=== PATIENT | male | born 2000 | race Caucasian/White ===

== ENCOUNTER 2022-08-05 13:01 | Emergency (ER) | payer MEDICAID ==
[~2022-08-05] VITALS: Ht 172.7 cm; Wt 49.8 kg
[~2022-08-05 13:01] MED LIST: AMPHET/DEXTR; ARIP10TA10 PO; ARIP5TAB12 PO; BUPR-42 PO; BUPR100T6 PO; CLN.1T PO; CLON0.1T14 PO; CLON1TAB PO; DEXT10TA24; DEXT10TA9 PO; FAMO20TA45 PO; GUAN1TAB14 PO; GUAN3TAB PO; GUAN4TAB2 PO; HYDR-3781; LISD40CA3; LISD40CA3 PO; LISD60CA PO; LISD70CA3 PO; MELA1TAB PO; MUPI22OI2; NF-AMPE5T PO; ONDA8TAB6 PO; OXCA150T3 PO; PRAZ1CAP2 PO; RISP4TAB PO; RNT150T PO; SERT-413; SULF-222; TRAZ-144 PO; TRAZ150T42 PO; TRZ50T; TRZ50T PO
[2022-08-05] MEDS ORDERED: AUGMENTIN 875 MG TAB (AMOXICILLIN/CLAVULANATE) PO ONE (13:30)
--- NOTE | 2022-08-05 13:35 | ED Integumentary General ---
General Chief Complaint: Bite-Animal/Human/Insect Stated Complaint: DOG BITE ON LIP Nursing Triage Note: PT AMB TO FT2 WITH MOTHER. PT APPEARS VERY LETHARGIC AND QUIET. PTS MOTHER STATES THAT HE WAS BIT ON THE LOWER LIP BY A PITBULL 2 DAYS AGO AT THE [facility]. Source: patient Exam Limitations: no limitations History of Present Illness Date Seen by Provider: August 05, 2022 Time Seen by Provider: 13:15 Initial Comments 22-year-old male presents to the ER for a dog bite to his left lower lip. He reports it occurred 2 nights ago. The dog belongs to a friend of his, states that the dog is not up-to-date on his rabies vaccination. Left lower lip is swollen with some purulent drainage from wound. Patient appears extremely fatigued, states he feels okay, states he barely slept last night. Denies any drug or alcohol use. Denies fevers, abdominal pain, nausea, diarrhea. Reports 1 episode of vomiting today. Unsure of his last tetanus shot. Allergies and Home Medications Allergies Coded Allergies: Sulfa (Sulfonamide Antibiotics) (Unverified Allergy, Unknown, PT HASN'T HAD, BUT MOM SEVERELY ALLERGIC, 11/01/13) Patient Home Medication List Home Medication List Reviewed: Yes Amoxicillin/Potassium Clav (Amox Tr-K Clv 875-125 mg Tab) 875 Mg-125 Mg Tablet, 1 EACH PO BID Prescribed by: Malinda Aggarwal on 08/05/22 1425 Aripiprazole (Abilify) 10 Mg Tablet, 5 MG PO BID, (Reported) Entered as Reported by: RADHA JARRETT on 12/18/14 0840 Bupropion HCl (Wellbutrin) 100 Mg Tablet, 100 MG PO DAILY, (Reported) Entered as Reported by: TIERRA BERMAN on 07/01/15 1425 Dextroamphetamine/Amphetamine (Adderall 10 mg Tablet) 10 Mg Tablet, 10 MG PO DAILY, (Reported) Entered as Reported by: TIERRA BERMAN on 07/01/15 1425 Dextroamphetamine/Amphetamine (Amphetamine Salts 10 mg Tablet) 10 Mg Tablet, (Reported) Entered as Reported by: SUNITA STEIN on 07/15/15 1126 Famotidine (Pepcid AC) 20 Mg Tablet, 20 MG PO BID, (Reported) Entered as Reported by: TIERRA BERMAN on 07/01/15 1425 Guanfacine HCl (Intuniv) 3 Mg Tab.er.24h, 3 MG PO DAILY, (Reported) Entered as Reported by: TIERRA BERMAN on 07/01/15 142 Hydroxyzine Pamoate (Hydroxyzine Pamoate) 25 Mg Capsule, (Reported) Entered as Reported by: SUNITA STEIN on 12/14/15 1600 Lisdexamfetamine Dimesylate (Vyvanse) 40 Mg Capsule, 40 MG PO DAILY, (Reported) Entered as Reported by: TIERRA BERMAN on 07/01/15 142 Mupirocin (Mupirocin) 22 Gm Oint...g., (Reported) Entered as Reported by: SUNITA STEIN on 12/14/15 1600 Sertraline HCl (Sertraline HCl) 50 Mg Tablet, (Reported) Entered as Reported by: SUNITA STEIN on 12/14/15 1600 Sulfamethoxazole/Trimethoprim (Sulfamethoxazole-Tmp Ds Tablet) 1 Each Tablet, (Reported) Entered as Reported by: SUNITA STEIN on 12/14/15 1600 Tramadol HCl (Tramadol HCl) 50 Mg Tablet, 50 MG PO Q4H PRN for PAIN Prescribed by: Malinda Aggarwal on 08/06/22 1501 Trazodone HCl (Trazodone HCl) 50 Mg Tablet, 25 MG PO HS, (Reported) Entered as Reported by: TIERRA BERMAN on 07/01/15 142 Review of Systems Review of Systems Constitutional: see HPI Past Zffbysy-Lhfzgl-Bxpcph Hx Patient Social History Tobacco Use?: Yes Use of E-Cig and/or Vaping dev: Yes E-Cig or Vaping type used: Nicotine Substance use?: No Alcohol Use?: No Immunizations Up To Date PED Vaccines UTD: Yes Past Medical History Reproductive Disorders: No Loss of Vision: Denies Hearing Impairment: Denies ADD/ADHD, Bipolar Family Medical History Cancer Physical Exam Vital Signs Vital Signs - First Documented 08/05/22 08/05/22 13:12 14:31 Temp 36.4 Pulse 79 Resp 18 B/P (MAP) 94/62 (73) Pulse Ox 100 O2 Delivery Room Air Capillary Refill : General Appearance: no apparent distress, thin Neck: supple, normal inspection Cardiovascular: regular rate, rhythm Respiratory: lungs clear, normal breath sounds, no respiratory distress, no accessory muscle use Extremities: normal range of motion, normal inspection Neurologic/Psychiatric: normal mood/affect, other (Fatigued, but easily arousable) Skin: normal color, warm/dry Skin Problem Location: face (Left lower lip) Skin Problem Character: drainage (Purulent drainage from puncture wound), swelling, other (Erythema, left lower lip is swollen) Progress/Results/Core Measures Results/Orders My Orders Orders - MALINDA AGGARWAL APRN Amoxicillin/Clavulanate Tablet (Augmenti (08/05/22 13:30) Dipht,Pertuss(Acell),Tet Adult (Boostrix (08/05/22 13:30) Medications Given in ED Vital Signs/I&O 08/05/22 08/05/22 13:12 14:31 Temp 36.4 Pulse 79 89 Resp 18 B/P (MAP) 94/62 (73) 122/68 Pulse Ox 100 100 O2 Delivery Room Air Room Air Blood Pressure Mean: 73 Progress Progress Note : Progress Note Patient seen and evaluated, resting in recliner, appears fatigued, easily arousable. First dose of Augmentin ordered as well as tetanus vaccination. Nursing staff called animal control to go to the apartment where the dog is located to possibly quarantine dog. Animal control took dog for quarantine. They will contact patient if he requires rabies vaccination. Patient refused tetanus shot, states he is afraid of needles. Will discharge with antibiotic for Augmentin. Discharge instructions and return precautions provided. Departure Impression Primary Impression: Dog bite Disposition: 01 HOME, SELF-CARE Condition: Stable Departure-Patient Inst. Decision time for Depature: 14:24 Referrals: [facility] (PCP/Family) Primary Care Physician Patient Instructions: Animal Bites (DC) Add. Discharge Instructions: Complete full course of antibiotic as directed even if symptoms improve. The dog has been placed in quarantine, animal control will contact you if you require the rabies vaccination. Return for fevers, increasing swelling, increasing redness, or any other new, concerning, or worsening symptoms. All discharge instructions reviewed with patient and/or family. Voiced understanding. Scripts Amoxicillin/Potassium Clav (Amox Tr-K Clv 875-125 mg Tab) 875 Mg-125 Mg Tablet 1 EACH PO BID for 10 Days, #20 TAB 0 Refills Prov: MALINDA AGGARWAL APRN 08/05/22 MALINDA AGGARWAL APRN August 05, 2022 13:35
[2022-08-05] MEDS: TETANUS,DIPTH,PERTUSS P/F (BOOSTRIX) 0.5 ML VIAL IM ONE ×2 (13:57→14:02)
[2022-08-05] MEDS ORDERED: AMOX1TAB12 PO (14:25)
[2022-08-05 14:31] VITALS: BP 122/68
[2022-08-06] MEDS ORDERED: TRM50T PO (15:00)
== END 2022-08-05 14:31 | disposition home or self-care (01) ==
LOC: EDUNIT# 13:01 → ER 13:04
DX: S01.551A Open bite of lip, initial encounter (principal); F17.290 Nicotine dependence, other tobacco product, uncomplicated; Z88.0 Allergy status to penicillin; Z88.2 Allergy status to sulfonamides; W54.0XXA Bitten by dog, initial encounter
CPT/HCPCS: 90715; 99283

== ENCOUNTER 2022-08-06 14:06 | Emergency (ER) | payer MEDICAID ==
[~2022-08-06] VITALS: Ht 167.7 cm; Wt 49.0 kg
[~2022-08-06 14:06] MED LIST changes: +AMOX1TAB12 PO
--- NOTE | 2022-08-06 14:56 | ED Integumentary General ---
General Chief Complaint: Facial Problems Stated Complaint: SWOLLEN LIP/DOG BITE Nursing Triage Note: PT AMBULATE TO ROOM FT2 WITHOUT DIFFICULTY WITH C/O LEFT LOWER LIP SWELLING AFTER A DOG BIT X3 DAYS AGO. PT SEEN IN THIS ED YESTERDAY FOR SAME C/O AND STARTED ON ABX. PT REFUSED TETANUS SHOT AT THAT TIME. PT REPORTS PAIN AND LIP IS STILL SWOLLEN. PT AND PT'S MOTHER ARE REQUESTING THAT THE WOUND BE DRAINED TO REDUCE SWELLING. Source: patient, family Exam Limitations: no limitations History of Present Illness Date Seen by Provider: August 06, 2022 Time Seen by Provider: 14:28 Initial Comments 22-year-old male presents to the ER with a infected dog bite to left lower lip. Patient was seen yesterday for the same thing, and started on antibiotic. He reports he is back because of the pain and he wants it drained. States he has had a lot of difficulty sleeping due to pain. Denies fevers. He has taken 2 doses of the prescription he was prescribed yesterday. Patient's mother informed this provider that patient was actually given an antibiotic 2 days ago by [facility], she is uncertain how many doses of that he took. Allergies and Home Medications Allergies Coded Allergies: Sulfa (Sulfonamide Antibiotics) (Unverified Allergy, Unknown, PT HASN'T HAD, BUT MOM SEVERELY ALLERGIC, 11/01/13) Patient Home Medication List Home Medication List Reviewed: Yes Amoxicillin/Potassium Clav (Amox Tr-K Clv 875-125 mg Tab) 875 Mg-125 Mg Tablet, 1 EACH PO BID Prescribed by: Malinda Aggarwal on 08/05/22 1425 Aripiprazole (Abilify) 10 Mg Tablet, 5 MG PO BID, (Reported) Entered as Reported by: RADHA JARRETT on 12/18/14 0840 Bupropion HCl (Wellbutrin) 100 Mg Tablet, 100 MG PO DAILY, (Reported) Entered as Reported by: TIERRA BERMAN on 07/01/15 1425 Dextroamphetamine/Amphetamine (Adderall 10 mg Tablet) 10 Mg Tablet, 10 MG PO DAILY, (Reported) Entered as Reported by: TIERRA BERMAN on 07/01/15 1425 Dextroamphetamine/Amphetamine (Amphetamine Salts 10 mg Tablet) 10 Mg Tablet, (Reported) Entered as Reported by: SUNITA STEIN on 07/15/15 1126 Famotidine (Pepcid AC) 20 Mg Tablet, 20 MG PO BID, (Reported) Entered as Reported by: TIERRA BERMAN on 07/01/15 142 Guanfacine HCl (Intuniv) 3 Mg Tab.er.24h, 3 MG PO DAILY, (Reported) Entered as Reported by: TIERRA BERMAN on 07/01/15 142 Hydroxyzine Pamoate (Hydroxyzine Pamoate) 25 Mg Capsule, (Reported) Entered as Reported by: SUNITA STEIN on 12/14/15 1600 Lisdexamfetamine Dimesylate (Vyvanse) 40 Mg Capsule, 40 MG PO DAILY, (Reported) Entered as Reported by: TIERRA BERMAN on 07/01/15 142 Mupirocin (Mupirocin) 22 Gm Oint...g., (Reported) Entered as Reported by: SUNITA STEIN on 12/14/15 1600 Sertraline HCl (Sertraline HCl) 50 Mg Tablet, (Reported) Entered as Reported by: SUNITA STEIN on 12/14/15 1600 Sulfamethoxazole/Trimethoprim (Sulfamethoxazole-Tmp Ds Tablet) 1 Each Tablet, (Reported) Entered as Reported by: SUNITA STEIN on 12/14/15 1600 Trazodone HCl (Trazodone HCl) 50 Mg Tablet, 25 MG PO HS, (Reported) Entered as Reported by: TIERRA BERMAN on 07/01/15 142 Review of Systems Review of Systems Constitutional: see HPI Past Qxgmvow-Nivnqx-Qivknx Hx Patient Social History Tobacco Use?: No Smoking Status: Never a Smoker Smokeless Tobacco Frequency: Never a User Use of E-Cig and/or Vaping dev: No Use of E-Cig and/or Vaping Manolo: Never a User Substance use?: No Alcohol Use?: No Pt feels they are or have been: No Immunizations Up To Date PED Vaccines UTD: Yes Past Medical History Reproductive Disorders: No Loss of Vision: Denies Hearing Impairment: Denies ADD/ADHD, Bipolar Family Medical History Cancer Physical Exam Vital Signs Vital Signs - First Documented 08/06/22 14:14 Temp 36.7 Pulse 112 Resp 18 B/P (MAP) 128/65 (86) O2 Delivery Room Air Capillary Refill : Less Than 3 Seconds General Appearance: no apparent distress Neck: supple, normal inspection Cardiovascular: regular rate, rhythm Respiratory: lungs clear, normal breath sounds, no respiratory distress, no accessory muscle use Extremities: normal range of motion, normal inspection Neurologic/Psychiatric: alert, normal mood/affect Skin: normal color, warm/dry Skin Problem Location: face (Left lower lip and chin) Skin Problem Character: swelling (Small puncture wounds, small amount of purulent drainage from puncture wounds, large area of erythema and induration, no area of fluctuation) Progress/Results/Core Measures Results/Orders My Orders Orders - MALINDA AGGARWAL APRN Tramadol Tablet (Ultram Tablet) (08/06/22 15:00) Vital Signs/I&O 08/06/22 14:14 Temp 36.7 Pulse 112 Resp 18 B/P (MAP) 128/65 (86) O2 Delivery Room Air Blood Pressure Mean: 86 Progress Progress Note : Progress Note Patient seen and evaluated, resting comfortably in recliner, appears sleepy, no acute distress. We will give 1 dose of tramadol here and discharged with a corby rt prescription for tramadol. Discharge instructions and return precautions provided. Departure Impression Primary Impression: Dog bite Qualified Codes: W54.0XXD - Bitten by dog, subsequent encounter Disposition: 01 HOME, SELF-CARE Condition: Stable Departure-Patient Inst. Decision time for Depature: 14:55 Referrals: [facility] [place]) Primary Care Physician Patient Instructions: Cellulitis (Skin Infection), Child (DC) Add. Discharge Instructions: Continue taking your antibiotic as prescribed. Take tramadol as needed for pain. Return for fever, or any other new, concerning, or worsening symptoms. All discharge instructions reviewed with patient and/or family. Voiced understanding. Scripts Tramadol HCl (Tramadol HCl) 50 Mg Tablet 50 MG PO Q4H PRN for PAIN, #10 TAB 0 Refills Prov: MALINDA AGGARWAL APRN 08/06/22 MALINDA AGGARWAL APRN August 06, 2022 14:56
[2022-08-06] MEDS ORDERED: TRM50T PO (15:00)
[2022-08-06 15:04] VITALS: BP 126/84
== END 2022-08-06 15:04 | disposition home or self-care (01) ==
LOC: EDUNIT# 14:06 → ER 14:08
DX: S01.5 Open wound of lip and oral cavity (principal); Z28.310 Unvaccinated for COVID-19; W54.0XXD Bitten by dog, subsequent encounter
CPT/HCPCS: 99283

== ENCOUNTER 2022-08-12 09:09 | Emergency (ER) | payer MEDICAID ==
[~2022-08-12 09:09] MED LIST changes: +TRM50T PO
[2022-08-12] MEDS ORDERED: D5W IV STA (09:21)
[2022-08-12] MEDS ORDERED: GENTAMICIN IV STA (09:21)
[2022-08-12] MEDS ORDERED: VANCOMYCIN INJECTION 1,000 MG in NS (IVPB) 250 ML IV ONE (09:30)
[2022-08-12] MEDS ORDERED: ACETAMINOPHEN 500 MG TAB (TYLENOL) PO PRN (09:30)
[2022-08-12] MEDS ORDERED: AMPICILLIN/SULBACTAM INJECTION 1.5 GM in NS (IVPB) 100 ML IV ONE (09:30)
[2022-08-12 09:39] LABS: ALBUMIN 3.6 GM/DL (3.2-4.5); BASOPHILS # (AUTO) 0.2 10^3/uL (0.0-0.1); BASOPHILS % (AUTO) 1 % (0-10); EOSINOPHILS % (AUTO) 0 % (0-10); HEMATOCRIT 40 % (40-54); HEMOGLOBIN 14.7 g/dL (13.3-17.7); LYMPHOCYTES # (AUTO) 0.9 10^3/uL (1.0-4.0); LYMPHOCYTES % (AUTO) 3 % (12-44); MEAN CORPUSCULAR HEMOGLOBIN 30 pg (25-34); MEAN CORPUSCULAR HGB CONC 37 g/dL (32-36); MEAN CORPUSCULAR VOLUME 80 fL (80-99); MEAN PLATELET VOLUME 11.1 fL (9.0-12.2); MONOCYTES # (AUTO) 2.4 10^3/uL (0.0-1.0); MONOCYTES % (AUTO) 7 % (0-12); NEUTROPHILS # (AUTO) 32.9 10^3/uL (1.8-7.8); NEUTROPHILS % (AUTO) 89 % (42-75); PLATELET COUNT 159 10^3/uL (130-400); POTASSIUM 4.8 MMOL/L (3.6-5.0)
[2022-08-12] MEDS: NS IV 1000 ML 1,000 ML IV SCH ×2 (09:39→10:37)
[2022-08-12 09:40] LABS: CALCIUM 9.4 MG/DL (8.5-10.1)
[2022-08-12 09:41] LABS: TOTAL PROTEIN 6.7 GM/DL (6.4-8.2)
[2022-08-12 09:43] LABS: BILIRUBIN,TOTAL 0.8 MG/DL (0.1-1.0)
[2022-08-12 09:45] LABS: CREATININE SERUM 1.02 MG/DL (0.60-1.30)
[2022-08-12 09:46] LABS: INR 1.3 (0.8-1.4); PROTHROMBIN TIME PATIENT 16.4 SEC (12.2-14.7)
--- NOTE | 2022-08-12 09:54 | Diagnostic Imaging Report ---
INDICATION: Chest pain. COMPARISON: No prior examinations are available for comparison. FINDINGS: The heart size, mediastinal configuration, and pulmonary vascularity are within normal limits. There is no pleural effusion, pneumothorax, or pneumonia. The osseous structures are unremarkable. IMPRESSION: No acute cardiopulmonary abnormality. Dictated by: Dictated on workstation # [id number]
--- NOTE | 2022-08-12 10:00 | ED General ---
General Chief Complaint: General Problems/Pain Stated Complaint: RT FOOT PAIN Nursing Triage Note: PT TO ER BY [facility] WITH C/O R FOOT PAIN, SPOTS ON BOTTOM OF BILAT FEET, GENERAL ACHES AND PAINS ALL OVER BODY, RASH ON BILAT HANDS, FEET AND R SIDE OF FACE Source of Information: Patient, EMS, Family Exam Limitations: No Limitations History of Present Illness Date Seen by Provider: Aug 12, 2022 Time Seen by Provider: 09:11 Initial Comments 22-year-old male with past medical history of ADHD and bipolar disorder coming in via EMS due to foot pain. He states his feet have hurt for a couple days. Per his mother, he has been febrile for couple days as well. He has not been around anyone sick that he knows of. He denies any history of IV drug use, and states he is afraid of needles. He denies any unprotected intercourse. He denies any chest pain, shortness of breath, abdominal pain, nausea, vomiting, diarrhea. Does have body aches and general joint pain. Denies any headache or neck stiffness. Of note, he was bitten by a dog on his face about a week or so ago. He has been on amoxicillin he states. Allergies and Home Medications Allergies Coded Allergies: Sulfa (Sulfonamide Antibiotics) (Unverified Allergy, Unknown, PT HASN'T HAD, BUT MOM SEVERELY ALLERGIC, 11/01/13) Patient Home Medication List Home Medication List Reviewed: Yes Amoxicillin/Potassium Clav (Amox Tr-K Clv 875-125 mg Tab) 875 Mg-125 Mg Tablet, 1 EACH PO BID Prescribed by: Malinda Villanueva on 08/05/22 1425 Aripiprazole (Abilify) 10 Mg Tablet, 5 MG PO BID, (Reported) Entered as Reported by: RADHA JARRETT on 12/18/14 0840 Bupropion HCl (Wellbutrin) 100 Mg Tablet, 100 MG PO DAILY, (Reported) Entered as Reported by: TIERRA BERMAN on 07/01/15 1425 Dextroamphetamine/Amphetamine (Adderall 10 mg Tablet) 10 Mg Tablet, 10 MG PO DAILY, (Reported) Entered as Reported by: TIERRA BERMAN on 07/01/15 1425 Dextroamphetamine/Amphetamine (Amphetamine Salts 10 mg Tablet) 10 Mg Tablet, (Reported) Entered as Reported by: SUNITA STEIN on 07/15/15 1126 Famotidine (Pepcid AC) 20 Mg Tablet, 20 MG PO BID, (Reported) Entered as Reported by: TIERRA BERMAN on 07/01/15 142 Guanfacine HCl (Intuniv) 3 Mg Tab.er.24h, 3 MG PO DAILY, (Reported) Entered as Reported by: TIERRA BERMAN on 07/01/15 142 Hydroxyzine Pamoate (Hydroxyzine Pamoate) 25 Mg Capsule, (Reported) Entered as Reported by: SUNITA STEIN on 12/14/15 1600 Lisdexamfetamine Dimesylate (Vyvanse) 40 Mg Capsule, 40 MG PO DAILY, (Reported) Entered as Reported by: TIERRA BERMAN on 07/01/15 142 Mupirocin (Mupirocin) 22 Gm Oint...g., (Reported) Entered as Reported by: SUNITA STEIN on 12/14/15 1600 Sertraline HCl (Sertraline HCl) 50 Mg Tablet, (Reported) Entered as Reported by: SUNITA STEIN on 12/14/15 1600 Sulfamethoxazole/Trimethoprim (Sulfamethoxazole-Tmp Ds Tablet) 1 Each Tablet, (Reported) Entered as Reported by: SUNITA STEIN on 12/14/15 1600 Tramadol HCl (Tramadol HCl) 50 Mg Tablet, 50 MG PO Q4H PRN for PAIN Prescribed by: Malinda Villanueva on 08/06/22 1501 Trazodone HCl (Trazodone HCl) 50 Mg Tablet, 25 MG PO HS, (Reported) Entered as Reported by: TIERRA BERMAN on 07/01/15 1425 Review of Systems Review of Systems Constitutional: chills, fever, malaise EENTM: no symptoms reported Respiratory: no symptoms reported Cardiovascular: no symptoms reported Gastrointestinal: no symptoms reported Genitourinary: no symptoms reported Musculoskeletal: see HPI Skin: rash Psychiatric/Neurological: No Symptoms Reported Hematologic/Lymphatic: No Symptoms Reported Immunological/Allergic: no symptoms reported Past Xrhefnz-Xwfuxs-Kagycp Hx Patient Social History Tobacco Use?: No Use of E-Cig and/or Vaping dev: No Substance use?: No Alcohol Use?: No Pt feels they are or have been: No Immunizations Up To Date PED Vaccines UTD: Yes Past Medical History Surgery/Hospitalization HX: BIPOLAR, ADHD DENTAL SURGERIES Reproductive Disorders: No Loss of Vision: Denies Hearing Impairment: Denies ADD/ADHD, Bipolar Family Medical History Cancer Physical Exam Vital Signs Vital Signs - First Documented 08/12/22 09:12 Temp 37.3 Pulse 110 Resp 20 B/P (MAP) 130/71 (90) Pulse Ox 100 O2 Delivery Room Air Capillary Refill : Height, Weight, BMI Height: 5'3.00" Weight: 90lbs. 0.0oz. 40.185489xm; 17.00 BMI Method:Stated General Appearance: Anxious, Mild Distress, Thin Eyes: Bilateral Eye Normal Inspection HEENT: PERRL/EOMI, Other (Dry tongue) Neck: Full Range of Motion, Normal Inspection, Non Tender, Supple Respiratory: Chest Non Tender, Lungs Clear, Normal Breath Sounds, No Accessory Muscle Use, No Respiratory Distress Cardiovascular: No Edema, Normal Peripheral Pulses, Tachycardia Gastrointestinal: Normal Bowel Sounds, Non Tender, Soft; No Distended, No Guarding Back: Normal Inspection, No CVA Tenderness, No Vertebral Tenderness Extremity: Normal Capillary Refill, Normal Range of Motion, No Calf Tenderness, No Pedal Edema Neurologic/Psychiatric: Alert, Oriented x3, No Motor/Sensory Deficits Skin: Warm/Dry, Rash (Purple macular lesions on his hands and feet that are tender to palpation) Focused Exam Lactate Level 08/12/22 09:20: Lactic Acid Level 4.57*H 08/12/22 12:00: Lactic Acid Level 3.23*H Lactic Acid Level Laboratory Tests Test 08/12/22 09:20 08/12/22 12:00 Lactic Acid Level 4.57 MMOL/L (0.50-2.00) *H 3.23 MMOL/L (0.50-2.00) *H Progress/Results/Core Measures Suspected Sepsis SIRS Temperature: Pulse: 110 Respiratory Rate: 20 Laboratory Tests 08/12/22 09:20: White Blood Count 37.0*H Blood Pressure 130 /71 Mean: 90 08/12/22 09:20: Lactic Acid Level 4.57*H 08/12/22 12:00: Lactic Acid Level 3.23*H Laboratory Tests 08/12/22 09:20: Creatinine 1.02, INR Comment 1.3, Platelet Count 159, Total Bilirubin 0.8 Results/Orders Lab Results Laboratory Tests Test 08/12/22 09:20 08/12/22 09:33 08/12/22 11:20 08/12/22 12:00 Range/Units White Blood Count 37.0 *H 4.3-11.0 10^3/uL Red Blood Count 4.94 4.30-5.52 10^6/uL Hemoglobin 14.7 13.3-17.7 g/dL Hematocrit 40 40-54 % Mean Corpuscular Volume 80 80-99 fL Mean Corpuscular Hemoglobin 30 25-34 pg Mean Corpuscular Hemoglobin Concent 37 H 32-36 g/dL Red Cell Distribution Width 11.9 10.0-14.5 % Platelet Count 159 130-400 10^3/uL Mean Platelet Volume 11.1 9.0-12.2 fL Immature Granulocyte % (Auto) 2 % Neutrophils (%) (Auto) 89 H 42-75 % Lymphocytes (%) (Auto) 3 L 12-44 % Monocytes (%) (Auto) 7 0-12 % Eosinophils (%) (Auto) 0 0-10 % Basophils (%) (Auto) 1 0-10 % Neutrophils # (Auto) 32.9 H 1.8-7.8 10^3/uL Lymphocytes # (Auto) 0.9 L 1.0-4.0 10^3/uL Monocytes # (Auto) 2.4 H 0.0-1.0 10^3/uL Eosinophils # (Auto) 0.0 0.0-0.3 10^3/uL Basophils # (Auto) 0.2 H 0.0-0.1 10^3/uL Immature Granulocyte # (Auto) 0.6 H 0.0-0.1 10^3/uL Neutrophils % (Manual) 85 % Lymphocytes % (Manual) 3 % Monocytes % (Manual) 5 % Band Neutrophils 7 % Blood Morphology Comment NORMAL Erythrocyte Sedimentation Rate 11 0-15 MM/HR Prothrombin Time 16.4 H 12.2-14.7 SEC INR Comment 1.3 0.8-1.4 Activated Partial Thromboplast Time 30 24-35 SEC Sodium Level 126 L 135-145 MMOL/L Potassium Level 4.8 3.6-5.0 MMOL/L Chloride Level 88 L 98-107 MMOL/L Carbon Dioxide Level 25 21-32 MMOL/L Anion Gap 13 5-14 MMOL/L Blood Urea Nitrogen 20 H 7-18 MG/DL Creatinine 1.02 0.60-1.30 MG/DL Estimat Glomerular Filtration Rate 107 BUN/Creatinine Ratio 20 Glucose Level 174 H 70-105 MG/DL Lactic Acid Level 4.57 *H 3.23 *H 0.50-2.00 MMOL/L Calcium Level 9.4 8.5-10.1 MG/DL Corrected Calcium 9.7 8.5-10.1 MG/DL Total Bilirubin 0.8 0.1-1.0 MG/DL Aspartate Amino Transf (AST/SGOT) 46 H 5-34 U/L Alanine Aminotransferase (ALT/SGPT) 33 0-55 U/L Alkaline Phosphatase 110 40-136 U/L Troponin I 0.287 H <0.028 NG/ML C-Reactive Protein High Sensitivity 26.25 H 0.00-0.50 MG/DL B-Type Natriuretic Peptide 283.4 H <100.0 PG/ML Total Protein 6.7 6.4-8.2 GM/DL Albumin 3.6 3.2-4.5 GM/DL Influenza Type A (RT-PCR) Not Detected Not Detecte Influenza Type B (RT-PCR) Not Detected Not Detecte SARS-CoV-2 RNA (RT-PCR) Not Detected Not Detecte Urine Color YELLOW Urine Clarity SL CLOUDY Urine pH 6.0 5-9 Urine Specific [place] >=1.030 1.016-1.022 Urine Protein 2+ H NEGATIVE Urine Glucose (UA) 1+ H NEGATIVE Urine Ketones NEGATIVE NEGATIVE Urine Nitrite NEGATIVE NEGATIVE Urine Bilirubin NEGATIVE NEGATIVE Urine Urobilinogen 1.0 < = 1.0 MG/DL Urine Leukocyte Esterase NEGATIVE NEGATIVE Urine RBC (Auto) 3+ H NEGATIVE Urine RBC 10-25 H /HPF Urine WBC 2-5 /HPF Urine Squamous Epithelial Cells NONE /HPF Urine Crystals PRESENT H /LPF Urine Amorphous Sediment MOD MARIUSZ URATES H /LPF Urine Bacteria FEW H /HPF Urine Casts NONE /LPF Urine Mucus SMALL H /LPF Urine Culture Indicated CULTURE PENDING Urine Opiates Screen NEGATIVE NEGATIVE Urine Oxycodone Screen NEGATIVE NEGATIVE Urine Methadone Screen NEGATIVE NEGATIVE Urine Propoxyphene Screen NEGATIVE NEGATIVE Urine Barbiturates Screen NEGATIVE NEGATIVE Ur Tricyclic Antidepressants Screen NEGATIVE NEGATIVE Urine Phencyclidine Screen NEGATIVE NEGATIVE Urine Amphetamines Screen NEGATIVE NEGATIVE Urine Methamphetamines Screen NEGATIVE NEGATIVE Urine Benzodiazepines Screen NEGATIVE NEGATIVE Urine Cocaine Screen NEGATIVE NEGATIVE Urine Cannabinoids Screen NEGATIVE NEGATIVE My Orders Orders - YSABEL SALGADO MD Cbc With Automated Diff (08/12/22 09:21) Comprehensive Metabolic Panel (08/12/22 09:21) Blood Culture (08/12/22 09:21) Sputum Culture (08/12/22 09:21) Urinalysis (08/12/22 09:21) Urine Culture (08/12/22 09:21) Protime With Inr (08/12/22 09:21) Partial Thromboplastin Time (08/12/22 09:21) Chest 1 View, Ap/Pa Only (08/12/22 09:21) Acetaminophen Tablet (Tylenol Tablet) (08/12/22 09:30) Ed Iv/Invasive Line Start (08/12/22 09:21) Ed Iv/Invasive Line Start (08/12/22 09:21) Ekg Tracing (08/12/22 09:21) Troponin I Nic (08/12/22 09:21) Vital Signs Adult Sepsis Patie Q15M (08/12/22 09:21) O2 (08/12/22 09:21) Remove Rings In Anticipation O (08/12/22 09:21) Lactic Acid Analyzer (08/12/22 09:21) Influenza A And B By Pcr (08/12/22 09:21) Ns Iv 1000 Ml (Sodium Chloride 0.9%) (08/12/22 09:30) Vancomycin Injection (Vancomycin Injecti (08/12/22 09:30) Covid 19 Inhouse Test (08/12/22 09:21) Ampicillin/Sulbactam Injection (Unasyn 1 (08/12/22 09:30) Gentamicin (Adult) Injection (Garamycin (08/12/22 09:21) Bnp [place] (08/12/22 09:21) Hs C Reactive Protein (08/12/22 09:21) Erythrocyte Sedimentation Rate (08/12/22 09:21) Manual Differential (08/12/22 09:20) Ct Head Wo (08/12/22 10:05) Drug Screen Stat (Urine) (08/12/22 10:10) Aspirin Tablet (Aspirin Tablet) (08/12/22 10:30) Ns Iv 1000 Ml (Sodium Chloride 0.9%) (08/12/22 10:28) Medications Given in ED Current Medications Medications Dose Ordered Sig/Ana Route Start Time Stop Time Status Last Admin Dose Admin Acetaminophen 1,000 mg ONCE PRN PO 08/12/22 09:30 08/12/22 09:39 DC 08/12/22 09:39 1,000 MG Ampicillin Sodium/ Sulbactam Sodium 1.5 gm/Sodium Chloride 100 ml @ 200 mls/hr ONCE ONCE IV 08/12/22 09:30 08/12/22 09:59 DC 08/12/22 10:04 200 MLS/HR Aspirin 325 mg ONCE ONCE PO 08/12/22 10:30 08/12/22 10:31 DC 08/12/22 10:37 325 MG Vancomycin HCl 1000 mg/Sodium Chloride 250 ml @ 250 mls/hr ONCE ONCE IV 08/12/22 09:30 08/12/22 10:29 DC 08/12/22 10:37 250 MLS/HR Vital Signs/I&O 08/12/22 08/12/22 09:12 11:40 Temp 37.3 37.3 Pulse 110 100 Resp 20 15 B/P (MAP) 130/71 (90) 102/90 Pulse Ox 100 100 O2 Delivery Room Air Room Air Capillary Refill : Blood Pressure Mean: 90 Progress Note : Progress Note 22-year-old male with above history coming in due to initially foot pain. The patient was tachycardic on presentation and afebrile although subjectively felt warm. His mother states his temperature was up to 105 for the past couple of days. Physical exam for me concerning for likely [place] nodes on his hands and feet which are painful and highly concern for endocarditis given that. An IV was placed and 3 blood cultures were obtained, he was given vancomycin, gentamicin, and Unasyn. He is adamant that he does not use IV drugs. He is very thin, but has been [place] his entire life. Denies any risky behavior for HIV including unprotected intercourse. He does have poor dentition and was recently bitten by dog. He has been on Augmentin for this appropriately. Per his mother, the symptoms started almost 48 hours after being bitten by the dog in his face. He does not have any obvious abscess or infection on his face itself. I do not hear any new murmur. Labs were significant for a leukocytosis up to 37,000, elevated CRP, elevated lactic acid, positive troponin, normal creatinine. CT head with questionable area of changes in his cerebellum. They recommended MRI if continued concern. Endocarditis versus myocarditis at the top of the differential. I contacted our hospitalist, they will not be able to accept the patient given we do not have cardiac surgery or infectious disease available. I contacted [facility] given they have cardiac surgery and infectious disease on-call. I discussed the case with the cardiac surgeon as well as the hospitalist there. Dr. Marin accepted the patient for transfer. We will defer if they want to do an MRI of his brain on their evaluation. ECG Initial ECG Impression Date: Aug 12, 2022 Initial ECG Impression Time: 09:29 Initial ECG Rate: 102 Initial ECG Rhythm: S.Tach Comment Narrow QRS, normal axis, no significant ST changes or T wave abnormality Diagnostic Imaging Diagonstic Imaging: Xray (chest), CT (head) Comments NAME: [facility] REC#: [id number] PT STATUS: REG ER : 2000 PHYSICIAN: YSABEL SALGADO MD ADMIT DATE: 08/12/22/ER Draft Date of Exam:08/12/22 CHEST 1 VIEW, AP/PA ONLY INDICATION: Chest pain. COMPARISON: No prior examinations are available for comparison. FINDINGS: The heart size, mediastinal configuration, and pulmonary vascularity are within normal limits. There is no pleural effusion, pneumothorax, or pneumonia. The osseous structures are unremarkable. IMPRESSION: No acute cardiopulmonary abnormality. Dictated on workstation # [id number] Dict: 08/12/22 0944 Trans: 08/12/22 0953 [id number] Interpreted by: JACQUELYN ENGLE MD Electronically signed by: NAME: [facility] REC#: [id number] PT STATUS: REG ER : 2000 PHYSICIAN: YSABEL SALGADO MD ADMIT DATE: 08/12/22/ER Draft Date of Exam:08/12/22 CT HEAD WO Clinical indication: Patient altered mental status. Concern for endocarditis of possible septic emboli. Exam: Axial CT scan of the brain without IV contrast with coronal and sagittal reformatted images. Auto Exposure Controls were utilized during the CT exam to meet ALARA standards for radiation dose reduction. Comparison: None Findings: There is skull streak artifact obscuring portions of the brainstem, posterior fossa, and portions of the brain and skull base. There is an ill-defined area of low-density involving the right cerebellar hemisphere which is seen on all 3 planes. This area measures grossly 1.5 cm. Unknown if this represents a true parenchymal lesion versus artifact. Otherwise, there is no evidence of acute cerebral infarct, intracranial hemorrhage, or gross mass effect. The brain parenchymal volume appears appropriate for patient's age. There is normal valle-white matter distinction. There is no significant midline shift or herniation. There is no evidence of hydrocephalus. The basal cisterns are unremarkable. The skull, extracranial soft tissue, and orbits are unremarkable. There is minimal mucosal thickening involving both maxillary sinuses and ethmoid sinus. Temporal bones show no significant abnormality. Impression: 1: There is a questionable area of low-density involving right cerebellar hemisphere. Unknown if this represents artifact or a true parenchymal abnormality. MRI of the brain with and without contrast is suggested for further evaluation. 2: Otherwise, unremarkable CT scan of the brain. 3: Mild paranasal sinus disease. Dictated on workstation # [id number] Dict: 08/12/22 1020 Trans: 08/12/22 1028 [id number] Interpreted by: GERALDINE MYERS MD Electronically signed by: Departure Impression Primary Impression: NSTEMI (non-ST elevated myocardial infarction) Additional Impressions: Leukocytosis Qualified Codes: D72.823 - Leukemoid reaction Hyponatremia Suspected endocarditis Disposition: S[facility]-TRM HOSP Condition: Stable Admissions Decision to Admit/Date: Aug 12, 2022 Transfer Transfer Reason: Exceeds level of care (needs ID and CT surgery potentially) Transfer Facility: [facility] Method of Transfer: EMS Departure-Patient Inst. Referrals: [facility] (PCP/Family) Primary Care Physician YSABEL SALGADO MD Aug 12, 2022 10:00
[2022-08-12 10:01] LABS: BAND NEUTROPHILS 7 %; ERYTHROCYTE SEDIMENTATION RATE 11 MM/HR (0-15); LYMPHOCYTES % (MANUAL) 3 %; MONOCYTES % (MANUAL) 5 %; NEUTROPHILS % (MANUAL) 85 %; RBC MORPH NORMAL
[2022-08-12] MEDS ORDERED: NS IV 1000 ML 1,000 ML IV STA (10:28)
--- NOTE | 2022-08-12 10:29 | Diagnostic Imaging Report ---
Clinical indication: Patient altered mental status. Concern for endocarditis of possible septic emboli. Exam: Axial CT scan of the brain without IV contrast with coronal and sagittal reformatted images. Auto Exposure Controls were utilized during the CT exam to meet ALARA standards for radiation dose reduction. Comparison: None Findings: There is skull streak artifact obscuring portions of the brainstem, posterior fossa, and portions of the brain and skull base. There is an ill-defined area of low-density involving the right cerebellar hemisphere which is seen on all 3 planes. This area measures grossly 1.5 cm. Unknown if this represents a true parenchymal lesion versus artifact. Otherwise, there is no evidence of acute cerebral infarct, intracranial hemorrhage, or gross mass effect. The brain parenchymal volume appears appropriate for patient's age. There is normal valle-white matter distinction. There is no significant midline shift or herniation. There is no evidence of hydrocephalus. The basal cisterns are unremarkable. The skull, extracranial soft tissue, and orbits are unremarkable. There is minimal mucosal thickening involving both maxillary sinuses and ethmoid sinus. Temporal bones show no significant abnormality. Impression: 1: There is a questionable area of low-density involving right cerebellar hemisphere. Unknown if this represents artifact or a true parenchymal abnormality. MRI of the brain with and without contrast is suggested for further evaluation. 2: Otherwise, unremarkable CT scan of the brain. 3: Mild paranasal sinus disease. Dictated by: Dictated on workstation # [id number]
[2022-08-12] MEDS ORDERED: ASPIRIN 325 MG (5 GR) TABLET PO ONE (10:30)
[2022-08-12 11:27] LABS: BILIRUBIN,URINE NEGATIVE (NEGATIVE); CLARITY,URINE SL CLOUDY; COLOR,URINE YELLOW; GLUCOSE, URINE (UA) 1+ (NEGATIVE); KETONES,URINE NEGATIVE (NEGATIVE); LEUKOCYTE ESTERASE ,URINE NEGATIVE (NEGATIVE); NITRITE,URINE NEGATIVE (NEGATIVE); PROTEIN,URINE 2+ (NEGATIVE)
[2022-08-12 11:35] LABS: AMORPHOUS SEDIMENT,UR MOD AMOR URATES /LPF; BACTERIA,URINE FEW /HPF
[2022-08-12 11:39] LABS: AMPHETAMINE SCREEN, URINE NEGATIVE (NEGATIVE); BARBITURATE SCREEN URINE NEGATIVE (NEGATIVE); BENZODIAZEPINES SCREEN URINE NEGATIVE (NEGATIVE); CANNABINOID SCREEN, URINE NEGATIVE (NEGATIVE); COCAINE SCREEN URINE NEGATIVE (NEGATIVE); METHADONE STAT NEGATIVE (NEGATIVE); OPIATE SCREEN URINE NEGATIVE (NEGATIVE); OXYCODONE STAT NEGATIVE (NEGATIVE); PROPOXYPHENE STAT NEGATIVE (NEGATIVE); TRICYCLIC ANTIDEPRESSANTS SCRE NEGATIVE (NEGATIVE)
[2022-08-12 11:40] VITALS: BP 102/90
== END 2022-08-12 12:10 ==
LOC: EDUNIT# 09:09 → ER 09:10
DX: I21.4 Non-ST elevation (NSTEMI) myocardial infarction (principal); D72.829 Elevated white blood cell count, unspecified; E87.1 Hypo-osmolality and hyponatremia; K00.7 Teething syndrome; R79.82 Elevated C-reactive protein (CRP); R74.02 Elevation of levels of lactic acid dehydrogenase [LDH]; Z88.2 Allergy status to sulfonamides; Z20.822 Contact with and (suspected) exposure to COVID-19
CPT/HCPCS: 36415; 70450; 71045; 80053; 80306; 81000; 83605; 83880; 84484; 85007; 85027; 85610; 85652; 85730; 86141; 87040; 87077; 87088; 87186; 87636

== ENCOUNTER 2022-08-31 09:30 | Inpatient (IN) | payer MEDICAID ==
[~2022-08-31] VITALS: Ht 165.1 cm; Wt 49.3 kg
[2022-08-31] MEDS ORDERED: ATOR20TA66 PO (11:08)
[2022-08-31] MEDS ORDERED: TRAM50TA3 PO (11:08)
[2022-08-31] MEDS ORDERED: ACET-2267 PO (11:08)
[2022-08-31] MEDS ORDERED: VANC1VIA39 IV (11:08)
[2022-08-31] MEDS ORDERED: OLAN10TA17 SL (11:08)
[2022-08-31] MEDS ORDERED: HYDR50CA3 PO (11:08)
[2022-08-31 13:00] VITALS: BP 92/50
--- NOTE | 2022-08-31 13:24 | PM&R Post Admission Assessment ---
PM&R Date of Visit: Aug 31, 2022 Time of Visit: 13:30 History of Present Illness Chief complaint: Embolic stroke in need of intensive rehab HPI: This is a 22-year-old male who presents from [place] following a lengthy 20-day stay beginning on 09-02 following a dog bite to face. His case became more more complicated when he suffered from bilateral septic emboli and microhemorrhages on MRI of the brain. He had suspicion of bacterial endocarditis but LEONA showed no vegetations. He has small punctate intracranial hemorrhages in the left parietal lobe. He has a history of ADHD and bipolar. Infectious disease did consult and patient remains on vancomycin. Vitamin supplementation is initiated. Prior level of functioning was independent with no use of assistive devices and working but current level of functioning is gait at 50 feet and needs max assist for dressing and toileting. Past Dzklqkc-Goyaoq-Ggueiw Hx Past Med/Social Hx: Reviewed Nursing Past Med/Soc Hx, Reviewed and Corrections made Patient Social History Marrital Status: single Employed/Student: employed Alcohol Use: Denies Use Smoking Status: Never a Smoker Recent Hopitalizations: No Immunizations Up To Date Pediatric: Yes Date of Influenza Vaccine: Dec 12, 2011 Past Medical History Reproductive: No Loss of Vision: Denies Hearing Impairment: Denies Psychosocial: ADD/ADHD, Bipolar Family History Cancer PM&R Allergy/Meds/Data Review Allergies Coded Allergies: Sulfa (Sulfonamide Antibiotics) (Unverified Allergy, Unknown, PT HASN'T HAD, BUT MOM SEVERELY ALLERGIC, 11/01/13) Home Medications Scheduled Atorvastatin Calcium (Atorvastatin Calcium), 20 MG PO HS, (Reported) Hydroxyzine Pamoate (Hydroxyzine Pamoate), 50 MG PO BID, (Reported) Lisdexamfetamine Dimesylate (Vyvanse), 40 MG PO DAILY, (Reported) Olanzapine (Olanzapine Odt), 10 MG SL DAILY, (Reported) Vancomycin HCl (Vancomycin HCl), 1 GM IV Q8H, (Reported) Scheduled PRN Acetaminophen (Tylenol Extra Strength), 500 MG PO Q4H PRN for PAIN-MILD (1-4), (Reported) Tramadol HCl (Tramadol HCl), 50 MG PO Q4H PRN for PAIN-MODERATE (5-7), (Reported) Discontinued Medications Amoxicillin/Potassium Clav (Amox Tr-K Clv 875-125 mg Tab), 1 EACH PO BID Discontinued Reason: Duplicate Order Aripiprazole (Abilify), 5 MG PO BID, (Reported) Discontinued Reason: Duplicate Order Bupropion HCl (Wellbutrin), 100 MG PO DAILY, (Reported) Discontinued Reason: Duplicate Order Dextroamphetamine/Amphetamine (Adderall 10 mg Tablet), 10 MG PO DAILY, (Reported) Discontinued Reason: Duplicate Order Dextroamphetamine/Amphetamine (Amphetamine Salts 10 mg Tablet), (Reported) Discontinued Reason: Duplicate Order Famotidine (Pepcid AC), 20 MG PO BID, (Reported) Discontinued Reason: Duplicate Order Guanfacine HCl (Intuniv), 3 MG PO DAILY, (Reported) Discontinued Reason: Duplicate Order Hydroxyzine Pamoate (Hydroxyzine Pamoate), (Reported) Discontinued Reason: Duplicate Order Mupirocin (Mupirocin), (Reported) Discontinued Reason: Duplicate Order Sertraline HCl (Sertraline HCl), (Reported) Discontinued Reason: Duplicate Order Sulfamethoxazole/Trimethoprim (Sulfamethoxazole-Tmp Ds Tablet), (Reported) Discontinued Reason: Duplicate Order Tramadol HCl (Tramadol HCl), 50 MG PO Q4H PRN for PAIN Discontinued Reason: Duplicate Order Trazodone HCl (Trazodone HCl), 25 MG PO HS, (Reported) Discontinued Reason: Duplicate Order Current Medications Current Medications Reviewed Review of Systems Constitutional: see HPI, dizziness, malaise, weakness EENTM: no symptoms reported Respiratory: no symptoms reported Cardiovascular: no symptoms reported Gastrointestinal: no symptoms reported Genitourinary: no symptoms reported Musculoskeletal: back pain, muscle pain, muscle stiffness, muscle cramps Skin: no symptoms reported Psychiatric/Neurological: Anxiety, Depressed, Emotional Problems, Numbness, Weakness All Other Systems Reviewed Negative Unless Noted: Yes Physical Exam Physical Exam Vital Signs Capillary Refill : Height, Weight, BMI Height: 5'3.00" Weight: 90lbs. 0.0oz. 40.893522iy; 17.00 BMI Method:Stated General Appearance: No Apparent Distress, WD/WN, Chronically ill, Thin, Other (Pale) Eyes: Bilateral Eye Normal Inspection, Bilateral Eye PERRL HEENT: PERRL/EOMI, Normal ENT Inspection, Pharynx Normal Neck: Full Range of Motion, Normal Inspection, Non Tender, Supple, Carotid Bruit Respiratory: Chest Non Tender, Lungs Clear, Normal Breath Sounds, No Accessory Muscle Use, No Respiratory Distress Cardiovascular: Regular Rate, Rhythm, No Edema, No Gallop, No JVD, No Murmur, Normal Peripheral Pulses Gastrointestinal: Normal Bowel Sounds, No Organomegaly, No Pulsatile Mass, Non Tender, Soft Back: Normal Inspection, No CVA Tenderness, No Vertebral Tenderness Extremity: Normal Capillary Refill, Normal Inspection, Normal Range of Motion, Non Tender, No Calf Tenderness, No Pedal Edema Neurologic/Psychiatric: Alert, Oriented x3, Normal Mood/Affect, president & founder II-XII Norm as Tested, Abnormal Gait, Depressed Affect, Motor Weakness ( generalized 3/5 extremities) Skin: Normal Color, Warm/Dry Lymphatic: No Adenopathy PM&R Medical Assessment & Plan REHAB/MEDICAL ASSESSMENT AND PLAN: REHAB IMPAIRMENT GROUP: Embolic stroke ETIOLOGIC DIAGNOSIS: embolic stroke The comorbidities that impact the patients function and/or functional outcome by: bipolar disorder, ADHD, thin body habitus, acute depression situation REHAB PLAN: The patient is being admitted to our comprehensive inpatient rehabilitation facility and can tolerate the intensity of service consisting of at least: 180 minutes of therapy a day, 5 out of 7 days a week Rehab treatment will consist of: PT and OT will focus on regaining function with use of assistive devices in order to increase stamina and increased independence in ADLs The patient/family has a good understanding of our discharge process and will benefit from an interdisciplinary inpatient rehabilitation program. The patient has potential to make improvement and is in need of at least two of the following multidisciplinary therapies including but not limited to physical, o ccupational, speech, and prosthetics and orthotics. Additionally the patient will need services from respiratory, nutritional services, wound care, psychology, etc. (Customize this to each patient). Given the patients complex condition and risk of further medical complications, rehabilitation services cannot be safely or effectively provided at a lower level of care such as a [facility] nursing facility. BARRIERS TO DISCHARGE: emotional problems ESTIMATED LOS: 7 days DISPOSITION: home RELEVANT CHANGES SINCE PREADMISSION SCREENING: I have compared the patients medical and functional status at the time of the preadmission screening and there are: no changes PROGNOSIS: good REHABILITATION GOALS: 1. PT and OT will focus on regaining function with use of assistive devices in order to increase stamina and increased independence in ADLs All the above goals were reviewed with the patient and he/she is in agreement. By signing this document, I acknowledge that I have personally performed a full physical examination on this patient within 24 hours of admission to this inpatient rehabilitation facility and have determined the patient to be able to tolerate the above course of treatment at an intensive level for a reasonable period of time. I will be completing a detailed individualized Plan of Care for this patient by day #4 of the patients stay based upon the Preadmission Screen, the Post-Admission Evaluation, and the therapy evaluations. Admission Dx/Comorbidities: (1) Embolic stroke ICD Codes: I63.9 - Cerebral infarction, unspecified (2) Suspected endocarditis Status: Acute ICD Codes: R09.89 - Other specified symptoms and signs involving the circula tory and respiratory systems (3) Dog bite Status: Acute ICD Codes: W54.0XXA - Bitten by dog, initial encounter Assessment/Plan Assessment and Plan Assess & Plan/Chief Complaint Assessment: 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 Suspected endocarditis although LEONA revealed no vegetations treating empirically Dog bite to face ADHD Bipolar disorder Low BMI of 17 Plan: Vancomycin per ID protocol PT and OT Supportive nursing home meds AURE RUIZ DO Aug 31, 2022 13:23
[2022-08-31] MEDS ORDERED: guaiFENesin/CODEINE (ROBITUSSIN AC) 10ML UDC PO PRN (13:30)
[2022-08-31] MEDS ORDERED: VANCOMYCIN INJECTION 0.1 MG in NS (IVPB) 250 ML IV SCH (13:30)
[2022-08-31] MEDS ORDERED: DOCUSATE SODIUM 100 MG (COLACE) CAP PO PRN (13:30)
[2022-08-31] MEDS ORDERED: FLEET ENEMA ADULT 1 EA BTL PR PRN (13:30)
[2022-08-31] MEDS ORDERED: LACTULOSE SYRUP 10GM/15ML (ENULOSE) 30ML UDC PO PRN (13:30)
[2022-08-31] MEDS ORDERED: MELATONIN 3 MG TABLET PO PRN (13:30)
[2022-08-31] MEDS ORDERED: LOPERAMIDE 2 MG (IMODIUM) TABLET PO PRN (13:30)
[2022-08-31] MEDS ORDERED: BISACODYL 10 MG SUPP (DULCOLAX) PR PRN (13:30)
[2022-08-31] MEDS ORDERED: diphenhydrAMINE 25 MG TAB (BENADRYL) PO PRN (13:30)
[2022-08-31] MEDS ORDERED: ACETAMINOPHEN 325 MG TABLET PO PRN (13:30)
--- OUTSIDE RECORDS SUMMARY | 2022-08-31 13:37 | XMS REPORT | Clinical Summary ---
Author Author [facility] Organization [facility] Address Unknown Phone Unavailable Care Team Providers Care Customer Relations Assistant Name Role Phone PCP Unavailable Allergies Not on File Medications Not on file Active Problems Not on file Social History Date Tobacco Use Types Packs/Day Years Used Smoking Tobacco: Never Assessed Date Recorded Sex and Gender Information Value Sex Assigned at Not on file Gender Identity Not on file Sexual Orientation Not on file Last Filed Vital Signs Not on file Plan of Treatment Health Maintenance Due Date Last Done Comments COVID-19 Vaccine (#1) 2000 Varicella Vaccines (1 of 2001 2 - 2-dose childhood series) HPV Vaccines (1 - Male 2011 2-dose series) MenB Vaccine (Bexsero) (1 2016 of 2) Hepatitis C Screening 2018 DTaP,Tdap,and Td Vaccines 2019 (1 - Tdap) MMR Vaccines-Adult 2019 Influenza Vaccine (Season 11/11/2022 Ended) HIB Vaccines Aged Out No longer eligible based on patient's age to complete this topic IPV Vaccines Aged Out No longer eligible based on patient's age to complete this topic Meningococcal Vaccine Aged Out No longer eligib le based on patient's age to complete this topic Pneumo-Vaccine: At Risk Aged Out No longer elig ible based on patient's age to 6-64 Yrs complete this topic Rotavirus Vaccines Aged Out No longer eligible based on patient's age to complete this topic Results Not on filefrom Last 3 Months
--- OUTSIDE RECORDS SUMMARY | 2022-08-31 13:37 | XMS REPORT ---
Author Author [facility] Address Unknown Phone Unavailable Care Team Providers Care Patient Service Coordinator Name Role Phone ADRY LOZA Unavailable PROBLEMS Type Condition ICD9-CM Code [id number] Code Onset Dates Condition S tatus W/U Status Risk SNOMED Code Notes Problem Other halfway (current) drug therapy Z79.899 confirmed 110589003 Problem Cystic acne L70.0 confirmed 39352278 Problem Tongue abnormality Q38.3 confirmed 6 5848106 Problem Attention deficit hyperactivity disorder (ADHD), combi mary type F90.2 confirmed 892652946 Problem Oppositional defiant disorder F91.3 confirm ed 04966700 Problem Disruptive mood dysregulation disorder F34.81 confirmed 639245908 Problem Unspecified mood [affective] disorder F39 confirmed [id number] ALLERGIES No Known Allergies ENCOUNTERS from 2000 to 2022-07-20 Encounter Location Date Provider Diagnosis [facility] [id number] [place] [address] July, ADRY DAGO Attention deficit hy peractivity disorder (ADHD), combined type F90.2 and Unspecified mood [affective] disorder F39 IMMUNIZATIONS Vaccine Route Administration Date Status hib (history) Unknown 2001 Administered influenza IIV3 (history) Unknown Feb 12, 2009 Adminis tered influenza IIV3 (history) Unknown Apr 02, 2009 Adminis tered influenza IIV3 (history) Unknown Dec 08, 2010 Pending Hib-Hep B Unknown 2000 Administered Hib-Hep B Unknown 2000 Administered PRIVATE MENINGOCOCCAL (MENVEO) Unknown Dec 01, 2016 A dministered hib (history) Unknown 2000 Administered PRIVATE DTAP (INFANRIX) Unknown 2000 Administ ered influenza IIV3 (history) Unknown Dec 18, 2015 Adminis tered PRIVATE GARDASIL 9 (HPV) Unknown Dec 01, 2016 Adminis tered PRIVATE VARICELLA Unknown May 06, 2005 Administered PRIVATE MMR Unknown May 06, 2005 Administered PRIVATE MMR Unknown 2001 Administered PRIVATE HEP B (PEDS/ADOLESCENT, 3-DOSE) Unknown 2000 Administered PRIVATE DTAP (INFANRIX) Unknown May 06, 2005 Administ ered PRIVATE DTAP (INFANRIX) Unknown 2000 Administ ered PRIVATE DTAP (INFANRIX) Unknown 2000 Administ ered PRIVATE DTAP (INFANRIX) Unknown 2000 Administ ered PRIVATE GARDASIL 9 (HPV) IM Intramuscular Mar 02, 2017 Admini stered PRIVATE POLIO (IPV) Unknown 2001 Administered influenza IIV3 (history) Unknown Dec 26, 2012 Pending PRIVATE POLIO (IPV) Unknown May 06, 2005 Administered influenza IIV3 (history) Unknown Dec 05, 2011 Pending PRIVATE HEP A (PEDS/ADOLESCENT-2 DOSE) Unknown May 03, 007 Administered PRIVATE MENINGOCOCCAL (MENACTRA) Unknown Oct 17, 2013 Administered PRIVATE HEP A (PEDS/ADOLESCENT-2 DOSE) Unknown Oct 25, 2 008 Administered PRIVATE TDAP (ADACEL) Unknown Oct 17, 2013 Administer ed FLUMIST QUAD (2-49 YRS)-MEDIMMUNE-2015 NS Nasal Dec 19, 2 015 Administered PRIVATE VARICELLA Unknown May 03, 2006 Administered PRIVATE BEXSERO (MEN B) IM Intramuscular Jan 08, 2018 Adminis tered PRIVATE POLIO (IPV) Unknown 2000 Administered PRIVATE FLULAVAL QUAD 0.5ML (6 MO AND UP) 2019 IM Intramuscular Jan 08, 2018 Administered PRIVATE POLIO (IPV) Unknown 2000 Administered influenza IIV3 (history) Unknown Jan 13, 2014 Adminis tered prevnar pcv 7 (history) Unknown 2000 Administ ered FLUZONE QUAD 3 AND UP 2017 IM Intramuscular Mar 02, 2017 Admi nistered prevnar pcv 7 (history) Unknown 2000 Administ ered prevnar pcv 7 (history) Unknown 2001 Administ ered PRIVATE BEXSERO (MEN B) IM Intramuscular Nov 08, 2017 Adminis sarahi PRIVATE GARDASIL 9 (HPV) IM Intramuscular Nov 08, 2017 Admini clay SOCIAL HISTORY Sex Assigned At : Social History Observation Description Sex Assigned At Unknown Alcohol Screen (Audit-C) Question Answer Notes Did you have a drink containing alcohol in the past year? No Points 0 Interpretation Negative PHQ2 Question Answer Notes In the last 2 weeks, how often have you had little interest or pleasure in doing things? Not at all In the last 2 weeks, how often have you been feeling down, depressed, or hopeless? Not at all Total PHQ2 Score 0 REASON FOR REFERRAL No Information VITAL SIGNS Height 68 in July, Height-cm 172.72 cm July, Weight 108.6 lbs July, Weight-kg 49.26 kg July, Temperature 97.1 degrees Fahrenheit July, Heart Rate 56 bpm July, Respiratory Rate 18 bpm July, Oximetry 99 % July, BMI 16.51 kg/m2 July, Blood pressure systolic 110 mmHg July, Blood pressure diastolic 68 mmHg July, MEDICATIONS Medication SIG (Take, Route, Frequency, Duration) Notes Start Da te End Date Status Vyvanse 40 mg 1 capsule Orally Once a day for 28 days 2022 Active hydrOXYzine Pamoate 50 MG TAKE ONE (1) CAPSULE BY MOFERNANDO H TWICE DAILY NEEDED FOR ANXIETY for 30 Active ZyPREXA Zydis 5 MG 1 tablet on the tongue and a llow to dissolve Orally Once a day for 30 days July, Active PROCEDURES No Information RESULTS No Results REASON FOR VISIT Psychiatric f/u-[facility]AN Bledsoe MEDICAL (GENERAL) HISTORY Type Description Date Medical History ADHD, ODD, and Bipolar Disor janneth - medications managed by Chaya Gutierrez APRN, at [facility] via telemedicine Medical History Underweight Medical History Attention deficit hyperactivity disorder (ADHD), combined type Medical History Oppositional defiant disorder Medical History Non-seasonal allergic rhinitis due to ot her allergic trigger Medical History Chronic fatigue Medical History Constipation, unspecified constipation t ype Surgical History ganglion cyst 3 yoa Surgical History adnoidectomy 12 yoa Surgical History dental surgery 2013 Hospitalization History [facility] II 09/14/2016 Hospitalization History [place] x2 and [facility] x2 Goals Section No Information Health Concerns No Information MEDICAL EQUIPMENT No Information MENTAL STATUS No Information FUNCTIONAL STATUS No Information ASSESSMENTS Encounter Date Diagnosis Assessment Notes Treatment Notes Treatm ent Clinical Notes July, Attention deficit hyperactiv ity disorder (ADHD), combined type (ICD-10 - F90.2) July, Unspecified mood [affective] disorder (ICD-10 - F39) Learning About Mood Disorders material was published July, Other -Patient is inst ructed to take all medications as prescribed and to report to the medication clinic of any side effects/adverse reactions from the medication regimen. -If safety becomes an issue, patient is to call the crisis line at [phone] or . Discussed patient diagnoses, to include treatment options, as well as alternative therapies. Risks vs benefits of pharmacological treatment vs none explained. Patient gives verbal informed consent to continue current medication regimen without change. PLAN OF TREATMENT Medication Medication Name Sig Start Date Stop Date Vyvanse 40 mg 1 capsule Orally Once a day for 28 days July, ZyPREXA Zydis 5 MG 1 tablet on the tongue and a llow to dissolve Orally Once a day for 30 days July, hydrOXYzine Pamoate 50 MG TAKE ONE (1) CAPSULE BY MOUT H TWICE DAILY NEEDED FOR ANXIETY for 30 Treatment Notes Assessment Notes Clinical Notes Unspecified mood [affective] disorder Learning About M ood Disorders material was published Next Appt Details 3 Months Reason: Follow-up Provider Name:SANKET HARRIS, 8 03:00:00 PM, [address] [facility], [id number], [place], [address], Provider Name:ADRY LOZA, 2022-08-23 05 :40:00 PM, [address] [facility], [id number], [place], [address], Provider Name:ENRRIQUE ENRIQUE, 2022-11-03 03:00:00 PM, [address] [facility] [facility], [id number], [place], [address], Follow Up:3 MonthsBH Follow-up Insurance Providers Payer Name Payer Address Payer Phone Insured Name Patient Relati onship to Insured Coverage Start Date Coverage End Date Subscriber Number Group Nu mber [facility] [address] [facility] [address] [phone] Ru Stephens Self - patient is the insured [id number] [facility] [address] [facility] [phone] Ru Stephens Self - patient is the insured [id number]
--- OUTSIDE RECORDS SUMMARY | 2022-08-31 13:37 | XMS REPORT ---
Author Author [facility] Address Unknown Phone Unavailable Care Team Providers Care It Consulting Director Name Role Phone DIVYA DEMARCO Unavailable PROBLEMS Type Condition ICD9-CM Code DGT32-[id number] Code Onset Dates Condition S tatus W/U Status Risk SNOMED Code Notes Problem Other care home (current) drug therapy Z79.899 confirmed 501004847 Problem Cystic acne L70.0 confirmed 25936916 Problem Tongue abnormality Q38.3 confirmed 6 3643837 Problem Attention deficit hyperactivity disorder (ADHD), combi mary type F90.2 confirmed 377391757 Problem Oppositional defiant disorder F91.3 confirm ed 55408949 Problem Disruptive mood dysregulation disorder F34.81 confirmed 125137200 Problem Unspecified mood [affective] disorder F39 confirmed 47935195 ALLERGIES No Known Allergies ENCOUNTERS from 2000 to 2022-07-29 Encounter Location Date Provider Diagnosis [facility] [address] [facility] [id number] [address], [place] [address] Aug, DIVYA DEMARCO Attention deficit hy peractivity disorder (ADHD), combined type F90.2 IMMUNIZATIONS Vaccine Route Administration Date Status PRIVATE POLIO (IPV) Unknown 2001 Administered PRIVATE POLIO (IPV) Unknown 2000 Administered PRIVATE POLIO (IPV) Unknown 2000 Administered PRIVATE MMR Unknown May 06, 2005 Administered influenza IIV3 (history) Unknown Feb 12, 2009 Adminis tered Hib-Hep B Unknown 2000 Administered PRIVATE TDAP (ADACEL) Unknown Oct 17, 2013 Administer ed PRIVATE POLIO (IPV) Unknown May 06, 2005 Administered PRIVATE HEP B (PEDS/ADOLESCENT, 3-DOSE) Unknown 2000 Administered PRIVATE MMR Unknown 2001 Administered PRIVATE DTAP (INFANRIX) Unknown May 06, 2005 Administ ered Hib-Hep B Unknown 2000 Administered prevnar pcv 7 (history) Unknown 2001 Administ ered prevnar pcv 7 (history) Unknown 2000 Administ ered prevnar pcv 7 (history) Unknown 2000 Administ ered PRIVATE HEP A (PEDS/ADOLESCENT-2 DOSE) Unknown Oct 25, 008 Administered PRIVATE HEP A (PEDS/ADOLESCENT-2 DOSE) Unknown May 03 007 Administered PRIVATE VARICELLA Unknown May 03, 2006 Administered PRIVATE VARICELLA Unknown May 06, 2005 Administered PRIVATE DTAP (INFANRIX) Unknown 2000 Administ ered PRIVATE BEXSERO (MEN B) IM Intramuscular Jan 08, 2018 Adminis tered influenza IIV3 (history) Unknown Dec 05, 2011 Pending PRIVATE FLULAVAL QUAD 0.5ML (6 MO AND UP) 2019 IM Intramuscular Jan 08, 2018 Administered PRIVATE MENINGOCOCCAL (MENACTRA) Unknown Oct 17, 2013 Administered PRIVATE GARDASIL 9 (HPV) Unknown Dec 01, 2016 Adminis tered FLUZONE QUAD 3 AND UP 2017 IM Intramuscular Mar 02, 2017 Admi nistered influenza IIV3 (history) Unknown Dec 18, 2015 Adminis tered PRIVATE BEXSERO (MEN B) IM Intramuscular Nov 08, 2017 Adminis tered PRIVATE DTAP (INFANRIX) Unknown 2000 Administ ered PRIVATE MENINGOCOCCAL (MENVEO) Unknown Dec 01, 2016 A dministered PRIVATE DTAP (INFANRIX) Unknown 2000 Administ ered hib (history) Unknown 2000 Administered PRIVATE DTAP (INFANRIX) Unknown 2000 Administ ered hib (history) Unknown 2001 Administered PRIVATE GARDASIL 9 (HPV) IM Intramuscular Mar 02, 2017 Admini stered influenza IIV3 (history) Unknown Dec 26, 2012 Pending FLUMIST QUAD (2-49 YRS)-MEDIMMUNE-2015 NS Nasal Dec 19, 2 015 Administered influenza IIV3 (history) Unknown Dec 08, 2010 Pending influenza IIV3 (history) Unknown Apr 02, 2009 Adminis tered PRIVATE GARDASIL 9 (HPV) IM Intramuscular Nov 08, 2017 Admini stered influenza IIV3 (history) Unknown Jan 13, 2014 Adminis tered SOCIAL HISTORY Sex Assigned At : Social [...] REASON FOR REFERRAL No Information VITAL SIGNS No information MEDICATIONS Medication SIG (Take, Route, Frequency, Duration) [...] Information RESULTS No Results REASON FOR VISIT [facility] 08/18/2020 MEDICAL (GENERAL) HISTORY Type Description Date Medical History ADHD, ODD, and Bipolar Disor janneth - medications managed by Chaya Gutierrez APRN, at [facility] via telemedicine Medical History Underweight Medical History Attention deficit hyperactivity disorder (ADHD), combined type Medical History Oppositional defiant disorder Medical History Non-seasonal allergic rhinitis due to ot her allergic trigger Medical History Chronic fatigue Medical History Constipation, unspecified constipation t ype Surgical History ganglion cyst 3 yoa Surgical History adnoidectomy 12 yoa Surgical History dental surgery 2013 Hospitalization History [facility] II 09/14/2016 Hospitalization History [place] x2 and [facility] x2 Goals Section No Information Health Concerns No Information MEDICAL EQUIPMENT No Information MENTAL STATUS No Information FUNCTIONAL STATUS No Information ASSESSMENTS Encounter Date Diagnosis Assessment Notes Treatment Notes Treatm ent Clinical Notes Aug, Attention deficit hyperactiv ity disorder (ADHD), combined type (ICD-10 - F90.2) PLAN OF TREATMENT Medication Medication Name Sig [...] TWICE DAILY NEEDED FOR ANXIETY for 30 Next Appt Details Provider Name:SANKET Dunne KIMBERLY, 8 03:00:00 PM, [address] [place] [address], [id number], [place], [address], Provider Name:ADRY LOZA, 2022-08-23 05 :40:00 PM, [address] [place] [address], [id number], [place], [address], Provider Name:ENRRIQUE ENRIQUE, 2022-11-03 03:00:00 PM, [address] [place] [address], [id number], [place], [address], Insurance Providers Payer Name Payer Address Payer Phone Insured Name Patient Relati onship to Insured Coverage Start Date Coverage End Date Subscriber Number Group Nu mber [facility] [address] [facility] [phone] Ru Stephens Self - patient is the insured [id number] [facility] [address] [facility] [phone] Ru Stephens L Self - patient is the insured [id number] 3
--- OUTSIDE RECORDS SUMMARY | 2022-08-31 13:37 | XMS REPORT ---
Author Author [facility] Address Unknown Phone Unavailable Care Team Providers Care Press Catcher Name Role Phone GAYE NELSON Unavailable PROBLEMS Type Condition ICD9-CM Code FPD24-TD Code Onset Dates Condition S tatus W/U Status Risk SNOMED Code Notes Problem Other half-way (current) drug therapy Z79.899 confirmed 349142018 Problem Cystic acne L70.0 confirmed 61604422 Problem Tongue abnormality Q38.3 confirmed 6 3224518 Problem Attention deficit hyperactivity disorder (ADHD), combi mary type F90.2 confirmed 147341802 Problem Oppositional defiant disorder F91.3 confirm ed 23287782 Problem Disruptive mood dysregulation disorder F34.81 confirmed 271504812 Problem Unspecified mood [affective] disorder F39 confirmed [id number] ALLERGIES No Known Allergies ENCOUNTERS from 2000 to 2022-07-24 Encounter Location Date Provider Diagnosis [facility] [address] [id number] [address] [place] [address] July, GAYE NELSON Attention deficit hy peractivity disorder (ADHD), combined type F90.2 ; Encounter for annual physical exam Z00.00 ; Disruptive mood dysregulation disorder F34.81 and Unspecified mood [affective] disorder F39 IMMUNIZATIONS Vaccine Route Administration Date Status FLUMIST QUAD (2-49 YRS)-MEDIMMUNE-2015 NS Nasal Dec 19 015 Administered PRIVATE GARDASIL 9 (HPV) IM Intramuscular Nov 08, 2017 Admini stered PRIVATE GARDASIL 9 (HPV) IM Intramuscular Mar 02, 2017 Admini stered influenza IIV3 (history) Unknown Dec 26, 2012 Pending PRIVATE BEXSERO (MEN B) IM Intramuscular Jan 08, 2018 Adminis tered FLUZONE QUAD 3 AND UP 2016 IM Intramuscular Mar 02, 2017 Admi nistered PRIVATE FLULAVAL QUAD 0.5ML (6 MO AND UP) 2019 IM Intramuscular Jan 08, 2018 Administered PRIVATE BEXSERO (MEN B) IM Intramuscular Nov 08, 2017 Adminis tered PRIVATE HEP B (PEDS/ADOLESCENT, 3-DOSE) Unknown 2000 Administered influenza IIV3 (history) Unknown Dec 08, 2010 Pending Hib-Hep B Unknown 2000 Administered PRIVATE MENINGOCOCCAL (MENACTRA) Unknown Oct 17, 2013 Administered prevnar pcv 7 (history) Unknown 2001 Administ ered prevnar pcv 7 (history) Unknown 2000 Administ ered prevnar pcv 7 (history) Unknown 2000 Administ ered PRIVATE HEP A (PEDS/ADOLESCENT-2 DOSE) Unknown Oct 25, 008 Administered PRIVATE HEP A (PEDS/ADOLESCENT-2 DOSE) Unknown May 03, 007 Administered PRIVATE VARICELLA Unknown May 03, 2006 Administered PRIVATE VARICELLA Unknown May 06, 2005 Administered PRIVATE TDAP (ADACEL) Unknown Oct 17, 2013 Administer ed hib (history) Unknown 2001 Administered PRIVATE MMR Unknown May 06, 2005 Administered influenza IIV3 (history) Unknown Feb 12, 2009 Adminis tered PRIVATE MMR Unknown 2001 Administered influenza IIV3 (history) Unknown Apr 02, 2009 Adminis tered PRIVATE DTAP (INFANRIX) Unknown May 06, 2005 Administ ered influenza IIV3 (history) Unknown Dec 05, 2011 Pending PRIVATE DTAP (INFANRIX) Unknown 2000 Administ ered PRIVATE POLIO (IPV) Unknown May 06, 2005 Administered Hib-Hep B Unknown 2000 Administered PRIVATE POLIO (IPV) Unknown 2001 Administered PRIVATE MENINGOCOCCAL (MENVEO) Unknown Dec 01, 2016 A dministered PRIVATE POLIO (IPV) Unknown 2000 Administered hib (history) Unknown 2000 Administered PRIVATE POLIO (IPV) Unknown 2000 Administered influenza IIV3 (history) Unknown Jan 13, 2014 Adminis tered PRIVATE DTAP (INFANRIX) Unknown 2000 Administ ered influenza IIV3 (history) Unknown Dec 18, 2015 Adminis tered PRIVATE GARDASIL 9 (HPV) Unknown Dec 01, 2016 Adminis tered PRIVATE DTAP (INFANRIX) Unknown 2000 Administ mariza PRIVATE DTAP (INFANRIX) Unknown 2000 Administ mariza SOCIAL HISTORY Sex Assigned At : Social [...] in July, Height-cm 172.72 cm July, Weight 107.3 lbs July, Weight-kg 48.67 kg July, Temperature 98.1 degrees Fahrenheit July, Heart Rate 69 bpm July, Respiratory Rate 18 bpm July, Oximetry 99 % July, BMI 16.31 kg/m2 July, Blood pressure systolic 90 mmHg July, Blood pressure diastolic 58 mmHg July, MEDICATIONS Medication SIG (Take, Route, Frequency, Duration) Notes Start Da te End Date Status Vyvanse 40 mg 1 capsule Orally Once a day for 28 days 02 2022 Active hydrOXYzine Pamoate 50 MG TAKE ONE (1) CAPSULE BY MOUT H TWICE DAILY NEEDED FOR ANXIETY for 30 Active ZyPREXA Zydis 5 MG 1 tablet on the tongue and a llow to dissolve Orally Once a day for 30 days July, Active PROCEDURES No Information RESULTS No Results REASON FOR VISIT f/u. PT states that he is here for a CHM. H yamil PHELAN, Ricky DT MEDICAL (GENERAL) HISTORY Type Description Date Medical History ADHD, ODD, and Bipolar Disor janneth - medications managed by Cahya Gutierrez APRN, at [facility] [employer] [facility] via telemedicine Medical History Underweight Medical History Attention deficit hyperactivity disorder (ADHD), combined type Medical History Oppositional defiant disorder Medical History Non-seasonal allergic rhinitis due to ot her allergic trigger Medical History Chronic fatigue Medical History Constipation, unspecified constipation t ype Surgical History ganglion cyst 3 yoa Surgical History adnoidectomy 12 yoa Surgical History dental surgery 2014 Hospitalization History [facility] II 09/14/2016 Hospitalization History [place] x2 and [place] x2 Goals Section No Information Health Concerns No Information MEDICAL EQUIPMENT No Information MENTAL STATUS No Information FUNCTIONAL STATUS No Information ASSESSMENTS Encounter Date Diagnosis Assessment Notes Treatment Notes Treatm ent Clinical Notes July, Attention deficit hyperactiv ity disorder (ADHD), combined type (ICD-10 - F90.2) Continue meds and F/U with [facility]., Attention Deficit Hyperactivity Disorder (ADHD) in Adults: Care Instructions material was published, Attention Deficit Hyperactivity Disorder (ADHD) in Adults: Care In structions material was published July, Encounter for annual physical exam (ICD-10 - Z00 .00) Yearly recheck and prn., Well Visit, Ages 18 to 50: Care Instructions material was published July, Disruptive mood dysregulation disorder ( ICD-10 - F34.81) July, Unspecified mood [affective] disorder (I CD-10 - F39) PLAN OF TREATMENT Medication Medication Name Sig [...] 30 Treatment Notes Assessment Notes Clinical Notes Attention deficit hyperactivity disorder (ADHD), combi mary type Continue meds and F/U with BH., Attention Deficit Hyperactivity Disorder (ADHD) in Adults: Care Instructions material was published, Attention Deficit Hyperactivity Disorder (ADHD) in Adults: Care Instructions material was published Encounter for annual physical exam Yearly recheck and prn., Well Visit, Ages 18 to 50: Care Instructions material was published Next Appt Details 1 Year Reason: Provider Name:SANKET HARRIS, 8 03:00:00 PM, [address] [facility], [id number], [place], [address], Provider Name:ADRY LOZA, 2022-08-23 05 :40:00 PM, [address] [facility], [id number], [place], [address], Provider Name:ENRRIQUE ENRIQUE, 2022-11-03 03:00:00 PM, [address] [facility], [id number], [place], [address], Insurance Providers Payer Name Payer Address Payer Phone Insured Name Patient Relati onship to Insured Coverage Start Date Coverage End Date Subscriber Number Group Nu mber [facility] [address] [facility] [address] [phone] Ru Stephens Self - patient is the insured [id number] [facility] [address] [facility] [address] Ru Stephens Self - patient is the insured [id number] 3
--- OUTSIDE RECORDS SUMMARY | 2022-08-31 13:37 | XMS REPORT | Clinical Summary ---
Author Author [facility] Organization [facility] Address Unknown Phone Unavailable Care Team Providers Care Commercial Lending Relationship Manager Name Role Phone Unknown, Unknown PCP Unavailable Sanford Mojica MD Unavailable Source Comments Some departments are not documenting in the electronic medical record. If you d o not see the information that you expected, contact Release of Information in [facility] Information Management department at [phone] for further assistan ce in locating additional records.[facility] Allergies Comments Active Allergy Reactions Criticality Noted Date Sulfa (Sulfonamide RASH Medium 09/22/2015 Antibiotics) Medications Not on file Active Problems Not on file Social History Date Tobacco Use Types Packs/Day Years Used Smoking Tobacco: Never Assessed Date Recorded Sex and Gender Information Value Sex Assigned at Not on file Gender Identity Not on file Sexual Orientation Not on file Last Filed Vital Signs Not on file Plan of Treatment Health Maintenance Due Date Last Done Comments COVID-19 VACCINE (#1) 2000 HPV VACCINES (1 - Male 2011 2-dose series) HIV SCREENING 2015 DTAP/TDAP VACCINES (1 - 2018 Tdap) HEPATITIS C SCREENING 2018 PHYSICAL (COMPREHENSIVE) 2018 EXAM DEPRESSION SCREENING 03/13/2022 INFLUENZA VACCINE (Season 12/11/2022 Ended) MENINGOCOCCAL VACCINE Aged Out No longer eligib le based on patient's age to (ACWY,Menactra) complete this topic PNEUMOCOCCAL VACCINE 0-64 Aged Out No longer el igible based on patient's age to YRS complete this topic Results Not on filefrom Last 3 Months Insurance Type Payer Benefit Subscriber ID Effective Phone Address Plan / Dates Group Medicaid [facility] MEDICAID [facility] [id number] 2014-P [address] [facility] [address] [place] [phone] Care Teams Start Date End Date Commercial Lending Relationship Manager Relationship Specialty 01/02/15 Unknown, Unknown, MD PCP - General 09/22/15 Sanford Mojica MD Pediatric Cardiology [address] [address]
--- OUTSIDE RECORDS SUMMARY | 2022-08-31 13:37 | XMS REPORT ---
Author Author [facility] Address Unknown Phone Unavailable Care Team Providers Care Events Administrative Assistant Name Role Phone ADRY LOZA Unavailable PROBLEMS Type Condition ICD9-CM Code VCS70-RQ Code Onset Dates Condition S tatus W/U Status Risk SNOMED Code Notes Problem Other mcfp (current) drug therapy Z79.899 confirmed [id number] Problem Cystic acne L70.0 confirmed 16766175 Problem Tongue abnormality Q38.3 confirmed 6 9241471 Problem Attention deficit hyperactivity disorder (ADHD), combi mary type F90.2 confirmed 587456308 Problem Oppositional defiant disorder F91.3 confirm ed 67173340 Problem Disruptive mood dysregulation disorder F34.81 confirmed 704284691 Problem Unspecified mood [affective] disorder F39 confirmed 21153359 ALLERGIES No Known Allergies ENCOUNTERS from 2000 to 2022-08-21 Encounter Location Date Provider Diagnosis [facility] [address] [facility] [id number] [place] [address] Aug, ADRY DAGO Attention deficit hy peractivity disorder (ADHD), combined type F90.2 IMMUNIZATIONS Vaccine Route Administration Date Status PRIVATE MENINGOCOCCAL (MENVEO) Unknown Dec 01, 2016 A dministered hib (history) Unknown 2000 Administered hib (history) Unknown 2001 Administered influenza IIV3 (history) Unknown Feb 12, 2009 Adminis tered PRIVATE TDAP (ADACEL) Unknown Oct 17, 2013 Administer ed PRIVATE MENINGOCOCCAL (MENACTRA) Unknown Oct 17, 2013 Administered Hib-Hep B Unknown 2000 Administered Hib-Hep B Unknown 2000 Administered PRIVATE DTAP (INFANRIX) Unknown 2000 Administ ered influenza IIV3 (history) Unknown Apr 02, 2009 Adminis tered influenza IIV3 (history) Unknown Jan 13, 2014 Adminis tered PRIVATE VARICELLA Unknown May 06, [...] Unknown Dec 18, 2015 Adminis tered PRIVATE POLIO (IPV) Unknown 2001 Administered PRIVATE BEXSERO (MEN B) IM Intramuscular Nov 08, 2017 Adminis tered PRIVATE POLIO (IPV) Unknown May 06, 2005 Administered PRIVATE BEXSERO (MEN B) IM Intramuscular Jan 08, 2018 Adminis tered PRIVATE HEP A (PEDS/ADOLESCENT-2 DOSE) Unknown May 03, 007 Administered FLUZONE QUAD 3 AND UP 2016 IM Intramuscular Mar 02, 2017 Admi nistered PRIVATE HEP A (PEDS/ADOLESCENT-2 DOSE) Unknown Oct 25, 008 Administered PRIVATE FLULAVAL QUAD 0.5ML (6 MO AND UP) 2018 IM Intramuscular Jan 08, 2018 Administered PRIVATE GARDASIL 9 (HPV) Unknown Dec 01, 2016 Adminis tered PRIVATE VARICELLA Unknown May 03, 2006 Administered PRIVATE GARDASIL 9 (HPV) IM Intramuscular Mar 02, 2017 Admini stered PRIVATE POLIO (IPV) Unknown 2000 Administered PRIVATE GARDASIL 9 (HPV) IM Intramuscular Nov 08, 2017 Admini stered PRIVATE POLIO (IPV) Unknown 2000 Administered FLUMIST QUAD (2-49 YRS)-MEDIMMUNE-2015 NS Nasal Dec 19, 2 015 Administered prevnar pcv 7 (history) Unknown 2000 Administ ered prevnar pcv 7 (history) Unknown 2000 Administ ered prevnar pcv 7 (history) Unknown 2001 Administ ered SOCIAL HISTORY Sex Assigned At : Social [...] Notes Start Da te End Date Status hydrOXYzine Pamoate 50 MG TAKE ONE (1) CAPSULE BY MOUT H TWICE DAILY NEEDED FOR ANXIETY for 30 Active Vyvanse 40 mg 1 capsule Orally Once a day for 28 days 2022 Active ZyPREXA Zydis 5 MG 1 tablet on the tongue and a llow to dissolve Orally Once a day for 30 days July, Active Amoxicillin-Pot Clavulanate 875-125 MG 1 tablet Orally every 12 hrs for 7 days July, Active PROCEDURES No Information RESULTS No Results REASON FOR VISIT jesu 09/15/2020 MEDICAL (GENERAL) HISTORY Type Description Date Medical History ADHD, ODD, and Bipolar Disor janneth - medications managed by Chaya Gutierrez APRN, at [facility] via telemedicine Medical History Underweight Medical History Attention deficit hyperactivity disorder (ADHD), combined type Medical History Oppositional defiant disorder Medical History Non-seasonal allergic rhinitis due to ot her allergic trigger Medical History Chronic fatigue Medical History Constipation, unspecified constipation t ype Surgical History ganglion cyst 3 yoa Surgical History adnoidectomy 12 yoa Surgical History dental surgery 2013 Hospitalization History [facility] II 09/14/2016 Hospitalization History [place] x2 and [facility] x2 Goals Section No Information Health Concerns No Information MEDICAL EQUIPMENT No Information MENTAL STATUS No Information FUNCTIONAL STATUS No Information ASSESSMENTS Encounter Date Diagnosis Assessment Notes Treatment Notes Treatm ent Clinical Notes Aug, Attention deficit hyperactiv ity disorder (ADHD), combined type (ICD-10 - F90.2) PLAN OF TREATMENT Medication Medication Name Sig Start Date Stop Date Amoxicillin-Pot Clavulanate 875-125 MG 1 tablet Orally every 12 hrs for 7 days July, Next Appt Details Provider Name:ADRY LOZA, 2022-08-23 05 :40:00 PM, [address] [facility], [id number], [place], [address], Provider Name:ENRRIQUE ENRIQUE, 2022-11-03 03:00:00 PM, [address] [facility], [id number], [place], [address], Insurance Providers Payer Name Payer Address Payer Phone Insured Name Patient Relati onship to Insured Coverage Start Date Coverage End Date Subscriber Number Group Nu mber [facility] [address] [facility] [phone] Ru Stephens Self - patient is the insured [id number] [facility] [address] [facility] [address] Ru Stephens Self - patient is the insured [id number] 3
--- NOTE | 2022-08-31 14:00 | Physical Therapy Evaluation ---
PT Evaluation-General Medical Diagnosis Admission Date Aug 31, 2022 at 13:00 Medical Diagnosis: Acute Toxic Metabolic Encephalopathy Onset Date: Aug 12, 2022 Therapy Diagnosis Therapy Diagnosis: Weakness, Decreased functional mobility Height/Weight Height (Feet): 5 Height (Inches): 3.00 Weight (Pounds): 90 Weight (Ounces): 0.0 Precautions Precautions/Isolations: Fall Prevention, Standard Precautions Weight Bear Status Right Lower Extremity: Right Full Weight Bearing Left Lower Extremity: Left Full Weight Bearing Referral Physician: Isaac Reason for Referral: Evaluation/Treatment Medical History Additional Medical History ADHD; Bipolar; MRSA; AMS; Anxiety; Depression Current History Dog bite to face on 08/03/2022 followed by acute toxic metabolic encephalopathy; admit to ARU on 08/31/2022 Reviewed History: Yes Social History Home: Single Level Current Living Status: Friend Entry Into Home: Stairs Without Railing PT Steps Into Home: 4 lives with his friends in a single story home with 3-4 stairs to enter without HR. Tub shower with no grab bars Prior Prior Level of Function SCALE: Activities may be completed with or without assistive devices. 6-Nhfjuqybsm-bpnatva completes the activity by him/herself with no assistance from a helper. 5-Set-up or Clean-up Assistance-helper sets up or cleans up; patient completes a ctivity. Willard assists only prior to or following the activity. 4-Supervision or Touching Assistance-helper provides verbal cues and/or touching/steadying and/or contact guard assistance as patient completes activity. Assistance may be provided throughout the activity or intermittently. 3-Partial/Moderate Assistance-helper does LESS THAN HALF the effort. Willard lifts, holds or supports trunk or limbs, but provides less than half the effort. 2-Substantial/Maximal Assistance-helper does MORE THAN HALF the effort. Willard lifts or holds trunk or limbs and provides more than half the effort. 8-Jzkhyznom-hpkuyc does ALL the effort. Patient does none of the effort to complete the activity. Or, the assistance of 2 or more helpers is required for the patient to complete the activity. If activity was not attempted, code reason: 7-Patient Refused. 9-Not Applicable-not attempted and the patient did not perform the activity before the current illness, exacerbation or injury. 10-Not Attempted due to Environmental Limitations-(lack of equipment, weather restraints, etc.). 88-Not Attempted due to Medical Conditions or Safety Concerns. Bed Mobility: 6 Transfers (B,C,W/C): 6 Gait: 6 Stairs: 6 Wheelchair Mobility: 9 Indoor Mobility (Ambulation): Independent Stairs: Independent Prior Devices Use: None At [facility], pt was Ind with no AD and working PT Evaluation-Current Subjective Pt is agreeable to PT; denies pain Pain Numeric Pain Scale: 0-No Pain Location: No Pain Reported Section J - Health Conditions 1. Rarely or not at all 2. Occasionally 3. Frequently 4. Almost constantly 8. Unable to answer Pain Effect on Sleep: 1 Pain Interference with Therapy: 1 Pain Interference w/Day-to-Day: 1 Pt/Family Goals Safely return home at [facility] Objective Patient Orientation: Person, Confused, Place ROM/Strength ROM Upper Extremities WFL ROM Lower Extremities WFL Strength Upper Extremities WFL Strength Lower Extremities B LE MMT - 3+/5 grossly Integumentary/Posture Integumentary see nurses note Bowel Incontinence: No Bladder Incontinence: Yes Sensory Vision: Functional (pt reports having glasses, but did not see them in the room ) Hearing: Functional Hand Dominance: Right Sensation Right Upper Extremit: Intact Sensation Left Upper Extremity: Intact Sensation Right Lower Extremit: Intact Sensation Left Lower Extremity: Intact Transfers Roll Left & Right (QC): 3 (Min A) Sit to Lying (QC): 3 (Min A) Lying to Sitting/Side of Bed(Q: 3 (Min A) Sit to Stand (QC): 3 (Min A) Chair/Mid-bu-Ywpam Xfer(QC): 3 (Min A) Toilet Transfer (QC): 3 (Min A) Car Transfer (QC): 3 (Min A) Gait Does the Patient Walk?: Yes Mode of Locomotion: Walk Anticipated Mode of Locomotion: Walk Walk 10 feet (QC): 3 (Min A) Walk 50 ft with 2 Turns(QC): 3 (Min A) Walk 150 ft (QC): 3 (Min A) Walking 10ft/uneven surface-QC: 3 (Min A) Gait Assistive Device: FWW Wheelchair Training Does the Pt Use a Wheelchair?: No Wheel 50 ft with 2 turns (QC): 88 Wheel 150 ft (QC): 88 Type of Wheelchair: N/A Stairs 1 Step (curb) (QC): 3 (Min A) 4 Steps (QC): 3 (Min A) 12 Steps (QC): 3 (Min A) Walking Assistive Device: Walker Balance Sitting Static: Good Sitting Dynamic: Good Standing Static: Fair Standing Dynamic: Fair Picking up an Object (QC): 3 (Min A) Special Test Comments KU standing balance scale = 3/5 (goal = 4/5) Treatment Co-tx with MARES for 10 min for improved safety. Pt is Min A for all aspects of functional mobility, due to decreased cognition, decreased balance, and decreased safety awareness. Assessment/Needs Pt tolerated PT fair and would benefit from skilled PT to progress towards PLOF and safe d/c home Rehab Potential: Good Post Rehab Potential-Barriers: Cognition, safety Equipment Needs TBD PT Prison Goals Prison Goals PT Corporate Travel Coordinator Goals Time Frame: Sep 09, 2022 Roll Left to Right (QC): 6 (Pt will be Mod I to be at PLOF and safe d/c home with family. ) Sit to Lying (QC): 6 (Pt will be Mod I to be at PLOF and safe d/c home with family.) Lying-Sitting on Side/Bed(QC): 6 (Pt will be Mod I to be at PLOF and safe d/c home with family.) Sit to Stand (QC): 6 (Pt will be Mod I to be at PLOF and safe d/c home with family.) Chair/Cys-it-Qufwi Xfer(QC): 6 (Pt will be Mod I to be at PLOF and safe d/c home with family.) Toilet/Commode Transfer (QC): 6 (Pt will be Mod I to be at PLOF and safe d/c home with family.) Car Transfer (QC): 6 (Pt will be Mod I to be at PLOF and safe d/c home with family.) Does the Patient Walk: Yes Walk 10 feet (QC): 6 (Pt will be Mod I to be at PLOF and safe d/c home with family.) Walk 10ft-Uneven Surface(QC): 6 (Pt will be Mod I to be at PLOF and safe d/c home with family.) Walk 50ft with 2 Turns (QC): 6 (Pt will be Mod I to be at PLOF and safe d/c home with family.) Walk 150 ft (QC): 6 (Pt will be Mod I to be at PLOF and safe d/c home with fami ly.) Does the Pt use WC or Scooter?: No Wheel 50 feet with 2 turns (QC: 9 Type: N/A Wheel 150 feet: 9 Type: N/A 1 Step (curb) (QC): 6 (Pt will be Mod I to be at PLOF and safe d/c home with family.) 4 Steps (QC): 6 (Pt will be Mod I to be at PLOF and safe d/c home with family.) 12 Steps (QC): 6 (Pt will be Mod I to be at PLOF and safe d/c home with family.) Picking up an Object (QC): 6 (Pt will be Mod I to be at PLOF and safe d/c home with family.) KU standing balance scale goal = 4/5 PT Plan Problem List Problem List: Activity Tolerance, Functional Strength, Safety, Balance, Gait, Transfer, Bed Mobility Treatment/Plan Treatment Plan: Continue Plan of Care Treatment Plan: Bed Mobility, Concurrent Therapy, Education, Functional Activity Lana, Functional Strength, Group Therapy, Gait, Safety, Therapeutic Exercise, Transfers Treatment Duration: Sep 09, 2022 Frequency: At least 5 of 7 days/Wk (IRF) Estimated Hrs Per Day: 1.5 hours per day Patient and/or Family Agrees t: Yes Safety Risks/Education Patient Education: Gait Training, Transfer Techniques, Steps, Safety Issues Teaching Recipient: Patient Teaching Methods: Demonstration, Discussion Response to Teaching: Reinforcement Needed Discharge Recommendations Therapy Discharge Recommendati: Home & Family Discharge Status/Home Program Cont per POC Barriers to Progress Cognition; strength; endurance Target Placement home with family Time Time In: 1325 Time Out: 1350 DATE: Aug 31, 2022 Total Billed Treatment Time: 25 Total Billed Treatment 25 min ([id number]) EVM for 15 min from [id number] co-tx for 10 min from [id number] GT x 1 SUNITA BRAGG PT Aug 31, 2022 14:00
--- NOTE | 2022-08-31 14:05 | Occupational Therapy Eval ---
OT Evaluation-General/PLF Medical Diagnosis Admission Date Aug 31, 2022 at 13:00 Medical Diagnosis: acute toxic metabolic encephalopathy Onset Date: Aug 12, 2022 Therapy Diagnosis Therapy Diagnosis: asistance w/ ADLS, weakness, instablity w/ gait Height/Weight Height (Feet): 5 Height (Inches): 3.00 Weight (Pounds): 90 Weight (Ounces): 0.0 Precautions Precautions/Isolations: Fall Prevention, Standard Precautions Medical History Additional Medical History bilateral septic emboli with microhemorrhages, small puncture ECH, staph, Anxiety , depression, ADHD, PSH Current History Initially present to ER at [facility] w/ c/o R foot pain, general pain with spotty rash. Family at ER provided information of bite bite that had gone untreated. Further assessment lead to admission at [facility]. Diagnostics reveal commodities of Right MCA/CVA/ICH, subacute infarctions,, tachycardia, Weight loss since recent hospitalization, moans, groans and slurs when communicating. Perseverances on cereal and going home, Multiple LOB, general weakness, confusion, poor spatial awareness Reviewed History: Yes Social History Home: Single Level Current Living Status: Friend Entry Into Home: Stairs Without Railing Steps Into Home: 3 Steps Inside Home: 0 Lived w/ friends [place]LOF at [place] will live with parents ADL-Prior Level of Function SCALE: Activities may be completed with or without assistive devices. 3-Cweehvofuw-pmzikdm completes the activity by him/herself with no assistance from a helper. 5-Set-up or Clean-up Assistance-helper sets up or cleans up; patient completes activity. [place] assists only prior to or following the activity. 4-Supervision or Touching Assistance-helper provides verbal cues and/or touching/steadying and/or contact guard assistance as patient completes activity. Assistance may be provided throughout the activity or intermittently. 3-Partial/Moderate Assistance-helper does LESS THAN HALF the effort. [place] lifts, holds or supports trunk or limbs, but provides less than half the effort. 2-Substantial/Maximal Assistance-helper does MORE THAN HALF the effort. [place] lifts or holds trunk or limbs and provides more than half the effort. 5-Yjvryucgj-wxbbbl does ALL the effort. Patient does none of the effort to complete the activity. Or, the assistance of 2 or more helpers is required for the patient to complete the activity. If activity was not attempted, code reason: 7-Patient Refused. 9-Not Applicable-not attempted and the patient did not perform the activity before the current illness, exacerbation or injury. 10-Not Attempted due to Environmental Limitations-(lack of equipment, weather restraints, etc.). 88-Not Attempted due to Medical Conditions or Safety Concerns. ADL PLOF Comments Independent w/ all ADLs, patient reports driving. Self Care: Independent Functional Cognition: Independent OT Current Status Subjective Patient transferred from [facility] on OT arrival patent sidelying on right side in position. Easily aroused however requires moderate encouragement to participate w/ therapy. Mumbles answers to questions in soft volume Pain Numeric Pain Scale: 1 (patient does not expand further details) Mental Status/Objective Patient Orientation: Person (spells last name when asked), Confused, Place ([place]), Mumbles Current Upper Extremity ROM Patient does not follow direct commands to asses ROM, observed throughout session WFLS Upper Extremity Coordination FMC IMPAIRED, GMC IMPAIRED Sitting Balance Good, Standing balance Fair. 1/3 trails to activate long handle bath tester to retrieve box of KLEENEX from floor while standing. In silting is able to forward flex and order picker/assembler menu off floor. Required intermittent hand over hand placement on FWW during ambulation and ambulation w/o FWW spontaneously. Patient pulls and tugs at Velcro disposable brief but does not manage fastener tabs Upper Extremity Sensation unable to fully access d/t cognition Upper Extremity Strength observed +3/5 grossly ADL-Treatment Eating (QC): 5 Oral Hygiene (QC): 4 Shower/Bathe Self (QC): 3 Upper Body Dressing (QC): 3 Lower Body Dressing (QC): 3 On/Off Footwear (QC): 2 Toileting Hygiene (QC): 3 Education OT Patient Education: Correct positioning, Modified ADL techniques, Progress toward Goal/Update tx plan, Purpose of tx/functional activities, Reviewed precautions, Rehab process, Safety issues, Transfer techniques, Use of adapted equipment Teaching Recipient: Patient Teaching Methods: Demonstration, Discussion Response to Teaching: Reinforcement Needed BIMS CAM BIMS Expression of Ideas and Wants: Difficulty Understanding Verbal Content: Usually Understands Brief Interview/Mental Status: Yes IRF TYE BIMS: IRF TYE BIMS Response (Comments) Value Repitition of Three Words None 0 Recalls Socks No, Could Not Recall 0 Recalls Blue No, Could Not Recall 0 Recalls Bed No, Could Not Recall 0 Year Missed by 5 Yrs/No Answer 0 Month Missed by 1 Mo/No Answer 0 Day Incorrect or No Answer 0 Total 0 Patient Normally Able to Recal: None of the above Should Staff Asses. Mental St.: Yes CAM Mental Status Change/Baseline: 1 Inattention: 2 Disorganized thinkin Altered level of consciousness: 2 OT Short Term Goals Short Term Goals Eatin Oral hygiene: 5 Upper body dressin OT Boiler Maker Goals Custodial Goals Eating (QC): 6 Oral Hygiene (QC): 6 Toileting Hygiene (QC): 6 Shower/Bathe Self (QC): 5 Upper Body Dressing (QC): 6 Lower Body Dressing (QC): 6 On/Off Footwear (QC): 6 1=Demonstrate adherence to instructed precautions during ADL tasks. 2=Patient will verbalize/demonstrate understanding of assistive devices/modifications for ADL. 3=Patient will improve strength/tolerance for activity to enable patient to perform ADL's. OT Education/Plan Problem List/Assessment Assessment: Decreased Activ Tolerance, Decreased Safety Aware, Decreased UE Strength, Impaired Bed Mobility, Impaired Cognition, Impaired Coordination, Impaired Funct Balance, Impaired Self-Care Skills Discharge Recommendations Plan/Recommendations: Continue POC Treatment Plan/Plan of Care Treatment,Training & Education: Yes Patient would benefit from OT for education, treatment and training to promote independence in ADL's, mobility, safety and/or upper extremity function for ADL's. Plan of Care: ADL Retraining, Cognitive Retraining, Concurrent Therapy, Functional Mobility, Group Exercise/Act as Ind, UE Funct Exercise/Act, UE Neuromus Re-Ed/Coord Treatment Duration: Sep 30, 2022 Frequency: At least 5 of 7 days/Wk (IRF) Estimated Hrs Per Day: 1.5 hours per day Agreement: Yes Rehab Potential: Good Time Start Time: 13:10 Stop Time: 13:25 DATE: Aug 31, 2022 Total Time Billed (hr/min): 15 Billed Treatment Time EV 15 min OMARI LANDEROS OT Aug 31, 2022 14:05
--- NOTE | 2022-08-31 15:09 | Occupational Ther Daily Note ---
OT Current Status-Daily Note Subjective Took over care from OT. PT/OT co-treat ([id number]), skills of 2 clinicians required to decrease fall risk, increase overall mobility, increase activity tolerance due to pt needing increased encouragement and motivation to participate in skilled therapy. PT focusing on mobility, transfers and ambulation while OT focusing on ADLs, functional mobility and increasing activity tolerance. Pt kept on vocalizing that he just wanted to go home and go to bed. Mental Status/Objective Patient Orientation: Person, Place, Time, Situation ADL-Treatment Set up for eating. Set up and CGA for oral care standing at sink. Pt requires encouragement and cues to participate in sponge bath, only completing one step then requires encouragement. Assist to thread feet into pants then CGA while hiking pants over hips, max A. Mod A for UBD. Dependent for footwear. Pt demonstrates need for mod A for toileting. After therapy, pt lying in bed with call light/phone in reach. All needs met in room. Therapy Code Descriptions/Definitions Functional Rich Measure: 0=Not Assessed/NA 4=Minimal Assistance 1=Total Assistance 5=Supervision or Setup 2=Maximal Assistance 6=Modified Rich 3=Moderate Assistance 7=Complete IndependenceSCALE: Activities may be completed with or without assistive devices. 1-Azuhavcjgs-ezzldjn completes the activity by him/herself with no assistance from a helper. 5-Set-up or Clean-up Assistance-helper sets up or cleans up; patient completes activity. [place] assists only prior to or following the activity. 4-Supervision or Touching Assistance-helper provides verbal cues and/or touching/steadying and/or contact guard assistance as patient completes activity. Assistance may be provided throughout the activity or intermittently. 3-Partial/Moderate Assistance-helper does LESS THAN HALF the effort. [place] lifts, holds or supports trunk or limbs, but provides less than half the effort. 2-Substantial/Maximal Assistance-helper does MORE THAN HALF the effort. [place] lifts or holds trunk or limbs and provides more than half the effort. 5-Bdydkgpbu-lywjfp does ALL the effort. Patient does none of the effort to complete the activity. Or, the assistance of 2 or more helpers is required for the patient to complete the activity. If activity was not attempted, code reason: 7-Patient Refused. 9-Not Applicable-not attempted and the patient did not perform the activity before the current illness, exacerbation or injury. 10-Not Attempted due to Environmental Limitations-(lack of equipment, weather restraints, etc.). 88-Not Attempted due to Medical Conditions or Safety Concerns. OT Short Term Goals Short Term Goals Eatin Oral hygiene: 5 Upper body dressin OT Appraiser [employer] Goals Senior Care Goals Acute change in mental status: 1 Inattention: 2 Disorganized thinkin Altered level of consciousness: 2 Eating (QC): 6 Oral Hygiene (QC): 6 Toileting Hygiene (QC): 6 Shower/Bathe Self (QC): 5 Upper Body Dressing (QC): 6 Lower Body Dressing (QC): 6 On/Off Footwear (QC): 6 1=Demonstrate adherence to instructed precautions during ADL tasks. 2=Patient will verbalize/demonstrate understanding of assistive devices/modifications for ADL. 3=Patient will improve strength/tolerance for activity to enable patient to perform ADL's. OT Education/Plan Problem List/Assessment Assessment: Decreased Activ Tolerance, Decreased Safety Aware, Decreased UE Strength, Impaired Cognition, Impaired Funct Balance, Impaired I ADL's, Impaired Self-Care Skills Discharge Recommendations Plan/Recommendations: Continue POC Treatment Plan/Plan of Care Patient would benefit from OT for education, treatment and training to promote independence in ADL's, mobility, safety and/or upper extremity function for ADL's. Plan of Care: ADL Retraining, Cognitive Retraining, Concurrent Therapy, Functional Mobility, Group Exercise/Act as Ind, UE Funct Exercise/Act, UE Brandan romus Re-Ed/Coord Treatment Duration: Sep 30, 2022 Frequency: At least 5 of 7 days/Wk (IRF) Estimated Hrs Per Day: 1.5 hours per day Agreement: Yes Rehab Potential: Good Time Start Time: 13:40 Stop Time: 15:00 DATE: Aug 31, 2022 Total Time Billed (hr/min): 80 Billed Treatment Time 1 visit-ADL 42 (30 min) FA 3 (50 min) co-treat with PT [id number], cotreat with MEN'S LOCKER ROOM ATTENDANT [id number] RICHARD MCINTOSH Aug 31, 2022 15:09
--- NOTE | 2022-08-31 15:49 | Physical Therapy Daily Note ---
PT Daily Note-Current Subjective PACKAGE DRIER takes over tx from PT. Pt agrees to PT/OT co-treat. PT/OT co-treat (1350- 1500), skills of 2 clinicians required to decrease fall risk, increase overall mobility, increase activity tolerance due to pt needing increased encouragement and motivation to participate in skilled therapy. PT focusing on mobility, gonzales sfers and ambulation while OT focusing on ADLs, functional mobility and increasing activity tolerance. Pt kept on vocalizing that he just wanted to go home and go to bed. Pain Section J - Health Conditions 1. Rarely or not at all 2. Occasionally 3. Frequently 4. Almost constantly 8. Unable to answer Pain Effect on Sleep: 1 Pain Interference with Therapy: 1 Pain Interference w/Day-to-Day: 1 Mental Status Patient Orientation: Person, Confused Transfers SCALE: Activities may be completed with or without assistive devices. 9-Dnmlcdivtq-vwkobaj completes the activity by him/herself with no assistance from a helper. 5-Set-up or Clean-up Assistance-helper sets up or cleans up; patient completes activity. [place] assists only prior to or following the activity. 4-Supervision or Touching Assistance-helper provides verbal cues and/or touching/steadying and/or contact guard assistance as patient completes activity. Assistance may be provided throughout the activity or intermittently. 3-Partial/Moderate Assistance-helper does LESS THAN HALF the effort. [place] lifts, holds or supports trunk or limbs, but provides less than half the effort. 2-Substantial/Maximal Assistance-helper does MORE THAN HALF the effort. [place] lifts or holds trunk or limbs and provides more than half the effort. 0-Tppecjmbf-dilqsf does ALL the effort. Patient does none of the effort to complete the activity. Or, the assistance of 2 or more helpers is required for the patient to complete the activity. If activity was not attempted, code reason: 7-Patient Refused. 9-Not Applicable-not attempted and the patient did not perform the activity before the current illness, exacerbation or injury. 10-Not Attempted due to Environmental Limitations-(lack of equipment, weather restraints, etc.). 88-Not Attempted due to Medical Conditions or Safety Concerns. Sit to Stand (QC): 3 Weight Bearing Right Lower Extremity: Right Full Weight Bearing Left Lower Extremity: Left Full Weight Bearing Gait Training Does the Patient Walk?: Yes Distance: 10' x2 Walk 10 feet (QC): 4 Gait Assistive Device: Handheld Assist Wheelchair Training Does the Pt Use a Wheelchair?: No Treatments Set up for eating. Set up and CGA for oral care standing at sink. Pt requires encouragement and cues to participate in sponge bath, only completing one step then requires encouragement. Assist to thread feet into pants then CGA while hiking pants over hips, max A. Mod A for UBD. Dependent for footwear. Pt demonstrates need for mod A for toileting. After therapy, pt lying in bed with call light/phone in reach. All needs met in room. Assessment Current Status: Poor Progress Pt was resistive to therapy, stating "I want to go to bed & I want to home". PT Mcc Goals Mcc Goals PT Etcher Printed Circuit Boards Goals Time Frame: Sep 09, 2022 Roll Left & Right (QC): 6 (Pt will be Mod I to be at PLOF and safe d/c home with family. ) Sit to Lying (QC): 6 (Pt will be Mod I to be at PLOF and safe d/c home with family.) Lying-Sitting on Side/Bed(QC): 6 (Pt will be Mod I to be at PLOF and safe d/c home with family.) Sit to Stand (QC): 6 (Pt will be Mod I to be at PLOF and safe d/c home with family.) Chair/Oib-hp-Qamvn Xfer(QC): 6 (Pt will be Mod I to be at PLOF and safe d/c home with family.) Toilet Transfer (QC): 6 (Pt will be Mod I to be at PLOF and safe d/c home with family.) Car Transfer (QC): 6 (Pt will be Mod I to be at PLOF and safe d/c home with family.) Does the Patient Walk: Yes Walk 10 feet (QC): 6 (Pt will be Mod I to be at PLOF and safe d/c home with family.) Walk 50ft with 2 Turns (QC): 6 (Pt will be Mod I to be at PLOF and safe d/c home with family.) Walk 150 ft (QC): 6 (Pt will be Mod I to be at PLOF and safe d/c home with family.) Walking 10ft on Uneven Surface: 6 (Pt will be Mod I to be at PLOF and safe d/c home with family.) 1 Step (curb) (QC): 6 (Pt will be Mod I to be at PLOF and safe d/c home with family.) 4 Steps (QC): 6 (Pt will be Mod I to be at PLOF and safe d/c home with family.) 12 Steps (QC): 6 (Pt will be Mod I to be at PLOF and safe d/c home with family.) Picking up an Object (QC): 6 (Pt will be Mod I to be at PLOF and safe d/c home with family.) Does the Pt use WC or Scooter?: No Wheel 50 feet with 2 turns (QC: 9 Type: N/A Wheel 150 feet: 9 Type: N/A PT Plan Problem List Problem List: Activity Tolerance, Functional Strength, Safety, Balance, Gait, Transfer Treatment/Plan Treatment Plan: Continue Plan of Care Treatment Plan: Bed Mobility, Concurrent Therapy, Education, Functional Activity Lana, Functional Strength, Group Therapy, Gait, Safety, Therapeutic Exercise, Transfers Treatment Duration: Sep 09, 2022 Frequency: At least 5 of 7 days/Wk (IRF) Estimated Hrs Per Day: 1.5 hours per day Patient and/or Family Agrees t: Yes Time Time In: 1350 Time Out: 1500 DATE: Aug 31, 2022 Total Billed Treatment Time: 70 Total Billed Treatment 1, FA x5 (70m) VITALY MARQUEZ PACKAGE DRIER Aug 31, 2022 15:49
[2022-08-31] MEDS: VANCOMYCIN INJECTION 1,000 MG in NS (IVPB) 250 ML IV SCH (17:01)
[2022-08-31 19:26] VITALS: BP 116/62
[2022-08-31] MEDS: polyethylene glycoL POWDER 17 GM (MIRALAX) PACK PO SCH (20:16)
[2022-08-31] MEDS: hydrOXYzine (VISTARIL/ATARAX) 25 MG capsule/tablet PO SCH (20:16)
[2022-08-31] MEDS: SENNA W/DOCUSATE (SENOKOT S) TABLET PO SCH (20:17)
[2022-08-31] MEDS: DOCUSATE SODIUM 100 MG (COLACE) CAP PO SCH (20:17)
[2022-09-01] MEDS: VANCOMYCIN INJECTION 1,000 MG in NS (IVPB) 250 ML IV SCH ×3 (02:13→17:24)
--- NOTE | 2022-09-01 05:40 | Individualized Plan of Care ---
Individualized Plan of Care Rehab Nursing IPOC Order Admission Date Aug 31, 2022 at 13:00 Current Orders Orders Admission Arrival Bed Request (08/31/22 13:12) Admission Order(Inpt,Obs,Sdc) (08/31/22 13:24) Vital Signs: Per Unit Policy ( 08,16,00 (08/31/22 13:24) Greg Kay (08/31/22 13:24) Sequential Compression Device (08/31/22 13:24) Tray Packer-Inpt Rehab Con (08/31/22 13:24) Rehab Nursing Orders-Ipoc (08/31/22 13:24) Physical Therapy Rehab Orders (08/31/22 13:24) Occupational Therapy Rehab Ord (08/31/22 13:24) Speech Therapy Rehab Orders (08/31/22 13:24) Cbc With Automated Diff (09/01/22 06:00) Comprehensive Metabolic Panel (09/01/22 06:00) Precautions (Aru) (08/31/22 13:24) Weekly Weight WEEK (08/31/22 13:24) Rehab-Intensity Of Therapy (08/31/22 13:24) Initiate Admission Nursing Pro .admission (08/31/22 13:24) Alprazolam Tablet (Xanax Tablet) (08/31/22 13:30) Calcium Carbonate Chew Tablet (Antacid C (08/31/22 13:30) Diphenhydramine Tablet (Benadryl Tablet) (08/31/22 13:30) Docusate Sodium Capsule (Colace Capsule) (08/31/22 21:00) Docusate Sodium Capsule (Colace Capsule) (08/31/22 13:30) Bisacodyl Suppository (Dulcolax Supposit (08/31/22 13:30) Lactulose Oral Solution (Enulose Oral So (08/31/22 13:30) Na Phos/Na Biphos Enema (Fleet Enema David (08/31/22 13:30) Guaifenesin/Codeine Syrup (Robitussin Ac (08/31/22 13:30) Loperamide Tablet (Imodium Tablet) (08/31/22 13:30) Melatonin Tablet (Melatonin Tablet) (08/31/22 13:30) Polyethylene Glycol Powder Pkt (Miralax (08/31/22 21:00) Ondansetron Oral Dissolve Tab (Zofran (08/31/22 13:30) Senna S Tablet (Senokot S Tablet) (08/31/22 21:00) Acetaminophen Tablet/Caplet (Tylenol T (08/31/22 13:30) Initiate Admission Nursing Pro .admission (08/31/22 13:24) Atorvastatin Tablet (Lipitor Tablet) (08/31/22 21:00) Hydroxyzine Cap/Tab (Vistaril) (08/31/22 21:00) (Nf) Lisdexamfetamine Dimesylate (Vyvans (09/01/22 09:00) Olanzapine Orally Dissolve Tab (Zyprexa (09/01/22 09:00) Vancomycin Injection (Vancomycin Injecti (08/31/22 18:00) Vancomycin Injection (Vancomycin Injecti (08/31/22 13:30) Tramadol Tablet (Ultram Tablet) (08/31/22 13:45) General/Regular (08/31/22 Lunch) Trough Order (Trough Order-Pharmacy Orde (09/02/22 09:00) Vancomycin,Trough (09/02/22 09:00) Dietary Consult (08/31/22 16:50) Ensure Plus Chocolate (09/01/22 09:05) Patient Visit (08/31/22 ) Pt Eval Moderate Complexity (08/31/22 ) Gait Training, Ea 15 Min (08/31/22 ) Patient Visit (08/31/22 ) Functional Activities, Ea 15 (08/31/22 ) Hydroxyzine Cap/Tab (Vistaril) (09/01/22 12:30) Patient Visit (09/01/22 ) Gait Training, Ea 15 Min (09/01/22 ) Functional Activities, Ea 15 (09/01/22 ) Rehab Nursing Orders: Ongoing Assess. of Cognitive Status, Ongoing Assess. of Function Status, Bladder Management, Bladder Scan, Bladder Training, Bowel Management, Bowel Training, Disease Management & Educaiton, DVT Prophylaxis, Fall Prevention, Fluid/Electrolyte/Nutrition Mgmt, Infection Prevention, Medication Management & Education, Management of Risks & Complications, Management of Skin Intergrity, Nutrition Management, Pain Management, Patient/Family Support, Safety Management, Wound Management Intensity of Therapy to be met Patient to be seen: Min.3h per day/5 of 7d PT IPOC Problem List: Activity Tolerance, Functional Strength, Safety, Balance, Gait, Transfer Treatment Plan: Continue Plan of Care Bed Mobility, Concurrent Therapy, Education, Functional Activity Lana, Functional Strength, Group Therapy, Gait, Safety, Therapeutic Exercise, Transfers Treatment Duration: Sep 09, 2022 Frequency: At least 5 of 7 days/Wk (IRF) Estimated Hrs Per Day: 1.5 hours per day OT IPOC Problems: Decreased Activ Tolerance, Decreased Safety Aware, Decreased UE Strength, Impaired Cognition, Impaired Funct Balance, Impaired I ADL's, Impaired Self-Care Skills OT Treatment, Training and Edu: Yes Plan of Care: ADL Retraining, Cognitive Retraining, Concurrent Therapy, Functional Mobility, Group Exercise/Act as Ind, UE Funct Exercise/Act, UE Neuromus Re-Ed/Coord Treatment Duration: Sep 30, 2022 Frequency: At least 5 of 7 days/Wk (IRF) Estimated Hrs Per Day: 1.[address] IPOC Speech Therapy Treatment Plan: Continue Plan of Care Treatment Duration: Sep 01, 2022 Frequency: Modified Program (IRF) Estimated Hrs Per Day: Other Tray Packer/Case Mgmt Tray Packer/Case Managemen: Discharge Planning Dietitian/Oven Builder Dietitian/Oven Builder to monitor nutritional status and make changes and/or recommendations as needed and work with speech pathology on dietary upgrades as the occur. 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 Medical Issues: Bowel/Bladder Function, DVT Prophylaxis, Falls Precautions, Fluid/Electrolyte/Nutrition Balance, Infection Protection, Pain Management Brief Synthesis of Preadmission Screen, Post-Admission Evaluation, and Therapy Evaluations: PT and OT will focus on regaining function with use of assistive devices in order to increase ambulation and increase independence in ADLs in order to return home with mother Medical Prognosis: Good Anticipated Length of Stay: 10 days AURE RUIZ DO Sep 01, 2022 05:40
--- NOTE | 2022-09-01 05:40 | PM&R Progress Note ---
Subjective HPI/CC On Admission Date Seen by Provider: Sep 01, 2022 Time Seen by Provider: 12:00 Subjective/Events-last exam 09/01/2022: Patient sleeping all the time We will hold Zyprexa since that could be sedating Patient appears to be very thin He will try to participate more in therapy Review of Systems General: Fatigue, Malaise Objective Exam Vital Signs Vital Signs Date Time Temp Pulse Resp B/P (MAP) Pulse Ox O2 Delivery O2 Flow Rate FiO2 09/01/22 20:32 Room Air 09/01/22 19:22 37.0 72 18 108/60 (76) 100 Capillary Refill : General Appearance: No Apparent Distress, WD/WN, Chronically ill, Thin, Other (Pale) HEENT: PERRL/EOMI, Normal ENT Inspection, Pharynx Normal Neck: Full Range of Motion, Normal Inspection, Non Tender, Supple, Carotid Bruit Respiratory: Chest Non Tender, Lungs Clear, Normal Breath Sounds, No Accessory Muscle Use, No Respiratory Distress Cardiovascular: Regular Rate, Rhythm, No Edema, No Gallop, No JVD, No Murmur, Normal Peripheral Pulses Gastrointestinal: Normal Bowel Sounds, No Organomegaly, No Pulsatile Mass, Non Tender, Soft Back: Normal Inspection, No CVA Tenderness, No Vertebral Tenderness Extremity: Normal Capillary Refill, Normal Inspection, Normal Range of Motion, Non Tender, No Calf Tenderness, No Pedal Edema Neurologic/Psychiatric: Alert, Oriented x3, Normal Mood/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 FIM Transfers Therapy Code Descriptions/Definitions Functional [place] Measure: 0=Not Assessed/NA 4=Minimal Assistance 1=Total Assistance 5=Supervision or Setup 2=Maximal Assistance 6=Modified [place] 3=Moderate Assistance 7=Complete IndependenceSCALE: Activities may be completed with or without assistive devices. 3-Isuducjqcv-okrabaz completes the activity by him/herself with no assistance from a helper. 5-Set-up or Clean-up Assistance-helper sets up or cleans up; patient completes activity. [place] assists only prior to or following the activity. 4-Supervision or Touching Assistance-helper provides verbal cues and/or touching/steadying and/or contact guard assistance as patient completes activ ity. Assistance may be provided throughout the activity or intermittently. 3-Partial/Moderate Assistance-helper does LESS THAN HALF the effort. [place] lifts, holds or supports trunk or limbs, but provides less than half the effort. 2-Substantial/Maximal Assistance-helper does MORE THAN HALF the effort. [place] lifts or holds trunk or limbs and provides more than half the effort. 8-Rwonnntnx-yxdvln does ALL the effort. Patient does none of the effort to complete the activity. Or, the assistance of 2 or more helpers is required for the patient to complete the activity. If activity was not attempted, code reason: 7-Patient Refused. 9-Not Applicable-not attempted and the patient did not perform the activity before the current illness, exacerbation or injury. 10-Not Attempted due to Environmental Limitations-(lack of equipment, weather restraints, etc.). 88-Not Attempted due to Medical Conditions or Safety Concerns. Roll Left to Right (QC): 3 (Min A) Sit to Lying (QC): 3 (Min A) Sit to Stand (QC): 3 Chair/Bbg-ru-Eqkjc Xfer(QC): 3 (Min A) Car Transfer (QC): 3 (Min A) Gait Training Does the Patient Walk?: Yes Distance: 10' x2 Walk 10 feet (QC): 4 Walk 50 ft with 2 Turns(QC): 3 (Min A) Walk 150 ft (QC): 3 (Min A) Walking 10ft/uneven surface-QC: 3 (Min A) Gait Assistive Device: Handheld Assist Wheelchair Training Does the Pt Use a Wheelchair?: No Wheel 50 ft with 2 turns (QC): 88 Wheel 150 ft (QC): 88 Type of Wheelchair: N/A Stair Training 1 Step (curb) (QC): 3 (Min A) 4 Steps (QC): 3 (Min A) 12 Steps (QC): 3 (Min A) Balance Picking up an Object (QC): 3 (Min A) ADL-Treatment Eating (QC): 5 Oral Hygiene (QC): 4 Shower/Bathe Self (QC): 3 Upper Body Dressing (QC): 3 Lower Body Dressing (QC): 3 On/Off Footwear (QC): 2 Toileting Hygiene (QC): 3 Assessment/Plan Assessment and Plan Assess & Plan/Chief Complaint Assessment: 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 Suspected endocarditis although [place]ONA revealed no vegetations treating empirically Dog bite to face ADHD Bipolar disorder Low BMI of 17 Plan: Vancomycin per ID protocol PT and OT Supportive nursing home meds 09/01/2022: Supportive care Monitor closely (1) Embolic stroke (2) Suspected endocarditis Status: Acute (3) Dog bite Status: Acute AURE RIUZ DO Sep 01, 2022 05:40
[2022-09-01 06:11] LABS: BASOPHILS # (AUTO) 0.1 10^3/uL (0.0-0.1); BASOPHILS % (AUTO) 1 % (0-10); EOSINOPHILS # (AUTO) 0.3 10^3/uL (0.0-0.3); EOSINOPHILS % (AUTO) 3 % (0-10); HEMATOCRIT 31 % (40-54); HEMOGLOBIN 10.2 g/dL (13.3-17.7); LYMPHOCYTES # (AUTO) 1.6 10^3/uL (1.0-4.0); LYMPHOCYTES % (AUTO) 15 % (12-44); MEAN CORPUSCULAR HEMOGLOBIN 28 pg (25-34); MEAN CORPUSCULAR HGB CONC 33 g/dL (32-36); MEAN CORPUSCULAR VOLUME 87 fL (80-99); MEAN PLATELET VOLUME 9.2 fL (9.0-12.2); MONOCYTES % (AUTO) 9 % (0-12); NEUTROPHILS % (AUTO) 72 % (42-75); PLATELET COUNT 271 10^3/uL (130-400); WHITE BLOOD COUNT 11.1 10^3/uL (4.3-11.0)
[2022-09-01 06:13] LABS: ALBUMIN 3.1 GM/DL (3.2-4.5)
[2022-09-01 06:14] LABS: POTASSIUM 4.5 MMOL/L (3.6-5.0)
[2022-09-01 06:15] LABS: CALCIUM 9.2 MG/DL (8.5-10.1)
[2022-09-01 06:18] LABS: BILIRUBIN,TOTAL 0.2 MG/DL (0.1-1.0)
[2022-09-01 06:19] LABS: CREATININE SERUM 0.75 MG/DL (0.60-1.30)
[2022-09-01 08:00] VITALS: BP 106/57
[2022-09-01] MEDS: polyethylene glycoL POWDER 17 GM (MIRALAX) PACK PO SCH ×2 (08:15→19:48)
[2022-09-01] MEDS: hydrOXYzine (VISTARIL/ATARAX) 25 MG capsule/tablet PO SCH (08:15)
[2022-09-01] MEDS: DOCUSATE SODIUM 100 MG (COLACE) CAP PO SCH ×2 (08:15→19:48)
[2022-09-01] MEDS: SENNA W/DOCUSATE (SENOKOT S) TABLET PO SCH ×2 (08:15→19:48)
[2022-09-01] MEDS ORDERED: OLANZapine 5 MG ODT (ZyPREXA ZYDIS) SL SCH (09:00)
--- NOTE | 2022-09-01 09:08 | Occupational Ther Daily Note ---
OT Current Status-Daily Note Subjective Pt alert, lying in bed. Pt requires max encouragement to participate in OT session. No c/o pain. Mental Status/Objective Patient Orientation: Person, Unable to Assess Attachments: IV ADL-Treatment Pt required max encouragement to agree to shower. Pt requires set up for meal. Pt requires max encouragement to get OOB and move. Pt incontinent of urine. Hand hold assist to ambulate to bathroom. Pt sat to doff lower body clothing. Pt require physical assist to alternate lifting each leg and hold for pt to doff socks. Pt making keening sound when completing this. Pt then would not stand up to get into shower, MARES attempted to encourage pt to step into shower, pt continued to not move. MARES then began shower while pt was sitting on BSC outside of shower, pt decided to stand and step into shower with CGA for safety. Pt required verbal cues and physical assistance to thoroughly cleanse body after attempts made by pt. MARES donned socks and threaded lower body clothing over feet. Pt stood and hiked pants over hips with CGA. Pt reached to floor to grab pants then pull up with CGA. Mod A for UBD. Pt then ambulated to recliner and fell asleep immediately. Call light/phone in reach. All needs met. Therapy Code Descriptions/Definitions Functional [place] Measure: 0=Not Assessed/NA 4=Minimal Assistance 1=Total Assistance 5=Supervision or Setup 2=Maximal Assistance 6=Modified [place] 3=Moderate Assistance 7=Complete IndependenceSCALE: Activities may be completed with or without assistive devices. 1-Awnxwvvwqz-bhrcfqf completes the activity by him/herself with no assistance from a helper. 5-Set-up or Clean-up Assistance-helper sets up or cleans up; patient completes activity. [place] assists only prior to or following the activity. 4-Supervision or Touching Assistance-helper provides verbal cues and/or touching/steadying and/or contact guard assistance as patient completes activ ity. Assistance may be provided throughout the activity or intermittently. 3-Partial/Moderate Assistance-helper does LESS THAN HALF the effort. [place] lifts, holds or supports trunk or limbs, but provides less than half the effort. 2-Substantial/Maximal Assistance-helper does MORE THAN HALF the effort. [place] lifts or holds trunk or limbs and provides more than half the effort. 8-Hddaaefxc-tgyqca does ALL the effort. Patient does none of the effort to complete the activity. Or, the assistance of 2 or more helpers is required for the patient to complete the activity. If activity was not attempted, code reason: 7-Patient Refused. 9-Not Applicable-not attempted and the patient did not perform the activity before the current illness, exacerbation or injury. 10-Not Attempted due to Environmental Limitations-(lack of equipment, weather restraints, etc.). 88-Not Attempted due to Medical Conditions or Safety Concerns. Eating (QC): 5 Oral Hygiene (QC): 4 Shower/Bathe Self (QC): 2 Upper Body Dressing (QC): 3 Lower Body Dressing (QC): 3 On/Off Footwear: 2 Toileting Hygiene (QC): 2 OT Short Term Goals Short Term Goals Eatin Oral hygiene: 5 Upper body dressin OT Freight Loader Goals Skilled Nursing Goals Acute change in mental status: 1 Inattention: 2 Disorganized thinkin Altered level of consciousness: 2 Eating (QC): 6 Oral Hygiene (QC): 6 Toileting Hygiene (QC): 6 Shower/Bathe Self (QC): 5 Upper Body Dressing (QC): 6 Lower Body Dressing (QC): 6 On/Off Footwear (QC): 6 1=Demonstrate adherence to instructed precautions during ADL tasks. 2=Patient will verbalize/demonstrate understanding of assistive devices/modifications for ADL. 3=Patient will improve strength/tolerance for activity to enable patient to perform ADL's. OT Education/Plan Problem List/Assessment Assessment: Decreased Activ Tolerance, Decreased Safety Aware, Decreased UE Strength, Impaired Cognition, Impaired Coordination, Impaired Funct Balance, Impaired Self-Care Skills Discharge Recommendations Plan/Recommendations: Continue POC Treatment Plan/Plan of Care Patient would benefit from OT for education, treatment and training to promote independence in ADL's, mobility, safety and/or upper extremity function for ADL's. Plan of Care: ADL Retraining, Cognitive Retraining, Concurrent Therapy, Functional Mobility, Group Exercise/Act as Ind, UE Funct Exercise/Act, UE Neuromus Re-Ed/Coord Treatment Duration: Sep 30, 2022 Frequency: At least 5 of 7 days/Wk (IRF) Estimated Hrs Per Day: 1.5 hours per day Agreement: Yes Rehab Potential: Good Time Start Time: 08:30 Stop Time: 10:00 DATE: Sep 01, 2022 Total Time Billed (hr/min): 90 Billed Treatment Time 1 visit-ADL 6 (90 min) RICHARD MCINTOSH Sep 01, 2022 09:08
--- NOTE | 2022-09-01 10:40 | Physician Query Clarification ---
PQ-Further Specificity Admission/Discharge Admission Date: Aug 31, 2022 at 13:00 Discharge Date: Dr. Gary, The medical record reflects the following clinical scenario: History/Risk Factors: Embolic stroke, small punctuate intracranial hemorrhages Clinical Findings: abnormal gait, weakness Treatment: IP rehab Question: Can you further specify the deficits from the embolic stroke and intracranial hemorrhages that prompted IP rehab per the clinical indicators above? Please document a response in the Progress Notes or Discharge Summary. 3. Other, with explanation of the clinical findings. 4. Clinically undetermined, no explanation for the clinical findings. PHYSICIAN RESPONSE Can you specify per above: 1 In responding to this query, please exercise your independent professional judgment. The purpose of this communication is to more accurately reflect the complexity of your patients condition. The fact that a question is asked does not imply that any particular answer is desired or expected. Thank you for your timely response to this clarification. Requestors name: Nicola THIS PHYSICIAN QUERY FORM IS A PERMANENT PART OF THE MEDICAL RECORD NICOLA KAPLAN Sep 01, 2022 10:40 AURE GRAY DO Sep 01, 2022 11:45
--- NOTE | 2022-09-01 13:43 | Speech Therapy Progress Note ---
Therapy Progress Note Speech pathology attempted cognitive linguistic evaluation at 1008. Regardless of maximum clinician verbal prompting and encouragement, the patient would not wake for participation in the assessment. All room lights were placed on, windows were open, and the patient was repositioned in the recliner with the assistance of the PCT. The patient continues to remain with reduced alertness and asleep. At this time, the clinician ceases attempt. ST will reattempt on the subsequent treatment date. TIERRA MCFARLAND Sep 01, 2022 13:43
--- NOTE | 2022-09-01 14:09 | Physical Therapy Daily Note ---
PT Daily Note-Current Subjective Pt was in recliner upon entering the room and for the first 15 mins shipwright apprentice spent time truing to arouse the pt awake. sternal rub and cold wash cloth were incorporated. pt was educated on the importance eof therapy to be able to return home. charge nurse was notified and was able to help arouse pt. pt then willing for therapy. pt has been noted to play "possium" from time to time to get out of doing things he does not want to do. pt stated he wanted to go home multiple times and required MAX encouragement to participate in therapy. pt was left in room with call light in recliner and all needs met after therapy this day. . Pain Section J - Health Conditions 1. Rarely or not at all 2. Occasionally 3. Frequently 4. Almost constantly 8. Unable to answer Pain Effect on Sleep: 1 Pain Interference with Therapy: 1 Pain Interference w/Day-to-Day: 1 Transfers SCALE: Activities may be completed with or without assistive devices. 0-Grglmhgdde-ofrjttz completes the activity by him/herself with no assistance from a helper. 5-Set-up or Clean-up Assistance-helper sets up or cleans up; patient completes activity. [place] assists only prior to or following the activity. 4-Supervision or Touching Assistance-helper provides verbal cues and/or touching/steadying and/or contact guard assistance as patient completes activity. Assistance may be provided throughout the activity or intermittently. 3-Partial/Moderate Assistance-helper does LESS THAN HALF the effort. [place] lifts, holds or supports trunk or limbs, but provides less than half the effort. 2-Substantial/Maximal Assistance-helper does MORE THAN HALF the effort. [place] lifts or holds trunk or limbs and provides more than half the effort. 8-Qrvyrpkkz-ouetfx does ALL the effort. Patient does none of the effort to complete the activity. Or, the assistance of 2 or more helpers is required for the patient to complete the activity. If activity was not attempted, code reason: 7-Patient Refused. 9-Not Applicable-not attempted and the patient did not perform the activity before the current illness, exacerbation or injury. 10-Not Attempted due to Environmental Limitations-(lack of equipment, weather restraints, etc.). 88-Not Attempted due to Medical Conditions or Safety Concerns. Weight Bearing Right Lower Extremity: Right Full Weight Bearing Left Lower Extremity: Left Full Weight Bearing Treatments pt was able to preform ambulation with MOD assist for redirection, ataxia like gait pattern, AD directional changes. pt is able to ambulate 125 ft with RW with 2 rest breaks secondary to fatigue and refusing to ambulate further. pt preformed tilert tranfers with Min A for VC for safety and sequencing. PT Alf Goals Family Dentist Goals PT Alf Goals Time Frame: Sep 09, 2022 Roll Left & Right (QC): 6 (Pt will be Mod I to be at PLOF and safe d/c home with family. ) Sit to Lying (QC): 6 (Pt will be Mod I to be at PLOF and safe d/c home with family.) Lying-Sitting on Side/Bed(QC): 6 (Pt will be Mod I to be at PLOF and safe d/c home with family.) Sit to Stand (QC): 6 (Pt will be Mod I to be at PLOF and safe d/c home with family.) Chair/Jag-ot-Grqdf Xfer(QC): 6 (Pt will be Mod I to be at PLOF and safe d/c home with family.) Toilet Transfer (QC): 6 (Pt will be Mod I to be at PLOF and safe d/c home with family.) Car Transfer (QC): 6 (Pt will be Mod I to be at PLOF and safe d/c home with family.) Does the Patient Walk: Yes Walk 10 feet (QC): 6 (Pt will be Mod I to be at PLOF and safe d/c home with family.) Walk 50ft with 2 Turns (QC): 6 (Pt will be Mod I to be at PLOF and safe d/c home with family.) Walk 150 ft (QC): 6 (Pt will be Mod I to be at PLOF and safe d/c home with family.) Walking 10ft on Uneven Surface: 6 (Pt will be Mod I to be at PLOF and safe d/c home with family.) 1 Step (curb) (QC): 6 (Pt will be Mod I to be at PLOF and safe d/c home with family.) 4 Steps (QC): 6 (Pt will be Mod I to be at PLOF and safe d/c home with family.) 12 Steps (QC): 6 (Pt will be Mod I to be at PLOF and safe d/c home with family.) Picking up an Object (QC): 6 (Pt will be Mod I to be at PLOF and safe d/c home with family.) Does the Pt use WC or Scooter?: No Wheel 50 feet with 2 turns (QC: 9 Type: N/A Wheel 150 feet: 9 Type: N/A PT Plan Treatment/Plan Treatment Plan: Continue Plan of Care Treatment Plan: Bed Mobility, Concurrent Therapy, Education, Functional Activity Lana, Functional Strength, Group Therapy, Gait, Safety, Therapeutic Exercise, Transfers Treatment Duration: Sep 09, 2022 Frequency: At least 5 of 7 days/Wk (IRF) Estimated Hrs Per Day: 1.5 hours per day Patient and/or Family Agrees t: Yes Time Time In: 1030 Time Out: 1200 DATE: Sep 01, 2022 Total Billed Treatment Time: 90 Total Billed Treatment 1 GT x 2 FA 4 Mariposa Casas COMPENSATION ASSOCIATE Sep 01, 2022 14:09
[2022-09-01 19:22] VITALS: BP 108/60
[2022-09-01] MEDS: ONDANSETRON 4 MG (ZOFRAN) ORAL DISSOLVE TAB PO PRN (20:09)
[2022-09-02] MEDS: VANCOMYCIN INJECTION 1,000 MG in NS (IVPB) 250 ML IV SCH (02:35)
--- NOTE | 2022-09-02 07:21 | Occupational Ther Daily Note ---
OT Current Status-Daily Note Subjective Pt alert, lying in bed. Pt agrees to therapy. No c/o pain. Pt talking stronger and answering questions. Pt stated that his mom came to visit and was asking if she was here today. MARES reassured pt that mother will be coming to visit. Mental Status/Objective Patient Orientation: Person, Place, Time, Situation Attachments: IV ADL-Treatment Set up for breakfast then pt able to complete rest of breakfast by self. Pt required max encouragement to participate and focus on skilled therapy. Independent with bed mobility. Min A due to LOB when ambulating using FWW. Pt incontinent of urine. Pt declined to sit to complete LBD. Min A to stabilize pt while pt held onto grabbar as he stepped into underwear and pants then hiked over hips. Pt then stood at sink to complete oral care with assist to take off cap of toothpaste then pt applied toothpaste to brush and completed oral care though not thoroughly. Ambulated back to recliner using FWW without LOB. Pt changed shirt with encouragement and assist with IV during dressing. After session, pt sitting in recliner with call light/phone in reach. All needs met in room. Therapy Code Descriptions/Definitions Functional [place] Measure: 0=Not Assessed/NA 4=Minimal Assistance 1=Total Assistance 5=Supervision or Setup 2=Maximal Assistance 6=Modified [place] 3=Moderate Assistance 7=Complete IndependenceSCALE: Activities may be completed with or without assistive devices. 7-Eaiodjhygm-zayvqbw completes the activity by him/herself with no assistance from a helper. 5-Set-up or Clean-up Assistance-helper sets up or cleans up; patient completes activity. [place] assists only prior to or following the activity. 4-Supervision or Touching Assistance-helper provides verbal cues and/or touching/steadying and/or contact guard assistance as patient completes activity. Assistance may be provided throughout the activity or intermittently. 3-Partial/Moderate Assistance-helper does LESS THAN HALF the effort. [place] lifts, holds or supports trunk or limbs, but provides less than half the effort. 2-Substantial/Maximal Assistance-helper does MORE THAN HALF the effort. [place] lifts or holds trunk or limbs and provides more than half the effort. 5-Aukeirmhn-ymntii does ALL the effort. Patient does none of the effort to complete the activity. Or, the assistance of 2 or more helpers is required for the patient to complete the activity. If activity was not attempted, code reason: 7-Patient Refused. 9-Not Applicable-not attempted and the patient did not perform the activity b efore the current illness, exacerbation or injury. 10-Not Attempted due to Environmental Limitations-(lack of equipment, weather restraints, etc.). 88-Not Attempted due to Medical Conditions or Safety Concerns. Eating (QC): 5 Oral Hygiene (QC): 4 Upper Body Dressing (QC): 3 Lower Body Dressing (QC): 3 Toileting Hygiene (QC): 2 OT Short Term Goals Short Term Goals Eatin Oral hygiene: 5 Upper body dressin OT Skilled Nursing Goals Skilled Nursing Goals Acute change in mental status: 1 Inattention: 2 Disorganized thinkin Altered level of consciousness: 2 Eating (QC): 6 Oral Hygiene (QC): 6 Toileting Hygiene (QC): 6 Shower/Bathe Self (QC): 5 Upper Body Dressing (QC): 6 Lower Body Dressing (QC): 6 On/Off Footwear (QC): 6 1=Demonstrate adherence to instructed precautions during ADL tasks. 2=Patient will verbalize/demonstrate understanding of assistive devices/modifications for ADL. 3=Patient will improve strength/tolerance for activity to enable patient to perform ADL's. OT Education/Plan Problem List/Assessment Assessment: Decreased Activ Tolerance, Impaired Cognition, Impaired Coordination, Impaired Funct Balance, Impaired Self-Care Skills Discharge Recommendations Plan/Recommendations: Continue POC Treatment Plan/Plan of Care Patient would benefit from OT for education, treatment and training to promote independence in ADL's, mobility, safety and/or upper extremity function for ADL's. Plan of Care: ADL Retraining, Cognitive Retraining, Concurrent Therapy, Functional Mobility, Group Exercise/Act as Ind, UE Funct Exercise/Act, UE Neuromus Re-Ed/Coord Treatment Duration: Sep 30, 2022 Frequency: At least 5 of 7 days/Wk (IRF) Estimated Hrs Per Day: 1.5 hours per day Agreement: Yes Rehab Potential: Good Time Start Time: 07:00 Stop Time: 08:15 DATE: Sep 02, 2022 Total Time Billed (hr/min): 75 Billed Treatment Time 1 visit-ADL 5 (75 min) RICHARD MCINTOSH Sep 02, 2022 07:21
[2022-09-02 08:00] VITALS: BP 120/65
[2022-09-02] MEDS: DOCUSATE SODIUM 100 MG (COLACE) CAP PO SCH ×2 (08:07→19:35)
[2022-09-02] MEDS: polyethylene glycoL POWDER 17 GM (MIRALAX) PACK PO SCH ×2 (08:07→19:36)
[2022-09-02] MEDS: SENNA W/DOCUSATE (SENOKOT S) TABLET PO SCH ×2 (08:08→19:36)
[2022-09-02] MEDS ORDERED: TROUGH ORDER-PHARMACY XX ONE (09:00)
--- NOTE | 2022-09-02 11:39 | Physical Therapy Daily Note ---
PT Daily Note-Current Subjective pt in room in recliner upon arrival and with encouragement willing for therapy. pt edu on the importance of therapy and the requirements of therapy while being here. pt states "he wants to go home" quite often with reminders from therapist to get home, therapy needs to happen. pt was left in room in recliner with call light in hand and all needs met. Pain Section J - Health Conditions 1. Rarely or not at all 2. Occasionally 3. Frequently 4. Almost constantly 8. Unable to answer Pain Effect on Sleep: 1 Pain Interference with Therapy: 1 Pain Interference w/Day-to-Day: 1 Mental Status Patient Orientation: Person, Place Transfers SCALE: Activities may be completed with or without assistive devices. 9-Mbtjdnhlap-cjncqhp completes the activity by him/herself with no assistance from a helper. 5-Set-up or Clean-up Assistance-helper sets up or cleans up; patient completes activity. [place] assists only prior to or following the activity. 4-Supervision or Touching Assistance-helper provides verbal cues and/or touching/steadying and/or contact guard assistance as patient completes activity. Assistance may be provided throughout the activity or intermittently. 3-Partial/Moderate Assistance-helper does LESS THAN HALF the effort. [place] lifts, holds or supports trunk or limbs, but provides less than half the effort. 2-Substantial/Maximal Assistance-helper does MORE THAN HALF the effort. [place] lifts or holds trunk or limbs and provides more than half the effort. 6-Wbbivffrd-ublxph does ALL the effort. Patient does none of the effort to complete the activity. Or, the assistance of 2 or more helpers is required for the patient to complete the activity. If activity was not attempted, code reason: 7-Patient Refused. 9-Not Applicable-not attempted and the patient did not perform the activity befo re the current illness, exacerbation or injury. 10-Not Attempted due to Environmental Limitations-(lack of equipment, weather re straints, etc.). 88-Not Attempted due to Medical Conditions or Safety Concerns. Sit to Stand (QC): 4 Chair/Lxf-sy-Caocz Xfer(QC): 4 Toilet Transfer (QC): 4 Weight Bearing Right Lower Extremity: Right Full Weight Bearing Left Lower Extremity: Left Full Weight Bearing Gait Training Walk 10 feet (QC): 3 Walk 50 ft with 2 Turns(QC): 3 Walk 150 ft (QC): 3 Treatments Pt preformed sit to stand and ambulation to BR to change his brief and shorts. pt preformed toilet transfer holding onto hand rails and CGA. pt is able to ambulate. 70ft with RW and Mod assist at pt tends to lean to the right when walking as well as VC for correct AD use. pt presents with a narrowing gait pa ttern and is able to self correct 40% of the time with VC. 60% of the time the pt needs to pause ambulation readjust his feet placement and can then proceed with correct foot placement when ambulating. Assessment Current Status: Fair Progress (Pt required mulitple redirection and multiple encouraging words to gain and finish thearpy. ) PT Registered Nurse Float Pool Goals Prison Goals PT Prison Goals Time Frame: Sep 09, 2022 Roll Left & Right (QC): 6 (Pt will be Mod I to be at PLOF and safe d/c home with family. ) Sit to Lying (QC): 6 (Pt will be Mod I to be at PLOF and safe d/c home with family.) Lying-Sitting on Side/Bed(QC): 6 (Pt will be Mod I to be at PLOF and safe d/c home with family.) Sit to Stand (QC): 6 (Pt will be Mod I to be at PLOF and safe d/c home with family.) Chair/Cmg-wd-Sryaj Xfer(QC): 6 (Pt will be Mod I to be at PLOF and safe d/c home with family.) Toilet Transfer (QC): 6 (Pt will be Mod I to be at PLOF and safe d/c home with family.) Car Transfer (QC): 6 (Pt will be Mod I to be at PLOF and safe d/c home with family.) Does the Patient Walk: Yes Walk 10 feet (QC): 6 (Pt will be Mod I to be at PLOF and safe d/c home with family.) Walk 50ft with 2 Turns (QC): 6 (Pt will be Mod I to be at PLOF and safe d/c home with family.) Walk 150 ft (QC): 6 (Pt will be Mod I to be at PLOF and safe d/c home with family.) Walking 10ft on Uneven Surface: 6 (Pt will be Mod I to be at PLOF and safe d/c home with family.) 1 Step (curb) (QC): 6 (Pt will be Mod I to be at PLOF and safe d/c home with family.) 4 Steps (QC): 6 (Pt will be Mod I to be at PLOF and safe d/c home with family.) 12 Steps (QC): 6 (Pt will be Mod I to be at PLOF and safe d/c home with family.) Picking up an Object (QC): 6 (Pt will be Mod I to be at PLOF and safe d/c home with family.) Does the Pt use WC or Scooter?: No Wheel 50 feet with 2 turns (QC: 9 Type: N/A Wheel 150 feet: 9 Type: N/A PT Plan Treatment/Plan Treatment Plan: Continue Plan of Care Treatment Plan: Bed Mobility, Concurrent Therapy, Education, Functional Activity Lana, Functional Strength, Group Therapy, Gait, Safety, Therapeutic Exercise, Transfers Treatment Duration: Sep 09, 2022 Frequency: At least 5 of 7 days/Wk (IRF) Estimated Hrs Per Day: 1.5 hours per day Patient and/or Family Agrees t: Yes Time Time In: 1030 Time Out: 1130 DATE: Sep 02, 2022 Total Billed Treatment Time: 60 Total Billed Treatment 1 FA x 2 GT x 2 Mariposa Casas AUTOMATIC COIN MACHINE MECHANIC Sep 02, 2022 11:39
--- NOTE | 2022-09-02 12:06 | ST Cognitive Linguistic Eval ---
Speech Evaluation-General Medical Diagnosis Acute Toxic Metabolic Encephalopathy Onset Date: Aug 12, 2022 Therapy Diagnosis Therapy Diagnosis: Severely Impaired Cognitive Linguistic Skills Precautions Precautions: Fall, Pressure Ulcer Precautions/Isolations: Fall Prevention, Standard Precautions, Pressure Ulcer Referral Referring Physician: Dr. Nadine Gray Reason for Referral: Evaluation/Treatment Medical History Reviewed History: Yes Social History Current Living Status: Friend Speech PLF-Current Status Prior Level of Function Prior to the patient's hospitalization, the patient lived independently with two friends. The patient is unable to provide any additional information due to his current level of mentation. The above information was located in the patient's medical chart. Subjective The patient was seated upright in his chair, with his eyes intermittently opened, upon entrance to the patient's room by the clinician. The patient makes eye contact with the clinician when his name is said aloud and a verbal greeting is provided by the clinician. Distractions are reduced in the room to improve sustained attention and participation. Language Eval: Auditory Comprehends Simple Yes/No Ques: Functional (When presented with a yes and no option ("Would you like a drink?" "Would you like the door open?"), the patient consistently provided an accurate response. However, at times, no response was provided.) Indent/Objects Multiple Nicole: Functional (The patient stated the word "pen" accurately throughout confrontational naming of common objects however did not participate in this task following identification of the first object.) Follows 1-Step Commands: Functional (Intermittently functional. When the patient completed the one step command, the command was completed succesfully. However, many times the patient did not attempt the commands provided.) Follows General Conversations: Severe Language Eval: Verbal Language Produces Auto, Serial Info: Moderate (With maximum clinician verbal cueing, the patient counted to five aloud.) Word Finding: Severe (With maximum clinician verbal cueing, the patient was able to name two items in a specific category.) Requests Basic Needs: Severe (When provided a request or choice, the patient will state his needs. The patient does not independently state needs or initiate requests to have needs met.) States Basic Personal Info: Severe (The patient stated his first name following repetition and was able to state he lives in [place].) Expresses Complex Ideas: Severe Cognitive Patient Orientation The patient stated the date was "2000." Regardless of redirection and identification of orientation information in room, the patient continued to state his date of . Objective Cognitive Domain Attention: Severe Continued attempts at cognitive evaluation is recommended, as limited participation is gained throughout the treatment session. Objective Formal/Standardized Tests [facility] Mental Status Exam (UMS): The SLUMS was unable to be completed due to severe deficits and poor participation present. Oral Motor/Speech Production The patient holds his mouth in an open position. Poor articulatory precision and overall effort is present, resulting in intelligibility of less than 25% in known contexts. The patient displays an elevated pitch in correlation to his age/gender. Decreased vocal intensity is appreciated. Impression While a slight improvement to the patient's participation was gained today, it required maximum and consistent clinician verbal prompting and encouragement. The patient continues to state, "I want to go home!" throughout the assessment. Improved participation will be necessary for positive progress towards goals. At this time, the patient displays severe cognitive deficits however does demonstrate expressive and receptive language skills when provided maximum prompting. Continued and ongoing assessment is recommended and warranted. Speech Short Term Goals Short Term Goals Short Term Goals 1. The patient will utilize visual and verbal cues to identify basic orientation information with 70% accuracy. Time Frame-STG: One Week. Speech Rolled Oats Mill Operator Goals Shelter Goals 1. The patient will display improved cognitive communication for safe discharge to the least restrictive environment. Time Frame: Two Weeks. Speech-Plan Treatment Plan Speech Therapy Treatment Plan: Continue Plan of Care Treatment Duration: Sep 16, 2022 Frequency: Modified Program (IRF) (Four to five times per week.) Estimated Hrs Per Day: Other Rehab Potential: Good Pt/Family Agrees to Plan: Yes Safety Risks/Education Teaching Recipient: Patient Teaching Methods: Discussion Response to Teaching: Unable to Comprehend Education Topics Provided: Plan of Care, Recommendations Discharge Recommendations Post Acute ST Time Speech Therapy Time In: 09:45 Speech Therapy Time Out: 10:15 DATE: Sep 02, 2022 Total Billed Time: 30 Billed Treatment Time 1, RYAN PINEDA [facility] ST Sep 02, 2022 12:05
--- NOTE | 2022-09-02 12:29 | PM&R Progress Note ---
Subjective HPI/CC On Admission Date Seen by Provider: Sep 02, 2022 Time Seen by Provider: 12:30 Subjective/Events-last exam 09/02/2022: Patient about the same Less drowsy Participating in therapy with heavy cues 09/01/2022: Patient sleeping all the time We will hold Zyprexa since that could be sedating Patient appears to be very thin He will try to participate more in therapy Review of Systems General: Fatigue, Malaise Objective Exam Vital Signs Vital Signs Date Time Temp Pulse Resp B/P (MAP) Pulse Ox O2 Delivery O2 Flow Rate FiO2 09/02/22 09:22 Room Air 09/02/22 08:00 36.7 78 14 120/65 (83) 100 Capillary Refill : General Appearance: No Apparent Distress, WD/WN, Chronically ill, Thin, Other (Pale) HEENT: PERRL/EOMI, Normal ENT Inspection, Pharynx Normal Neck: Full Range of Motion, Normal Inspection, Non Tender, Supple, Carotid Bruit Respiratory: Chest Non Tender, Lungs Clear, Normal Breath Sounds, No Accessory Muscle Use, No Respiratory Distress Cardiovascular: Regular Rate, Rhythm, No Edema, No Gallop, No JVD, No Murmur, Normal Peripheral Pulses Gastrointestinal: Normal Bowel Sounds, No Organomegaly, No Pulsatile Mass, Non Tender, Soft Back: Normal Inspection, No CVA Tenderness, No Vertebral Tenderness Extremity: Normal Capillary Refill, Normal Inspection, Normal Range of Motion, Non Tender, No Calf Tenderness, No Pedal Edema Neurologic/Psychiatric: Alert, Oriented x3, Normal 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 FIM Transfers Therapy Code Descriptions/Definitions Functional [place] Measure: 0=Not Assessed/NA 4=Minimal Assistance 1=Total Assistance 5=Supervision or Setup 2=Maximal Assistance 6=Modified [place] 3=Moderate Assistance 7=Complete IndependenceSCALE: Activities may be completed with or without assistive devices. 4-Hsvzenmdbc-wvikdbt completes the activity by him/herself with no assistance from a helper. 5-Set-up or Clean-up Assistance-helper sets up or cleans up; patient completes activity. [place] assists only prior to or following the activity. 4-Supervision or Touching Assistance-helper provides verbal cues and/or touching/steadying and/or contact guard assistance as patient completes act ivity. Assistance may be provided throughout the activity or intermittently. 3-Partial/Moderate Assistance-helper does LESS THAN HALF the effort. [place] lifts, holds or supports trunk or limbs, but provides less than half the effort. 2-Substantial/Maximal Assistance-helper does MORE THAN HALF the effort. [place] lifts or holds trunk or limbs and provides more than half the effort. 2-Sepeewxoo-hzjmyj does ALL the effort. Patient does none of the effort to complete the activity. Or, the assistance of 2 or more helpers is required for the patient to complete the activity. If activity was not attempted, code reason: 7-Patient Refused. 9-Not Applicable-not attempted and the patient did not perform the activity before the current illness, exacerbation or injury. 10-Not Attempted due to Environmental Limitations-(lack of equipment, weather restraints, etc.). 88-Not Attempted due to Medical Conditions or Safety Concerns. Roll Left to Right (QC): 3 (Min A) Sit to Lying (QC): 3 (Min A) Sit to Stand (QC): 4 Chair/Bqv-lq-Doznm Xfer(QC): 4 Car Transfer (QC): 3 (Min A) Gait Training Does the Patient Walk?: Yes Distance: 10' x2 Walk 10 feet (QC): 3 Walk 50 ft with 2 Turns(QC): 3 Walk 150 ft (QC): 3 Walking 10ft/uneven surface-QC: 3 (Min A) Gait Assistive Device: Handheld Assist Wheelchair Training Does the Pt Use a Wheelchair?: No Wheel 50 ft with 2 turns (QC): 88 Wheel 150 ft (QC): 88 Type of Wheelchair: N/A Stair Training 1 Step (curb) (QC): 3 (Min A) 4 Steps (QC): 3 (Min A) 12 Steps (QC): 3 (Min A) Balance Picking up an Object (QC): 3 (Min A) ADL-Treatment Eating (QC): 5 Oral Hygiene (QC): 4 Shower/Bathe Self (QC): 2 Upper Body Dressing (QC): 3 Lower Body Dressing (QC): 3 On/Off Footwear (QC): 2 Toileting Hygiene (QC): 2 Assessment/Plan Assessment and Plan Assess & Plan/Chief Complaint Assessment: 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 Suspected endocarditis although LEONA revealed no vegetations treating empirically Dog bite to face ADHD Bipolar disorder Low BMI of 17 Plan: Vancomycin per ID protocol PT and OT Supportive FDC meds 09/01/2022: Supportive care Monitor closely 09/02/2022: Monitor drowsiness Hold Zyprexa (1) Embolic stroke (2) Suspected endocarditis Status: Acute (3) Dog bite Status: Acute AURE RUIZ DO Sep 02, 2022 12:29
--- NOTE | 2022-09-02 14:43 | Diagnostic Imaging Report ---
INDICATION: PICC line placement. Frontal chest obtained at 9:39 a.m. and compared to 08/12/2022. FINDINGS: Heart and mediastinal silhouette are normal in appearance. The lungs are clear. There is no pneumothorax or pleural fluid. There is a new right-sided PICC line with tip overlying mid to lower SVC. IMPRESSION: New right-sided PICC line as above. No acute infiltrate or pleural fluid. Dictated by: Dictated on workstation # [id number]
--- NOTE | 2022-09-02 17:19 | Occupational Ther Daily Note ---
OT Current Status-Daily Note Subjective Pt alert, sitting in recliner. Pt's mother in room. [place] discussing DPOA and living will with pt and pt's mother. Pt agrees to therapy. Mental Status/Objective Patient Orientation: Person, Confused, Place Attachments: IV ADL-Treatment Therapy Code Descriptions/Definitions Functional [place] Measure: 0=Not Assessed/NA 4=Minimal Assistance 1=Total Assistance 5=Supervision or Setup 2=Maximal Assistance 6=Modified [place] 3=Moderate Assistance 7=Complete IndependenceSCALE: Activities may be completed with or without assistive devices. 9-Segvsyocmv-uizyuwp completes the activity by him/herself with no assistance from a helper. 5-Set-up or Clean-up Assistance-helper sets up or cleans up; patient completes activity. [place] assists only prior to or following the activity. 4-Supervision or Touching Assistance-helper provides verbal cues and/or touching/steadying and/or contact guard assistance as patient completes activity. Assistance may be provided throughout the activity or intermittently. 3-Partial/Moderate Assistance-helper does LESS THAN HALF the effort. [place] lifts, holds or supports trunk or limbs, but provides less than half the effort. 2-Substantial/Maximal Assistance-helper does MORE THAN HALF the effort. [place] lifts or holds trunk or limbs and provides more than half the effort. 2-Idssujmzh-ysrgln does ALL the effort. Patient does none of the effort to complete the activity. Or, the assistance of 2 or more helpers is required for the patient to complete the activity. If activity was not attempted, code reason: 7-Patient Refused. 9-Not Applicable-not attempted and the patient did not perform the activity before the current illness, exacerbation or injury. 10-Not Attempted due to Environmental Limitations-(lack of equipment, weather restraints, etc.). 88-Not Attempted due to Medical Conditions or Safety Concerns. Eating (QC): 6 Other Treatment Pt able to use pen and write somewhat legibly in designated area with R hand. Pt also was able to use fine motor skills to open small packages of chocolate to eat. Discussed with mother, pt's progress and what is some things that pt enjoys that will motivate/encourage pt to participate in therapy. Mother to bring clothing and items that will be familiar to pt. After therapy, pt sitting in recliner with mother present in room. Call light/phone in reach. All needs met in room. OT Short Term Goals Short Term Goals Eatin Oral hygiene: 5 Upper body dressin OT Vessel Captain Goals Vessel Captain Goals Acute change in mental status: 1 Inattention: 2 Disorganized thinkin Altered level of consciousness: 2 Eating (QC): 6 Oral Hygiene (QC): 6 Toileting Hygiene (QC): 6 Shower/Bathe Self (QC): 5 Upper Body Dressing (QC): 6 Lower Body Dressing (QC): 6 On/Off Footwear (QC): 6 1=Demonstrate adherence to instructed precautions during ADL tasks. 2=Patient will verbalize/demonstrate understanding of assistive devices/modific ations for ADL. 3=Patient will improve strength/tolerance for activity to enable patient to perform ADL's. OT Education/Plan Problem List/Assessment Assessment: Decreased Activ Tolerance, Decreased UE Strength, Impaired Self- Care Skills Discharge Recommendations Plan/Recommendations: Continue POC Treatment Plan/Plan of Care Patient would benefit from OT for education, treatment and training to promote independence in ADL's, mobility, safety and/or upper extremity function for ADL's. Plan of Care: ADL Retraining, Cognitive Retraining, Concurrent Therapy, Functional Mobility, Group Exercise/Act as Ind, UE Funct Exercise/Act, UE Neuromus Re-Ed/Coord Treatment Duration: Sep 30, 2022 Frequency: At least 5 of 7 days/Wk (IRF) Estimated Hrs Per Day: 1.5 hours per day Agreement: Yes Rehab Potential: Good Time Start Time: 16:40 Stop Time: 17:10 DATE: Sep 02, 2022 Total Time Billed (hr/min): 30 Billed Treatment Time 1 visit-FA 2 (30 min) RICHARD MCINTOSH Sep 02, 2022 17:19
[2022-09-02] MEDS: hydrOXYzine (VISTARIL/ATARAX) 25 MG capsule/tablet PO PRN (18:26)
[2022-09-02] MEDS: VANCOMYCIN 1250 MG/NS 250 ML PREMIX IV SCH (20:12)
[2022-09-02] MEDS: ONDANSETRON 4 MG (ZOFRAN) ORAL DISSOLVE TAB PO PRN (20:12)
[2022-09-02 20:51] VITALS: BP 114/70
--- NOTE | 2022-09-03 06:41 | PM&R Progress Note ---
Subjective HPI/CC On Admission Date Seen by Provider: Sep 03, 2022 Time Seen by Provider: 12:00 Subjective/Events-last exam 09/03/2022: Patient doing well Eating well Participating in therapy 09/02/2022: Patient about the same Less drowsy Participating in therapy with heavy cues 09/01/2022: Patient sleeping all the time We will hold Zyprexa since that could be sedating Patient appears to be very thin He will try to participate more in therapy Review of Systems General: Fatigue, Malaise Objective Exam Vital Signs Vital Signs Date Time Temp Pulse Resp B/P (MAP) Pulse Ox O2 Delivery O2 Flow Rate FiO2 09/03/22 09:00 Room Air 09/03/22 07:50 36.3 63 14 125/56 (79) 100 Capillary Refill : General Appearance: No Apparent Distress, WD/WN, Chronically ill, Thin, Other (Pale) HEENT: PERRL/EOMI, Normal ENT Inspection, Pharynx Normal Neck: Full Range of Motion, Normal Inspection, Non Tender, Supple, Carotid Bruit Respiratory: Chest Non Tender, Lungs Clear, Normal Breath Sounds, No Accessory Muscle Use, No Respiratory Distress Cardiovascular: Regular Rate, Rhythm, No Edema, No Gallop, No JVD, No Murmur, Normal Peripheral Pulses Gastrointestinal: Normal Bowel Sounds, No Organomegaly, No Pulsatile Mass, Non Tender, Soft Back: Normal Inspection, No CVA Tenderness, No Vertebral Tenderness Extremity: Normal Capillary Refill, Normal Inspection, Normal Range of Motion, Non Tender, No Calf Tenderness, No Pedal Edema Neurologic/Psychiatric: Alert, Oriented x3, Normal 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 FIM Transfers Therapy Code Descriptions/Definitions Functional [place] Measure: 0=Not Assessed/NA 4=Minimal Assistance 1=Total Assistance 5=Supervision or Setup 2=Maximal Assistance 6=Modified [place] 3=Moderate Assistance 7=Complete IndependenceSCALE: Activities may be completed with or without assistive devices. 8-Vzqqrqyhmo-cvvevty completes the activity by him/herself with no assistance from a helper. 5-Set-up or Clean-up Assistance-helper sets up or cleans up; patient completes activity. [place] assists only prior to or following the activity. 4-Supervision or Touching Assistance-helper provides verbal cues and/or touchi ng/steadying and/or contact guard assistance as patient completes activity. Assistance may be provided throughout the activity or intermittently. 3-Partial/Moderate Assistance-helper does LESS THAN HALF the effort. [place] lifts, holds or supports trunk or limbs, but provides less than half the effort. 2-Substantial/Maximal Assistance-helper does MORE THAN HALF the effort. [place] lifts or holds trunk or limbs and provides more than half the effort. 4-Ppdfoqrmf-uznlzd does ALL the effort. Patient does none of the effort to complete the activity. Or, the assistance of 2 or more helpers is required for the patient to complete the activity. If activity was not attempted, code reason: 7-Patient Refused. 9-Not Applicable-not attempted and the patient did not perform the activity before the current illness, exacerbation or injury. 10-Not Attempted due to Environmental Limitations-(lack of equipment, weather restraints, etc.). 88-Not Attempted due to Medical Conditions or Safety Concerns. Roll Left to Right (QC): 3 (Min A) Sit to Lying (QC): 3 (Min A) Sit to Stand (QC): 4 Chair/Rff-ns-Zkwal Xfer(QC): 4 Car Transfer (QC): 3 (Min A) Gait Training Does the Patient Walk?: Yes Distance: 10' x2 Walk 10 feet (QC): 3 Walk 50 ft with 2 Turns(QC): 3 Walk 150 ft (QC): 3 Walking 10ft/uneven surface-QC: 3 (Min A) Gait Assistive Device: Handheld Assist Wheelchair Training Does the Pt Use a Wheelchair?: No Wheel 50 ft with 2 turns (QC): 88 Wheel 150 ft (QC): 88 Type of Wheelchair: N/A Stair Training 1 Step (curb) (QC): 3 (Min A) 4 Steps (QC): 3 (Min A) 12 Steps (QC): 3 (Min A) Balance Picking up an Object (QC): 3 (Min A) ADL-Treatment Eating (QC): 6 Oral Hygiene (QC): 4 Shower/Bathe Self (QC): 2 Upper Body Dressing (QC): 3 Lower Body Dressing (QC): 3 On/Off Footwear (QC): 2 Toileting Hygiene (QC): 2 Assessment/Plan Assessment and Plan Assess & Plan/Chief Complaint Assessment: 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 Suspected endocarditis although LEONA revealed no vegetations treating empirically Dog bite to face ADHD Bipolar disorder Low BMI of 17 Plan: Vancomycin per ID protocol PT and OT Supportive retirement meds 09/01/2022: Supportive care Monitor closely 09/02/2022: Monitor drowsiness Hold Zyprexa 09/03/2022: Continue abx Monitor closely (1) Embolic stroke (2) Suspected endocarditis Status: Acute (3) Dog bite Status: Acute AURE RUIZ DO Sep 03, 2022 06:41
[2022-09-03 07:50] VITALS: BP 125/56
[2022-09-03] MEDS: VANCOMYCIN 1250 MG/NS 250 ML PREMIX IV SCH ×2 (08:13→20:36)
[2022-09-03] MEDS: DOCUSATE SODIUM 100 MG (COLACE) CAP PO SCH ×2 (08:15→20:38)
[2022-09-03] MEDS: SENNA W/DOCUSATE (SENOKOT S) TABLET PO SCH ×2 (08:15→20:35)
[2022-09-03] MEDS: polyethylene glycoL POWDER 17 GM (MIRALAX) PACK PO SCH ×2 (08:15→20:38)
[2022-09-03] MEDS: VYVANSE 40 MG PO SCH (19:17)
[2022-09-03 19:27] VITALS: BP 120/70
[2022-09-03] MEDS: ONDANSETRON 4 MG (ZOFRAN) ORAL DISSOLVE TAB PO PRN (20:35)
[2022-09-03] MEDS: CATHETER FLUSH 10 ML SYR IVP SCH (20:37)
[2022-09-03] MEDS: hydrOXYzine (VISTARIL/ATARAX) 25 MG capsule/tablet PO PRN (22:29)
[2022-09-04] MEDS: ONDANSETRON 4 MG (ZOFRAN) ORAL DISSOLVE TAB PO PRN ×2 (03:43→11:29)
[2022-09-04] MEDS: CATHETER FLUSH 10 ML SYR IVP SCH ×3 (06:02→22:11)
--- NOTE | 2022-09-04 06:55 | PM&R Progress Note ---
Subjective HPI/CC On Admission Date Seen by Provider: Sep 04, 2022 Time Seen by Provider: 12:00 Subjective/Events-last exam 09/04/2022: Patient awake and alert today Frail status continuous Moving around a lot better 09/03/2022: Patient doing well Eating well Participating in therapy 09/02/2022: Patient about the same Less drowsy Participating in therapy with heavy cues 09/01/2022: Patient sleeping all the time We will hold Zyprexa since that could be sedating Patient appears to be very thin He will try to participate more in therapy Review of Systems General: Fatigue, Malaise Objective Exam Vital Signs Vital Signs Date Time Temp Pulse Resp B/P (MAP) Pulse Ox O2 Delivery O2 Flow Rate FiO2 09/04/22 09:41 Room Air 09/04/22 08:57 36.1 71 16 100/63 (75) 100 Capillary Refill : General Appearance: No Apparent Distress, WD/WN, Chronically ill, Thin, Other (Pale) HEENT: PERRL/EOMI, Normal ENT Inspection, Pharynx Normal Neck: Full Range of Motion, Normal Inspection, Non Tender, Supple, Carotid Bruit Respiratory: Chest Non Tender, Lungs Clear, Normal Breath Sounds, No Accessory Muscle Use, No Respiratory Distress Cardiovascular: Regular Rate, Rhythm, No Edema, No Gallop, No JVD, No Murmur, Normal Peripheral Pulses Gastrointestinal: Normal Bowel Sounds, No Organomegaly, No Pulsatile Mass, Non Tender, Soft Back: Normal Inspection, No CVA Tenderness, No Vertebral Tenderness Extremity: Normal Capillary Refill, Normal Inspection, Normal Range of Motion, Non Tender, No Calf Tenderness, No Pedal Edema Neurologic/Psychiatric: Alert, Oriented x3, Normal 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 FIM Transfers Therapy Code Descriptions/Definitions Functional [place] Measure: 0=Not Assessed/NA 4=Minimal Assistance 1=Total Assistance 5=Supervision or Setup 2=Maximal Assistance 6=Modified [place] 3=Moderate Assistance 7=Complete IndependenceSCALE: Activities may be completed with or without assistive devices. 8-Lajiqqbtsp-aqqpcre completes the activity by him/herself with no assistance from a helper. 5-Set-up or Clean-up Assistance-helper sets up or cleans up; patient completes activity. [place] assists only prior to or following the activity. 4-Supervision or Touching Assistance-helper provides verbal cues and/or touching/steadying and/or contact guard assistance as patient completes activity. Assistance may be provided throughout the activity or intermittently. 3-Partial/Moderate Assistance-helper does LESS THAN HALF the effort. [place] lifts, holds or supports trunk or limbs, but provides less than half the effort. 2-Substantial/Maximal Assistance-helper does MORE THAN HALF the effort. [place] lifts or holds trunk or limbs and provides more than half the effort. 0-Lijfjkfjm-qnyuiw does ALL the effort. Patient does none of the effort to complete the activity. Or, the assistance of 2 or more helpers is required for the patient to complete the activity. If activity was not attempted, code reason: 7-Patient Refused. 9-Not Applicable-not attempted and the patient did not perform the activity before the current illness, exacerbation or injury. 10-Not Attempted due to Environmental Limitations-(lack of equipment, weather restraints, etc.). 88-Not Attempted due to Medical Conditions or Safety Concerns. Roll Left to Right (QC): 3 (Min A) Sit to Lying (QC): 3 (Min A) Sit to Stand (QC): 4 Chair/Lgr-te-Uqffs Xfer(QC): 4 Car Transfer (QC): 3 (Min A) Gait Training Does the Patient Walk?: Yes Distance: 10' x2 Walk 10 feet (QC): 3 Walk 50 ft with 2 Turns(QC): 3 Walk 150 ft (QC): 3 Walking 10ft/uneven surface-QC: 3 (Min A) Gait Assistive Device: Handheld Assist Wheelchair Training Does the Pt Use a Wheelchair?: No Wheel 50 ft with 2 turns (QC): 88 Wheel 150 ft (QC): 88 Type of Wheelchair: N/A Stair Training 1 Step (curb) (QC): 3 (Min A) 4 Steps (QC): 3 (Min A) 12 Steps (QC): 3 (Min A) Balance Picking up an Object (QC): 3 (Min A) ADL-Treatment Eating (QC): 6 Oral Hygiene (QC): 4 Shower/Bathe Self (QC): 2 Upper Body Dressing (QC): 3 Lower Body Dressing (QC): 3 On/Off Footwear (QC): 2 Toileting Hygiene (QC): 2 Assessment/Plan Assessment and Plan Assess & Plan/Chief Complaint Assessment: 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 Suspected endocarditis although [place] revealed no vegetations treating empirically Dog bite to face ADHD Bipolar disorder Low BMI of 17 Plan: Vancomycin per ID protocol PT and OT Supportive detention meds 09/01/2022: Supportive care Monitor closely 09/02/2022: Monitor drowsiness Hold Zyprexa 09/03/2022: Continue abx Monitor closely 09/04/2022: Continue aggressive therapy (1) Embolic stroke (2) Suspected endocarditis Status: Acute (3) Dog bite Status: Acute AURE RUIZ DO Sep 04, 2022 06:55
[2022-09-04] MEDS ORDERED: TROUGH ORDER-PHARMACY XX ONE (07:00)
[2022-09-04] MEDS: DOCUSATE SODIUM 100 MG (COLACE) CAP PO SCH ×2 (08:34→19:44)
[2022-09-04] MEDS: SENNA W/DOCUSATE (SENOKOT S) TABLET PO SCH ×2 (08:34→20:45)
[2022-09-04] MEDS: VANCOMYCIN 1250 MG/NS 250 ML PREMIX IV SCH ×2 (08:35→20:45)
[2022-09-04] MEDS: polyethylene glycoL POWDER 17 GM (MIRALAX) PACK PO SCH ×2 (08:35→19:44)
[2022-09-04] MEDS: VYVANSE 40 MG PO SCH (08:35)
[2022-09-04] MEDS: PATIENT MAY USE OWN MED,SINGLE MED PO SCH (08:52)
[2022-09-04] MEDS: hydrOXYzine (VISTARIL/ATARAX) 25 MG capsule/tablet PO PRN ×2 (08:55→23:15)
[2022-09-04 08:57] VITALS: BP 100/63
[2022-09-04] MEDS: ALPRAZolam 0.25 MG (XANAX) TAB PO PRN (17:09)
[2022-09-04 19:45] VITALS: BP 104/63
[2022-09-05 05:47] LABS: LYMPHOCYTES % (AUTO) 17 % (12-44)
[2022-09-05 05:49] LABS: BASOPHILS # (AUTO) 0.1 10^3/uL (0.0-0.1); BASOPHILS % (AUTO) 1 % (0-10); EOSINOPHILS # (AUTO) 0.6 10^3/uL (0.0-0.3); EOSINOPHILS % (AUTO) 5 % (0-10); HEMATOCRIT 33 % (40-54); HEMOGLOBIN 10.8 g/dL (13.3-17.7); LYMPHOCYTES # (AUTO) 1.7 10^3/uL (1.0-4.0); MEAN CORPUSCULAR HEMOGLOBIN 29 pg (25-34); MEAN CORPUSCULAR HGB CONC 33 g/dL (32-36); MEAN CORPUSCULAR VOLUME 88 fL (80-99); MEAN PLATELET VOLUME 10.1 fL (9.0-12.2); MONOCYTES % (AUTO) 10 % (0-12); NEUTROPHILS # (AUTO) 6.9 10^3/uL (1.8-7.8); NEUTROPHILS % (AUTO) 66 % (42-75); PLATELET COUNT 229 10^3/uL (130-400); WHITE BLOOD COUNT 10.4 10^3/uL (4.3-11.0)
[2022-09-05] MEDS: CATHETER FLUSH 10 ML SYR IVP SCH ×3 (05:52→22:33)
[2022-09-05 05:57] LABS: ALBUMIN 3.5 GM/DL (3.2-4.5); BILIRUBIN,TOTAL 0.2 MG/DL (0.1-1.0); CALCIUM 9.5 MG/DL (8.5-10.1); CREATININE SERUM 0.79 MG/DL (0.60-1.30); POTASSIUM 4.4 MMOL/L (3.6-5.0); TOTAL PROTEIN 7.3 GM/DL (6.4-8.2)
--- NOTE | 2022-09-05 06:00 | PM&R Progress Note ---
Subjective HPI/CC On Admission Date Seen by Provider: Sep 05, 2022 Time Seen by Provider: 10:00 Subjective/Events-last exam 09/05/2022: Patient doing really well No pain is reported No falls Participating in therapy 09/04/2022: Patient awake and alert today Frail status continuous Moving around a lot better 09/03/2022: Patient doing well Eating well Participating in therapy 09/02/2022: Patient about the same Less drowsy Participating in therapy with heavy cues 09/01/2022: Patient sleeping all the time We will hold Zyprexa since that could be sedating Patient appears to be very thin He will try to participate more in therapy Review of Systems General: Fatigue, Malaise Objective Exam Vital Signs Vital Signs Date Time Temp Pulse Resp B/P (MAP) Pulse Ox O2 Delivery O2 Flow Rate FiO2 09/05/22 20:50 97 Room Air 09/05/22 20:28 36.7 95 20 120/70 (87) Capillary Refill : General Appearance: No Apparent Distress, WD/WN, Chronically ill, Thin, Other (Pale) HEENT: PERRL/EOMI, Normal ENT Inspection, Pharynx Normal Neck: Full Range of Motion, Normal Inspection, Non Tender, Supple, Carotid Bruit Respiratory: Chest Non Tender, Lungs Clear, Normal Breath Sounds, No Accessory Muscle Use, No Respiratory Distress Cardiovascular: Regular Rate, Rhythm, No Edema, No Gallop, No JVD, No Murmur, Normal Peripheral Pulses Gastrointestinal: Normal Bowel Sounds, No Organomegaly, No Pulsatile Mass, Non Tender, Soft Back: Normal Inspection, No CVA Tenderness, No Vertebral Tenderness Extremity: Normal Capillary Refill, Normal Inspection, Normal Range of Motion, Non Tender, No Calf Tenderness, No Pedal Edema Neurologic/Psychiatric: Alert, Oriented x3, Normal 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 FIM Transfers Therapy Code Descriptions/Definitions Functional [place] Measure: 0=Not Assessed/NA 4=Minimal Assistance 1=Total Assistance 5=Supervision or Setup 2=Maximal Assistance 6=Modified [place] 3=Moderate Assistance 7=Complete IndependenceSCALE: Activities may be completed with or without assistive devices. 7-Vgabpmqwnz-sxavkrq completes the activity by him/herself with no assistance from a helper. 5-Set-up or Clean-up Assistance-helper sets up or cleans up; patient completes activity. [place] assists only prior to or following the activity. 4-Supervision or Touching Assistance-helper provides verbal cues and/or touching/steadying and/or contact guard assistance as patient completes activity. Assistance may be provided throughout the activity or intermittently. 3-Partial/Moderate Assistance-helper does LESS THAN HALF the effort. [place] lifts, holds or supports trunk or limbs, but provides less than half the effort. 2-Substantial/Maximal Assistance-helper does MORE THAN HALF the effort. [place] lifts or holds trunk or limbs and provides more than half the effort. 8-Qwkgftrbm-qhcqsr does ALL the effort. Patient does none of the effort to complete the activity. Or, the assistance of 2 or more helpers is required for the patient to complete the activity. If activity was not attempted, code reason: 7-Patient Refused. 9-Not Applicable-not attempted and the patient did not perform the activity before the current illness, exacerbation or injury. 10-Not Attempted due to Environmental Limitations-(lack of equipment, weather r estraints, etc.). 88-Not Attempted due to Medical Conditions or Safety Concerns. Roll Left to Right (QC): 3 (Min A) Sit to Lying (QC): 3 (Min A) Sit to Stand (QC): 4 Chair/Ppz-en-[place]ahms Xfer(QC): 4 Car Transfer (QC): 3 (Min A) Gait Training Does the Patient Walk?: Yes Distance: 10' x2 Walk 10 feet (QC): 3 Walk 50 ft with 2 Turns(QC): 3 Walk 150 ft (QC): 3 Walking 10ft/uneven surface-QC: 3 (Min A) Gait Assistive Device: Handheld Assist Wheelchair Training Does the Pt Use a Wheelchair?: No Wheel 50 ft with 2 turns (QC): 88 Wheel 150 ft (QC): 88 Type of Wheelchair: N/A Stair Training 1 Step (curb) (QC): 3 (Min A) 4 Steps (QC): 3 (Min A) 12 Steps (QC): 3 (Min A) Balance Picking up an Object (QC): 3 (Min A) ADL-Treatment Eating (QC): 6 Oral Hygiene (QC): 4 Shower/Bathe Self (QC): 2 Upper Body Dressing (QC): 3 Lower Body Dressing (QC): 3 On/Off Footwear (QC): 2 Toileting Hygiene (QC): 2 Assessment/Plan Assessment and Plan Assess & Plan/Chief Complaint Assessment: 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 Suspected endocarditis although [place] revealed no vegetations treating empirically Dog bite to face ADHD Bipolar disorder Low BMI of 17 Plan: Vancomycin per ID protocol PT and OT Supportive prison meds 09/01/2022: Supportive care Monitor closely 09/02/2022: Monitor drowsiness Hold Zyprexa 09/03/2022: Continue abx Monitor closely 09/04/2022: Continue aggressive therapy 09/05/2022: Supportive care (1) Embolic stroke (2) Suspected endocarditis Status: Acute (3) Dog bite Status: Acute AURE RUIZ DO Sep 05, 2022 06:00
[2022-09-05 07:49] VITALS: BP 101/59
[2022-09-05] MEDS: hydrOXYzine (VISTARIL/ATARAX) 25 MG capsule/tablet PO PRN ×2 (08:02→19:26)
[2022-09-05] MEDS: VANCOMYCIN 1250 MG/NS 250 ML PREMIX IV SCH ×2 (08:03→20:42)
[2022-09-05] MEDS: VYVANSE 40 MG PO SCH (08:04)
[2022-09-05] MEDS: polyethylene glycoL POWDER 17 GM (MIRALAX) PACK PO SCH ×2 (08:08→20:48)
[2022-09-05] MEDS: SENNA W/DOCUSATE (SENOKOT S) TABLET PO SCH ×2 (08:08→20:48)
[2022-09-05] MEDS: DOCUSATE SODIUM 100 MG (COLACE) CAP PO SCH ×2 (08:08→20:48)
[2022-09-05] MEDS: PATIENT MAY USE OWN MED,SINGLE MED PO SCH (08:08)
[2022-09-05] MEDS: CALCIUM CARBONATE 500 MG (TUMS) TAB.CHEW PO PRN (11:10)
--- NOTE | 2022-09-05 11:25 | Physical Therapy Daily Note ---
PT Daily Note-Current Subjective Pt was in recliner upon arrival and willing for therapy. pt was more alert and responsive this day also being able to understand to preform stated activity instead of just ignoring the request. pt sated his stomach hurt and received a tums from nursing. pt staed over and over that he wanted to go home and was continuously educated on the need for rehab to get well so pt could go home safely. pt was left in room in recliner with call light and eating cereal per his request this day/ Pain Section J - Health Conditions 1. Rarely or not at all 2. Occasionally 3. Frequently 4. Almost constantly 8. Unable to answer Pain Effect on Sleep: 1 Pain Interference with Therapy: 1 Pain Interference w/Day-to-Day: 1 Mental Status Patient Orientation: Person Transfers SCALE: Activities may be completed with or without assistive devices. 6-Xmnaojosod-zxssszk completes the activity by him/herself with no assistance from a helper. 5-Set-up or Clean-up Assistance-helper sets up or cleans up; patient completes activity. [place] assists only prior to or following the activity. 4-Supervision or Touching Assistance-helper provides verbal cues and/or touching/steadying and/or contact guard assistance as patient completes activity. Assistance may be provided throughout the activity or intermittently. 3-Partial/Moderate Assistance-helper does LESS THAN HALF the effort. [place] lifts, holds or supports trunk or limbs, but provides less than half the effort. 2-Substantial/Maximal Assistance-helper does MORE THAN HALF the effort. [place] lifts or holds trunk or limbs and provides more than half the effort. 7-Hmzodepsx-eelizo does ALL the effort. Patient does none of the effort to complete the activity. Or, the assistance of 2 or more helpers is required for the patient to complete the activity. If activity was not attempted, code reason: 7-Patient Refused. 9-Not Applicable-not attempted and the patient did not perform the activity before the current illness, exacerbation or injury. 10-Not Attempted due to Environmental Limitations-(lack of equipment, weather restraints, etc.). 88-Not Attempted due to Medical Conditions or Safety Concerns. Weight Bearing Right Lower Extremity: Right Full Weight Bearing Left Lower Extremity: Left Full Weight Bearing Gait Training Walk 10 feet (QC): 4 Walk 50 ft with 2 Turns(QC): 4 Walk 150 ft (QC): 4 Exercises Seated Therapy Exercises: Ankle pumps, Long arc quads, Hip flexion, Kicking activity, Hamstring Curls, Glut set Seated Reps: 10 Treatments Pt is able to ambulate to therapy gym for 50ft with RW and MIn A for incased balance and directional support. pt is able to preform car transfers with VC 70% of the time for correct and safe transfer. pt is able to preform sitting ther-ex with 1 lb weights for 10 reps x 3 sets with increased processing time and vc of 60% for correct mm movement Assessment Current Status: Good Progress, Fair Progress PT Intermediate Goals Machine Clothing Replacer Goals PT Intermediate Goals Time Frame: Sep 09, 2022 Roll Left & Right (QC): 6 (Pt will be Mod I to be at PLOF and safe d/c home with family. ) Sit to Lying (QC): 6 (Pt will be Mod I to be at PLOF and safe d/c home with family.) Lying-Sitting on Side/Bed(QC): 6 (Pt will be Mod I to be at PLOF and safe d/c home with family.) Sit to Stand (QC): 6 (Pt will be Mod I to be at PLOF and safe d/c home with family.) Chair/Ytl-ft-Ydzkt Xfer(QC): 6 (Pt will be Mod I to be at PLOF and safe d/c home with family.) Toilet Transfer (QC): 6 (Pt will be Mod I to be at PLOF and safe d/c home with family.) Car Transfer (QC): 6 (Pt will be Mod I to be at PLOF and safe d/c home with family.) Does the Patient Walk: Yes Walk 10 feet (QC): 6 (Pt will be Mod I to be at PLOF and safe d/c home with family.) Walk 50ft with 2 Turns (QC): 6 (Pt will be Mod I to be at PLOF and safe d/c home with family.) Walk 150 ft (QC): 6 (Pt will be Mod I to be at PLOF and safe d/c home with family.) Walking 10ft on Uneven Surface: 6 (Pt will be Mod I to be at PLOF and safe d/c home with family.) 1 Step (curb) (QC): 6 (Pt will be Mod I to be at PLOF and safe d/c home with family.) 4 Steps (QC): 6 (Pt will be Mod I to be at PLOF and safe d/c home with family.) 12 Steps (QC): 6 (Pt will be Mod I to be at PLOF and safe d/c home with family.) Picking up an Object (QC): 6 (Pt will be Mod I to be at PLOF and safe d/c home with family.) Does the Pt use WC or Scooter?: No Wheel 50 feet with 2 turns (QC: 9 Type: N/A Wheel 150 feet: 9 Type: N/A PT Plan Treatment/Plan Treatment Plan: Continue Plan of Care Treatment Plan: Bed Mobility, Concurrent Therapy, Education, Functional Acti vity Lana, Functional Strength, Group Therapy, Gait, Safety, Therapeutic Exercise, Transfers Treatment Duration: Sep 09, 2022 Frequency: At least 5 of 7 days/Wk (IRF) Estimated Hrs Per Day: 1.5 hours per day Patient and/or Family Agrees t: Yes Time Time In: 1015 Time Out: 1130 DATE: Sep 05, 2022 Total Billed Treatment Time: 75 Total Billed Treatment 1 GT x 2 FA EX x 2 Mariposa Casas T[employer] LO[employer]ER MEAT Sep 05, 2022 11:25
--- NOTE | 2022-09-05 12:40 | Occupational Ther Daily Note ---
OT Current Status-Daily Note Subjective Pt sleeping in bed, difficult to wake. Pt reluctantly agrees to therapy. No c/o pain. Just stating that he wants to go home or see his mother. Mental Status/Objective Patient Orientation: Person, Unable to Assess Attachments: IV ADL-Treatment Set up for eating. Pt given bath wipe and pt cleansed buttocks/mily area then declined to cleanse other areas. With encouragement, pt able to doff/don lower body clothing with SBA. Pt stood using grabbars to stabilize while stepping into shorts, SBA. Pt sat at sink to complete oral care. VC and encouragement to setup own tooth brushing, then completed by self. Assist with footwear. After session, pt sitting in recliner with call light/phone in reach. All needs met in room. Therapy Code Descriptions/Definitions Functional [place] Measure: 0=Not Assessed/NA 4=Minimal Assistance 1=Total Assistance 5=Supervision or Setup 2=Maximal Assistance 6=Modified [place] 3=Moderate Assistance 7=Complete IndependenceSCALE: Activities may be completed with or without assistive devices. 2-Sugkpgzeoo-dmpwche completes the activity by him/herself with no assistance from a helper. 5-Set-up or Clean-up Assistance-helper sets up or cleans up; patient completes activity. [place] assists only prior to or following the activity. 4-Supervision or Touching Assistance-helper provides verbal cues and/or touching/steadying and/or contact guard assistance as patient completes activity. Assistance may be provided throughout the activity or intermittently. 3-Partial/Moderate Assistance-helper does LESS THAN HALF the effort. [place] lifts, holds or supports trunk or limbs, but provides less than half the effort. 2-Substantial/Maximal Assistance-helper does MORE THAN HALF the effort. [place] lifts or holds trunk or limbs and provides more than half the effort. 3-Ldvnhinsz-qiksea does ALL the effort. Patient does none of the effort to complete the activity. Or, the assistance of 2 or more helpers is required for the patient to complete the activity. If activity was not attempted, code reason: 7-Patient Refused. 9-Not Applicable-not attempted and the patient did not perform the activity before the current illness, exacerbation or injury. 10-Not Attempted due to Environmental Limitations-(lack of equipment, weather restraints, etc.). 88-Not Attempted due to Medical Conditions or Safety Concerns. Eating (QC): 5 Oral Hygiene (QC): 4 Upper Body Dressing (QC): 5 Lower Body Dressing (QC): 4 On/Off Footwear: 3 Toileting Hygiene (QC): 4 Toilet Transfer (QC): 4 OT Short Term Goals Short Term Goals Eatin Oral hygiene: 5 Upper body dressin OT Half-Way Goals Delinquency Prevention Officer Goals Acute change in mental status: 1 Inattention: 2 Disorganized thinkin Altered level of consciousness: 2 Eating (QC): 6 Oral Hygiene (QC): 6 Toileting Hygiene (QC): 6 Shower/Bathe Self (QC): 5 Upper Body Dressing (QC): 6 Lower Body Dressing (QC): 6 On/Off Footwear (QC): 6 1=Demonstrate adherence to instructed precautions during ADL tasks. 2=Patient will verbalize/demonstrate understanding of assistive devices/modifica tions for ADL. 3=Patient will improve strength/tolerance for activity to enable patient to perform ADL's. OT Education/Plan Problem List/Assessment Assessment: Decreased Activ Tolerance, Decreased UE Strength, Impaired Self- Care Skills, Restricted Funct UE ROM Discharge Recommendations Plan/Recommendations: Continue POC Treatment Plan/Plan of Care Patient would benefit from OT for education, treatment and training to promote independence in ADL's, mobility, safety and/or upper extremity function for ADL's. Plan of Care: ADL Retraining, Cognitive Retraining, Concurrent Therapy, Functional Mobility, Group Exercise/Act as Ind, UE Funct Exercise/Act, UE Neuromus Re-Ed/Coord Treatment Duration: Sep 30, 2022 Frequency: At least 5 of 7 days/Wk (IRF) Estimated Hrs Per Day: 1.5 hours per day Agreement: Yes Rehab Potential: Good Time Start Time: 08:30 Stop Time: 09:15 DATE: Sep 05, 2022 Total Time Billed (hr/min): 75 Billed Treatment Time 1 visit-ADL 5 (75 min) RICHARD MCINTOSH Sep 05, 2022 12:40
--- NOTE | 2022-09-05 13:47 | Speech Therapy Daily Note ---
Speech Daily Progress Note Subjective Date Seen by Provider: Sep 05, 2022 Time Seen by Provider: 12:15 The patient was seated upright in his recliner, awake and alert, upon entrance to his room by the clinician. The patient returned the clinician's verbal greeting appropriately and was agreeable to participation in the skilled cognitive treatment session. Objective The patient has his lunch tray present which consisted of pizza, a rice crispie, Ensure, and pop. The patient ate all of the pizza, one Ensure, and half of the rice crispie. Overt s/s of suspected aspiration were not demonstrated however a disorganized oral phase was appreciated with open mouth mastication and large bites. The patient was verbally cued by the clinician to reduce bite size and complete mastication and swallowing prior to speaking. The patient displays improved alertness on this date. The patient does state on four occasions throughout the skilled treatment session, "I don't know where my mom is at. She's supposed to be here soon to take me home." Orientation: The patient stated the month was "," the state was "," the year was "July," the city was "[place]," and his location was "I do not know." Orientation information was provided by the clinician and the clinician aided the patient in identifying orientation information on his in-room white board. The patient stated he was in the hospital for "a medical situation" however was unable to provide specifics or elaboration. Recall of orientation information was attempted five minutes following the presentation of the information. The patient remained unable to identify any item of orientation accurately stating the month was 'Monday," the year was "," and the city was "[place]." The patient attempted on several occasions throughout the treatment session to utilize his phone as a TV remote. The patient's call light was discussed and the function of the call light for assistance and for television use. Regardless, the patient continued pointing the telephone at the TV "to change the volume." Assessment Assessment Current Status: Fair Progress Treatment Plan Continue Plan of Care Speech Short Term Goals Short Term Goals Short Term Goals 1. The patient will utilize visual and verbal cues to identify basic orientation information with 70% accuracy. Time Frame-STG: One Week. Speech Community Development Aide Goals Alf Goals 1. The patient will display improved cognitive communication for safe discharge to the least restrictive environment. Time Frame: Two Weeks. Speech-Plan Treatment Plan Speech Therapy Treatment Plan: Continue Plan of Care Treatment Duration: Sep 16, 2022 Frequency: Modified Program (IRF) (Four to five times per week.) Estimated Hrs Per Day: Other Rehab Potential: Good Pt/Family Agrees to Plan: Yes Safety Risks/Education Teaching Recipient: Patient Teaching Methods: Demonstration, Discussion Response to Teaching: Unable to Comprehend Education Topics Provided: Orientation Strategies, Call Light Use Time Speech Therapy Time In: 12:15 Speech Therapy Time Out: 12:45 DATE: Sep 05, 2022 Total Billed Time: 30 Billed Treatment Time 1RYAN ELIZABETH ST Sep 05, 2022 13:47
[2022-09-05] MEDS: ALPRAZolam 0.25 MG (XANAX) TAB PO PRN (16:00)
[2022-09-05 20:28] VITALS: BP 120/70
[2022-09-06] MEDS: CATHETER FLUSH 10 ML SYR IVP SCH ×3 (05:27→20:54)
[2022-09-06 08:00] VITALS: BP 118/68
[2022-09-06] MEDS: polyethylene glycoL POWDER 17 GM (MIRALAX) PACK PO SCH ×2 (08:16→20:55)
[2022-09-06] MEDS: DOCUSATE SODIUM 100 MG (COLACE) CAP PO SCH ×2 (08:38→20:54)
[2022-09-06] MEDS: PATIENT MAY USE OWN MED,SINGLE MED PO SCH (08:38)
[2022-09-06] MEDS: VYVANSE 40 MG PO SCH (08:38)
[2022-09-06] MEDS: SENNA W/DOCUSATE (SENOKOT S) TABLET PO SCH ×2 (08:38→20:54)
[2022-09-06] MEDS: VANCOMYCIN 1250 MG/NS 250 ML PREMIX IV SCH ×2 (08:38→20:53)
[2022-09-06] MEDS: CALCIUM CARBONATE 500 MG (TUMS) TAB.CHEW PO PRN (11:08)
--- NOTE | 2022-09-06 11:51 | Physical Therapy Daily Note ---
PT Daily Note-Current Subjective Pt in recliner upon arrival and willing of for therapy. pt is constantly stating he wants to go home, "it's too hard" " i can't do this" "life isn't fair" constant encouragement to start, do and finish task. pt was left in recliner after therapy with all needs met and call light. Pain Section J - Health Conditions 1. Rarely or not at all 2. Occasionally 3. Frequently 4. Almost constantly 8. Unable to answer Pain Effect on Sleep: 1 Pain Interference with Therapy: 1 Pain Interference w/Day-to-Day: 1 Mental Status Patient Orientation: Person, Place Transfers SCALE: Activities may be completed with or without assistive devices. 5-Appycximcy-twvyaox completes the activity by him/herself with no assistance from a helper. 5-Set-up or Clean-up Assistance-helper sets up or cleans up; patient completes activity. [place] assists only prior to or following the activity. 4-Supervision or Touching Assistance-helper provides verbal cues and/or touching/steadying and/or contact guard assistance as patient completes activity. Assistance may be provided throughout the activity or intermittently. 3-Partial/Moderate Assistance-helper does LESS THAN HALF the effort. [place] li fts, holds or supports trunk or limbs, but provides less than half the effort. 2-Substantial/Maximal Assistance-helper does MORE THAN HALF the effort. [place] lifts or holds trunk or limbs and provides more than half the effort. 0-Lvmtpyuug-jhldlj does ALL the effort. Patient does none of the effort to complete the activity. Or, the assistance of 2 or more helpers is required for the patient to complete the activity. If activity was not attempted, code reason: 7-Patient Refused. 9-Not Applicable-not attempted and the patient did not perform the activity before the current illness, exacerbation or injury. 10-Not Attempted due to Environmental Limitations-(lack of equipment, weather restraints, etc.). 88-Not Attempted due to Medical Conditions or Safety Concerns. Weight Bearing Right Lower Extremity: Right Full Weight Bearing Left Lower Extremity: Left Full Weight Bearing Exercises NuStep Minutes: 15 NuStep Workload: 3 Treatments Pt is able to ambulate 300ft with RW and CGA for incased balance. pt does require directional VC for correct directional changes as well as obstacle deflection. Pt is able to preform 10 min on Nu-step at level 3 and another 5 mins at level 2 with rest after 10 mins. pt requires constant reminders to keep going with task and encouragement. Pt is able to preform sitting ther-ex in all planes of motion available with 2 lb ankle weights for added resistance this day. VC for correct mm movement as well as task initiation and completion are 90% this day. . Assessment Current Status: Good Progress, Fair Progress PT Senior Living Goals Senior Living Goals PT Pre Wave Assembler Goals Time Frame: Sep 09, 2022 Roll Left & Right (QC): 6 (Pt will be Mod I to be at PLOF and safe d/c home with family. ) Sit to Lying (QC): 6 (Pt will be Mod I to be at PLOF and safe d/c home with family.) Lying-Sitting on Side/Bed(QC): 6 (Pt will be Mod I to be at PLOF and safe d/c home with family.) Sit to Stand (QC): 6 (Pt will be Mod I to be at PLOF and safe d/c home with family.) Chair/Fin-ww-Cgakj Xfer(QC): 6 (Pt will be Mod I to be at PLOF and safe d/c home with family.) Toilet Transfer (QC): 6 (Pt will be Mod I to be at PLOF and safe d/c home with family.) Car Transfer (QC): 6 (Pt will be Mod I to be at PLOF and safe d/c home with family.) Does the Patient Walk: Yes Walk 10 feet (QC): 6 (Pt will be Mod I to be at PLOF and safe d/c home with family.) Walk 50ft with 2 Turns (QC): 6 (Pt will be Mod I to be at PLOF and safe d/c home with family.) Walk 150 ft (QC): 6 (Pt will be Mod I to be at PLOF and safe d/c home with family.) Walking 10ft on Uneven Surface: 6 (Pt will be Mod I to be at PLOF and safe d/c home with family.) 1 Step (curb) (QC): 6 (Pt will be Mod I to be at PLOF and safe d/c home with family.) 4 Steps (QC): 6 (Pt will be Mod I to be at PLOF and safe d/c home with family.) 12 Steps (QC): 6 (Pt will be Mod I to be at PLOF and safe d/c home with family.) Picking up an Object (QC): 6 (Pt will be Mod I to be at PLOF and safe d/c home with family.) Does the Pt use WC or Scooter?: No Wheel 50 feet with 2 turns (QC: 9 Type: N/A Wheel 150 feet: 9 Type: N/A PT Plan Treatment/Plan Treatment Plan: Continue Plan of Care Treatment Plan: Bed Mobility, Concurrent Therapy, Education, Functional Activity Lana, Functional Strength, Group Therapy, Gait, Safety, Therapeutic Exercise, Transfers Treatment Duration: Sep 09, 2022 Frequency: At least 5 of 7 days/Wk (IRF) Estimated Hrs Per Day: 1.5 hours per day Patient and/or Family Agrees t: Yes Time Time In: 1030 Time Out: 1145 DATE: Sep 06, 2022 Total Billed Treatment Time: 75 Total Billed Treatment 1 GT x 3 EX x 2 Mariposa Casas TELETYPE CLERK Sep 06, 2022 11:51
--- NOTE | 2022-09-06 12:42 | Speech Therapy Daily Note ---
Speech Daily Progress Note Subjective Date Seen by Provider: Sep 06, 2022 Time Seen by Provider: 09:45 Pt sitting up in recliner eating oreos and milk when BUN ICER arrives. Pt frequently asks BUN ICER when he can go home and states he wants to go home. Towards the end of the session pt states therapies are difficult and says he isn't able to do anything. Pt requires frequent redirections throughout session. Pt pleasant and cooperative throughout session. Pain Comment: Stomach - "it's not working" Objective Pt answers basic orientation questions with 23% accuracy with min cues. Pt completes rote tasks of counting to 10 with 100% and stating the days of the week with 71% accuracy. Pt is able to identify himself, his mom, and his grandma and grandpa in pictures . Pt appropriately answers basic questions with 40% accuracy. Assessment Assessment Current Status: Poor Progress Treatment Plan Continue Plan of Care Speech Short Term Goals Short Term Goals Short Term Goals 1. The patient will utilize visual and verbal cues to identify basic orientation information with 70% accuracy. Time Frame-STG: One Week. Speech Senior Care Goals Senior Care Goals 1. The patient will display improved cognitive communication for safe discharge to the least restrictive environment. Time Frame: Two Weeks. Speech-Plan Patient/Family Goals Patient/Family Goals: Family's goal is for pt to return home with mom. Treatment Plan Speech Therapy Treatment Plan: Continue Plan of Care Treatment Duration: Sep 16, 2022 Frequency: Modified Program (IRF) (Four to five times per week.) Estimated Hrs Per Day: Other Rehab Potential: Good Pt/Family Agrees to Plan: Yes Safety Risks/Education Teaching Recipient: Patient Teaching Methods: Discussion Response to Teaching: Reinforcement Needed Education Topics Provided: Pt educated on purpose of therapy tasks. Pt will require reinforcement. Discharge Recommendations Post Acute ST Time Speech Therapy Time In: 09:45 Speech Therapy Time Out: 10:15 DATE: Sep 06, 2022 Total Billed Time: 30 Billed Treatment Time S/L Arya Sandoval Speech Therapy Sep 06, 2022 12:42
--- NOTE | 2022-09-06 12:54 | Occupational Ther Daily Note ---
OT Current Status-Daily Note Subjective Pt sleeping in bed, difficult to wake. Pt reluctantly agrees to therapy. No c/o pain. Pt states that he wants to go home. Mental Status/Objective Patient Orientation: Person, Place, Time, Situation Attachments: IV ADL-Treatment Set up for eating. Pt given bath wipe and pt cleansed buttocks/mily area then declined to cleanse other areas. With encouragement, pt able to doff/don lower body clothing with SBA. Pt stood using grabbars to stabilize while stepping into shorts, SBA. Pt sat at sink to complete oral care. VC and encouragement to setup own tooth brushing, then completed by self. Assist with footwear. After session, pt sitting in recliner with call light/phone in reach. All needs met in room. Therapy Code Descriptions/Definitions Functional [place] Measure: 0=Not Assessed/NA 4=Minimal Assistance 1=Total Assistance 5=Supervision or Setup 2=Maximal Assistance 6=Modified [place] 3=Moderate Assistance 7=Complete IndependenceSCALE: Activities may be completed with or without assistive devices. 2-Ixnlykvbgl-rcpxjde completes the activity by him/herself with no assistance from a helper. 5-Set-up or Clean-up Assistance-helper sets up or cleans up; patient completes activity. [place] assists only prior to or following the activity. 4-Supervision or Touching Assistance-helper provides verbal cues and/or touching/steadying and/or contact guard assistance as patient completes activity. Assistance may be provided throughout the activity or intermittently. 3-Partial/Moderate Assistance-helper does LESS THAN HALF the effort. [place] lifts, holds or supports trunk or limbs, but provides less than half the effort. 2-Substantial/Maximal Assistance-helper does MORE THAN HALF the effort. [place] lifts or holds trunk or limbs and provides more than half the effort. 7-Odalotjuj-yjufwd does ALL the effort. Patient does none of the effort to complete the activity. Or, the assistance of 2 or more helpers is required for the patient to complete the activity. If activity was not attempted, code reason: 7-Patient Refused. 9-Not Applicable-not attempted and the patient did not perform the activity before the current illness, exacerbation or injury. 10-Not Attempted due to Environmental Limitations-(lack of equipment, weather restraints, etc.). 88-Not Attempted due to Medical Conditions or Safety Concerns. Eating (QC): 5 Oral Hygiene (QC): 4 Upper Body Dressing (QC): 4 (monitoring pt to complete task.) Lower Body Dressing (QC): 4 On/Off Footwear: 4 Toileting Hygiene (QC): 4 Toilet Transfer (QC): 4 OT Short Term Goals Short Term Goals Eatin Oral hygiene: 5 Upper body dressin OT Choral Director Goals Choral Director Goals Acute change in mental status: 1 Inattention: 2 Disorganized thinkin Altered level of consciousness: 2 Eating (QC): 6 Oral Hygiene (QC): 6 Toileting Hygiene (QC): 6 Shower/Bathe Self (QC): 5 Upper Body Dressing (QC): 6 Lower Body Dressing (QC): 6 On/Off Footwear (QC): 6 1=Demonstrate adherence to instructed precautions during ADL tasks. 2=Patient will verbalize/demonstrate understanding of assistive devices/modifications for ADL. 3=Patient will improve strength/tolerance for activity to enable patient to perform ADL's. OT Education/Plan Problem List/Assessment Assessment: Decreased Activ Tolerance, Decreased Safety Aware, Impaired Cognition, Impaired Coordination, Impaired Funct Balance, Impaired I ADL's, Impaired Self-Care Skills Discharge Recommendations Plan/Recommendations: Continue POC Treatment Plan/Plan of Care Patient would benefit from OT for education, treatment and training to promote independence in ADL's, mobility, safety and/or upper extremity function for ADL's. Plan of Care: ADL Retraining, Cognitive Retraining, Concurrent Therapy, Functional Mobility, Group Exercise/Act as Ind, UE Funct Exercise/Act, UE Neuromus Re-Ed/Coord Treatment Duration: Sep 30, 2022 Frequency: At least 5 of 7 days/Wk (IRF) Estimated Hrs Per Day: 1.5 hours per day Agreement: Yes Rehab Potential: Good Time Start Time: 08:30 Stop Time: 09:45 DATE: Sep 06, 2022 Total Time Billed (hr/min): 75 Billed Treatment Time 1 visit-ADL 5 (75 min) RICHARD MCINTOSH Sep 06, 2022 12:54
--- NOTE | 2022-09-06 12:57 | PM&R Progress Note ---
Subjective HPI/CC On Admission Date Seen by Provider: Sep 06, 2022 Subjective/Events-last exam 09/06/2022: No major issues Check meds and labs 09/05/2022: Patient doing really well No pain is reported No falls Participating in therapy 09/04/2022: Patient awake and alert today Frail status continuous Moving around a lot better 09/03/2022: Patient doing well Eating well Participating in therapy 09/02/2022: Patient about the same Less drowsy Participating in therapy with heavy cues 09/01/2022: Patient sleeping all the time We will hold Zyprexa since that could be sedating Patient appears to be very thin He will try to participate more in therapy Review of Systems General: Fatigue, Malaise Neurological: Confusion Objective Exam Vital Signs Vital Signs Date Time Temp Pulse Resp B/P (MAP) Pulse Ox O2 Delivery O2 Flow Rate FiO2 09/06/22 19:49 37.1 91 18 107/64 (78) 99 Room Air Capillary Refill : General Appearance: No Apparent Distress, WD/WN, Chronically ill, Thin, Other (Pale) HEENT: PERRL/EOMI, Normal ENT Inspection, Pharynx Normal Neck: Full Range of Motion, Normal Inspection, Non Tender, Supple, Carotid Bruit Respiratory: Chest Non Tender, Lungs Clear, Normal Breath Sounds, No Accessory Muscle Use, No Respiratory Distress Cardiovascular: Regular Rate, Rhythm, No Edema, No Gallop, No JVD, No Murmur, Normal Peripheral Pulses Gastrointestinal: Normal Bowel Sounds, No Organomegaly, No Pulsatile Mass, Non Tender, Soft Back: Normal Inspection, No CVA Tenderness, No Vertebral Tenderness Extremity: Normal Capillary Refill, Normal Inspection, Normal Range of Motion, Non Tender, No Calf Tenderness, No Pedal Edema Neurologic/Psychiatric: Alert, Oriented x3, Normal Mood/Affect, crawler dragline operator II-XII Norm as Tested, Abnormal Gait, Depressed Affect, Motor Weakness ( generalized 3/5 extremities) Skin: Normal Color, Warm/Dry Lymphatic: No Adenopathy Results/Procedures Lab Patient resulted labs reviewed. FIM Transfers Therapy Code Descriptions/Definitions Functional [place] Measure: 0=Not Assessed/NA 4=Minimal Assistance 1=Total Assistance 5=Supervision or Setup 2=Maximal Assistance 6=Modified [place] 3=Moderate Assistance 7=Complete IndependenceSCALE: Activities may be completed with or without assistive devices. 0-Okqunqkkhy-uqpsezs completes the activity by him/herself with no assistance from a helper. 5-Set-up or Clean-up Assistance-helper sets up or cleans up; patient completes activity. [place] assists only prior to or following the activity. 4-Supervision or Touching Assistance-helper provides verbal cues and/or touching/steadying and/or contact guard assistance as patient completes activity. Assistance may be provided throughout the activity or intermittently. 3-Partial/Moderate Assistance-helper does LESS THAN HALF the effort. [place] lifts, holds or supports trunk or limbs, but provides less than half the effort. 2-Substantial/Maximal Assistance-helper does MORE THAN HALF the effort. [place] lifts or holds trunk or limbs and provides more than half the effort. 5-Mbcnksrjr-qlghjh does ALL the effort. Patient does none of the effort to complete the activity. Or, the assistance of 2 or more helpers is required for the patient to complete the activity. If activity was not attempted, code reason: 7-Patient Refused. 9-Not Applicable-not attempted and the patient did not perform the activity before the current illness, exacerbation or injury. 10-Not Attempted due to Environmental Limitations-(lack of equipment, weather restraints, etc.). 88-Not Attempted due to Medical Conditions or Safety Concerns. Roll Left to Right (QC): 3 (Min A) Sit to Lying (QC): 3 (Min A) Sit to Stand (QC): 4 Chair/Qtu-qb-Ozbcv Xfer(QC): 4 Car Transfer (QC): 3 (Min A) Gait Training Does the Patient Walk?: Yes Distance: 10' x2 Walk 10 feet (QC): 4 Walk 50 ft with 2 Turns(QC): 4 Walk 150 ft (QC): 4 Walking 10ft/uneven surface-QC: 3 (Min A) Gait Assistive Device: Handheld Assist Wheelchair Training Does the Pt Use a Wheelchair?: No Wheel 50 ft with 2 turns (QC): 88 Wheel 150 ft (QC): 88 Type of Wheelchair: N/A Stair Training 1 Step (curb) (QC): 3 (Min A) 4 Steps (QC): 3 (Min A) 12 Steps (QC): 3 (Min A) Balance Picking up an Object (QC): 3 (Min A) ADL-Treatment Eating (QC): 5 Oral Hygiene (QC): 4 Shower/Bathe Self (QC): 2 Upper Body Dressing (QC): 4 (monitoring pt to complete task.) Lower Body Dressing (QC): 4 On/Off Footwear (QC): 4 Toileting Hygiene (QC): 4 Toilet Transfer (QC): 4 Assessment/Plan Assessment and Plan Assess & Plan/Chief Complaint Assessment: 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 Suspected endocarditis although [place] revealed no vegetations treating empirically Dog bite to face ADHD Bipolar disorder Low BMI of 17 Plan: Vancomycin per ID protocol PT and OT Supportive [facility] meds 09/01/2022: Supportive care Monitor closely 09/02/2022: Monitor drowsiness Hold Zyprexa 09/03/2022: Continue abx Monitor closely 09/04/2022: Continue aggressive therapy 09/05/2022: Supportive care 09/06/2022: Supportive care (1) Embolic stroke (2) Suspected endocarditis Status: Acute (3) Dog bite Status: Acute AURE RUIZ DO Sep 06, 2022 12:57
[2022-09-06] MEDS: ALPRAZolam 0.25 MG (XANAX) TAB PO PRN (14:24)
[2022-09-06 19:49] VITALS: BP 107/64
--- NOTE | 2022-09-07 06:04 | PM&R Progress Note ---
Subjective HPI/CC On Admission Date Seen by Provider: Sep 07, 2022 Time Seen by Provider: 12:30 Subjective/Events-last exam 09/07/2022: No major issues Denies any new pain Wants to go home 09/06/2022: No major issues Check meds and labs 09/05/2022: Patient doing really well No pain is reported No falls Participating in therapy 09/04/2022: Patient awake and alert today Frail status continuous Moving around a lot better 09/03/2022: Patient doing well Eating well Participating in therapy 09/02/2022: Patient about the same Less drowsy Participating in therapy with heavy cues 09/01/2022: Patient sleeping all the time We will hold Zyprexa since that could be sedating Patient appears to be very thin He will try to participate more in therapy Review of Systems General: Fatigue, Malaise Objective Exam Vital Signs Vital Signs Date Time Temp Pulse Resp B/P (MAP) Pulse Ox O2 Delivery O2 Flow Rate FiO2 09/07/22 19:43 36.6 96 18 130/74 (92) 98 Room Air Capillary Refill : General Appearance: No Apparent Distress, WD/WN, Chronically ill, Thin, Other (Pale) HEENT: PERRL/EOMI, Normal ENT Inspection, Pharynx Normal Neck: Full Range of Motion, Normal Inspection, Non Tender, Supple, Carotid Bruit Respiratory: Chest Non Tender, Lungs Clear, Normal Breath Sounds, No Accessory Muscle Use, No Respiratory Distress Cardiovascular: Regular Rate, Rhythm, No Edema, No Gallop, No JVD, No Murmur, Normal Peripheral Pulses Gastrointestinal: Normal Bowel Sounds, No Organomegaly, No Pulsatile Mass, Non Tender, Soft Back: Normal Inspection, No CVA Tenderness, No Vertebral Tenderness Extremity: Normal Capillary Refill, Normal Inspection, Normal Range of Motion, Non Tender, No Calf Tenderness, No Pedal Edema Neurologic/Psychiatric: Alert, Oriented x3, Normal Mood/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 FIM Transfers Therapy Code Descriptions/Definitions Functional [place] Measure: 0=Not Assessed/NA 4=Minimal Assistance 1=Total Assistance 5=Supervision or Setup 2=Maximal Assistance 6=Modified [place] 3=Moderate Assistance 7=Complete IndependenceSCALE: Activities may be completed with or without assistive devices. 7-Prpubsyowv-kzrcarf completes the activity by him/herself with no assistance from a helper. 5-Set-up or Clean-up Assistance-helper sets up or cleans up; patient completes a ctivity. [place] assists only prior to or following the activity. 4-Supervision or Touching Assistance-helper provides verbal cues and/or touching/steadying and/or contact guard assistance as patient completes activity. Assistance may be provided throughout the activity or intermittently. 3-Partial/Moderate Assistance-helper does LESS THAN HALF the effort. [place] lifts, holds or supports trunk or limbs, but provides less than half the effort. 2-Substantial/Maximal Assistance-helper does MORE THAN HALF the effort. [place] lifts or holds trunk or limbs and provides more than half the effort. 7-Srxjdizxn-kxzasw does ALL the effort. Patient does none of the effort to complete the activity. Or, the assistance of 2 or more helpers is required for the patient to complete the activity. If activity was not attempted, code reason: 7-Patient Refused. 9-Not Applicable-not attempted and the patient did not perform the activity before the current illness, exacerbation or injury. 10-Not Attempted due to Environmental Limitations-(lack of equipment, weather restraints, etc.). 88-Not Attempted due to Medical Conditions or Safety Concerns. Roll Left to Right (QC): 3 (Min A) Sit to Lying (QC): 3 (Min A) Sit to Stand (QC): 4 Chair/Bav-kk-Gmyic Xfer(QC): 4 Car Transfer (QC): 3 (Min A) Gait Training Does the Patient Walk?: Yes Distance: 10' x2 Walk 10 feet (QC): 4 Walk 50 ft with 2 Turns(QC): 4 Walk 150 ft (QC): 4 Walking 10ft/uneven surface-QC: 3 (Min A) Gait Assistive Device: Handheld Assist Wheelchair Training Does the Pt Use a Wheelchair?: No Wheel 50 ft with 2 turns (QC): 88 Wheel 150 ft (QC): 88 Type of Wheelchair: N/A Stair Training 1 Step (curb) (QC): 3 (Min A) 4 Steps (QC): 3 (Min A) 12 Steps (QC): 3 (Min A) Balance Picking up an Object (QC): 3 (Min A) ADL-Treatment Eating (QC): 5 Oral Hygiene (QC): 4 Shower/Bathe Self (QC): 2 Upper Body Dressing (QC): 4 (monitoring pt to complete task.) Lower Body Dressing (QC): 4 On/Off Footwear (QC): 4 Toileting Hygiene (QC): 4 Toilet Transfer (QC): 4 Assessment/Plan Assessment and Plan Assess & Plan/Chief Complaint Assessment: 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 Suspected endocarditis although LEONA revealed no vegetations treating empirically Dog bite to face ADHD Bipolar disorder Low BMI of 17 Plan: Vancomycin per ID protocol PT and OT Supportive shelter meds 09/01/2022: Supportive care Monitor closely 09/02/2022: Monitor drowsiness Hold Zyprexa 09/03/2022: Continue abx Monitor closely 09/04/2022: Continue aggressive therapy 09/05/2022: Supportive care 09/06/2022: Supportive care 09/07/2022: Monitor impulsiveness (1) Embolic stroke (2) Suspected endocarditis Status: Acute (3) Dog bite Status: Acute AURE RUIZ DO Sep 07, 2022 06:04
[2022-09-07] MEDS: CATHETER FLUSH 10 ML SYR IVP SCH ×3 (06:44→21:49)
[2022-09-07] MEDS: polyethylene glycoL POWDER 17 GM (MIRALAX) PACK PO SCH ×2 (07:49→21:49)
[2022-09-07] MEDS: VYVANSE 40 MG PO SCH (07:49)
[2022-09-07] MEDS: SENNA W/DOCUSATE (SENOKOT S) TABLET PO SCH ×2 (07:49→21:49)
[2022-09-07] MEDS: VANCOMYCIN 1250 MG/NS 250 ML PREMIX IV SCH ×2 (07:49→21:05)
[2022-09-07] MEDS: DOCUSATE SODIUM 100 MG (COLACE) CAP PO SCH ×2 (07:49→21:48)
[2022-09-07] MEDS: PATIENT MAY USE OWN MED,SINGLE MED PO SCH (07:50)
[2022-09-07 08:00] VITALS: BP 115/59
--- NOTE | 2022-09-07 09:59 | Occupational Ther Daily Note ---
OT Current Status-Daily Note Subjective Pt sleeping in bed, woke to name. Pt requires encouragement to participate in skilled therapy. Pt c/o pain in feet. Mental Status/Objective Patient Orientation: Person, Place, Time, Situation Attachments: IV ADL-Treatment Pt agrees to sponge bath after declining shower. Independent with bed mobility. Pt did cleanse body though requires assistance for thorough cleansing buttocks, min A. Pt able to don/doff shirt with supervision after set up. Supervision for LBD, takes increased time to complete with verbal cues. Assist to don/doff socks then pt dons/doffs shoe by self. SBA and encouragement for pt to complete oral care standing at sink. Therapy Code Descriptions/Definitions Functional [place] Measure: 0=Not Assessed/NA 4=Minimal Assistance 1=Total Assistance 5=Supervision or Setup 2=Maximal Assistance 6=Modified [place] 3=Moderate Assistance 7=Complete IndependenceSCALE: Activities may be completed with or without assistive devices. 9-Urkkjmjpew-msctzni completes the activity by him/herself with no assistance from a helper. 5-Set-up or Clean-up Assistance-helper sets up or cleans up; patient completes activity. [place] assists only prior to or following the activity. 4-Supervision or Touching Assistance-helper provides verbal cues and/or touc clau/steadying and/or contact guard assistance as patient completes activity. Assistance may be provided throughout the activity or intermittently. 3-Partial/Moderate Assistance-helper does LESS THAN HALF the effort. [place] lifts, holds or supports trunk or limbs, but provides less than half the effort. 2-Substantial/Maximal Assistance-helper does MORE THAN HALF the effort. [place] lifts or holds trunk or limbs and provides more than half the effort. 5-Lipoqyldp-ugcpbp does ALL the effort. Patient does none of the effort to complete the activity. Or, the assistance of 2 or more helpers is required for the patient to complete the activity. If activity was not attempted, code reason: 7-Patient Refused. 9-Not Applicable-not attempted and the patient did not perform the activity before the current illness, exacerbation or injury. 10-Not Attempted due to Environmental Limitations-(lack of equipment, weather restraints, etc.). 88-Not Attempted due to Medical Conditions or Safety Concerns. Eating (QC): 5 Oral Hygiene (QC): 4 Shower/Bathe Self (QC): 3 Upper Body Dressing (QC): 4 Lower Body Dressing (QC): 4 On/Off Footwear: 3 Other Treatment Pt ambulated using FWW around ARU floor with CGA. After session, pt sitting in recliner with call light/phone in reach. Safety measures in place. All needs met. OT Short Term Goals Short Term Goals Eatin Oral hygiene: 5 Upper body dressin OT Senior Care Goals Music Therapy Teacher Goals Acute change in mental status: 1 Inattention: 2 Disorganized thinkin Altered level of consciousness: 2 Eating (QC): 6 Oral Hygiene (QC): 6 Toileting Hygiene (QC): 6 Shower/Bathe Self (QC): 5 Upper Body Dressing (QC): 6 Lower Body Dressing (QC): 6 On/Off Footwear (QC): 6 1=Demonstrate adherence to instructed precautions during ADL tasks. 2=Patient will verbalize/demonstrate understanding of assistive devices/modifications for ADL. 3=Patient will improve strength/tolerance for activity to enable patient to perform ADL's. OT Education/Plan Problem List/Assessment Assessment: Decreased Activ Tolerance, Decreased Safety Aware, Decreased UE Strength, Impaired Cognition, Impaired Coordination, Impaired Funct Balance, Impaired Self-Care Skills Discharge Recommendations Plan/Recommendations: Continue POC Treatment Plan/Plan of Care Patient would benefit from OT for education, treatment and training to promote independence in ADL's, mobility, safety and/or upper extremity function for ADL's. Plan of Care: ADL Retraining, Cognitive Retraining, Concurrent Therapy, Functional Mobility, Group Exercise/Act as Ind, UE Funct Exercise/Act, UE Neuromus Re-Ed/Coord Treatment Duration: Sep 30, 2022 Frequency: At least 5 of 7 days/Wk (IRF) Estimated Hrs Per Day: 1.5 hours per day Agreement: Yes Rehab Potential: Good Time Start Time: 09:00 Stop Time: 10:00 DATE: Sep 07, 2022 Total Time Billed (hr/min): 60 Billed Treatment Time 1 visit-ADL 3 (50 min) FA 1 (10 min) RICHARD MCINTOSH Sep 07, 2022 09:59
--- NOTE | 2022-09-07 11:52 | Physical Therapy Daily Note ---
PT Daily Note-Current Subjective Pt in recliner upon entering and willing for therapy. pt still requires a lot of encouragement to initiate, stay and finish task this day. pt reports stomach hurts and nursing is aware. pt constantly stating he wants to go, home he is tired, and doesn't to do this. pt was left in room with call light and all needs met this day after therapy. Pain Section J - Health Conditions 1. Rarely or not at all 2. Occasionally 3. Frequently 4. Almost constantly 8. Unable to answer Pain Effect on Sleep: 1 Pain Interference with Therapy: 1 Pain Interference w/Day-to-Day: 1 Mental Status Patient Orientation: Person, Place Transfers SCALE: Activities may be completed with or without assistive devices. 1-Tsvobhrfhw-dwcguia completes the activity by him/herself with no assistance from a helper. 5-Set-up or Clean-up Assistance-helper sets up or cleans up; patient completes activity. [place] assists only prior to or following the activity. 4-Supervision or Touching Assistance-helper provides verbal cues and/or touching/steadying and/or contact guard assistance as patient completes activity. Assistance may be provided throughout the activity or intermittently. 3-Partial/Moderate Assistance-helper does LESS THAN HALF the effort. [place] lifts, holds or supports trunk or limbs, but provides less than half the effort. 2-Substantial/Maximal Assistance-helper does MORE THAN HALF the effort. [place] lifts or holds trunk or limbs and provides more than half the effort. 5-Veacalhzb-grcuvl does ALL the effort. Patient does none of the effort to complete the activity. Or, the assistance of 2 or more helpers is required for the patient to complete the activity. If activity was not attempted, code reason: 7-Patient Refused. 9-Not Applicable-not attempted and the patient did not perform the activity before the current illness, exacerbation or injury. 10-Not Attempted due to Environmental Limitations-(lack of equipment, weather restraints, etc.). 88-Not Attempted due to Medical Conditions or Safety Concerns. Weight Bearing Right Lower Extremity: Right Full Weight Bearing Left Lower Extremity: Left Full Weight Bearing Wheelchair Training Wheel 50 ft with 2 turns (QC): 9 Wheel 150 ft (QC): 9 Stair Training 1 Step (curb) (QC): 4 4 Steps (QC): 4 12 Steps (QC): 4 Exercises NuStep Minutes: 20 NuStep Workload: 2 Treatments Pt is able to preform 12 stairs with CGA and no LOB but requires one stair at a time as pt does get dizzy if he preforms reciprocal. pt is able to preform NU- step at for 20 mins with constant reminder to keep moving. pt is able to ambulate with no AD for short periods of time up to 10 ft with sonly slight LOb and is able to self correct with SBA Assessment Current Status: Fair Progress (pt willingness to push himslef to get better hindering progress. ) PT Manager Acute Goals Manager Acute Goals PT Custodial Goals Time Frame: Sep 09, 2022 Roll Left & Right (QC): 6 (Pt will be Mod I to be at PLOF and safe d/c home with family. ) Sit to Lying (QC): 6 (Pt will be Mod I to be at PLOF and safe d/c home with family.) Lying-Sitting on Side/Bed(QC): 6 (Pt will be Mod I to be at PLOF and safe d/c home with family.) Sit to Stand (QC): 6 (Pt will be Mod I to be at PLOF and safe d/c home with family.) Chair/Bfa-xi-Yokwm Xfer(QC): 6 (Pt will be Mod I to be at PLOF and safe d/c home with family.) Toilet Transfer (QC): 6 (Pt will be Mod I to be at PLOF and safe d/c home with family.) Car Transfer (QC): 6 (Pt will be Mod I to be at PLOF and safe d/c home with family.) Does the Patient Walk: Yes Walk 10 feet (QC): 6 (Pt will be Mod I to be at PLOF and safe d/c home with family.) Walk 50ft with 2 Turns (QC): 6 (Pt will be Mod I to be at PLOF and safe d/c home with family.) Walk 150 ft (QC): 6 (Pt will be Mod I to be at PLOF and safe d/c home with family.) Walking 10ft on Uneven Surface: 6 (Pt will be Mod I to be at PLOF and safe d/c home with family.) 1 Step (curb) (QC): 6 (Pt will be Mod I to be at PLOF and safe d/c home with family.) 4 Steps (QC): 6 (Pt will be Mod I to be at PLOF and safe d/c home with family.) 12 Steps (QC): 6 (Pt will be Mod I to be at PLOF and safe d/c home with family.) Picking up an Object (QC): 6 (Pt will be Mod I to be at PLOF and safe d/c home with family.) Does the Pt use WC or Scooter?: No Wheel 50 feet with 2 turns (QC: 9 Type: N/A Wheel 150 feet: 9 Type: N/A PT Plan Treatment/Plan Treatment Plan: Continue Plan of Care Treatment Plan: Bed Mobility, Concurrent Therapy, Education, Functional Activity Lana, Functional Strength, Group Therapy, Gait, Safety, Therapeutic Exercise, Transfers Treatment Duration: Sep 09, 2022 Frequency: At least 5 of 7 days/Wk (IRF) Estimated Hrs Per Day: 1.5 hours per day Patient and/or Family Agrees t: Yes Time Time In: 1100 Time Out: 1200 DATE: Sep 07, 2022 Total Billed Treatment Time: 60 Total Billed Treatment 1 EX x 2 GT x 1 FA x 1 Mariposa Casas TILE MECHANIC Sep 07, 2022 11:52
--- NOTE | 2022-09-07 15:02 | Occupational Ther Daily Note ---
OT Current Status-Daily Note Subjective Pt alert, lying in bed. Pt's mother present for family training. Pt c/o being tired. Mental Status/Objective Patient Orientation: Person, Place, Time, Situation Attachments: IV ADL-Treatment Therapy Code Descriptions/Definitions Functional [place] Measure: 0=Not Assessed/NA 4=Minimal Assistance 1=Total Assistance 5=Supervision or Setup 2=Maximal Assistance 6=Modified [place] 3=Moderate Assistance 7=Complete IndependenceSCALE: Activities may be completed with or without assistive devices. 6-Tocsylsjyw-yapchjt completes the activity by him/herself with no assistance from a helper. 5-Set-up or Clean-up Assistance-helper sets up or cleans up; patient completes activity. [place] assists only prior to or following the activity. 4-Supervision or Touching Assistance-helper provides verbal cues and/or touching/steadying and/or contact guard assistance as patient completes activity. Assistance may be provided throughout the activity or intermittently. 3-Partial/Moderate Assistance-helper does LESS THAN HALF the effort. [place] lifts, holds or supports trunk or limbs, but provides less than half the effort. 2-Substantial/Maximal Assistance-helper does MORE THAN HALF the effort. [place] lifts or holds trunk or limbs and provides more than half the effort. 3-Jvkrlzhas-lebmpv does ALL the effort. Patient does none of the effort to complete the activity. Or, the assistance of 2 or more helpers is required for the patient to complete the activity. If activity was not attempted, code reason: 7-Patient Refused. 9-Not Applicable-not attempted and the patient did not perform the activity before the current illness, exacerbation or injury. 10-Not Attempted due to Environmental Limitations-(lack of equipment, weather restraints, etc.). 88-Not Attempted due to Medical Conditions or Safety Concerns. Other Treatment PT/OT cotreat [id number], skills of 2 clinicians required for family education for safe mobility, ADLs and safe home environment. PT focusing on mobility and OT focusing on ADLs. Pt's mother demonstrated understanding of mobility and ADLs following education. Mother had questions about home care and medical that therapists took to and [facility]. After therapy, pt lying in bed with call light/phone in reach. Mother present in room. OT Short Term Goals Short Term Goals Eatin Oral hygiene: 5 Upper body dressin OT Group Home Goals Group Home Goals Acute change in mental status: 1 Inattention: 2 Disorganized thinkin Altered level of consciousness: 2 Eating (QC): 6 Oral Hygiene (QC): 6 Toileting Hygiene (QC): 6 Shower/Bathe Self (QC): 5 Upper Body Dressing (QC): 6 Lower Body Dressing (QC): 6 On/Off Footwear (QC): 6 1=Demonstrate adherence to instructed precautions during ADL tasks. 2=Patient will verbalize/demonstrate understanding of assistive devices/modifications for ADL. 3=Patient will improve strength/tolerance for activity to enable patient to perform ADL's. OT Education/Plan Problem List/Assessment Assessment: Decreased Activ Tolerance, Decreased Safety Aware, Impaired Cognition, Impaired Self-Care Skills Discharge Recommendations Plan/Recommendations: Continue POC Treatment Plan/Plan of Care Patient would benefit from OT for education, treatment and training to promote independence in ADL's, mobility, safety and/or upper extremity function for ADL's. Plan of Care: ADL Retraining, Cognitive Retraining, Concurrent Therapy, Functional Mobility, Group Exercise/Act as Ind, UE Funct Exercise/Act, UE Neuromus Re-Ed/Coord Treatment Duration: Sep 30, 2022 Frequency: At least 5 of 7 days/Wk (IRF) Estimated Hrs Per Day: 1.5 hours per day Agreement: Yes Rehab Potential: Good Time Start Time: 14:00 Stop Time: 14:30 DATE: Sep 07, 2022 Total Time Billed (hr/min): 30 Billed Treatment Time 1 visit-FA 2 (30 min) cotreat with PT 30 min RICHARD MCINTOSH Sep 07, 2022 15:02
--- NOTE | 2022-09-07 15:10 | Physical Therapy Daily Note ---
PT Daily Note-Current Subjective Pt in bed upon arrival and willing for therapy. pt reports no pain this day. pt was left in bed with call light and mother present at the end of session. Pain Section J - Health Conditions 1. Rarely or not at all 2. Occasionally 3. Frequently 4. Almost constantly 8. Unable to answer Pain Effect on Sleep: 1 Pain Interference with Therapy: 1 Pain Interference w/Day-to-Day: 1 Transfers SCALE: Activities may be completed with or without assistive devices. 6-Ehvtieiyln-gtvuwhc completes the activity by him/herself with no assistance from a helper. 5-Set-up or Clean-up Assistance-helper sets up or cleans up; patient completes activity. [place] assists only prior to or following the activity. 4-Supervision or Touching Assistance-helper provides verbal cues and/or touching/steadying and/or contact guard assistance as patient completes activity. Assistance may be provided throughout the activity or intermittently. 3-Partial/Moderate Assistance-helper does LESS THAN HALF the effort. [place] lifts, holds or supports trunk or limbs, but provides less than half the effort. 2-Substantial/Maximal Assistance-helper does MORE THAN HALF the effort. [place] lifts or holds trunk or limbs and provides more than half the effort. 9-Bhoadykey-rhqbqb does ALL the effort. Patient does none of the effort to complete the activity. Or, the assistance of 2 or more helpers is required for the patient to complete the activity. If activity was not attempted, code reason: 7-Patient Refused. 9-Not Applicable-not attempted and the patient did not perform the activity before the current illness, exacerbation or injury. 10-Not Attempted due to Environmental Limitations-(lack of equipment, weather restraints, etc.). 88-Not Attempted due to Medical Conditions or Safety Concerns. Weight Bearing Right Lower Extremity: Right Full Weight Bearing Left Lower Extremity: Left Full Weight Bearing Treatments PT/OT co-treat from [id number] due to skill of 2 clinicians required which a rehab director occupational therapist could not preform in order to coordinate UE/LEs, decreased fall risk, and due to pt's limitations in strength, mobility, transfers and pain. OT focused on UE placement cues for sequencing, and safety and ADLs. PT focused on LE placement, gross overall movement and transfer/mobility. and with mother for family training. pt mother was shown ambulation and stairs and what VC are needed for safety. pt mother was told about pt progress and safety concerns with patient. mother was aware and understood all concerns. PT Research Laboratory Specialist Goals Group Home Goals PT Research Laboratory Specialist Goals Time Frame: Sep 09, 2022 Roll Left & Right (QC): 6 (Pt will be Mod I to be at PLOF and safe d/c home with family. ) Sit to Lying (QC): 6 (Pt will be Mod I to be at PLOF and safe d/c home with family.) Lying-Sitting on Side/Bed(QC): 6 (Pt will be Mod I to be at PLOF and safe d/c home with family.) Sit to Stand (QC): 6 (Pt will be Mod I to be at PLOF and safe d/c home with family.) Chair/Ixa-og-Vbpnm Xfer(QC): 6 (Pt will be Mod I to be at PLOF and safe d/c home with family.) Toilet Transfer (QC): 6 (Pt will be Mod I to be at PLOF and safe d/c home with family.) Car Transfer (QC): 6 (Pt will be Mod I to be at PLOF and safe d/c home with family.) Does the Patient Walk: Yes Walk 10 feet (QC): 6 (Pt will be Mod I to be at PLOF and safe d/c home with family.) Walk 50ft with 2 Turns (QC): 6 (Pt will be Mod I to be at PLOF and safe d/c home with family.) Walk 150 ft (QC): 6 (Pt will be Mod I to be at PLOF and safe d/c home with family.) Walking 10ft on Uneven Surface: 6 (Pt will be Mod I to be at PLOF and safe d/c home with family.) 1 Step (curb) (QC): 6 (Pt will be Mod I to be at PLOF and safe d/c home with family.) 4 Steps (QC): 6 (Pt will be Mod I to be at PLOF and safe d/c home with family.) 12 Steps (QC): 6 (Pt will be Mod I to be at PLOF and safe d/c home with family.) Picking up an Object (QC): 6 (Pt will be Mod I to be at PLOF and safe d/c home with family.) Does the Pt use WC or Scooter?: No Wheel 50 feet with 2 turns (QC: 9 Type: N/A Wheel 150 feet: 9 Type: N/A PT Plan Treatment/Plan Treatment Plan: Continue Plan of Care Treatment Plan: Bed Mobility, Concurrent Therapy, Education, Functional Activity Lana, Functional Strength, Group Therapy, Gait, Safety, Therapeutic Exercise, Transfers Treatment Duration: Sep 09, 2022 Frequency: At least 5 of 7 days/Wk (IRF) Estimated Hrs Per Day: 1.5 hours per day Patient and/or Family Agrees t: Yes Time Time In: 1400 Time Out: 1430 DATE: Sep 07, 2022 Total Billed Treatment Time: 30 Total Billed Treatment 1 FA x 2 PT/OT cotreat from [id number] for 30 mins this day Mariposa Casas PATHOLOGY LABORATORY DIRECTOR Sep 07, 2022 15:10
[2022-09-07 19:43] VITALS: BP 130/74
[2022-09-07] MEDS: ALPRAZolam 0.25 MG (XANAX) TAB PO PRN (21:05)
--- NOTE | 2022-09-08 06:17 | PM&R Progress Note ---
Subjective HPI/CC On Admission Date Seen by Provider: Sep 08, 2022 Time Seen by Provider: 12:00 Subjective/Events-last exam 09/08/2022: Patient sent for discharge soon Wants to go home No pain is reported 09/07/2022: No major issues Denies any new pain Wants to go home 09/06/2022: No major issues Check meds and labs 09/05/2022: Patient doing really well No pain is reported No falls Participating in therapy 09/04/2022: Patient awake and alert today Frail status continuous Moving around a lot better 09/03/2022: Patient doing well Eating well Participating in therapy 09/02/2022: Patient about the same Less drowsy Participating in therapy with heavy cues 09/01/2022: Patient sleeping all the time We will hold Zyprexa since that could be sedating Patient appears to be very thin He will try to participate more in therapy Review of Systems General: Fatigue, Malaise Neurological: Confusion Objective Exam Vital Signs Vital Signs Date Time Temp Pulse Resp B/P (MAP) Pulse Ox O2 Delivery O2 Flow Rate FiO2 09/08/22 20:18 36.9 89 16 112/72 (85) 100 Room Air Capillary Refill : General Appearance: No Apparent Distress, WD/WN, Chronically ill, Thin, Other (Pale) HEENT: PERRL/EOMI, Normal ENT Inspection, Pharynx Normal Neck: Full Range of Motion, Normal Inspection, Non Tender, Supple, Carotid Bruit Respiratory: Chest Non Tender, Lungs Clear, Normal Breath Sounds, No Accessory Muscle Use, No Respiratory Distress Cardiovascular: Regular Rate, Rhythm, No Edema, No Gallop, No JVD, No Murmur, Normal Peripheral Pulses Gastrointestinal: Normal Bowel Sounds, No Organomegaly, No Pulsatile Mass, Non Tender, Soft Back: Normal Inspection, No CVA Tenderness, No Vertebral Tenderness Extremity: Normal Capillary Refill, Normal Inspection, Normal Range of Motion, Non Tender, No Calf Tenderness, No Pedal Edema Neurologic/Psychiatric: Alert, Oriented x3, Normal Mood/Affect, shaper hand II-XII Norm as Tested, Abnormal Gait, Depressed Affect, Motor Weakness ( generalized 3/5 extremities) Skin: Normal Color, Warm/Dry Lymphatic: No Adenopathy Results/Procedures Lab Patient resulted labs reviewed. FIM Transfers Therapy Code Descriptions/Definitions Functional [place] Measure: 0=Not Assessed/NA 4=Minimal Assistance 1=Total Assistance 5=Supervision or Setup 2=Maximal Assistance 6=Modified [place] 3=Moderate Assistance 7=Complete IndependenceSCALE: Activities may be completed with or without assistive devices. 7-Iucmdvagdr-amxbqpm completes the activity by him/herself with no assistance from a helper. 5-Set-up or Clean-up Assistance-helper sets up or cleans up; patient completes activity. [place] assists only prior to or following the activity. 4-Supervision or Touching Assistance-helper provides verbal cues and/or touching/steadying and/or contact guard assistance as patient completes activity. Assistance may be provided throughout the activity or intermittently. 3-Partial/Moderate Assistance-helper does LESS THAN HALF the effort. [place] lifts, holds or supports trunk or limbs, but provides less than half the effort. 2-Substantial/Maximal Assistance-helper does MORE THAN HALF the effort. [place] lifts or holds trunk or limbs and provides more than half the effort. 8-Cmqtpwqjj-aassyo does ALL the effort. Patient does none of the effort to complete the activity. Or, the assistance of 2 or more helpers is required for the patient to complete the activity. If activity was not attempted, code reason: 7-Patient Refused. 9-Not Applicable-not attempted and the patient did not perform the activity before the current illness, exacerbation or injury. 10-Not Attempted due to Environmental Limitations-(lack of equipment, weather restraints, etc.). 88-Not Attempted due to Medical Conditions or Safety Concerns. Roll Left to Right (QC): 3 (Min A) Sit to Lying (QC): 3 (Min A) Sit to Stand (QC): 4 Chair/Zyq-dl-Pvrlc Xfer(QC): 4 Car Transfer (QC): 3 (Min A) Gait Training Does the Patient Walk?: Yes Distance: 10' x2 Walk 10 feet (QC): 4 Walk 50 ft with 2 Turns(QC): 4 Walk 150 ft (QC): 4 Walking 10ft/uneven surface-QC: 3 (Min A) Gait Assistive Device: Handheld Assist Wheelchair Training Does the Pt Use a Wheelchair?: No Wheel 50 ft with 2 turns (QC): 9 Wheel 150 ft (QC): 9 Type of Wheelchair: N/A Stair Training 1 Step (curb) (QC): 4 4 Steps (QC): 4 12 Steps (QC): 4 Balance Picking up an Object (QC): 3 (Min A) ADL-Treatment Eating (QC): 5 Oral Hygiene (QC): 4 Shower/Bathe Self (QC): 3 Upper Body Dressing (QC): 4 Lower Body Dressing (QC): 4 On/Off Footwear (QC): 3 Toileting Hygiene (QC): 4 Toilet Transfer (QC): 4 Assessment/Plan Assessment and Plan Assess & Plan/Chief Complaint Assessment: 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 Suspected endocarditis although LEONA revealed no vegetations treating empirically Dog bite to face ADHD Bipolar disorder Low BMI of 17 Plan: Vancomycin per ID protocol PT and OT Supportive assisted meds 09/01/2022: Supportive care Monitor closely 09/02/2022: Monitor drowsiness Hold Zyprexa 09/03/2022: Continue abx Monitor closely 09/04/2022: Continue aggressive therapy 09/05/2022: Supportive care 09/06/2022: Supportive care 09/07/2022: Monitor impulsiveness 09/08/2022: Supportive care (1) Embolic stroke (2) Suspected endocarditis Status: Acute (3) Dog bite Status: Acute AURE RUIZ DO Sep 08, 2022 06:17
[2022-09-08] MEDS ORDERED: TROUGH ORDER-PHARMACY XX ONE (07:00)
[2022-09-08] MEDS: CATHETER FLUSH 10 ML SYR IVP SCH ×2 (07:59→20:30)
[2022-09-08] MEDS: VANCOMYCIN 1250 MG/NS 250 ML PREMIX IV SCH ×2 (07:59→19:46)
[2022-09-08 08:00] VITALS: BP 128/73
[2022-09-08] MEDS: VYVANSE 40 MG PO SCH (08:03)
[2022-09-08] MEDS: DOCUSATE SODIUM 100 MG (COLACE) CAP PO SCH ×2 (08:04→19:40)
[2022-09-08] MEDS: SENNA W/DOCUSATE (SENOKOT S) TABLET PO SCH ×2 (08:04→19:41)
[2022-09-08] MEDS: PATIENT MAY USE OWN MED,SINGLE MED PO SCH (09:00)
--- NOTE | 2022-09-08 09:54 | Occupational Ther Daily Note ---
OT Current Status-Daily Note Subjective Pt sleeping in bed, difficult to wake. Pt c/o to therapist about stomach hurting then when nrsg asked pt stated it was fine. Pt working with therapy. Pt does appear to have clearer processing/thinking this date. Mental Status/Objective Patient Orientation: Person, Place Attachments: IV ADL-Treatment Independent with bed mobility. Pt did cleanse cleanse mily area/buttocks, SBA. Supervision for LBD, takes increased time to complete with verbal cues. Pt dons/doffs shoe by self. Set up for meal. Pt takes increased time to complete all tasks cognitive processing vs behavior. Pt ambulated with SBA around ARU using FWW. Completed therapy sponge exercise to increase wagon winder/pinch strength, 2 min each hand. After session, pt sitting in recliner with call light/phone in reach. Safety measures in place. All needs met in room. Therapy Code Descriptions/Definitions Functional [place] Measure: 0=Not Assessed/NA 4=Minimal Assistance 1=Total Assistance 5=Supervision or Setup 2=Maximal Assistance 6=Modified [place] 3=Moderate Assistance 7=Complete IndependenceSCALE: Activities may be completed with or without assistive devices. 3-Dnottxcsas-kimyigr completes the activity by him/herself with no assistance from a helper. 5-Set-up or Clean-up Assistance-helper sets up or cleans up; patient completes activity. [place] assists only prior to or following the activity. 4-Supervision or Touching Assistance-helper provides verbal cues and/or touching/steadying and/or contact guard assistance as patient completes acti vity. Assistance may be provided throughout the activity or intermittently. 3-Partial/Moderate Assistance-helper does LESS THAN HALF the effort. [place] lifts, holds or supports trunk or limbs, but provides less than half the effort. 2-Substantial/Maximal Assistance-helper does MORE THAN HALF the effort. [place] lifts or holds trunk or limbs and provides more than half the effort. 1-Jebbrrwki-yakjqa does ALL the effort. Patient does none of the effort to complete the activity. Or, the assistance of 2 or more helpers is required for the patient to complete the activity. If activity was not attempted, code reason: 7-Patient Refused. 9-Not Applicable-not attempted and the patient did not perform the activity before the current illness, exacerbation or injury. 10-Not Attempted due to Environmental Limitations-(lack of equipment, weather restraints, etc.). 88-Not Attempted due to Medical Conditions or Safety Concerns. OT Short Term Goals Short Term Goals Eatin Oral hygiene: 5 Upper body dressin OT Fdc Goals Advanced Registered Nurse Goals Acute change in mental status: 1 Inattention: 2 Disorganized thinkin Altered level of consciousness: 2 Eating (QC): 6 Oral Hygiene (QC): 6 Toileting Hygiene (QC): 6 Shower/Bathe Self (QC): 5 Upper Body Dressing (QC): 6 Lower Body Dressing (QC): 6 On/Off Footwear (QC): 6 1=Demonstrate adherence to instructed precautions during ADL tasks. 2=Patient will verbalize/demonstrate understanding of assistive devices/modifications for ADL. 3=Patient will improve strength/tolerance for activity to enable patient to perform ADL's. OT Education/Plan Problem List/Assessment Assessment: Decreased Activ Tolerance, Decreased Safety Aware, Decreased UE Strength, Impaired Cognition, Impaired Funct Balance, Impaired Self-Care Skills Discharge Recommendations Plan/Recommendations: Continue POC Treatment Plan/Plan of Care Patient would benefit from OT for education, treatment and training to promote independence in ADL's, mobility, safety and/or upper extremity function for ADL's. Plan of Care: ADL Retraining, Cognitive Retraining, Concurrent Therapy, Functional Mobility, Group Exercise/Act as Ind, UE Funct Exercise/Act, UE Neuromus Re-Ed/Coord Treatment Duration: Sep 30, 2022 Frequency: At least 5 of 7 days/Wk (IRF) Estimated Hrs Per Day: 1.5 hours per day Agreement: Yes Rehab Potential: Good Time Start Time: 08:30 Stop Time: 09:00 DATE: Sep 08, 2022 Total Time Billed (hr/min): 90 Billed Treatment Time 1 visit-ADL 5 (90 min) EX 1 (15 min) RICHARD MCINTOSH Sep 08, 2022 09:54
[2022-09-08] MEDS: polyethylene glycoL POWDER 17 GM (MIRALAX) PACK PO SCH ×2 (11:38→19:41)
--- NOTE | 2022-09-08 12:00 | Physical Therapy Daily Note ---
PT Daily Note-Current Pain Section J - Health Conditions 1. Rarely or not at all 2. Occasionally 3. Frequently 4. Almost constantly 8. Unable to answer Pain Effect on Sleep: 1 Pain Interference with Therapy: 1 Pain Interference w/Day-to-Day: 1 Transfers SCALE: Activities may be completed with or without assistive devices. 6-Uhctyrlhvq-cibtduj completes the activity by him/herself with no assistance from a helper. 5-Set-up or Clean-up Assistance-helper sets up or cleans up; patient completes activity. [place] assists only prior to or following the activity. 4-Supervision or Touching Assistance-helper provides verbal cues and/or touching/steadying and/or contact guard assistance as patient completes activity. Assistance may be provided throughout the activity or intermittently. 3-Partial/Moderate Assistance-helper does LESS THAN HALF the effort. [place] lifts, holds or supports trunk or limbs, but provides less than half the effort. 2-Substantial/Maximal Assistance-helper does MORE THAN HALF the effort. [place] lifts or holds trunk or limbs and provides more than half the effort. 7-Dstpwalqd-bcsrvz does ALL the effort. Patient does none of the effort to complete the activity. Or, the assistance of 2 or more helpers is required for the patient to complete the activity. If activity was not attempted, code reason: 7-Patient Refused. 9-Not Applicable-not attempted and the patient did not perform the activity before the current illness, exacerbation or injury. 10-Not Attempted due to Environmental Limitations-(lack of equipment, weather restraints, etc.). 88-Not Attempted due to Medical Conditions or Safety Concerns. Weight Bearing Right Lower Extremity: Right Full Weight Bearing Left Lower Extremity: Left Full Weight Bearing PT Snf Goals Management Developer Goals PT Management Developer Goals Time Frame: Sep 09, 2022 Roll Left & Right (QC): 6 (Pt will be Mod I to be at PLOF and safe d/c home with family. ) Sit to Lying (QC): 6 (Pt will be Mod I to be at PLOF and safe d/c home with family.) Lying-Sitting on Side/Bed(QC): 6 (Pt will be Mod I to be at PLOF and safe d/c home with family.) Sit to Stand (QC): 6 (Pt will be Mod I to be at PLOF and safe d/c home with family.) Chair/Aui-fm-Cmvpj Xfer(QC): 6 (Pt will be Mod I to be at PLOF and safe d/c home with family.) Toilet Transfer (QC): 6 (Pt will be Mod I to be at PLOF and safe d/c home with family.) Car Transfer (QC): 6 (Pt will be Mod I to be at PLOF and safe d/c home with family.) Does the Patient Walk: Yes Walk 10 feet (QC): 6 (Pt will be Mod I to be at PLOF and safe d/c home with family.) Walk 50ft with 2 Turns (QC): 6 (Pt will be Mod I to be at PLOF and safe d/c home with family.) Walk 150 ft (QC): 6 (Pt will be Mod I to be at PLOF and safe d/c home with family.) Walking 10ft on Uneven Surface: 6 (Pt will be Mod I to be at PLOF and safe d/c home with family.) 1 Step (curb) (QC): 6 (Pt will be Mod I to be at PLOF and safe d/c home with family.) 4 Steps (QC): 6 (Pt will be Mod I to be at PLOF and safe d/c home with family.) 12 Steps (QC): 6 (Pt will be Mod I to be at PLOF and safe d/c home with family.) Picking up an Object (QC): 6 (Pt will be Mod I to be at PLOF and safe d/c home with family.) Does the Pt use WC or Scooter?: No Wheel 50 feet with 2 turns (QC: 9 Type: N/A Wheel 150 feet: 9 Type: N/A PT Plan Treatment/Plan Treatment Plan: Continue Plan of Care Treatment Plan: Bed Mobility, Concurrent Therapy, Education, Functional Activity Lana, Functional Strength, Group Therapy, Gait, Safety, Therapeutic Exercise, Transfers Treatment Duration: Sep 09, 2022 Frequency: At least 5 of 7 days/Wk (IRF) Estimated Hrs Per Day: 1.5 hours per day Patient and/or Family Agrees t: Yes Time Time In: 1100 Time Out: 1200 DATE: Sep 08, 2022 Total Billed Treatment Time: 60 Total Billed Treatment 1 GT x 2 EX x 2 Mariposa Casas RETORT PRE COOKER Sep 08, 2022 12:00
--- NOTE | 2022-09-08 12:06 | Speech Therapy Daily Note ---
Speech Daily Progress Note Subjective Date Seen by Provider: Sep 08, 2022 Time Seen by Provider: 10:30 Pt laying in bed for session. Pt pleasant and cooperative throughout the session. Pt states he is tired and he has been sleeping alot. Pain Location: No Pain Reported Objective Pt answers basic orientation questions with 20% accuracy with mod-max cues. Pt is able to answer personal questions with 70% accuracy with mod verbal cues. Pt completes rote tasks of months with 100% accuracy and days of the week with 100% accuracy with prompt to get started. Pt perseverating on months this date. Pt answers basic yes/no questions with 40% accuracy. Assessment Assessment Current Status: Poor Progress Treatment Plan Continue Plan of Care Speech Short Term Goals Short Term Goals Short Term Goals 1. The patient will utilize visual and verbal cues to identify basic orientation information with 70% accuracy. Time Frame-STG: One Week. Speech Snf Goals Payroll Manager Goals 1. The patient will display improved cognitive communication for safe discharge to the least restrictive environment. Time Frame: Two Weeks. Speech-Plan Patient/Family Goals Patient/Family Goals: Family's goal is for pt to return home with mom. Treatment Plan Speech Therapy Treatment Plan: Continue Plan of Care Treatment Duration: Sep 16, 2022 Frequency: Modified Program (IRF) (Four to five times per week.) Estimated Hrs Per Day: Other Rehab Potential: Good Safety Risks/Education Teaching Recipient: Patient Teaching Methods: Discussion Response to Teaching: Reinforcement Needed Education Topics Provided: Pt educated on purpose of therapy tasks. Pt receptive and will require reinforcement. Discharge Recommendations Post Acute ST Time Speech Therapy Time In: 10:30 Speech Therapy Time Out: 11:00 DATE: Sep 08, 2022 Total Billed Time: 30 Billed Treatment Time S/L Arya Sandoval Speech Therapy Sep 08, 2022 12:06
[2022-09-08] MEDS: ALPRAZolam 0.25 MG (XANAX) TAB PO PRN (19:46)
[2022-09-08] MEDS: ONDANSETRON 4 MG (ZOFRAN) ORAL DISSOLVE TAB PO PRN (19:47)
[2022-09-08 20:18] VITALS: BP 112/72
[2022-09-09] MEDS: CATHETER FLUSH 10 ML SYR IVP SCH ×3 (06:11→20:44)
[2022-09-09 08:00] VITALS: BP 115/56
[2022-09-09] MEDS: VANCOMYCIN 1250 MG/NS 250 ML PREMIX IV SCH ×2 (08:04→20:36)
[2022-09-09] MEDS: DOCUSATE SODIUM 100 MG (COLACE) CAP PO SCH ×2 (08:15→20:43)
[2022-09-09] MEDS: SENNA W/DOCUSATE (SENOKOT S) TABLET PO SCH ×2 (08:15→20:43)
[2022-09-09] MEDS: ONDANSETRON 4 MG (ZOFRAN) ORAL DISSOLVE TAB PO PRN ×2 (08:15→16:22)
[2022-09-09] MEDS: VYVANSE 40 MG PO SCH (08:15)
[2022-09-09] MEDS: polyethylene glycoL POWDER 17 GM (MIRALAX) PACK PO SCH ×2 (08:17→20:43)
[2022-09-09] MEDS: PATIENT MAY USE OWN MED,SINGLE MED PO SCH (08:17)
--- NOTE | 2022-09-09 08:45 | Physical Therapy Daily Note ---
PT Daily Note-Current Subjective Pt in room in bed upon arrival. pt willing for therapy. pt stats his "stomach hurts" and "ouch" several times during therapy. nursing is notified and aware. pt was offered a TUMS and refused it. pt was left in recliner after therapy with call light all needs met and alarm chair was activated. Pain Section J - Health Conditions 1. Rarely or not at all 2. Occasionally 3. Frequently 4. Almost constantly 8. Unable to answer Pain Effect on Sleep: 1 Pain Interference with Therapy: 1 Pain Interference w/Day-to-Day: 1 Mental Status Patient Orientation: Person Transfers SCALE: Activities may be completed with or without assistive devices. 4-Jlnmemhljs-lkwkuwf completes the activity by him/herself with no assistance from a helper. 5-Set-up or Clean-up Assistance-helper sets up or cleans up; patient completes activity. [place] assists only prior to or following the activity. 4-Supervision or Touching Assistance-helper provides verbal cues and/or touching/steadying and/or contact guard assistance as patient completes activity. Assistance may be provided throughout the activity or intermittently. 3-Partial/Moderate Assistance-helper does LESS THAN HALF the effort. [place] lifts, holds or supports trunk or limbs, but provides less than half the effort. 2-Substantial/Maximal Assistance-helper does MORE THAN HALF the effort. [place] lifts or holds trunk or limbs and provides more than half the effort. 1-Vrglrjdue-ivssjl does ALL the effort. Patient does none of the effort to complete the activity. Or, the assistance of 2 or more helpers is required for the patient to complete the activity. If activity was not attempted, code reason: 7-Patient Refused. 9-Not Applicable-not attempted and the patient did not perform the activity before the current illness, exacerbation or injury. 10-Not Attempted due to Environmental Limitations-(lack of equipment, weather restraints, etc.). 88-Not Attempted due to Medical Conditions or Safety Concerns. Roll Left & Right (QC): 6 Sit to Lying (QC): 6 Lying to Sitting/Side of Bed(Q: 6 Sit to Stand (QC): 6 Chair/Npl-ni-Lzqya Xfer(QC): 4 Toilet Transfer (QC): 4 Car Transfer (QC): 4 Weight Bearing Right Lower Extremity: Right Full Weight Bearing Left Lower Extremity: Left Full Weight Bearing Gait Training Walk 10 feet (QC): 4 Walk 50 ft with 2 Turns(QC): 4 Walk 150 ft (QC): 4 Walking 10ft/uneven surface-QC: 4 Gait Assistive Device: Walker Standard Wheelchair Training Wheel 50 ft with 2 turns (QC): 9 Wheel 150 ft (QC): 9 Stair Training 1 Step (curb) (QC): 4 4 Steps (QC): 4 12 Steps (QC): 4 Treatments Pt preformed QC measures this day. pt cam ambulate with RW 200ft with turns and SBA with MoD VC for safety and sequencing as well as AD use to prevent falls. pt preforms transfers with SBA and VC/TC for car transfer and only VC for chair to bed transfer this day. pt can ambulate on uneven surface with RW with CGA for increased balance. pt is able to belt picker an object standing with a grabber independently. Assessment Current Status: Fair Progress (Pt cognition plays a role in remembering safety and safety education with little to no recall. ) PT Detention Goals Geometry Tutor Goals PT Geometry Tutor Goals Time Frame: Sep 09, 2022 Roll Left & Right (QC): 6 (Pt will be Mod I to be at PLOF and safe d/c home with family. ) Sit to Lying (QC): 6 (Pt will be Mod I to be at PLOF and safe d/c home with family.) Lying-Sitting on Side/Bed(QC): 6 (Pt will be Mod I to be at PLOF and safe d/c home with family.) Sit to Stand (QC): 6 (Pt will be Mod I to be at PLOF and safe d/c home with family.) Chair/Bib-cg-Jgzbp Xfer(QC): 6 (Pt will be Mod I to be at PLOF and safe d/c home with family.) Toilet Transfer (QC): 6 (Pt will be Mod I to be at PLOF and safe d/c home with family.) Car Transfer (QC): 6 (Pt will be Mod I to be at PLOF and safe d/c home with family.) Does the Patient Walk: Yes Walk 10 feet (QC): 6 (Pt will be Mod I to be at PLOF and safe d/c home with family.) Walk 50ft with 2 Turns (QC): 6 (Pt will be Mod I to be at PLOF and safe d/c home with family.) Walk 150 ft (QC): 6 (Pt will be Mod I to be at PLOF and safe d/c home with family.) Walking 10ft on Uneven Surface: 6 (Pt will be Mod I to be at PLOF and safe d/c home with family.) 1 Step (curb) (QC): 6 (Pt will be Mod I to be at PLOF and safe d/c home with family.) 4 Steps (QC): 6 (Pt will be Mod I to be at PLOF and safe d/c home with family.) 12 Steps (QC): 6 (Pt will be Mod I to be at PLOF and safe d/c home with family.) Picking up an Object (QC): 6 (Pt will be Mod I to be at PLOF and safe d/c home with family.) Does the Pt use WC or Scooter?: No Wheel 50 feet with 2 turns (QC: 9 Type: N/A Wheel 150 feet: 9 Type: N/A PT Plan Treatment/Plan Treatment Plan: Continue Plan of Care Treatment Plan: Bed Mobility, Concurrent Therapy, Education, Functional Activity Lana, Functional Strength, Group Therapy, Gait, Safety, Therapeutic Exercise, Transfers Treatment Duration: Sep 09, 2022 Frequency: At least 5 of 7 days/Wk (IRF) Estimated Hrs Per Day: 1.5 hours per day Patient and/or Family Agrees t: Yes Safety Risks/Education Safety Risk Comments: PT has little to no recall of safety education secdondary to cognition Time Time In: 0900 Time Out: 1030 DATE: Sep 09, 2022 Total Billed Treatment Time: 90 Total Billed Treatment 1 FA 3 Gt 2 Mariposa Casas MYSQL DEVELOPER Sep 09, 2022 08:45
--- NOTE | 2022-09-09 09:31 | Speech Therapy Daily Note ---
Speech Daily Progress Note Subjective Date Seen by Provider: Sep 09, 2022 Time Seen by Provider: 08:30 Pt sitting up in recliner. Pt ate all of his breakfast. Pt reports he is tired. Pt does appear to become slightly frustrated with about 10 minutes left in the session. Pt pleasant and cooperative throughout session. Pain Location: No Pain Reported Objective Pt answers basic orientation questions with 50% accuracy with min-mod verbal cues. This is progress from the previous session. Most of the orientation was focused on the year. Pt answers personal questions such as name, birthdate, and age with 100% accuracy. Pt receptively identifies pictures with 80% accuracy independently. Pt expressively identifies pictures with 80% accuracy independently. Pt receptively identifies pictures from function with 70% accuracy with min verbal cues. Pt expressively states function of objects with 40% accuracy with min-mod verbal cues. Assessment Assessment Current Status: Good Progress Increase accuracy in answering orientation questions and personal information questions. Treatment Plan Continue Plan of Care Speech Short Term Goals Short Term Goals Short Term Goals 1. The patient will utilize visual and verbal cues to identify basic orientation information with 70% accuracy. Time Frame-STG: One Week. Speech Wire Wrapping Machine Operator Goals Wire Wrapping Machine Operator Goals 1. The patient will display improved cognitive communication for safe discharge to the least restrictive environment. Time Frame: Two Weeks. Speech-Plan Patient/Family Goals Patient/Family Goals: Family's goal is for pt to return home with mom. Treatment Plan Speech Therapy Treatment Plan: Continue Plan of Care Treatment Duration: Sep 16, 2022 Frequency: Modified Program (IRF) (Four to five times per week.) Estimated Hrs Per Day: Other Rehab Potential: Good Safety Risks/Education Teaching Recipient: Patient Teaching Methods: Discussion Response to Teaching: Reinforcement Needed Discharge Recommendations Post Acute PT Time Speech Therapy Time In: 08:30 Speech Therapy Time Out: 09:00 DATE: Sep 09, 2022 Total Billed Time: 30 Billed Treatment Time S/L Arya Sandoval Speech Therapy Sep 09, 2022 09:31
--- NOTE | 2022-09-09 10:53 | PM&R Progress Note ---
Subjective HPI/CC On Admission Date Seen by Provider: Sep 09, 2022 Time Seen by Provider: 12:30 Subjective/Events-last exam 09/09/2022: Patient about the same Set for discharge tomorrow 09/08/2022: Patient sent for discharge soon Wants to go home No pain is reported 09/07/2022: No major issues Denies any new pain Wants to go home 09/06/2022: No major issues Check meds and labs 09/05/2022: Patient doing really well No pain is reported No falls Participating in therapy 09/04/2022: Patient awake and alert today Frail status continuous Moving around a lot better 09/03/2022: Patient doing well Eating well Participating in therapy 09/02/2022: Patient about the same Less drowsy Participating in therapy with heavy cues 09/01/2022: Patient sleeping all the time We will hold Zyprexa since that could be sedating Patient appears to be very thin He will try to participate more in therapy Review of Systems General: Fatigue, Malaise Objective Exam Vital Signs Vital Signs Date Time Temp Pulse Resp B/P (MAP) Pulse Ox O2 Delivery O2 Flow Rate FiO2 09/09/22 09:59 Room Air 09/09/22 08:00 35.7 57 14 115/56 (75) 100 Capillary Refill : General Appearance: No Apparent Distress, WD/WN, Chronically ill, Thin, Other (Pale) HEENT: PERRL/EOMI, Normal ENT Inspection, Pharynx Normal Neck: Full Range of Motion, Normal Inspection, Non Tender, Supple, Carotid Bruit Respiratory: Chest Non Tender, Lungs Clear, Normal Breath Sounds, No Accessory Muscle Use, No Respiratory Distress Cardiovascular: Regular Rate, Rhythm, No Edema, No Gallop, No JVD, No Murmur, Normal Peripheral Pulses Gastrointestinal: Normal Bowel Sounds, No Organomegaly, No Pulsatile Mass, Non Tender, Soft Back: Normal Inspection, No CVA Tenderness, No Vertebral Tenderness Extremity: Normal Capillary Refill, Normal Inspection, Normal Range of Motion, Non Tender, No Calf Tenderness, No Pedal Edema Neurologic/Psychiatric: Alert, Oriented x3, Normal Mood/Affect, recruiter specialist II-XII Norm as Tested, Abnormal Gait, Depressed Affect, Motor Weakness ( generalized 3/5 extremities) Skin: Normal Color, Warm/Dry Lymphatic: No Adenopathy Results/Procedures Lab Patient resulted labs reviewed. FIM Transfers Therapy Code Descriptions/Definitions Functional [place] Measure: 0=Not Assessed/NA 4=Minimal Assistance 1=Total Assistance 5=Supervision or Setup 2=Maximal Assistance 6=Modified [place] 3=Moderate Assistance 7=Complete IndependenceSCALE: Activities may be completed with or without assistive devices. 6-Envlpahois-ljhmkrf completes the activity by him/herself with no assistance from a helper. 5-Set-up or Clean-up Assistance-helper sets up or cleans up; patient completes activity. [place] assists only prior to or following the activity. 4-Supervision or Touching Assistance-helper provides verbal cues and/or touching/steadying and/or contact guard assistance as patient completes activity. Assistance may be provided throughout the activity or intermittently. 3-Partial/Moderate Assistance-helper does LESS THAN HALF the effort. [place] lifts, holds or supports trunk or limbs, but provides less than half the effort. 2-Substantial/Maximal Assistance-helper does MORE THAN HALF the effort. [place] lifts or holds trunk or limbs and provides more than half the effort. 5-Xgtrvlwgk-hmjwzh does ALL the effort. Patient does none of the effort to complete the activity. Or, the assistance of 2 or more helpers is required for the patient to complete the activity. If activity was not attempted, code reason: 7-Patient Refused. 9-Not Applicable-not attempted and the patient did not perform the activity before the current illness, exacerbation or injury. 10-Not Attempted due to Environmental Limitations-(lack of equipment, weather restraints, etc.). 88-Not Attempted due to Medical Conditions or Safety Concerns. Roll Left to Right (QC): 6 Sit to Lying (QC): 6 Sit to Stand (QC): 6 Chair/Cdf-kr-Gphxq Xfer(QC): 4 Car Transfer (QC): 4 Gait Training Does the Patient Walk?: Yes Distance: 10' x2 Walk 10 feet (QC): 4 Walk 50 ft with 2 Turns(QC): 4 Walk 150 ft (QC): 4 Walking 10ft/uneven surface-QC: 4 Gait Assistive Device: Walker Standard Wheelchair Training Does the Pt Use a Wheelchair?: No Wheel 50 ft with 2 turns (QC): 9 Wheel 150 ft (QC): 9 Type of Wheelchair: N/A Stair Training 1 Step (curb) (QC): 4 4 Steps (QC): 4 12 Steps (QC): 4 Balance Picking up an Object (QC): 3 (Min A) ADL-Treatment Eating (QC): 5 Oral Hygiene (QC): 4 Shower/Bathe Self (QC): 3 Upper Body Dressing (QC): 4 Lower Body Dressing (QC): 4 On/Off Footwear (QC): 3 Toileting Hygiene (QC): 4 Toilet Transfer (QC): 4 Assessment/Plan Assessment and Plan Assess & Plan/Chief Complaint Assessment: 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 Suspected endocarditis although LEOAN revealed no vegetations treating empirically Dog bite to face ADHD Bipolar disorder Low BMI of 17 Plan: Vancomycin per ID protocol PT and OT Supportive group home meds 09/01/2022: Supportive care Monitor closely 09/02/2022: Monitor drowsiness Hold Zyprexa 09/03/2022: Continue abx Monitor closely 09/04/2022: Continue aggressive therapy 09/05/2022: Supportive care 09/06/2022: Supportive care 09/07/2022: Monitor impulsiveness 09/08/2022: Supportive care 09/09/2022: Continue IV antibiotics until 09/18/2022 (1) Embolic stroke (2) Suspected endocarditis Status: Acute (3) Dog bite Status: Acute AURE RUIZ DO Sep 09, 2022 10:53
[2022-09-09] MEDS ORDERED: ONDA4TAB11 PO (12:37)
[2022-09-09] MEDS ORDERED: HYDR50CA3 PO (12:37)
[2022-09-09] MEDS ORDERED: VANC1.2523 IV ×2 (12:37→12:38)
--- NOTE | 2022-09-09 12:40 | D/C HH Face to Face Order ---
D/C Face to Face Orders Reconcile Patient Problems Problems Reviewed?: Yes Instructions for Patient Via [facility] [employer], Patient Instructions/FollowUp: PCP 1 week Physician to follow Patient: [facility] Discharge Diet for Home: No Restrictions Patient Problems: Septic embolic cva Patient Data-Allergies,Ht & Wt Patient Allergies: Coded Allergies: Sulfa (Sulfonamide Antibiotics) (Unverified Allergy, Unknown, PT HASN'T HAD, BUT MOM SEVERELY ALLERGIC, 11/01/13) Height (Feet): 5 Height (Inches): 3.00 Weight (Pounds): 90 Weight (Ounces): 0.0 Home Health Need/Face to Face Date of Face to Face: Sep 09, 2022 Clinical Findings: Generalized weakness and fatigue, Instability, Muscle weakness I have seen Pt khph-up-pwny: Yes Discharged To: Home Diagnosis/Conditions: CVA Patient is Homebound due to: CognItive deficits, Jovany fall risk due to instabilty Homebound Status Due to the above stated illness, injury or surgical procedure (medical condition or diagnosis) and associated clinical findings, the patient is homebound because of his/her inability to leave home except with aid of a supportive device and/or person AND leaving the home requires a considerable and taxing effort or is medically contraindicated. Pt req the following assistanc: Walker Home Health Nursing Orders Home Health Services Order: Nursing Services, Electrode Cleaning Machine Operator-Evaluate & Treat, Physical Therapy-Evaluate & Treat Home Health Infusion Therapy Line Start Date: Sep 02, 2022 Certify Stmt I certify that this patient is under my care and that I, a nurse practitioner or a physician; a undertaker assistant working with me, had a face to face encounter that - meets the physician face to face encounter requirements with this patient as dated. AURE RUIZ DO Sep 09, 2022 12:40
--- NOTE | 2022-09-09 12:48 | Occupational Ther Daily Note ---
OT Current Status-Daily Note Subjective Pt alert, sitting in recliner. Pt states that his head, feet and stomach was hurting at some point during session. Pt reluctantly participated in therapy. Mental Status/Objective Patient Orientation: Person, Place, Time, Situation Attachments: IV ADL-Treatment Pt completed shower after encouragement. SBA to CGA for all showering and dressing due to pt standing and alternating lifting feet off the ground for one legged stances during LBD and showering, no LOB noted. Assist to don socks, pt doffed socks in one legged stance. Supervision for toileting and oral care, cues to thoroughly cleanse. Independent for eating. After session, pt sitting in recliner with call light/phone in reach. All needs met. Safety measures in place. Therapy Code Descriptions/Definitions Functional [place] Measure: 0=Not Assessed/NA 4=Minimal Assistance 1=Total Assistance 5=Supervision or Setup 2=Maximal Assistance 6=Modified [place] 3=Moderate Assistance 7=Complete IndependenceSCALE: Activities may be completed with or without assistive devices. 3-Dubsyqkosb-wiubiic completes the activity by him/herself with no assistance from a helper. 5-Set-up or Clean-up Assistance-helper sets up or cleans up; patient completes activity. [place] assists only prior to or following the activity. 4-Supervision or Touching Assistance-helper provides verbal cues and/or touching/steadying and/or contact guard assistance as patient completes activity. Assistance may be provided throughout the activity or intermittently. 3-Partial/Moderate Assistance-helper does LESS THAN HALF the effort. [place] lifts, holds or supports trunk or limbs, but provides less than half the effort. 2-Substantial/Maximal Assistance-helper does MORE THAN HALF the effort. [place] lifts or holds trunk or limbs and provides more than half the effort. 4-Xtwnfihmi-ocokrc does ALL the effort. Patient does none of the effort to complete the activity. Or, the assistance of 2 or more helpers is required for the patient to complete the activity. If activity was not attempted, code reason: 7-Patient Refused. 9-Not Applicable-not attempted and the patient did not perform the activity before the current illness, exacerbation or injury. 10-Not Attempted due to Environmental Limitations-(lack of equipment, weather restraints, etc.). 88-Not Attempted due to Medical Conditions or Safety Concerns. Eating (QC): 6 Oral Hygiene (QC): 4 Shower/Bathe Self (QC): 4 Upper Body Dressing (QC): 5 Lower Body Dressing (QC): 4 On/Off Footwear: 3 Toileting Hygiene (QC): 4 Toilet Transfer (QC): 4 BIMS CAM BIMS Expression of Ideas and Wants: Without Difficulty Understanding Verbal Content: Sometimes Understands Brief Interview/Mental Status: Yes IRF TYE BIMS: IRF TYE BIMS Response (Comments) Value Repitition of Three Words Three 3 Recalls Socks Yes, No Cue Required 2 Recalls Blue Yes, No Cue Required 2 Recalls Bed Yes, No Cue Required 2 Year Missed by 1 Year 2 Month Accurate Within 5 Days 2 Day Correct 1 Total 14 Patient Normally Able to Recal: Current Session, Location of own room, Staff Names and faces, That he/she in a hsp Should Staff Asses. Mental St.: No CAM Mental Status Change/Baseline: 1 Inattention: 2 Disorganized thinkin Altered level of consciousness: 2 OT Short Term Goals Short Term Goals Eatin Oral hygiene: 5 Upper body dressin OT Group Home Goals Group Home Goals Acute change in mental status: 1 Inattention: 2 Disorganized thinkin Altered level of consciousness: 2 Eating (QC): 6 (met) Oral Hygiene (QC): 6 (not met) Toileting Hygiene (QC): 6 (not met) Shower/Bathe Self (QC): 5 (not met) Upper Body Dressing (QC): 6 (not met) Lower Body Dressing (QC): 6 (not met) On/Off Footwear (QC): 6 (not met) 1=Demonstrate adherence to instructed precautions during ADL tasks. 2=Patient will verbalize/demonstrate understanding of assistive devices/modifications for ADL. 3=Patient will improve strength/tolerance for activity to enable patient to perform ADL's. OT Education/Plan Problem List/Assessment Assessment: Decreased Activ Tolerance, Decreased Safety Aware, Impaired Cognition, Impaired Funct Balance, Impaired Self-Care Skills Discharge Recommendations Plan/Recommendations: Continue POC Treatment Plan/Plan of Care Patient would benefit from OT for education, treatment and training to promote independence in ADL's, mobility, safety and/or upper extremity function for ADL's. Plan of Care: ADL Retraining, Cognitive Retraining, Concurrent Therapy, Functional Mobility, Group Exercise/Act as Ind, UE Funct Exercise/Act, UE Neuromus Re-Ed/Coord Treatment Duration: Sep 30, 2022 Frequency: At least 5 of 7 days/Wk (IRF) Estimated Hrs Per Day: 1.5 hours per day Agreement: Yes Rehab Potential: Good Time Start Time: 11:00 Stop Time: 12:00 DATE: Sep 09, 2022 Total Time Billed (hr/min): 60 Billed Treatment Time 1 visit-ADL 4 (60 min) RICHARD MCINTOSH Sep 09, 2022 12:48
[2022-09-09] MEDS: hydrOXYzine (VISTARIL/ATARAX) 25 MG capsule/tablet PO PRN (18:22)
[2022-09-09] MEDS: ALPRAZolam 0.25 MG (XANAX) TAB PO PRN (20:36)
[2022-09-09 22:11] VITALS: BP 101/55
[2022-09-10] MEDS: CATHETER FLUSH 10 ML SYR IVP SCH (06:22)
--- NOTE | 2022-09-10 06:54 | Discharge Summary ---
Diagnosis/Chief Complaint Date of Admission Aug 31, 2022 at 13:00 Date of Discharge Discharge Date: Sep 10, 2022 Discharge Diagnosis Assessment: 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 Suspected endocarditis although [place] revealed no vegetations treating empirically Dog bite to face ADHD Bipolar disorder Low BMI of 17 Plan: Vancomycin per ID protocol PT and OT Supportive senior care meds 09/01/2022: Supportive care Monitor closely 09/02/2022: Monitor drowsiness Hold Zyprexa 09/03/2022: Continue abx Monitor closely 09/04/2022: Continue aggressive therapy 09/05/2022: Supportive care 09/06/2022: Supportive care 09/07/2022: Monitor impulsiveness 09/08/2022: Supportive care 09/09/2022: Continue IV antibiotics until 09/18/2022 (1) Embolic stroke (2) Suspected endocarditis Status: Acute (3) Dog bite Status: Acute Discharge Summary Discharge Physical Examination Allergies: Coded Allergies: Sulfa (Sulfonamide Antibiotics) (Unverified Allergy, Unknown, PT HASN'T HAD, BUT MOM SEVERELY ALLERGIC, 11/01/13) Vitals & I&Os Vital Signs Date Time Temp Pulse Resp B/P (MAP) Pulse Ox O2 Delivery O2 Flow Rate FiO2 09/10/22 12:39 36.7 54 14 113/59 100 Room Air General Appearance: Alert Respiratory: Clear to Auscultation Cardiovascular: Regular Rate Hospital Course Was the Problem List Reviewed?: Yes Patient had a lengthy hospital course in inpatient rehab after he suffered a septic embolic stroke with subsequent encephalopathy superimposed on severe and disabling mental illness following a dog bite. Patient was able to regain much of his function in order to go home with home health. He required IV vancomycin until 09/18/2022 and that was arranged. Labs (last 24 hrs) Laboratory Tests 09/01/22 05:50: White Blood Count 11.1H, Red Blood Count 3.59L, Hemoglobin 10.2L, Hematocrit 31L , Mean Corpuscular Volume 87, Mean Corpuscular Hemoglobin 28, Mean Corpuscular Hemoglobin Concent 33, Red Cell Distribution Width 14.7H, Platelet Count 271, Mean Platelet Volume 9.2, Immature Granulocyte % (Auto) 0, Neutrophils (%) (Auto) 72, Lymphocytes (%) (Auto) 15, Monocytes (%) (Auto) 9, Eosinophils (%) (Auto) 3, Basophils (%) (Auto) 1, Neutrophils # (Auto) 8.0H, Lymphocytes # (Auto) 1.6, Monocytes # (Auto) 1.0, Eosinophils # (Auto) 0.3, Basophils # (Auto) 0.1, Immature Granulocyte # (Auto) 0.1, Sodium Level 137, Potassium Level 4.5, Chloride Level 103, Carbon Dioxide Level 28, Anion Gap 6, Blood Urea Nitrogen 14, Creatinine 0.75, Estimat Glomerular Filtration Rate 131, BUN/Creatinine Ratio 19, Glucose Level 98, Calcium Level 9.2, Corrected Calcium 9.9, Total Bilirubin 0.2, Aspartate Amino Transf (AST/SGOT) 43H, Alanine Aminotransferase (ALT/SGPT) 54, Alkaline Phosphatase 98, Total Protein 7.0, Albumin 3.1L 09/02/22 10:35: Vancomycin Level Trough 18.9 09/04/22 06:56: Vancomycin Level Trough 13.8 09/05/22 05:25: White Blood Count 10.4, Red Blood Count 3.75L, Hemoglobin 10.8L, Hematocrit 33L, Mean Corpuscular Volume 88, Mean Corpuscular Hemoglobin 29, Mean Corpuscular Hemoglobin Concent 33, Red Cell Distribution Width 14.8H, Platelet Count 229, Mean Platelet Volume 10.1, Immature Granulocyte % (Auto) 1, Neutrophils (%) (Auto) 66, Lymphocytes (%) (Auto) 17, Monocytes (%) (Auto) 10, Eosinophils (%) (Auto) 5, Basophils (%) (Auto) 1, Neutrophils # (Auto) 6.9, Lymphocytes # (Auto) 1.7, Monocytes # (Auto) 1.0, Eosinophils # (Auto) 0.6H, Basophils # (Auto) 0.1, Immature Granulocyte # (Auto) 0.1, Sodium Level 139, Potassium Level 4.4, Chloride Level 101, Carbon Dioxide Level 26, Anion Gap 12, Blood Urea Nitrogen 24H, Creatinine 0.79, Estimat Glomerular Filtration Rate 129, BUN/Creatinine Ratio 30, Glucose Level 119H, Calcium Level 9.5, Corrected Calcium 9.9, Total Bilirubin 0.2, Aspartate Amino Transf (AST/SGOT) 35H, Alanine Aminotransferase (ALT/SGPT) 51, Alkaline Phosphatase 102, Total Protein 7.3, Albumin 3.5, Percent Immature Platelet Fraction 2.6 09/08/22 07:12: Vancomycin Level Trough 16.8 Pending Labs Laboratory Tests 09/01/22 05:50: White Blood Count 11.1, Red Blood Count 3.59, Hemoglobin 10.2, Hematocrit 31, Mean Corpuscular Volume 87, Mean Corpuscular Hemoglobin 28, Mean Corpuscular Hemoglobin Concent 33, Red Cell Distribution Width 14.7, Platelet Count 271, Mean Platelet Volume 9.2, Immature Granulocyte % (Auto) 0, Neutrophils (%) (Auto) 72, Lymphocytes (%) (Auto) 15, Monocytes (%) (Auto) 9, Eosinophils (%) (Auto) 3, Basophils (%) (Auto) 1, Neutrophils # (Auto) 8.0, Lymphocytes # (Auto) 1.6, Monocytes # (Auto) 1.0, Eosinophils # (Auto) 0.3, Basophils # (Auto) 0.1, Immature Granulocyte # (Auto) 0.1, Sodium Level 137, Potassium Level 4.5, Chloride Level 103, Carbon Dioxide Level 28, Anion Gap 6, Blood Urea Nitrogen 14, Creatinine 0.75, Estimat Glomerular Filtration Rate 131, BUN/Creatinine Ratio 19, Glucose Level 98, Calcium Level 9.2, Corrected Calcium 9.9, Total Bilirubin 0.2, Aspartate Amino Transf (AST/SGOT) 43, Alanine Aminotransferase (ALT/SGPT) 54, Alkaline Phosphatase 98, Total Protein 7.0, Albumin 3.1 09/02/22 10:35: Vancomycin Level Trough 18.9 09/04/22 06:56: Vancomycin Level Trough 13.8 09/05/22 05:25: White Blood Count 10.4, Red Blood Count 3.75, Hemoglobin 10.8, Hematocrit 33, Mean Corpuscular Volume 88, Mean Corpuscular Hemoglobin 29, Mean Corpuscular Hemoglobin Concent 33, Red Cell Distribution Width 14.8, Platelet Count 229, Mean Platelet Volume 10.1, Immature Granulocyte % (Auto) 1, Neutrophils (%) (Auto) 66, Lymphocytes (%) (Auto) 17, Monocytes (%) (Auto) 10, Eosinophils (%) (Auto) 5, Basophils (%) (Auto) 1, Neutrophils # (Auto) 6.9, Lymphocytes # (Auto) 1.7, Monocytes # (Auto) 1.0, Eosinophils # (Auto) 0.6, Basophils # (Auto) 0.1, Immature Granulocyte # (Auto) 0.1, Sodium Level 139, Potassium Level 4.4, Chloride Level 101, Carbon Dioxide Level 26, Anion Gap 12, Blood Urea Nitrogen 24, Creatinine 0.79, Estimat Glomerular Filtration Rate 129, BUN/Creatinine Ratio 30, Glucose Level 119, Calcium Level 9.5, Corrected Calcium 9.9, Total Bilirubin 0.2, Aspartate Amino Transf (AST/SGOT) 35, Alanine Aminotransferase (ALT/SGPT) 51, Alkaline Phosphatase 102, Total Protein 7.3, Albumin 3.5, Percent Immature Platelet Fraction 2.6 09/08/22 07:12: Vancomycin Level Trough 16.8 Discharge Home Medications: Active Scripts Active Vancomycin 1.25 Gram/250Ml-D5w (Vancomycin HCl in Dextrose 5 %) 1.25 Gram/250 Ml Plast..bag 1.25 Gm IV Q12H Ondansetron Odt (Ondansetron) 4 Mg Tab.rapdis 4 Mg PO Q6H PRN Hydroxyzine Pamoate 50 Mg Capsule 50 Mg PO BID Reported Tylenol Extra Strength (Acetaminophen) 500 Mg Tablet 500 Mg PO Q4H PRN Vyvanse (Lisdexamfetamine Dimesylate) 40 Mg Capsule 40 Mg PO DAILY Instructions to patient/family Please see electronic discharge instructions given to patient. Diagnosis/Problems Diagnosis/Problems (1) Embolic stroke (2) Suspected endocarditis Status: Acute (3) Dog bite Status: Acute AURE RUIZ DO Sep 10, 2022 06:54
[2022-09-10 08:00] VITALS: BP 113/59
[2022-09-10] MEDS: polyethylene glycoL POWDER 17 GM (MIRALAX) PACK PO SCH (08:10)
[2022-09-10] MEDS: VANCOMYCIN 1250 MG/NS 250 ML PREMIX IV SCH (08:10)
[2022-09-10] MEDS: DOCUSATE SODIUM 100 MG (COLACE) CAP PO SCH (08:10)
[2022-09-10] MEDS: SENNA W/DOCUSATE (SENOKOT S) TABLET PO SCH (08:10)
[2022-09-10] MEDS: PATIENT MAY USE OWN MED,SINGLE MED PO SCH (08:10)
[2022-09-10] MEDS: VYVANSE 40 MG PO SCH (08:11)
[2022-09-10 12:39] VITALS: BP 113/59
--- NOTE | 2022-09-12 14:32 | Therapy Team Discharge Summary ---
Therapy Discharge Summary Discharge Recommendations Date of Discharge Sep 10, 2022 at 10:30 Physical Therapy Roll Left to Right (QC): 6 Sit to Lying (QC): 6 Lying to Sitting/Side of Bed(Q: 6 Sit to Stand (QC): 6 Chair/Tol-ej-Tjpqs Xfer(QC): 4 Toilet Transfer (QC): 4 Car Transfer (QC): 4 Does the Patient Walk: Yes Mode of Locomotion: Walk Anticipated Mode of Locomotion: Walk Walk 10 feet (QC): 4 Walk 50 ft with 2 Turns(QC): 4 Walk 150 ft (QC): 4 Walking 10ft on uneven surface: 4 Gait Assistive Device: [place] Standard Does the Pt Use a Wheelchair: No Wheel 50 ft with 2 turns (QC): 9 Wheel 150 ft (QC): 9 Type of Wheelchair: N/A 1 Step (curb) (QC): 4 4 Steps (QC): 4 12 Steps (QC): 4 Walking Assistive Device: Walker Balance Sitting Static: Good Balance Sitting Dynamic: Good Balance-Standing Static: Fair Picking up an Object (QC): 3 (Min A) Occupational Therapy Admission Date Aug 31, 2022 Medical Diagnosis: Initially present to ER at [facility] w/ c/o R foot pain, general pain with spotty rash. Family at ER provided information of bite bite that had gone untreated. Further assessment lead to admission at [facility]. Diagnostics reveal commodities of Right MCA/CVA/ICH, subacute infarctions,, tachycardia, acute toxic metabolic encephalopathy. Patient progressed w/ therapy to regain strength, balance, cogn ition and safety to return home w/ 24 hour care and home health services, [place] OT w/ goals partially met. Decreased Activ Tolerance, Decreased Safety Aware, Impaired Cognition, Impaired Funct Balance, Impaired Self-Care Skills Eating (QC): 6 Oral Hygiene (QC): 4 Shower/Bathe Self (QC): 4 Upper Body Dressing (QC): 5 Lower Body Dressing (QC): 4 On/Off Footwear (QC): 3 Toileting Hygiene (QC): 4 PT Material Handling Equipment [place] Goals Material Handling Equipment [place] Goals PT Material Handling Equipment [place] Goals Time Frame: Sep 09, 2022 Roll Left to Right (QC): 6 (Pt will be Mod I to be at PLOF and safe d/c home with family. ) Sit to Lying (QC): 6 (Pt will be Mod I to be at PLOF and safe d/c home with family.) Lying-Sitting on Side/Bed(QC): 6 (Pt will be Mod I to be at PLOF and safe d/c home with family.) Sit to Stand (QC): 6 (Pt will be Mod I to be at PLOF and safe d/c home with family.) Chair/Sxa-nz-Nlpfo Xfer(QC): 6 (Pt will be Mod I to be at PLOF and safe d/c home with family.) Toilet/Commode Transfer (QC): 6 (Pt will be Mod I to be at PLOF and safe d/c home with family.) Car Transfer (QC): 6 (Pt will be Mod I to be at PLOF and safe d/c home with family.) Does the Patient Walk: Yes Walk 10 feet (QC): 6 (Pt will be Mod I to be at PLOF and safe d/c home with family.) Walk 10ft-Uneven Surface(QC): 6 (Pt will be Mod I to be at PLOF and safe d/c home with family.) Walk 50ft with 2 Turns (QC): 6 (Pt will be Mod I to be at PLOF and safe d/c home with family.) Walk 150 ft (QC): 6 (Pt will be Mod I to be at PLOF and safe d/c home with family.) Does the Pt use WC or Scooter?: No Wheel 50 feet with 2 turns (QC: 9 Type: N/A Wheel 150 feet: 9 Type: N/A 1 Step (curb) (QC): 6 (Pt will be Mod I to be at PLOF and safe d/c home with family.) 4 Steps (QC): 6 (Pt will be Mod I to be at PLOF and safe d/c home with family.) 12 Steps (QC): 6 (Pt will be Mod I to be at PLOF and safe d/c home with family.) Picking up an Object (QC): 6 (Pt will be Mod I to be at PLOF and safe d/c home with family.) OT Residential Goals Material Handling Equipment [place] Goals Acute change in mental status: 1 Inattention: 2 Disorganized thinkin Altered level of consciousness: 2 Eating (QC): 6 (met) Oral Hygiene (QC): 6 (not met) Toileting Hygiene (QC): 6 (not met) Shower/Bathe Self (QC): 5 (not met) Upper Body Dressing (QC): 6 (not met) Lower Body Dressing (QC): 6 (not met) On/Off Footwear (QC): 6 (not met) 1=Demonstrate adherence to instructed precautions during ADL tasks. 2=Patient will verbalize/demonstrate understanding of assistive devices/modifications for ADL. 3=Patient will improve strength/tolerance for activity to enable patient to perform ADL's. Speech Material Handling Equipment [place] Goals Residential Goals 1. The patient will display improved cognitive communication for safe discharge to the least restrictive environment. Time Frame: Two Weeks. OMARI LANDEROS OT Sep 12, 2022 14:31
--- NOTE | 2022-09-14 15:17 | Therapy Team Discharge Summary ---
Therapy Discharge Summary Discharge Recommendations Date of Discharge Sep 10, 2022 at 10:30 Physical Therapy Pt was bit on the face by a dog on 08/03/2022 followed by acute toxic metabolic e ncephalopathy; Admitted to ARU on 08/31/2022. At [facility], pt was Ind with no AD and working. Upon PT eval, pt required Min A for all aspects of functional mobility. PT focused on B LE strength, balance, walking, stairs, Ind, and safety. Pt progressed well with PT and met some set goals. Pt was Ind with bed mobility, but cont to require SBA/CGA for transfers, walking, and stairs, due to decreased balance and safety. Pts lack of carry over hindered progress. Pt d/c from ARU on 09/10/2022 to home with mother and services; D/C from PT. Roll Left to Right (QC): 6 Sit to Lying (QC): 6 Lying to Sitting/Side of Bed(Q: 6 Sit to Stand (QC): 4 Chair/Kph-sj-Tbsgr Xfer(QC): 4 Toilet Transfer (QC): 4 Car Transfer (QC): 4 Does the Patient Walk: Yes Mode of Locomotion: Walk Anticipated Mode of Locomotion: Walk Walk 10 feet (QC): 4 Walk 50 ft with 2 Turns(QC): 4 Walk 150 ft (QC): 4 Walking 10ft on uneven surface: 4 Gait Assistive Device: Walker Standard Does the Pt Use a Wheelchair: No Wheel 50 ft with 2 turns (QC): 9 Wheel 150 ft (QC): 9 Type of Wheelchair: N/A 1 Step (curb) (QC): 4 4 Steps (QC): 4 12 Steps (QC): 4 Walking Assistive Device: Walker Balance Sitting Static: Good Balance Sitting Dynamic: Good Balance-Standing Static: Fair Picking up an Object (QC): 4 Occupational Therapy Decreased Activ Tolerance, Decreased Safety Aware, Impaired Cognition, Impaired Funct Balance, Impaired Self-Care Skills Eating (QC): 6 Oral Hygiene (QC): 4 Shower/Bathe Self (QC): 4 Upper Body Dressing (QC): 5 Lower Body Dressing (QC): 4 On/Off Footwear (QC): 3 Toileting Hygiene (QC): 4 PT Custodial Goals Funeral Attendant Goals PT Custodial Goals Time Frame: Sep 09, 2022 Roll Left to Right (QC): 6 (Pt will be Mod I to be at PLOF and safe d/c home with family. ) Sit to Lying (QC): 6 (Pt will be Mod I to be at PLOF and safe d/c home with family.) Lying-Sitting on Side/Bed(QC): 6 (Pt will be Mod I to be at PLOF and safe d/c home with family.) Sit to Stand (QC): 6 (Pt will be Mod I to be at PLOF and safe d/c home with family.) Chair/Qqg-ex-Pazkq Xfer(QC): 6 (Pt will be Mod I to be at PLOF and safe d/c home with family.) Toilet/Commode Transfer (QC): 6 (Pt will be Mod I to be at PLOF and safe d/c home with family.) Car Transfer (QC): 6 (Pt will be Mod I to be at PLOF and safe d/c home with family.) Does the Patient Walk: Yes Walk 10 feet (QC): 6 (Pt will be Mod I to be at PLOF and safe d/c home with family.) Walk 10ft-Uneven Surface(QC): 6 (Pt will be Mod I to be at PLOF and safe d/c home with family.) Walk 50ft with 2 Turns (QC): 6 (Pt will be Mod I to be at PLOF and safe d/c home with family.) Walk 150 ft (QC): 6 (Pt will be Mod I to be at PLOF and safe d/c home with family.) Does the Pt use WC or Scooter?: No Wheel 50 feet with 2 turns (QC: 9 Type: N/A Wheel 150 feet: 9 Type: N/A 1 Step (curb) (QC): 6 (Pt will be Mod I to be at PLOF and safe d/c home with family.) 4 Steps (QC): 6 (Pt will be Mod I to be at PLOF and safe d/c home with family.) 12 Steps (QC): 6 (Pt will be Mod I to be at PLOF and safe d/c home with family.) Picking up an Object (QC): 6 (Pt will be Mod I to be at PLOF and safe d/c home with family.) OT Funeral Attendant Goals Custodial Goals Acute change in mental status: 1 Inattention: 2 Disorganized thinkin Altered level of consciousness: 2 Eating (QC): 6 (met) Oral Hygiene (QC): 6 (not met) Toileting Hygiene (QC): 6 (not met) Shower/Bathe Self (QC): 5 (not met) Upper Body Dressing (QC): 6 (not met) Lower Body Dressing (QC): 6 (not met) On/Off Footwear (QC): 6 (not met) 1=Demonstrate adherence to instructed precautions during ADL tasks. 2=Patient will verbalize/demonstrate understanding of assistive devices/modifications for ADL. 3=Patient will improve strength/tolerance for activity to enable patient to perform ADL's. Speech Custodial Goals Custodial Goals 1. The patient will display improved cognitive communication for safe discharge to the least restrictive environment. Time Frame: Two Weeks. SUNITA BRAGG PT Sep 14, 2022 15:17
== END 2022-09-10 10:30 | disposition home health service (06) | DRG 57 ==
LOC: EEVIPCON 13:00
PROVIDERS: ADMIT Internal Medicine; ATTEND Internal Medicine
DX: I69.318 Other symptoms and signs involving cognitive functions following cerebral infarction (principal); G93.49 Other encephalopathy; Z68.1 Body mass index [BMI] 19.9 or less, adult; I69.398 Other sequelae of cerebral infarction; R53.1 Weakness; S01.85XD Open bite of other part of head, subsequent encounter; F90.9 Attention-deficit hyperactivity disorder, unspecified type; F31.9 Bipolar disorder, unspecified; F41.9 Anxiety disorder, unspecified; W54.0XXD Bitten by dog, subsequent encounter
CPT/HCPCS: 36415; 71045; 80053; 80202; 85025

== ENCOUNTER 2022-09-17 16:40 | Emergency (ER) | payer MEDICAID ==
[~2022-09-17 16:40] MED LIST changes: +ACET-2267 PO; +ATOR20TA66 PO; +HYDR50CA3 PO; +OLAN10TA17 SL; +ONDA4TAB11 PO; +TRAM50TA3 PO; +VANC1.2523 IV; +VANC1VIA39 IV
--- NOTE | 2022-09-17 17:03 | ED General ---
General Stated Complaint: NAUSEA/POSSIBLE STROKE Source of Information: Family (mother) Exam Limitations: No Limitations (ECHO RYDER MD) History of Present Illness Date Seen by Provider: Sep 17, 2022 Time Seen by Provider: 16:50 Initial Comments Patient is a 22-year-old male who presents to the emergency department with his mom chief complaint of concern for altered mental status/hallucinating today. He has a fairly complex medical history over the last month. 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 He was treated at [facility] in [place] and sent here to inpatient rehab. He was dis charged a week ago today. His mom states that he is getting antibiotics infused at [facility] twice a day. He has a PICC line in his right arm. She states he has not really been sleeping very well and today he was hallucinating about things and people that were not there. She is not aware of any fever. He has been struggling with a little constipation. He has had decreased appetite. He does have a history of ADHD and bipolar disorder. Patient himself denies any headache, chest pain, shortness of breath. He states he is not nauseated currently. He states normal bowel and bladder function. He is alert and oriented to self, location. He did not know the year, initially saying 2016. Timing/Duration: 12 Hours Severity: Moderate Associated Systoms: Loss of Appetite, Malaise, Nausea/Vomiting (nausea without vomiting) (ECHO RYDER MD) Allergies and Home Medications Allergies Coded Allergies: Sulfa (Sulfonamide Antibiotics) (Unverified Allergy, Unknown, PT HASN'T HAD, BUT MOM SEVERELY ALLERGIC, 11/01/13) Patient Home Medication List Home Medication List Reviewed: Yes (ECHO RYDER MD) Acetaminophen (Tylenol Extra Strength) 500 Mg Tablet, 500 MG PO Q4H PRN for PAIN-MILD (1-4), (Reported) Entered as Reported by: AYLIN HENRY on 08/31/22 1108 Hydroxyzine Pamoate (Hydroxyzine Pamoate) 50 Mg Capsule, 50 MG PO BID Prescribed by: AURE RUIZ on 09/09/22 1237 Lisdexamfetamine Dimesylate (Vyvanse) 40 Mg Capsule, 40 MG PO DAILY, (Reported) Entered as Reported by: TIERRA BERMAN on 07/01/15 1425 Olanzapine (Zyprexa Zydis) 10 Mg Tab.rapdis, 10 MG PO TID Prescribed by: NAMRATA GERMAIN on 09/17/22 1813 Ondansetron (Ondansetron Odt) 4 Mg Tab.rapdis, 4 MG PO Q6H PRN for NAUSE A/VOMITING-1ST LINE Prescribed by: AURE RUIZ on 09/09/22 1237 Pantoprazole Sodium (Protonix) 40 Mg Tablet.dr, 40 MG PO DAILY Prescribed by: NAMRATA GERMAIN on 09/17/22 1844 Vancomycin HCl in Dextrose 5 % (Vancomycin 1.25 Gram/250Ml-D5w) 1.25 Gram/250 Ml Plast..bag, 1.25 GM IV Q12H Prescribed by: AURE RUIZ on 09/09/22 1238 Review of Systems Review of Systems Constitutional: see HPI EENTM: no symptoms reported Respiratory: no symptoms reported Cardiovascular: no symptoms reported Gastrointestinal: nausea Genitourinary: no symptoms reported Musculoskeletal: no symptoms reported Skin: other (healing rash) Psychiatric/Neurological: Other (sleep disturbance; hallucinations today) (ECHO RYDER MD) Past Ufltxnx-Haqqic-Lisbwc Hx Immunizations Up To Date PED Vaccines UTD: Yes (ECHO RYDER MD) Past Medical History Surgery/Hospitalization HX: BIPOLAR, ADHD DENTAL SURGERIES Reproductive Disorders: No Loss of Vision: Denies Hearing Impairment: Denies ADD/ADHD, Bipolar (ECHO RYDER MD) Family Medical History Cancer (ECHO RYDER MD) Physical Exam Vital Signs Vital Signs - First Documented 09/17/22 16:43 Pulse 104 Resp 18 B/P (MAP) 129/90 (103) Pulse Ox 100 O2 Delivery Room Air (NAMRATA GERMAIN DO) Vital Signs Capillary Refill : (ECHO RYDER MD) Height, Weight, BMI Height: 5'3.00" Weight: 90lbs. 0.0oz. [id number]; 18.08 BMI Method:Stated General Appearance: No Apparent Distress, Thin Eyes: Bilateral Eye Normal Inspection, Bilateral Eye PERRL, Bilateral Eye EOMI HEENT: PERRL/EOMI, Moist Mucous Membranes Neck: Normal Inspection Respiratory: Lungs Clear, Normal Breath Sounds, No Accessory Muscle Use, No Respiratory Distress Cardiovascular: Regular Rate, Rhythm, Normal Peripheral Pulses Gastrointestinal: Normal Bowel Sounds, Non Tender, Soft Extremity: Normal Inspection, Normal Range of Motion Neurologic/Psychiatric: Alert, No Motor/Sensory Deficits, Other (flat affect; slow speech; No focal neuro deficits observed.) Skin: Warm/Dry, Pallor, Other (scattered subcutaneous hemmorhages to the plantar surface of both feet at the heel.) (ECHO RYDER MD) Focused Exam Lactate Level 09/17/22 17:04: Lactic Acid Level 1.07 (NAMRATA GERMAIN DO) Lactic Acid Level Laboratory Tests Test 09/17/22 17:04 Lactic Acid Level 1.07 MMOL/L (0.50-2.00) (NAMRATA GERMAIN DO) Progress/Results/Core Measures Suspected Sepsis SIRS Temperature: Pulse: Respiratory Rate: Laboratory Tests 09/17/22 17:04: White Blood Count 8.3 Blood Pressure / Mean: 09/17/22 17:04: Lactic Acid Level 1.07 Laboratory Tests 09/17/22 17:04: Creatinine 0.85, INR Comment 1.1, Platelet Count 241, Total Bilirubin 0.4 (ECHO RYDER MD) Results/Orders Lab Results Laboratory Tests Test 09/17/22 17:04 09/17/22 18:00 Range/Units White Blood Count 8.3 4.3-11.0 10^3/uL Red Blood Count 4.32 4.30-5.52 10^6/uL Hemoglobin 12.7 L 13.3-17.7 g/dL Hematocrit 37 L 40-54 % Mean Corpuscular Volume 86 80-99 fL Mean Corpuscular Hemoglobin 29 25-34 pg Mean Corpuscular Hemoglobin Concent 34 32-36 g/dL Red Cell Distribution Width 15.3 H 10.0-14.5 % Platelet Count 241 130-400 10^3/uL Mean Platelet Volume 8.7 L 9.0-12.2 fL Immature Granulocyte % (Auto) 0 % Neutrophils (%) (Auto) 65 42-75 % Lymphocytes (%) (Auto) 24 12-44 % Monocytes (%) (Auto) 8 0-12 % Eosinophils (%) (Auto) 3 0-10 % Basophils (%) (Auto) 1 0-10 % Neutrophils # (Auto) 5.4 1.8-7.8 10^3/uL Lymphocytes # (Auto) 2.0 1.0-4.0 10^3/uL Monocytes # (Auto) 0.7 0.0-1.0 10^3/uL Eosinophils # (Auto) 0.2 0.0-0.3 10^3/uL Basophils # (Auto) 0.1 0.0-0.1 10^3/uL Immature Granulocyte # (Auto) 0.0 0.0-0.1 10^3/uL Prothrombin Time 14.0 12.2-14.7 SEC INR Comment 1.1 0.8-1.4 Activated Partial Thromboplast Time 34 24-35 SEC Sodium Level 141 135-145 MMOL/L Potassium Level 3.7 3.6-5.0 MMOL/L Chloride Level 104 98-107 MMOL/L Carbon Dioxide Level 25 21-32 MMOL/L Anion Gap 12 5-14 MMOL/L Blood Urea Nitrogen 18 7-18 MG/DL Creatinine 0.85 0.60-1.30 MG/DL Estimat Glomerular Filtration Rate 126 BUN/Creatinine Ratio 21 Glucose Level 113 H 70-105 MG/DL Lactic Acid Level 1.07 0.50-2.00 MMOL/L Calcium Level 9.9 8.5-10.1 MG/DL Corrected Calcium 9.6 8.5-10.1 MG/DL Total Bilirubin 0.4 0.1-1.0 MG/DL Aspartate Amino Transf (AST/SGOT) 30 5-34 U/L Alanine Aminotransferase (ALT/SGPT) 55 0-55 U/L Alkaline Phosphatase 87 40-136 U/L Total Protein 8.0 6.4-8.2 GM/DL Albumin 4.4 3.2-4.5 GM/DL Urine Color YELLOW Urine Clarity CLEAR Urine pH 6.0 5-9 Urine Specific [place] 1.025 H 1.016-1.022 Urine Protein TRACE H NEGATIVE Urine Glucose (UA) NEGATIVE NEGATIVE Urine Ketones NEGATIVE NEGATIVE Urine Nitrite NEGATIVE NEGATIVE Urine Bilirubin NEGATIVE NEGATIVE Urine Urobilinogen 0.2 < = 1.0 MG/DL Urine Leukocyte Esterase NEGATIVE NEGATIVE Urine RBC (Auto) 2+ H NEGATIVE Urine RBC 10-25 H /HPF Urine WBC RARE /HPF Urine Squamous Epithelial Cells RARE /HPF Urine Crystals NONE /LPF Urine Bacteria NEGATIVE /HPF Urine Casts NONE /LPF Urine Mucus SMALL H /LPF Urine Culture Indicated CULTURE PENDING Urine Opiates Screen NEGATIVE NEGATIVE Urine Oxycodone Screen NEGATIVE NEGATIVE Urine Methadone Screen NEGATIVE NEGATIVE Urine Propoxyphene Screen NEGATIVE NEGATIVE Urine Barbiturates Screen NEGATIVE NEGATIVE Ur Tricyclic Antidepressants Screen NEGATIVE NEGATIVE Urine Phencyclidine Screen NEGATIVE NEGATIVE Urine Amphetamines Screen POSITIVE H NEGATIVE Urine Methamphetamines Screen NEGATIVE NEGATIVE Urine Benzodiazepines Screen NEGATIVE NEGATIVE Urine Cocaine Screen NEGATIVE NEGATIVE Urine Cannabinoids Screen NEGATIVE NEGATIVE (NAMRATA GERMAIN DO) My Orders Orders - MARCELLUSTREA K DO Hyoscyamine Sl Tablet (Levsin Sl Tablet) (09/17/22 18:30) Ondansetron Injection (Zofran Injectio (09/17/22 18:30) Rx-Ondansetron Po (Rx-Zofran Po) (09/17/22 18:34) (NAMRATA GERMAIN DO) Medications Given in ED Current Medications Medications Dose Ordered Sig/Ana Route Start Time Stop Time Status Last Admin Dose Admin Hyoscyamine Sulfate 0.25 mg ONCE ONCE PO 09/17/22 18:30 09/17/22 18:31 DC 09/17/22 18:33 0.25 MG Olanzapine 5 mg ONCE ONCE PO 09/17/22 17:45 09/17/22 17:46 DC 09/17/22 17:44 5 MG Ondansetron HCl 4 mg ONCE ONCE IVP 09/17/22 18:30 09/17/22 18:31 DC 09/17/22 18:33 4 MG (NAMRATA GERMAIN DO) Vital Signs/I&O 09/17/22 16:43 Pulse 104 Resp 18 B/P (MAP) 129/90 (103) Pulse Ox 100 O2 Delivery Room Air (NAMRATA GERMAIN DO) Vital Signs/I&O Capillary Refill : (ECHO RYDER MD) Progress Note : Time: 17:29 Progress Note Case discussed with Dr. Ruiz. She has extensive knowledge of the patient as she was the supervising physician while he was on inpatient rehab. She states that he does have baseline mental health/intellectual disability challenges. She states the embolic/septic stroke has magnified the symptoms. He was on Zyprexa 5 mg p.o. 3 times daily prior to transfer to inpatient rehab however this sedated the patient to the point that he was unable to participate in rehab. She discontinued this medication so that he was able to participate. He is currently on no antipsychotics. She states that his last dose of IV vancomycin will be tomorrow. He should have scheduled follow-up with neurology as an outpatient. She is uncertain of any mental health outpatient follow-up. His mom is taking care of him by herself at home. Dr. Ruiz states that the patient has follow-up with [facility]. (ECHO RYDER MD) Progress Note : Progress Note 1800--ASSUMED CARE OF PT AT SHIFT CHANGE. UA/UDS PENDING. PLAN IS TO SEND PT HOME WITH OUTPATIENT FOLLOW UP WITH [facility] FOR ONGOING CARE. 182--PT C/O STOMACH DISCOMFORT/UPSET--ZOFRAN AND LEVSIN ORDERED. VITALS STABLE, AFEBRILE. PT IS NOT VOICING ANY COMPLAINTS OF HALLUCINATIONS AT THIS TIME. DISCUSSED TEST RESULTS, ANTICIPATED COURSE, SYMPTOMATIC TREATMENT, MEDICATIONS, NEED FOR FOLLOW UP AND RETURN PRECAUTIONS REVIEWED PRIOR RECORDS INCLUDING ER VISITS, ADMITS/H&P'S/CONSULTS/DISCHARGE SUMMARIES, TESTS/PROCEDURES (NAMRATA GERMAIN DO) Diagnostic Imaging Comments CXR--PER RADIOLOGIST REPORT AT 1755 Heart and mediastinal silhouette are normal in appearance. The lungs are clear. There is no pneumothorax or pleural fluid. Right-sided PICC line is unchanged tip overlying the SVC. IMPRESSION: No acute process in the chest. Reviewed: Reviewed by Me (NAMRATA GERMAIN DO) Departure Impression Primary Impression: Hallucinations Additional Impression: Microscopic hematuria Disposition: HOME, SELF-CARE Condition: Stable Departure-Patient Inst. Decision time for Depature: 18:34 (NAMRATA GERMAIN DO) Referrals: [facility] (PCP/Family) Primary Care Physician Patient Instructions: Blood in the urine (hematuria) in adults, Evaluating memory and thinking problems Add. Discharge Instructions: FOLLOW UP WITH MENTAL HEALTH SOON POSSIBLE--CALL ON MONDAY TO SCHEDULE AN APPOINTMENT CONTINUE YOUR REGULAR MEDICATIONS PRESCRIBED RETURN TO ER IF SYMPTOMS WORSEN FOLLOW UP WITH YOUR REGULAR DR THIS WEEK WELL FOR RECHECK--CALL IN THE MORNING TO SCHEDULE AN APPOINTMENT Scripts Pantoprazole Sodium (Protonix) 40 Mg Tablet.dr 40 MG PO DAILY, #15 TAB Prov: NAMRATA GERMAIN DO 09/17/22 Olanzapine (Zyprexa Zydis) 10 Mg Tab.rapdis 10 MG PO TID, #21 TAB Prov: NAMRATA GERMAIN DO 09/17/22 Copy Copies To 1: BUBBA KIM KATHRYN M MD Sep 17, 2022 17:03 NAMRATA GERMAIN DO Sep 17, 2022 17:56
[2022-09-17 17:11] LABS: BASOPHILS # (AUTO) 0.1 10^3/uL (0.0-0.1); BASOPHILS % (AUTO) 1 % (0-10); EOSINOPHILS # (AUTO) 0.2 10^3/uL (0.0-0.3); EOSINOPHILS % (AUTO) 3 % (0-10); HEMATOCRIT 37 % (40-54); HEMOGLOBIN 12.7 g/dL (13.3-17.7); LYMPHOCYTES % (AUTO) 24 % (12-44); MEAN CORPUSCULAR HEMOGLOBIN 29 pg (25-34); MEAN CORPUSCULAR HGB CONC 34 g/dL (32-36); MEAN CORPUSCULAR VOLUME 86 fL (80-99); MEAN PLATELET VOLUME 8.7 fL (9.0-12.2); MONOCYTES # (AUTO) 0.7 10^3/uL (0.0-1.0); MONOCYTES % (AUTO) 8 % (0-12); NEUTROPHILS # (AUTO) 5.4 10^3/uL (1.8-7.8); NEUTROPHILS % (AUTO) 65 % (42-75); PLATELET COUNT 241 10^3/uL (130-400); WHITE BLOOD COUNT 8.3 10^3/uL (4.3-11.0)
[2022-09-17 17:19] LABS: ALBUMIN 4.4 GM/DL (3.2-4.5); POTASSIUM 3.7 MMOL/L (3.6-5.0)
[2022-09-17 17:20] LABS: CALCIUM 9.9 MG/DL (8.5-10.1)
[2022-09-17 17:21] LABS: INR 1.1 (0.8-1.4)
[2022-09-17 17:23] LABS: BILIRUBIN,TOTAL 0.4 MG/DL (0.1-1.0)
[2022-09-17 17:25] LABS: CREATININE SERUM 0.85 MG/DL (0.60-1.30)
[2022-09-17] MEDS ORDERED: OLANZapine 5 MG ODT (ZyPREXA ZYDIS) PO ONE (17:45)
--- NOTE | 2022-09-17 17:48 | Diagnostic Imaging Report ---
Indication: Altered mental status, abdominal pain Frontal chest obtained at 0516 p.m. compared to 09/02/2022 Heart and mediastinal silhouette are normal in appearance. The lungs are clear. There is no pneumothorax or pleural fluid. Right-sided PICC line is unchanged tip overlying the SVC. IMPRESSION: No acute process in the chest. Dictated by: Dictated on workstation # [id number]
[2022-09-17 18:08] LABS: BILIRUBIN,URINE NEGATIVE (NEGATIVE); CLARITY,URINE CLEAR; COLOR,URINE YELLOW; GLUCOSE, URINE (UA) NEGATIVE (NEGATIVE); KETONES,URINE NEGATIVE (NEGATIVE); LEUKOCYTE ESTERASE ,URINE NEGATIVE (NEGATIVE); NITRITE,URINE NEGATIVE (NEGATIVE); PROTEIN,URINE TRACE (NEGATIVE)
[2022-09-17] MEDS ORDERED: OLAN10TA4 PO (18:13)
[2022-09-17 18:17] LABS: BACTERIA,URINE NEGATIVE /HPF; SQUAMOUS EPITHELIAL CELL,UR RARE /HPF; WBC,URINE RARE /HPF
[2022-09-17 18:28] LABS: AMPHETAMINE SCREEN, URINE POSITIVE (NEGATIVE); BARBITURATE SCREEN URINE NEGATIVE (NEGATIVE); BENZODIAZEPINES SCREEN URINE NEGATIVE (NEGATIVE); CANNABINOID SCREEN, URINE NEGATIVE (NEGATIVE); COCAINE SCREEN URINE NEGATIVE (NEGATIVE); METHADONE STAT NEGATIVE (NEGATIVE); OPIATE SCREEN URINE NEGATIVE (NEGATIVE); OXYCODONE STAT NEGATIVE (NEGATIVE); PROPOXYPHENE STAT NEGATIVE (NEGATIVE); TRICYCLIC ANTIDEPRESSANTS SCRE NEGATIVE (NEGATIVE)
[2022-09-17] MEDS ORDERED: ONDANSETRON 4 MG/2 ML (SDV) Z0FRAN IVP ONE (18:30)
[2022-09-17] MEDS ORDERED: HYOSCYAMINE 0.125 MG (LEVSIN) TAB PO ONE (18:30)
[2022-09-17] MEDS ORDERED: RX-ONDANSETRON 4 MG ODT (ZOFRAN) PPK #4 PO STA (18:34)
[2022-09-17] MEDS ORDERED: PANT40TA2 PO (18:44)
[2022-09-17 18:50] VITALS: BP 125/88
== END 2022-09-17 18:50 | disposition home or self-care (01) ==
LOC: EDUNIT# 16:40 → ER 16:43
DX: R44.3 Hallucinations, unspecified (principal); R31.29 Other microscopic hematuria; Z86.59 Personal history of other mental and behavioral disorders; Z79.899 Other long term (current) drug therapy
CPT/HCPCS: 36415; 71045; 80053; 80306; 81000; 83605; 85025; 85610; 85730; 87040; 87077; 87088; 87186

== ENCOUNTER 2022-09-21 20:57 | Emergency (ER) | payer MEDICAID ==
[~2022-09-21 20:57] MED LIST changes: +CEFD300C3 PO; +OLAN10TA4 PO; +PANT40TA2 PO
[2022-09-21] MEDS ORDERED: NS IV 500 ML 500 ML IV STA (21:26)
--- NOTE | 2022-09-21 21:28 | ED General ---
General Chief Complaint: Neurological Problems Stated Complaint: CONFUSION/ABD PAIN Nursing Triage Note: PT AMB TO [facility] 3 USING WALKER WITH CC OF CONFUSION AND ABD PAIN SINCE YESTERDAY. PT MOTHER AT BEDSIDE STATES PT HAS NOT BEEN MAKING SENSE OR ACTING HIMSELF. PT MOTHER AKOSUA WAS SEEN AT [facility] FOR MED CHANGES AND BEGAN TO YELL AT STAFF. PT DENIES N/V/D. PT A&OX4. Source of Information: Patient, Family, Old Records Exam Limitations: No Limitations History of Present Illness Date Seen by Provider: Sep 21, 2022 Time Seen by Provider: 21:25 Initial Comments 22-year-old male with complicated recent history of septic emboli with stroke likely secondary to a dog bite coming in with his mother due to confusion. He stopped the IV antibiotics with the PICC line being pulled out a few days ago. She states he is not really any more confused, he just never really returned to baseline since the strokes. He is walking with a walker, he is not having any pain anywhere, and he is not complaining of any acute complaints at this time. Allergies and Home Medications Allergies Coded Allergies: Sulfa (Sulfonamide Antibiotics) (Unverified Allergy, Unknown, PT HASN'T HAD, BUT MOM SEVERELY ALLERGIC, 11/01/13) Patient Home Medication List Home Medication List Reviewed: Yes Acetaminophen (Tylenol Extra Strength) 500 Mg Tablet, 500 MG PO Q4H PRN for PAIN-MILD (1-4), (Reported) Entered as Reported by: AYLIN HENRY on 08/31/22 1108 Cefdinir (Cefdinir) 300 Mg Capsule, 300 MG PO BID Prescribed by: YSABEL SALGADO on 09/21/22 2037 Hydroxyzine Pamoate (Hydroxyzine Pamoate) 50 Mg Capsule, 50 MG PO BID Prescribed by: AURE RUIZ on 09/09/22 1237 Lisdexamfetamine Dimesylate (Vyvanse) 40 Mg Capsule, 40 MG PO DAILY, (Reported) Entered as Reported by: TIERRA BERMAN on 07/01/15 1425 Olanzapine (Zyprexa Zydis) 10 Mg Tab.rapdis, 10 MG PO TID Prescribed by: NAMRATA GERMAIN on 09/17/22 1813 Ondansetron (Ondansetron Odt) 4 Mg Tab.rapdis, 4 MG PO Q6H PRN for NAUSEA/VOMITING-1ST LINE Prescribed by: AURE RUIZ on 09/09/22 1237 Pantoprazole Sodium (Protonix) 40 Mg Tablet.dr, 40 MG PO DAILY Prescribed by: NAMRATA GERMAIN on 09/17/22 1844 Vancomycin HCl in Dextrose 5 % (Vancomycin 1.25 Gram/250Ml-D5w) 1.25 Gram/250 Ml Plast..bag, 1.25 GM IV Q12H Prescribed by: AURE RUIZ on 09/09/22 1238 Review of Systems Review of Systems Constitutional: No fever EENTM: no symptoms reported Respiratory: no symptoms reported Cardiovascular: no symptoms reported Gastrointestinal: no symptoms reported Musculoskeletal: no symptoms reported Psychiatric/Neurological: See HPI Past Jtfgyva-Eyfesr-Abfzqu Hx Patient Social History Tobacco Use?: No Substance use?: No Alcohol Use?: No Pt feels they are or have been: No Immunizations Up To Date PED Vaccines UTD: Yes Past Medical History Surgery/Hospitalization HX: BIPOLAR, ADHD, septic emboli, stroke august 2022 DENTAL SURGERIES Reproductive Disorders: No Loss of Vision: Denies Hearing Impairment: Denies ADD/ADHD, Bipolar Family Medical History Cancer Physical Exam Vital Signs Vital Signs - First Documented 09/21/22 21:09 Pulse 92 Resp 18 B/P (MAP) 120/76 (91) Pulse Ox 100 O2 Delivery Room Air Capillary Refill : Less Than 3 Seconds Height, Weight, BMI Height: 5'3.00" Weight: 90lbs. 0.0oz. 40.829261im; 18.08 BMI Method:Stated General Appearance: No Apparent Distress, Thin Eyes: Bilateral Eye Normal Inspection, Bilateral Eye PERRL, Bilateral Eye EOMI HEENT: PERRL/EOMI, Normal ENT Inspection, Pharynx Normal Neck: Full Range of Motion, Normal Inspection, Non Tender, Supple Respiratory: Chest Non Tender, Lungs Clear, Normal Breath Sounds, No Accessory Muscle Use, No Respiratory Distress Cardiovascular: Regular Rate, Rhythm, No Edema, Normal Peripheral Pulses Gastrointestinal: Normal Bowel Sounds, Non Tender, Soft; No Distended, No Guarding Back: Normal Inspection, No CVA Tenderness Extremity: Normal Capillary Refill, Normal Inspection, Normal Range of Motion, Non Tender, No Calf Tenderness, No Pedal Edema Neurologic/Psychiatric: Alert, No Motor/Sensory Deficits, Normal Mood/Affect, Other (Oriented to self and location, does not know the date) Skin: Normal Color, Warm/Dry Progress/Results/Core Measures Suspected Sepsis SIRS Temperature: Pulse: 92 Respiratory Rate: 18 Laboratory Tests 09/21/22 21:33: White Blood Count 9.2 Blood Pressure 120 /76 Mean: 91 Laboratory Tests 09/21/22 21:33: Creatinine 0.86, Platelet Count 221, Total Bilirubin 0.3 Results/Orders Lab Results Laboratory Tests Test 09/21/22 21:33 Range/Units White Blood Count 9.2 4.3-11.0 10^3/uL Red Blood Count 4.07 L 4.30-5.52 10^6/uL Hemoglobin 11.9 L 13.3-17.7 g/dL Hematocrit 35 L 40-54 % Mean Corpuscular Volume 87 80-99 fL Mean Corpuscular Hemoglobin 29 25-34 pg Mean Corpuscular Hemoglobin Concent 34 32-36 g/dL Red Cell Distribution Width 15.3 H 10.0-14.5 % Platelet Count 221 130-400 10^3/uL Mean Platelet Volume 8.9 L 9.0-12.2 fL Immature Granulocyte % (Auto) 1 % Neutrophils (%) (Auto) 57 42-75 % Lymphocytes (%) (Auto) 30 12-44 % Monocytes (%) (Auto) 9 0-12 % Eosinophils (%) (Auto) 2 0-10 % Basophils (%) (Auto) 1 0-10 % Neutrophils # (Auto) 5.2 1.8-7.8 10^3/uL Lymphocytes # (Auto) 2.8 1.0-4.0 10^3/uL Monocytes # (Auto) 0.9 0.0-1.0 10^3/uL Eosinophils # (Auto) 0.2 0.0-0.3 10^3/uL Basophils # (Auto) 0.1 0.0-0.1 10^3/uL Immature Granulocyte # (Auto) 0.1 0.0-0.1 10^3/uL Sodium Level 140 135-145 MMOL/L Potassium Level 4.2 3.6-5.0 MMOL/L Chloride Level 104 98-107 MMOL/L Carbon Dioxide Level 26 21-32 MMOL/L Anion Gap 10 5-14 MMOL/L Blood Urea Nitrogen 19 H 7-18 MG/DL Creatinine 0.86 0.60-1.30 MG/DL Estimat Glomerular Filtration Rate 126 BUN/Creatinine Ratio 22 Glucose Level 96 70-105 MG/DL Calcium Level 10.0 8.5-10.1 MG/DL Corrected Calcium 9.8 8.5-10.1 MG/DL Total Bilirubin 0.3 0.1-1.0 MG/DL Aspartate Amino Transf (AST/SGOT) 27 5-34 U/L Alanine Aminotransferase (ALT/SGPT) 45 0-55 U/L Alkaline Phosphatase 83 40-136 U/L Total Protein 7.6 6.4-8.2 GM/DL Albumin 4.2 3.2-4.5 GM/DL My Orders Orders - YSABEL SALGADO MD Cbc With Automated Diff (09/21/22 21:26) Comprehensive Metabolic Panel (09/21/22 21:26) Ceftriaxone Iv/Im (Rocephin Iv/Im) (09/21/22 21:30) Ns Iv 500 Ml (Sodium Chloride 0.9%) (09/21/22 21:26) Ondansetron Oral Dissolve Tab (Zofran (09/21/22 22:45) Medications Given in ED Current Medications Medications Dose Ordered Sig/Ana Route Start Time Stop Time Status Last Admin Dose Admin Ceftriaxone Sodium 1000 mg/ Sodium Chloride 50 ml @ 100 mls/hr ONCE ONCE IV 09/21/22 21:30 09/21/22 21:59 DC 09/21/22 21:51 100 MLS/HR Vital Signs/I&O 09/21/22 21:09 Pulse 92 Resp 18 B/P (MAP) 120/76 (91) Pulse Ox 100 O2 Delivery Room Air Capillary Refill : Less Than 3 Seconds Blood Pressure Mean: 91 Progress Note : Progress Note 22-year-old male with above history coming in due to altered mental status. ABCs were intact and vitals were stable on presentation. Physical exam reassuring, and he is at his new baseline. Further discussion with the mother, the patient has never really come back to baseline since the strokes, and he is not really any worse today. He is not in any pain anywhere and he does not really have any concerns at this time. Given his most recent complicated history however, an IV was placed and basic labs were obtained. His white blood cell count is normal today, kidney function normal, and otherwise no concerns. He did have a urinalysis done most recently, he was not sent home on antibiotics, but the urine culture did grow back E. coli which was chaney florentino espinoza. He got ceftriaxone here, and I did send a prescription for cefdinir. It is possible that the UTI is making his previous stroke symptoms slightly worse that his mom is able to mushroom picker on. I believe he is otherwise stable for discharge with outpatient follow-up. He was sent home with strict return precautions Departure Impression Primary Impression: Cystitis Additional Impression: History of embolic stroke Disposition: HOME, SELF-CARE Condition: Stable Departure-Patient Inst. Decision time for Depature: 22:25 Referrals: [facility] (PCP/Family) Primary Care Physician Patient Instructions: Acute Cystitis (DC) Add. Discharge Instructions: He did grow out some bacteria in his urine the last time he was in the ER. A prescription was sent to his pharmacy. He will be due for the next dose tomorrow. Often times in patients that have had strokes, when they have infections in their urine it can make symptoms of the prior stroke slightly worse. Please follow back up with his regular doctor if he is not improving. Scripts Ondansetron (Ondansetron Odt) 4 Mg Tab.rapdis 4 MG SL Q6H PRN for NAUSEA/VOMITING for 5 Days, #20 TAB Prov: YSABEL SALGADO MD 09/21/22 Work/School Note: Family Work Note Patient Received Medical Care In the Emergency Department On: Sep 21, 2022 Patient Will Be Able to Return to Work/School On: Sep 22, 2022 YSABEL SALGADO MD Sep 21, 2022 21:28
[2022-09-21] MEDS ORDERED: cefTRIAXone IV/IM 1,000 MG in NS (IVPB) 50 ML IV ONE (21:30)
[2022-09-21 21:42] LABS: BASOPHILS # (AUTO) 0.1 10^3/uL (0.0-0.1); BASOPHILS % (AUTO) 1 % (0-10); EOSINOPHILS # (AUTO) 0.2 10^3/uL (0.0-0.3); EOSINOPHILS % (AUTO) 2 % (0-10); HEMATOCRIT 35 % (40-54); HEMOGLOBIN 11.9 g/dL (13.3-17.7); LYMPHOCYTES # (AUTO) 2.8 10^3/uL (1.0-4.0); LYMPHOCYTES % (AUTO) 30 % (12-44); MEAN CORPUSCULAR HEMOGLOBIN 29 pg (25-34); MEAN CORPUSCULAR HGB CONC 34 g/dL (32-36); MEAN CORPUSCULAR VOLUME 87 fL (80-99); MEAN PLATELET VOLUME 8.9 fL (9.0-12.2); MONOCYTES # (AUTO) 0.9 10^3/uL (0.0-1.0); MONOCYTES % (AUTO) 9 % (0-12); NEUTROPHILS # (AUTO) 5.2 10^3/uL (1.8-7.8); NEUTROPHILS % (AUTO) 57 % (42-75); PLATELET COUNT 221 10^3/uL (130-400); WHITE BLOOD COUNT 9.2 10^3/uL (4.3-11.0)
[2022-09-21 21:57] LABS: ALBUMIN 4.2 GM/DL (3.2-4.5); POTASSIUM 4.2 MMOL/L (3.6-5.0)
[2022-09-21 22:00] LABS: TOTAL PROTEIN 7.6 GM/DL (6.4-8.2)
[2022-09-21 22:02] LABS: BILIRUBIN,TOTAL 0.3 MG/DL (0.1-1.0)
[2022-09-21 22:03] LABS: CREATININE SERUM 0.86 MG/DL (0.60-1.30)
[2022-09-21 22:43] VITALS: BP 120/76
[2022-09-21] MEDS ORDERED: ONDANSETRON 4 MG (ZOFRAN) ORAL DISSOLVE TAB PO ONE (22:45)
[2022-09-21] MEDS ORDERED: ONDA4TAB11 SL (22:46)
== END 2022-09-21 22:53 | disposition home or self-care (01) ==
LOC: EDUNIT# 20:57 → ER 21:01
DX: N30.90 Cystitis, unspecified without hematuria (principal); Z86.73 Personal history of transient ischemic attack (TIA), and cerebral infarction without residual deficits; Z88.2 Allergy status to sulfonamides; Z28.310 Unvaccinated for COVID-19
CPT/HCPCS: 36415; 80053; 85025

== ENCOUNTER 2022-10-18 17:51 | Emergency (ER) | payer MEDICAID ==
[~2022-10-18] VITALS: Ht 177.8 cm; Wt 49.9 kg
[~2022-10-18 17:51] MED LIST changes: +ONDA4TAB11 SL
--- NOTE | 2022-10-18 19:11 | ED Psychosocial ---
General Chief Complaint: Altered Mental Status Stated Complaint: [facility] Nursing Triage Note: Mom brings patient in with c/o altered mental status with Hx. of stroke. Mom states patient was unable to state the year earlier. Patient denies any headache or recent head injury. Mom c/o patient becoming violent towards her x 1 wk ago. Mom states patient has been hallucinating. Patient denies any suicidal thoughts or thoughts of wanting to hurt self. Patient denies hearing voices. Patient is alert and oriented during assessment. Patient's left side is a little weaker than right and mom states that is residual from previous stroke. Source: patient Exam Limitations: no limitations (YSABEL DUMONT) History of Present Illness Date Seen by Provider: Oct 18, 2022 Time Seen by Provider: 19:10 Initial Comments Patient is a 22-year-old male with a history of stroke after a dog bite this past July and August was seen at [facility] who presents ED mother from [facility] for mental health evaluation. According to mother at bedside patient has had increased aggressive behavior towards mom. Patient has been wanting to pull her upper arm as well as pull her hair. This has been ongoing since a his stroke in August. Patient was evaluated by [facility] yesterday as well as today and was sent over to the ED for further evaluation. According to mother patient has been hallucinating at home. Patient mother states he is complaining of someone sitting behind him. According to mother they contacted EMS last week secondary to aggressive behavior. According to mother patient has made comments of wanting to hurt her. He is also had history of suicidal thoughts in the past. He denies of any current suicidal or homicidal thoughts. Patient states he does not want to be here. He has had a hallucinations prior to the strokes. He has been admitted to [facility] for SI in the past. Patient is currently on hydroxyzine and Zyprexa. Patient denies headache, dizziness, visual changes, unilateral muscle weakness or sensory changes, chest pain, cough, shortness of breath, vomiting or diarrhea. (YSABEL DUMONT) Allergies and Home Medications Allergies Coded Allergies: Sulfa (Sulfonamide Antibiotics) (Unverified Allergy, Unknown, PT HASN'T HAD, BUT MOM SEVERELY ALLERGIC, 11/01/13) Patient Home Medication List Home Medication List Reviewed: Yes (YSABEL DUMONT) Home Medication List Reviewed: Yes (ECHO RYDER MD) Acetaminophen (Tylenol Extra Strength) 500 Mg Tablet, 500 MG PO Q4H PRN for PAIN-MILD (1-4), (Reported) Entered as Reported by: AYLIN HENRY on 08/31/22 1108 Cefdinir (Cefdinir) 300 Mg Capsule, 300 MG PO BID Prescribed by: YSABEL SALGADO on 09/21/22 203 Hydroxyzine Pamoate (Hydroxyzine Pamoate) 50 Mg Capsule, 50 MG PO BID Prescribed by: AURE RUIZ on 09/09/22 1237 Lisdexamfetamine Dimesylate (Vyvanse) 40 Mg Capsule, 40 MG PO DAILY, (Reported) Entered as Reported by: TIERRA BERMAN on 07/01/15 1425 Olanzapine (Zyprexa Zydis) 10 Mg Tab.rapdis, 10 MG PO TID Prescribed by: NAMRATA GERMAIN on 09/17/22 1813 Ondansetron (Ondansetron Odt) 4 Mg Tab.rapdis, 4 MG PO Q6H PRN for KULWINDER SEA/VOMITING-1ST LINE Prescribed by: AURE RUIZ on 09/09/22 1237 Ondansetron (Ondansetron Odt) 4 Mg Tab.rapdis, 4 MG SL Q6H PRN for NAUSEA/VOMITING Prescribed by: YSABEL SALGADO on 09/21/22 2246 Pantoprazole Sodium (Protonix) 40 Mg Tablet.dr, 40 MG PO DAILY Prescribed by: NAMRATA GERMAIN on 09/17/22 1844 Vancomycin HCl in Dextrose 5 % (Vancomycin 1.25 Gram/250Ml-D5w) 1.25 Gram/250 Ml Plast..bag, 1.25 GM IV Q12H Prescribed by: AURE RUIZ on 09/09/22 1238 Review of Systems Constitutional: No chills, No diaphoresis, No fever, No malaise, No weakness EENTM: No ear pain, No blurred vision, No double vision Respiratory: No cough Cardiovascular: No chest pain Gastrointestinal: No abdominal pain, No diarrhea, No nausea, No vomiting Genitourinary: No decreased output, No discharge Musculoskeletal: No back pain, No joint pain Skin: No change in color, No change in hair/nails (YSABEL DUMONT) All Other Systems Reviewed Negative Unless Noted: Yes (YSABEL DUMONT) Past Krtnoha-Pznjay-Npupyw Hx Patient Social History Tobacco Use?: No Use of E-Cig and/or Vaping dev: No Substance use?: No Alcohol Use?: No (YSABEL DUMONT) Immunizations Up To Date PED Vaccines UTD: Yes Influenza Vaccine Up-to-Date: No; Not Current (YSABEL DUMONT) Past Medical History Surgery/Hospitalization HX: PTSD, STROKE, ANXIETY, DEPRESSION, CYST REMOVAL, LYMPH NODES REMOVED, Reproductive Disorders: No Loss of Vision: Denies Hearing Impairment: Denies ADD/ADHD, Bipolar (YSABEL DUMONT) Family Medical History Cancer (YSABEL DUMONT) Physical Exam Vital Signs - First Documented 10/18/22 18:06 Temp 36.5 Pulse 62 Resp 12 B/P (MAP) 111/66 (81) O2 Delivery Room Air (YSABEL SALGADO MD) Capillary Refill : (YSABEL DUMONT) Height, Weight, BMI Height: 5'3.00" Weight: 90lbs. 0.0oz. 40.879153fq; 15.00 BMI Method:Stated General Appearance: WD/WN, no apparent distress HEENT: PERRL/EOMI, normal ENT inspection, TMs normal, pharynx normal Neck: non-tender, full range of motion, supple Respiratory: chest non-tender, lungs clear, normal breath sounds, no respiratory distress, no accessory muscle use Cardiovascular: regular rate, rhythm, no edema, no gallop, no JVD Gastrointestinal: normal bowel sounds, non tender, soft, no organomegaly Extremities: normal range of motion, non-tender, normal inspection, no pedal edema Neurologic/Psychiatric: hadoop consultant II-XII nml as tested, no motor/sensory deficits, alert, normal mood/affect, oriented x 3 Appearance/Memory: appropriate appearance, appropriate insight Behavior/Eye Contact: cooperative, good eye contact Thoughts/Hallucinations: normal thought pattern, no apparent hallucination Skin: normal color, warm/dry (YSABEL DUMONT) Progress/Results/Core Measures Results/Orders Lab Results Laboratory Tests Test 10/18/22 19:25 10/18/22 19:30 Range/Units White Blood Count 6.3 4.3-11.0 10^3/uL Red Blood Count 4.23 L 4.30-5.52 10^6/uL Hemoglobin 12.5 L 13.3-17.7 g/dL Hematocrit 36 L 40-54 % Mean Corpuscular Volume 86 80-99 fL Mean Corpuscular Hemoglobin 30 25-34 pg Mean Corpuscular Hemoglobin Concent 34 32-36 g/dL Red Cell Distribution Width 13.4 10.0-14.5 % Platelet Count 189 130-400 10^3/uL Mean Platelet Volume 8.7 L 9.0-12.2 fL Immature Granulocyte % (Auto) 0 % Neutrophils (%) (Auto) 47 42-75 % Lymphocytes (%) (Auto) 39 12-44 % Monocytes (%) (Auto) 10 0-12 % Eosinophils (%) (Auto) 3 0-10 % Basophils (%) (Auto) 1 0-10 % Neutrophils # (Auto) 2.9 1.8-7.8 10^3/uL Lymphocytes # (Auto) 2.4 1.0-4.0 10^3/uL Monocytes # (Auto) 0.6 0.0-1.0 10^3/uL Eosinophils # (Auto) 0.2 0.0-0.3 10^3/uL Basophils # (Auto) 0.1 0.0-0.1 10^3/uL Immature Granulocyte # (Auto) 0.0 0.0-0.1 10^3/uL Sodium Level 141 135-145 MMOL/L Potassium Level 3.8 3.6-5.0 MMOL/L Chloride Level 109 H 98-107 MMOL/L Carbon Dioxide Level 25 21-32 MMOL/L Anion Gap 7 5-14 MMOL/L Blood Urea Nitrogen 13 7-18 MG/DL Creatinine 0.86 0.60-1.30 MG/DL Estimat Glomerular Filtration Rate 126 BUN/Creatinine Ratio 15 Glucose Level 97 70-105 MG/DL Calcium Level 9.5 8.5-10.1 MG/DL Corrected Calcium 9.5 8.5-10.1 MG/DL Total Bilirubin 0.3 0.1-1.0 MG/DL Aspartate Amino Transf (AST/SGOT) 15 5-34 U/L Alanine Aminotransferase (ALT/SGPT) 14 0-55 U/L Alkaline Phosphatase 77 40-136 U/L Total Protein 6.9 6.4-8.2 GM/DL Albumin 4.0 3.2-4.5 GM/DL Salicylates Level < 5.0 L 5.0-20.0 MG/DL Acetaminophen Level < 10 L 10-30 UG/ML Serum Alcohol < 10 <10 MG/DL SARS-CoV-2 RNA (RT-PCR) Not Detected Not Detecte Urine Color YELLOW Urine Clarity CLEAR Urine pH 7.0 5-9 Urine Specific [place] >=1.030 1.016-1.022 Urine Protein 1+ H NEGATIVE Urine Glucose (UA) NEGATIVE NEGATIVE Urine Ketones NEGATIVE NEGATIVE Urine Nitrite NEGATIVE NEGATIVE Urine Bilirubin NEGATIVE NEGATIVE Urine Urobilinogen 0.2 < = 1.0 MG/DL Urine Leukocyte Esterase NEGATIVE NEGATIVE Urine RBC (Auto) NEGATIVE NEGATIVE Urine RBC NONE /HPF Urine WBC NONE /HPF Urine Squamous Epithelial Cells 0-2 /HPF Urine Crystals PRESENT H /LPF Urine Amorphous Sediment LARGE MARIUSZ PHOSPHATE H /LPF Urine Bacteria NEGATIVE /HPF Urine Casts NONE /LPF Urine Mucus LARGE H /LPF Urine Culture Indicated NO Urine Opiates Screen NEGATIVE NEGATIVE Urine Oxycodone Screen NEGATIVE NEGATIVE Urine Methadone Screen NEGATIVE NEGATIVE Urine Propoxyphene Screen NEGATIVE NEGATIVE Urine Barbiturates Screen NEGATIVE NEGATIVE Ur Tricyclic Antidepressants Screen NEGATIVE NEGATIVE Urine Phencyclidine Screen NEGATIVE NEGATIVE Urine Amphetamines Screen POSITIVE H NEGATIVE Urine Methamphetamines Screen NEGATIVE NEGATIVE Urine Benzodiazepines Screen NEGATIVE NEGATIVE Urine Cocaine Screen NEGATIVE NEGATIVE Urine Cannabinoids Screen NEGATIVE NEGATIVE (YSABEL SALGADO MD) My Orders Orders - YSABEL SALGADO MD General/Regular (10/19/22 Breakfast) (YSABEL SALGADO MD) Blood Pressure Mean: 81 Progress Progress Note : Progress Note I received the patient in signout, he was pending admission to [facility]. The psychiatric physician was concerned with the patient's reported history of stroke whether they would be able to take care of him. Specifically they were concerned if he was unable to complete his ADLs. I went into the room and interviewed the patient, he answers questions appropriately and by himself with his mother not being in the room. The patient stands, walks around the room without difficulty at all, uses all extremities without difficulty. He uses the bathroom by himself, eats by himself, and completes all of his ADLs by himself. (YSABEL SALGADO MD) Comment Sinus bradycardia with marked sinus arrhythmia, 58 bpm, QRS duration 105 MS, QTc 388 MS (YSABEL DUMONT) Departure Communication (PCP) Reviewed previous ER visits, H&P, lab testing. Patient was evaluated by [facility] sent to the ED for further evaluation. Mother at bedside. Patient with hallucinations at home. Patient is seen in people. Patient has been aggressive towards mother making comments that he wants to hurt her. History of suicidal thoughts in the past. Patient has been admitted inpatient at [facility] previously for mental health. He is currently on Zyprexa and hydroxyzine. Patient has no current complaints. Denies of any suicidal homicidal thoughts. Mother does not feel safe taking patient home at this time. EMS was contacted at their home last week for aggressive behavior. Patient has been calm and cooperative here. Psych work-up was initiated. Denies any drug use or alcohol abuse. Patient suffered a stroke this past August and was seen at [facility]. Denies of any unilateral muscle weakness or sensory changes. Patient has been having mental health changes prior to the stroke. CT scan of the head was ordered as well as the psych work-up. CT scan head did not note any acute abnormality. Generalized lab work unremarkable. Drug screen positive for amphetamines but otherwise unremarkable. Vital signs stable. COVID- negative. Patient is medically cleared at this time. Waiting behavioral health assessment. Patient remained asymptomatic. No suicidal or homicidal thoughts. Psych recommends inpatient. Patient is currently 15-minute checks and moderate suicidal risk (YSABEL DUMONT) Impression Primary Impression: Aggressive behavior Additional Impression: Homicidal ideation Disposition: 02 XFER SHT-TRM HOSP Condition: Stable Transfer BH Medically Cleared for Xfer: Yes Transfer Reason: Exceeds level of care (needs psych) Time Spoke to Accepting Phy: 11:10 Transfer Progress Notes Talked with Dr. Rothman from [facility] at 11:10am on 10/19/22 who accepted the patient for transfer. We are currently awaiting bed assignment before he can be sent. Transfer Facility: [facility] Method of Transfer: (YSABEL SALGADO MD) Departure-Patient Inst. Referrals: [facility] (PCP/Family) Primary Care Physician YSABEL DUMONT Oct 18, 2022 19:11 YSABEL SALGADO MD Oct 19, 2022 08:08 ECHO RYDER MD Oct 20, 2022 04:15
[2022-10-18 19:32] LABS: BASOPHILS # (AUTO) 0.1 10^3/uL (0.0-0.1); BASOPHILS % (AUTO) 1 % (0-10); EOSINOPHILS # (AUTO) 0.2 10^3/uL (0.0-0.3); EOSINOPHILS % (AUTO) 3 % (0-10); HEMATOCRIT 36 % (40-54); HEMOGLOBIN 12.5 g/dL (13.3-17.7); LYMPHOCYTES # (AUTO) 2.4 10^3/uL (1.0-4.0); LYMPHOCYTES % (AUTO) 39 % (12-44); MEAN CORPUSCULAR HEMOGLOBIN 30 pg (25-34); MEAN CORPUSCULAR HGB CONC 34 g/dL (32-36); MEAN CORPUSCULAR VOLUME 86 fL (80-99); MEAN PLATELET VOLUME 8.7 fL (9.0-12.2); MONOCYTES # (AUTO) 0.6 10^3/uL (0.0-1.0); MONOCYTES % (AUTO) 10 % (0-12); NEUTROPHILS # (AUTO) 2.9 10^3/uL (1.8-7.8); NEUTROPHILS % (AUTO) 47 % (42-75); PLATELET COUNT 189 10^3/uL (130-400); WHITE BLOOD COUNT 6.3 10^3/uL (4.3-11.0)
[2022-10-18 19:48] LABS: CLARITY,URINE CLEAR; COLOR,URINE YELLOW; GLUCOSE, URINE (UA) NEGATIVE (NEGATIVE); PROTEIN,URINE 1+ (NEGATIVE)
[2022-10-18 19:48] LABS: CHLORIDE 109 MMOL/L (98-107); POTASSIUM 3.8 MMOL/L (3.6-5.0); SODIUM 141 MMOL/L (135-145)
[2022-10-18 19:49] LABS: BILIRUBIN,URINE NEGATIVE (NEGATIVE); KETONES,URINE NEGATIVE (NEGATIVE); LEUKOCYTE ESTERASE ,URINE NEGATIVE (NEGATIVE); NITRITE,URINE NEGATIVE (NEGATIVE)
[2022-10-18 19:50] LABS: CALCIUM 9.5 MG/DL (8.5-10.1)
--- NOTE | 2022-10-18 19:50 | Diagnostic Imaging Report ---
PROCEDURE: CT head without contrast. TECHNIQUE: Multiple contiguous axial images were obtained through the brain without the use of intravenous contrast. Auto Exposure Controls were utilized during the CT exam to meet ALARA standards for radiation dose reduction. INDICATION: Altered mental status. COMPARISON is made with prior CT from 08/12/2022. A small area of low attenuation in the right cerebellar hemisphere is noted, perhaps an old infarct. There is a large area of encephalomalacia in the left middle cerebral artery territory which is new since the prior CT but consistent with an old infarct. There is no sulcal effacement. The valle-white matter differentiation is maintained. No acute intra-axial or extra-axial hemorrhage is detected. Cisterns are patent. The visualized paranasal sinuses are clear. IMPRESSION: Chronic changes. No acute intracranial process is detected. Dictated by: Dictated on workstation # [id number]
[2022-10-18 19:51] LABS: GLUCOSE 97 MG/DL (70-105); TOTAL PROTEIN 6.9 GM/DL (6.4-8.2)
[2022-10-18 19:51] LABS: AMORPHOUS SEDIMENT,UR LARGE AMOR PHOSPHATE /LPF; BACTERIA,URINE NEGATIVE /HPF; SQUAMOUS EPITHELIAL CELL,UR 0-2 /HPF
[2022-10-18 19:52] LABS: CARBON DIOXIDE 25 MMOL/L (21-32)
[2022-10-18 19:53] LABS: BILIRUBIN,TOTAL 0.3 MG/DL (0.1-1.0)
[2022-10-18 19:55] LABS: ALKALINE PHOSPHATASE 77 U/L (40-136); CREATININE SERUM 0.86 MG/DL (0.60-1.30); GFR ESTIMATED 126
[2022-10-18 19:56] LABS: BUN/CREATININE RATIO 15
[2022-10-18 19:58] LABS: ALANINE AMINOTRANSFERASE 14 U/L (0-55); SALICYLATE < 5.0 MG/DL (5.0-20.0)
[2022-10-18 20:00] LABS: ACETAMINOPHEN < 10 UG/ML (10-30)
[2022-10-18 20:14] LABS: AMPHETAMINE SCREEN, URINE POSITIVE (NEGATIVE); BARBITURATE SCREEN URINE NEGATIVE (NEGATIVE); BENZODIAZEPINES SCREEN URINE NEGATIVE (NEGATIVE); CANNABINOID SCREEN, URINE NEGATIVE (NEGATIVE); COCAINE SCREEN URINE NEGATIVE (NEGATIVE); METHADONE STAT NEGATIVE (NEGATIVE); OPIATE SCREEN URINE NEGATIVE (NEGATIVE); OXYCODONE STAT NEGATIVE (NEGATIVE); PROPOXYPHENE STAT NEGATIVE (NEGATIVE); TRICYCLIC ANTIDEPRESSANTS SCRE NEGATIVE (NEGATIVE)
[2022-10-19 11:51] VITALS: BP 110/62
== END 2022-10-19 14:02 ==
LOC: EDUNIT# 17:51 → ER 17:54
DX: R45.6 Violent behavior (principal); R45.850 Homicidal ideations; R44.3 Hallucinations, unspecified; I49.8 Other specified cardiac arrhythmias; Z86.59 Personal history of other mental and behavioral disorders; Z79.899 Other long term (current) drug therapy; Z28.310 Unvaccinated for COVID-19; Z20.822 Contact with and (suspected) exposure to COVID-19
CPT/HCPCS: 70450; 80053; 80306; 81000; 85025; 87636; 93041; G0480 ×3; 36415; 80320; 80329; 93005

== ENCOUNTER 2022-11-29 17:56 | Emergency (ER) | payer MEDICAID ==
[~2022-11-29] VITALS: Ht 175 cm; Wt 49.8 kg
--- NOTE | 2022-11-29 18:38 | ED Psychosocial ---
General Chief Complaint: General Problems/Pain Stated Complaint: UTI IN THE PAST, SIMILAR SYMPTOMS, HARD TIME SLEEP Nursing Triage Note: PT AMBULATORY TO ER WTIH MOTHER. MOTHER STATES THINKS PT HAS A UTI. PT DENIES ANY URINARY S/S. REPORTS PT AGGRESSIVE IN THE EVENINGS. REPORTS SLEEPING DURING THE DAY AND AWAKE AT NIGHT. MOTHER REPORTS THAT PT WAS INPATIENT AT [facility] 1 MONTH AGO, MED CHANGES MADE. PT CURRENTLY TAKING DEPAKOTE, ZYPREXA, AND ABILIFY. Source: patient Exam Limitations: no limitations History of Present Illness Date Seen by Provider: Nov 29, 2022 Time Seen by Provider: 18:39 Initial Comments Patient is a 22-year-old male who presents to the ED with mother for behavioral health issues. She states since he suffered a stroke this past year patient has been overly aggressive especially at night. Mother states she works during the day. Patient stays at home and sleeps during the day. Patient does not want to sleep at night. He is really aggressive towards her in the evening. She states patient tends to get fixed on certain things and will continue asking her about the same thing. Patient Was recently admitted to [facility] in [place] this past month. Was discharged and had medication adjustment changes She states the medication is not helping. They contacted his therapist Danielle Hernandez who recommended come to ED for further evaluation. Patient has no current complaints. Denies cough, runny nose, abdominal pain but dysuria, hematuria, headache, dizziness, unilateral weakness. Patient denies any suicidal or homicidal thoughts. Patient with aggressive thoughts toward his mother. Reports hallucinations Allergies and Home Medications Allergies Coded Allergies: Sulfa (Sulfonamide Antibiotics) (Unverified Allergy, Unknown, PT HASN'T HAD, BUT MOM SEVERELY ALLERGIC, 11/01/13) Patient Home Medication List Home Medication List Reviewed: Yes Acetaminophen (Tylenol Extra Strength) 500 Mg Tablet, 500 MG PO Q4H PRN for PAIN-MILD (1-4), (Reported) Entered as Reported by: AYLIN HENRY on 08/31/22 1108 Cefdinir (Cefdinir) 300 Mg Capsule, 300 MG PO BID Prescribed by: YSABEL SALGADO on 09/21/222036 Hydroxyzine Pamoate (Hydroxyzine Pamoate) 50 Mg Capsule, 50 MG PO BID Prescribed by: AURE RUIZ on 09/09/22 1237 Lisdexamfetamine Dimesylate (Vyvanse) 40 Mg Capsule, 40 MG PO DAILY, (Reported) Entered as Reported by: TIERRA BERMAN on 07/01/15 1425 Olanzapine (Zyprexa Zydis) 10 Mg Tab.rapdis, 10 MG PO TID Prescribed by: NAMRATA GERMAIN on 09/17/22 1813 Ondansetron (Ondansetron Odt) 4 Mg Tab.rapdis, 4 MG PO Q6H PRN for NAUSEA/VOMITING-1ST LINE Prescribed by: AURE RUIZ on 09/09/22 1237 Ondansetron (Ondansetron Odt) 4 Mg Tab.rapdis, 4 MG SL Q6H PRN for NAUSEA/VOMITING Prescribed by: YSABEL SALGADO on 09/21/22 2246 Pantoprazole Sodium (Protonix) 40 Mg Tablet.dr, 40 MG PO DAILY Prescribed by: NAMRATA GERMAIN on 09/17/22 1844 Vancomycin HCl in Dextrose 5 % (Vancomycin 1.25 Gram/250Ml-D5w) 1.25 Gram/250 Ml Plast..bag, 1.25 GM IV Q12H Prescribed by: AURE RUIZ on 09/09/22 1238 Review of Systems Constitutional: No chills, No malaise EENTM: No hearing loss, No ear pain Respiratory: No cough, No dyspnea on exertion, No short of breath Cardiovascular: No chest pain, No edema Gastrointestinal: No abdominal pain, No diarrhea, No nausea, No vomiting Genitourinary: No decreased output, No discharge Musculoskeletal: No back pain, No joint pain Skin: No change in color Psychiatric/Neurological: Other (Aggressive) All Other Systems Reviewed Negative Unless Noted: Yes Past [id number] Hx Patient Social History Tobacco Use?: No Substance use?: No Alcohol Use?: No Pt feels they are or have been: No Immunizations Up To Date PED Vaccines UTD: Yes First/Initial COVID19 Vaccinat: DENIES Past Medical History Surgery/Hospitalization HX: PTSD, STROKE, ANXIETY, DEPRESSION, CYST REMOVAL, LYMPH NODES REMOVED, Reproductive Disorders: No Loss of Vision: Denies Hearing Impairment: Denies ADD/ADHD, Bipolar Family Medical History Cancer Physical Exam Vital Signs - First Documented 11/29/22 18:20 Temp 36.9 Pulse 64 Resp 18 B/P (MAP) 120/67 (84) Pulse Ox 99 O2 Delivery Room Air Capillary Refill : Height, Weight, BMI Height: 5'3.00" Weight: 90lbs. 0.0oz. 40.400243yu; 16.00 BMI Method:Stated General Appearance: WD/WN, no apparent distress HEENT: PERRL/EOMI, normal ENT inspection, TMs normal, pharynx normal Neck: non-tender, full range of motion, supple Respiratory: chest non-tender, lungs clear, normal breath sounds, no respiratory distress, no accessory muscle use Cardiovascular: regular rate, rhythm, no edema, no gallop, no JVD Gastrointestinal: normal bowel sounds, non tender, soft, no organomegaly Extremities: normal range of motion, non-tender, normal inspection, no pedal edema, no calf tenderness Neurologic/Psychiatric: hair dresser II-XII nml as tested, no motor/sensory deficits, alert, normal mood/affect, oriented x 3 Appearance/Memory: appropriate appearance, appropriate insight, neat Behavior/Eye Contact: cooperative, good eye contact Thoughts/Hallucinations: normal thought pattern, no apparent hallucination Skin: normal color, warm/dry Progress/Results/Core Measures Results/Orders Lab Results Laboratory Tests Test 11/29/22 18:23 11/29/22 18:42 Range/Units Urine Color YELLOW Urine Clarity CLEAR Urine pH 7.5 5-9 Urine Specific [place] 1.020 1.016-1.022 Urine Protein NEGATIVE NEGATIVE Urine Glucose (UA) NEGATIVE NEGATIVE Urine Ketones TRACE H NEGATIVE Urine Nitrite NEGATIVE NEGATIVE Urine Bilirubin NEGATIVE NEGATIVE Urine Urobilinogen 0.2 < = 1.0 MG/DL Urine Leukocyte Esterase NEGATIVE NEGATIVE Urine RBC (Auto) NEGATIVE NEGATIVE Urine RBC RARE /HPF Urine WBC NONE /HPF Urine Squamous Epithelial Cells NONE /HPF Urine Crystals PRESENT H /LPF Urine Amorphous Sediment LARGE MARIUSZ PHOSPHATE H /LPF Urine Bacteria TRACE /HPF Urine Casts NONE /LPF Urine Mucus LARGE H /LPF Urine Culture Indicated NO Urine Opiates Screen NEGATIVE NEGATIVE Urine Oxycodone Screen NEGATIVE NEGATIVE Urine Methadone Screen NEGATIVE NEGATIVE Urine Propoxyphene Screen NEGATIVE NEGATIVE Urine Barbiturates Screen NEGATIVE NEGATIVE Ur Tricyclic Antidepressants Screen NEGATIVE NEGATIVE Urine Phencyclidine Screen NEGATIVE NEGATIVE Urine Amphetamines Screen NEGATIVE NEGATIVE Urine Methamphetamines Screen NEGATIVE NEGATIVE Urine Benzodiazepines Screen NEGATIVE NEGATIVE Urine Cocaine Screen NEGATIVE NEGATIVE Urine Cannabinoids Screen NEGATIVE NEGATIVE White Blood Count 5.2 4.3-11.0 10^3/uL Red Blood Count 5.10 4.30-5.52 10^6/uL Hemoglobin 15.0 13.3-17.7 g/dL Hematocrit 45 40-54 % Mean Corpuscular Volume 87 80-99 fL Mean Corpuscular Hemoglobin 29 25-34 pg Mean Corpuscular Hemoglobin Concent 34 32-36 g/dL Red Cell Distribution Width 12.8 10.0-14.5 % Platelet Count 185 130-400 10^3/uL Mean Platelet Volume 10.0 9.0-12.2 fL Immature Granulocyte % (Auto) 0 % Neutrophils (%) (Auto) 51 42-75 % Lymphocytes (%) (Auto) 33 12-44 % Monocytes (%) (Auto) 12 0-12 % Eosinophils (%) (Auto) 3 0-10 % Basophils (%) (Auto) 1 0-10 % Neutrophils # (Auto) 2.7 1.8-7.8 10^3/uL Lymphocytes # (Auto) 1.7 1.0-4.0 10^3/uL Monocytes # (Auto) 0.6 0.0-1.0 10^3/uL Eosinophils # (Auto) 0.1 0.0-0.3 10^3/uL Basophils # (Auto) 0.1 0.0-0.1 10^3/uL Immature Granulocyte # (Auto) 0.0 0.0-0.1 10^3/uL Sodium Level 140 135-145 MMOL/L Potassium Level 3.9 3.6-5.0 MMOL/L Chloride Level 104 98-107 MMOL/L Carbon Dioxide Level 27 21-32 MMOL/L Anion Gap 9 5-14 MMOL/L Blood Urea Nitrogen 17 7-18 MG/DL Creatinine 0.91 0.60-1.30 MG/DL Estimat Glomerular Filtration Rate 122 BUN/Creatinine Ratio 19 Glucose Level 97 70-105 MG/DL Calcium Level 9.5 8.5-10.1 MG/DL Corrected Calcium 9.4 8.5-10.1 MG/DL Total Bilirubin 0.4 0.1-1.0 MG/DL Aspartate Amino Transf (AST/SGOT) 15 5-34 U/L Alanine Aminotransferase (ALT/SGPT) 8 0-55 U/L Alkaline Phosphatase 67 40-136 U/L Total Protein 6.8 6.4-8.2 GM/DL Albumin 4.1 3.2-4.5 GM/DL Salicylates Level < 5.0 L 5.0-20.0 MG/DL Acetaminophen Level < 10 L 10-30 UG/ML Valproic Acid (Depakene) Level 73.1 50.0-100.0 UG/ML Serum Alcohol < 10 <10 MG/DL Influenza Type A (RT-PCR) Not Detected Not Detecte Influenza Type B (RT-PCR) Not Detected Not Detecte SARS-CoV-2 RNA (RT-PCR) Not Detected Not Detecte My Orders Orders - YSABEL DUMONT Ua Culture If Indicated (11/29/22 18:07) Cbc With Automated Diff (11/29/22 18:36) Comprehensive Metabolic Panel (11/29/22 18:36) Alcohol (11/29/22 18:36) Drug Screen Stat (Urine) (11/29/22 18:36) Acetaminophen (11/29/22 18:36) Salicylate (11/29/22 18:36) Ekg Tracing (11/29/22 18:36) Covid 19 Inhouse Test (11/29/22 18:36) Influenza A And B By Pcr (11/29/22 18:36) Valproic Acid (11/29/22 18:37) Lorazepam Tablet (Lorazepam Tablet) (11/29/22 21:15) Lorazepam Tablet (Lorazepam Tablet) (11/29/22 21:05) Medications Given in ED Vital Signs/I&O Blood Pressure Mean: 84 Comment Sinus bradycardia with sinus arrhythmia, minimal ST depression, 56 bpm, QRS duration 106 MS, QTc 385 MS. Departure Communication (PCP) Patient with a complicated medical history. Patient with history of CVA and endocarditis. Recently discharged from [facility] in [place]. Mother reports increased aggressive behavior at home. Patient is sleeping throughout the day since mother is gone and stays awake throughout the evening. Patient has no current complaints. Patient had recent change in medication. Mother states the medication is not working. Patient has had a history of hallucinations no currently. No suicidal homicidal thoughts. Mother is having difficulty taking care of patient at home. States he repetitively asked the same question at home. Increased aggressive behavior towards mom at home. History of homicidal type behavior in the past. Psych work-up was initiated. Lab work was grossly unremarkable. COVID influenza negative. Drug screen unremarkable. Patient remained hemodynamically stable. Patient was evaluated by behavioral health. At this time the recommended safety plan and to follow-up outpatient [place] with his therapist Danielle Hernandez at [facility]. Patient may need medication changes. Patient symptoms seem to be worse when he is around his mother. Mother feels safe to take patient home at this time. Return precautions were discussed. Provided outpatient resources. Impression Primary Impression: Aggressive behavior Disposition: 01 HOME, SELF-CARE Condition: Stable Departure-Patient Inst. Decision time for Depature: 22:45 Referrals: [facility] (PCP/Family) Primary Care Physician Patient Instructions: BEHAVORIAL HEALTH Add. Discharge Instructions: Need to follow-up with behavioral health tomorrow. Contact your therapist. If any worsening symptoms return back to ED. All discharge instructions reviewed with patient and/or family. Voiced understanding. YSABEL DUMONT Nov 29, 2022 18:38
[2022-11-29 18:47] LABS: BASOPHILS # (AUTO) 0.1 10^3/uL (0.0-0.1); BASOPHILS % (AUTO) 1 % (0-10); EOSINOPHILS # (AUTO) 0.1 10^3/uL (0.0-0.3); EOSINOPHILS % (AUTO) 3 % (0-10); HEMATOCRIT 45 % (40-54); LYMPHOCYTES # (AUTO) 1.7 10^3/uL (1.0-4.0); LYMPHOCYTES % (AUTO) 33 % (12-44); MEAN CORPUSCULAR HEMOGLOBIN 29 pg (25-34); MEAN CORPUSCULAR HGB CONC 34 g/dL (32-36); MEAN CORPUSCULAR VOLUME 87 fL (80-99); MONOCYTES # (AUTO) 0.6 10^3/uL (0.0-1.0); MONOCYTES % (AUTO) 12 % (0-12); NEUTROPHILS # (AUTO) 2.7 10^3/uL (1.8-7.8); NEUTROPHILS % (AUTO) 51 % (42-75); PLATELET COUNT 185 10^3/uL (130-400); WHITE BLOOD COUNT 5.2 10^3/uL (4.3-11.0)
[2022-11-29 18:52] LABS: CLARITY,URINE CLEAR; COLOR,URINE YELLOW
[2022-11-29 18:53] LABS: BACTERIA,URINE TRACE /HPF; BILIRUBIN,URINE NEGATIVE (NEGATIVE); LEUKOCYTE ESTERASE ,URINE NEGATIVE (NEGATIVE); NITRITE,URINE NEGATIVE (NEGATIVE); RBC,URINE RARE /HPF
[2022-11-29 18:55] LABS: AMPHETAMINE SCREEN, URINE NEGATIVE (NEGATIVE); BARBITURATE SCREEN URINE NEGATIVE (NEGATIVE); CANNABINOID SCREEN, URINE NEGATIVE (NEGATIVE); COCAINE SCREEN URINE NEGATIVE (NEGATIVE); METHADONE STAT NEGATIVE (NEGATIVE); OPIATE SCREEN URINE NEGATIVE (NEGATIVE); OXYCODONE STAT NEGATIVE (NEGATIVE); PROPOXYPHENE STAT NEGATIVE (NEGATIVE); TRICYCLIC ANTIDEPRESSANTS SCRE NEGATIVE (NEGATIVE)
[2022-11-29 18:59] LABS: GLUCOSE, URINE (UA) NEGATIVE (NEGATIVE); PH,URINE 7.5 (5-9); PROTEIN,URINE NEGATIVE (NEGATIVE)
[2022-11-29 19:00] LABS: AMORPHOUS SEDIMENT,UR LARGE AMOR PHOSPHATE /LPF; KETONES,URINE TRACE (NEGATIVE)
[2022-11-29 19:03] LABS: ALBUMIN 4.1 GM/DL (3.2-4.5); CHLORIDE 104 MMOL/L (98-107); POTASSIUM 3.9 MMOL/L (3.6-5.0); SODIUM 140 MMOL/L (135-145)
[2022-11-29 19:05] LABS: CALCIUM 9.5 MG/DL (8.5-10.1)
[2022-11-29 19:06] LABS: GLUCOSE 97 MG/DL (70-105); TOTAL PROTEIN 6.8 GM/DL (6.4-8.2)
[2022-11-29 19:07] LABS: BILIRUBIN,TOTAL 0.4 MG/DL (0.1-1.0); CARBON DIOXIDE 27 MMOL/L (21-32)
[2022-11-29 19:09] LABS: ALKALINE PHOSPHATASE 67 U/L (40-136); CREATININE SERUM 0.91 MG/DL (0.60-1.30); GFR ESTIMATED 122
[2022-11-29 19:11] LABS: BUN/CREATININE RATIO 19
[2022-11-29 19:12] LABS: ALANINE AMINOTRANSFERASE 8 U/L (0-55); SALICYLATE < 5.0 MG/DL (5.0-20.0)
[2022-11-29 19:19] LABS: VALPROIC ACID 73.1 UG/ML (50.0-100.0)
[2022-11-29 19:24] LABS: ACETAMINOPHEN < 10 UG/ML (10-30)
[2022-11-29] MEDS ORDERED: LORazepam 0.5 MG TABLET ONE (21:05)
[2022-11-29] MEDS ORDERED: LORazepam 0.5 MG TABLET PO ONE (21:15)
[2022-11-29 22:50] VITALS: BP 112/68
== END 2022-11-29 22:52 | disposition home or self-care (01) ==
LOC: EDUNIT# 17:56 → ER 17:59
DX: R45.6 Violent behavior (principal); F31.9 Bipolar disorder, unspecified; Z20.822 Contact with and (suspected) exposure to COVID-19; Z79.899 Other long term (current) drug therapy; Z28.310 Unvaccinated for COVID-19
CPT/HCPCS: 80053; 80164; 80306; 81000; 85025; 87636; 93005; 99283; G0480 ×3; 36415; 80320; 80329

== ENCOUNTER 2023-01-23 18:43 | Emergency (ER) | payer MEDICAID ==
[~2023-01-23] VITALS: Ht 170.1 cm; Wt 49.8 kg
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
[2023-01-23 19:58] VITALS: BP 107/78
== END 2023-01-23 19:58 | disposition home or self-care (01) ==
LOC: EDUNIT# 18:43 → ER 18:47
DX: R45.6 Violent behavior (principal); Z86.59 Personal history of other mental and behavioral disorders
CPT/HCPCS: 99284

== ENCOUNTER 2023-01-24 14:26 | Emergency (ER) | payer MEDICAID ==
[~2023-01-24] VITALS: Ht 175 cm; Wt 70.0 kg
[2023-01-24 14:40] VITALS: BP 107/76
--- NOTE | 2023-01-24 15:16 | ED Psychosocial ---
General Chief Complaint: Psych/Social Disorder Stated Complaint: SUICIDAL THOUGHTS Nursing Triage Note: AMBULATED TO FAST TRACK ET STATES HE STARTED HAVING SCUICIDAL THOUGHTS LAST NIGHT ABOUT USING A KNIFE TO HARM/KILL HIMSELF. Source: patient, family Exam Limitations: no limitations (MEMO CABELLO APRN) History of Present Illness Date Seen by Provider: Jan 24, 2023 Time Seen by Provider: 14:48 Initial Comments 22-year-old male presents to the ER for concerns of depression and suicidal ideation. Patient's mother reports that he made suicidal statements and told his mother that he was depressed last night. He went to bed shortly after this. This morning he told his mom again that he was depressed and wanted to hurt himself. He had thoughts about using a knife to harm himself. He states he did not do anything to harm himself. He currently denies any suicidal thoughts. Denies any suicidal plan. Mother states that he was complaining of abdominal pain earlier, patient denies pain at this time. States that he was having some sharp mid abdominal pain after eating. Patient was seen here last night for suicidal thoughts. At that time patient had not had any suicidal thoughts for at least 24 hours, and was not currently having suicidal thoughts during his ER visit. He was discharged at that time to follow-up with [facility]. Patient is currently established with [facility] and they manage his medications. 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 He was using a walker, but no longer needs it. Mother reports that she feels as though he is confused at times or does not seem to be acting normal. She believes that he needs his medications adjusted. (MEMO CABELLO APRN) Allergies and Home Medications Allergies Coded Allergies: Sulfa (Sulfonamide Antibiotics) (Unverified Allergy, Unknown, PT HASN'T HAD, BUT MOM SEVERELY ALLERGIC, 11/01/13) Patient Home Medication List Home Medication List Reviewed: Yes (MEMO CABELLO APRN) Acetaminophen (Tylenol Extra Strength) 500 Mg Tablet, 500 MG PO Q4H PRN for PAIN-MILD (1-4), (Reported) Entered as Reported by: AYLIN HENRY on 08/31/22 1747 Cefdinir (Cefdinir) 300 Mg Capsule, 300 MG PO BID Prescribed by: YSABEL SALGADO on 09/21/222036 Hydroxyzine Pamoate (Hydroxyzine Pamoate) 50 Mg Capsule, 50 MG PO BID Prescribed by: AURE RUIZ on 09/09/22 1237 Lisdexamfetamine Dimesylate (Vyvanse) 40 Mg Capsule, 40 MG PO DAILY, (Reported) Entered as Reported by: TIERRA BERMAN on 07/01/15 1425 Olanzapine (Zyprexa Zydis) 10 Mg Tab.rapdis, 10 MG PO TID Prescribed by: NAMRATA GERMAIN on 09/17/22 1813 Ondansetron (Ondansetron Odt) 4 Mg Tab.rapdis, 4 MG PO Q6H PRN for NAUSEA/VOMITING-1ST LINE Prescribed by: AURE RUIZ on 09/09/22 1237 Ondansetron (Ondansetron Odt) 4 Mg Tab.rapdis, 4 MG SL Q6H PRN for NAUSEA/VOMITING Prescribed by: YSABEL SALGADO on 09/21/22 2246 Pantoprazole Sodium (Protonix) 40 Mg Tablet.dr, 40 MG PO DAILY Prescribed by: NAMRATA GERMAIN on 09/17/22 1844 Vancomycin HCl in Dextrose 5 % (Vancomycin 1.25 Gram/250Ml-D5w) 1.25 Gram/250 Ml Plast..bag, 1.25 GM IV Q12H Prescribed by: AURE RUIZ on 09/09/22 1238 Review of Systems Constitutional: see HPI (MEMO CABELLO APRN) Past Itoydpj-Fcqear-Zjqskq Hx Patient Social History Tobacco Use?: No Substance use?: No Alcohol Use?: No (MEMO CABELLO APRN) Immunizations Up To Date PED Vaccines UTD: Yes First/Initial COVID19 Vaccinat: DENIES Second COVID19 Vaccination Tej: DENIES Third COVID19 Vaccination Date: DENIES (MEMO CABELLO APRN) Past Medical History Surgery/Hospitalization HX: PTSD, STROKE, ANXIETY, DEPRESSION, CYST REMOVAL, LYMPH NODES REMOVED, Reproductive Disorders: No Loss of Vision: Denies Hearing Impairment: Denies ADD/ADHD, Bipolar (MEMO CABELLO APRN) Family Medical History Cancer (MEMO CABELLO APRN) Physical Exam Vital Signs - First Documented 01/24/23 14:40 Temp 36.0 Pulse 80 Resp 16 B/P (MAP) 107/76 (86) Pulse Ox 99 O2 Delivery Room Air (JESU OROZCO MD) Capillary Refill : Less Than 3 Seconds (MEMO CABELLO APRN) Height, Weight, BMI Height: 5'3.00" Weight: 90lbs. 0.0oz. 40.285122yx; 22.00 BMI Method:Stated General Appearance: WD/WN, no apparent distress Neck: supple, normal inspection Respiratory: lungs clear, normal breath sounds, no respiratory distress, no accessory muscle use Cardiovascular: regular rate, rhythm Gastrointestinal: normal bowel sounds, non tender, soft Extremities: normal range of motion, normal inspection Neurologic/Psychiatric: alert, depressed affect Appearance/Memory: appropriate appearance, appropriate insight, neat Behavior/Eye Contact: cooperative, avoids eye contact, other (Speaks quietly) Thoughts/Hallucinations: normal thought pattern, no apparent hallucination Skin: normal color, warm/dry (MEMO CABELLO APRN) Progress/Results/Core Measures Results/Orders Blood Pressure Mean: 86 Progress Progress Note : Progress Note Patient seen and evaluated, resting in recliner, no acute distress. Patient has a depressed affect, mostly avoids eye contact. Patient is constantly fluctuating [id number] between feeling suicidal and not feeling suicidal. Due to this, I would like [facility] to evaluate him. Work- up initiated including CBC, CMP, alcohol level, Tylenol level, salicylate level, urinalysis, urine drug screen, TSH, EKG, COVID testing. 1615 Labs reviewed. CBC grossly normal. CMP grossly normal. TSH normal. Urine drug screen negative. Salicylate, Tylenol, alcohol level negative. Urinalysis negative for infection. Patient is medically cleared. 1730 [facility] evaluated patient. They establish a safety plan with patient and mother. I discussed safety plan with patient and mother, they agreed to safety plan. Patient is stable for discharge. Discharge instructions and return precautions provided. (MEMO CABELLO APRN) Initial ECG Impression Date: Jan 24, 2023 Initial ECG Impression Time: 15:16 Initial ECG Rate: 42 Initial ECG Rhythm: S.Nico Initial ECG Intervals: Normal Initial ECG Impression: Nonspecific Changes Initial ECG Comparisson: Unchanged (MEMO CABELLO APRN) Departure Impression Primary Impression: Depression Additional Impression: Suicidal ideation Disposition: 01 HOME, SELF-CARE Condition: Stable Departure-Patient Inst. Decision time for Depature: 17:30 (MEMO CABELLO APRN) Referrals: [facility] (PCP/Family) Primary Care Physician Patient Instructions: Suicide Prevention Add. Discharge Instructions: Adhere to the safety plan. Call [phone] if you are having any suicidal thoughts. Return for any new, concerning, or worsening symptoms. All discharge instructions reviewed with patient and/or family. Voiced understanding. ATTENDING PHYSICIAN NOTE: I was physically present as attending physician in the emergency department during the care of this patient, but I was not directly involved in the decision making or delivery of care for this patient. (JESU OROZCO MD) MEMO CABELLO APRN Jan 24, 2023 15:16 JESU OROZCO MD Jan 27, 2023 06:34
[2023-01-24 15:21] LABS: BASOPHILS # (AUTO) 0.1 10^3/uL (0.0-0.1); BASOPHILS % (AUTO) 1 % (0-10); EOSINOPHILS # (AUTO) 0.2 10^3/uL (0.0-0.3); EOSINOPHILS % (AUTO) 2 % (0-10); HEMATOCRIT 45 % (40-54); HEMOGLOBIN 15.6 g/dL (13.3-17.7); LYMPHOCYTES # (AUTO) 3.6 10^3/uL (1.0-4.0); LYMPHOCYTES % (AUTO) 37 % (12-44); MEAN CORPUSCULAR HEMOGLOBIN 31 pg (25-34); MEAN CORPUSCULAR HGB CONC 35 g/dL (32-36); MEAN CORPUSCULAR VOLUME 87 fL (80-99); MONOCYTES # (AUTO) 0.9 10^3/uL (0.0-1.0); MONOCYTES % (AUTO) 9 % (0-12); NEUTROPHILS % (AUTO) 52 % (42-75); PLATELET COUNT 238 10^3/uL (130-400); WHITE BLOOD COUNT 9.7 10^3/uL (4.3-11.0)
[2023-01-24 15:23] LABS: AMPHETAMINE SCREEN, URINE NEGATIVE (NEGATIVE); BARBITURATE SCREEN URINE NEGATIVE (NEGATIVE); CANNABINOID SCREEN, URINE NEGATIVE (NEGATIVE); COCAINE SCREEN URINE NEGATIVE (NEGATIVE); METHADONE STAT NEGATIVE (NEGATIVE); OPIATE SCREEN URINE NEGATIVE (NEGATIVE); OXYCODONE STAT NEGATIVE (NEGATIVE); TRICYCLIC ANTIDEPRESSANTS SCRE NEGATIVE (NEGATIVE)
[2023-01-24 15:26] LABS: BILIRUBIN,URINE NEGATIVE (NEGATIVE); CLARITY,URINE CLEAR; COLOR,URINE YELLOW; GLUCOSE, URINE (UA) NEGATIVE (NEGATIVE); KETONES,URINE NEGATIVE (NEGATIVE); LEUKOCYTE ESTERASE ,URINE NEGATIVE (NEGATIVE); NITRITE,URINE NEGATIVE (NEGATIVE); PROTEIN,URINE 1+ (NEGATIVE)
[2023-01-24 15:27] LABS: BACTERIA,URINE NEGATIVE /HPF
[2023-01-24 15:35] LABS: CHLORIDE 106 MMOL/L (98-107); POTASSIUM 3.7 MMOL/L (3.6-5.0); SODIUM 140 MMOL/L (135-145)
[2023-01-24 15:37] LABS: CALCIUM 9.3 MG/DL (8.5-10.1)
[2023-01-24 15:38] LABS: GLUCOSE 111 MG/DL (70-105); TOTAL PROTEIN 6.9 GM/DL (6.4-8.2)
[2023-01-24 15:39] LABS: CARBON DIOXIDE 26 MMOL/L (21-32)
[2023-01-24 15:40] LABS: BILIRUBIN,TOTAL 0.8 MG/DL (0.1-1.0)
[2023-01-24 15:42] LABS: ALKALINE PHOSPHATASE 82 U/L (40-136); CREATININE SERUM 1.06 MG/DL (0.60-1.30); GFR ESTIMATED 102
[2023-01-24 15:43] LABS: BUN/CREATININE RATIO 16
[2023-01-24 15:44] LABS: SALICYLATE < 5.0 MG/DL (5.0-20.0)
[2023-01-24 15:45] LABS: ALANINE AMINOTRANSFERASE 34 U/L (0-55)
[2023-01-24 15:54] LABS: ACETAMINOPHEN < 10 UG/ML (10-30)
[2023-01-24 16:05] LABS: TSH (THYROID ANALYZER) 0.47 UIU/ML (0.35-4.94)
== END 2023-01-24 17:35 | disposition home or self-care (01) ==
LOC: EDUNIT# 14:26 → ER 14:30
DX: F32.A Depression, unspecified (principal); R45.851 Suicidal ideations
CPT/HCPCS: 80053; 80306; 81000; 84443; 85025; 93005; 99283; G0480 ×3; 36415; 80320; 80329

== ENCOUNTER 2023-01-29 14:49 | Emergency (ER) | payer MEDICAID ==
[~2023-01-29] VITALS: Ht 172 cm; Wt 54.0 kg
--- NOTE | 2023-01-29 15:47 | ED Psychosocial ---
General Chief Complaint: Suicidal Ideation Risk Stated Complaint: SUICIDAL THOUGHTS/HALLUCINATIONS Source: patient, family Exam Limitations: no limitations (MEMO CABELLO APRN) History of Present Illness Date Seen by Provider: Jan 29, 2023 Time Seen by Provider: 15:15 Initial Comments 22-year-old male presents to the ER with mother for reports of suicidal ideation. This is patient's third visit within the last 7 days for suicidal ideation. He denies a current plan. His mother reports that he has been having hallucinations. States that last night he seemed to be talking to someone who was not there. She reports that he seems to get worse after he takes his pills at night. States that he gets angry after taking his medications. Denies fevers, abdominal pain, nausea, vomiting, diarrhea. He currently takes hydroxyzine, Depakote, Abilify, atorvastatin, and Colace. The dose of his Abilify has been increased, but he has not started this higher dose. 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 This has left him with some residual effects, he is confused/forgetful at times. (MEMO CABELLO APRN) Allergies and Home Medications Allergies Coded Allergies: Sulfa (Sulfonamide Antibiotics) (Unverified Allergy, Unknown, PT HASN'T HAD, BUT MOM SEVERELY ALLERGIC, 11/01/13) Patient Home Medication List Home Medication List Reviewed: Yes (MEMO CABELLO APRN) Acetaminophen (Tylenol Extra Strength) 500 Mg Tablet, 500 MG PO Q4H PRN for PAIN-MILD (1-4), (Reported) Entered as Reported by: AYLIN HENRY on 08/31/22 1108 Cefdinir (Cefdinir) 300 Mg Capsule, 300 MG PO BID Prescribed by: YSABEL SALGADO on 09/21/222036 Hydroxyzine Pamoate (Hydroxyzine Pamoate) 50 Mg Capsule, 50 MG PO BID Prescribed by: AURE RUIZ on 09/09/22 1237 Lisdexamfetamine Dimesylate (Vyvanse) 40 Mg Capsule, 40 MG PO DAILY, (Reported) Entered as Reported by: TIERRA BERMAN on 07/01/15 1425 Olanzapine (Zyprexa Zydis) 10 Mg Tab.rapdis, 10 MG PO TID Prescribed by: NAMRATA GERMAIN on 09/17/22 1813 Ondansetron (Ondansetron Odt) 4 Mg Tab.rapdis, 4 MG PO Q6H PRN for NAUSEA/VOMITING-1ST LINE Prescribed by: AURE RUIZ on 09/09/22 1237 Ondansetron (Ondansetron Odt) 4 Mg Tab.rapdis, 4 MG SL Q6H PRN for NAUSEA/VOMITING Prescribed by: YSABEL SALGADO on 09/21/22 2246 Pantoprazole Sodium (Protonix) 40 Mg Tablet.dr, 40 MG PO DAILY Prescribed by: NAMRATA GERMAIN on 09/17/22 1844 Vancomycin HCl in Dextrose 5 % (Vancomycin 1.25 Gram/250Ml-D5w) 1.25 Gram/250 Ml Plast..bag, 1.25 GM IV Q12H Prescribed by: AURE RUIZ on 09/09/22 1238 Review of Systems Constitutional: see HPI (MEMO CABELLO APRN) Past Ymnrtul-Pbdpou-Djfpsb Hx Immunizations Up To Date PED Vaccines UTD: Yes First/Initial COVID19 Vaccinat: DENIES Second COVID19 Vaccination Tej: DENIES Third COVID19 Vaccination Date: DENIES (MEMO CABELLO APRN) Past Medical History Surgery/Hospitalization HX: PTSD, STROKE, ANXIETY, DEPRESSION, CYST REMOVAL, LYMPH NODES REMOVED, Reproductive Disorders: No Loss of Vision: Denies Hearing Impairment: Denies ADD/ADHD, Bipolar (MEMO CABELLO APRN) Family Medical History Cancer (MEMO CABELLO APRN) Physical Exam Vital Signs - First Documented 01/29/23 15:20 Temp 36.6 Pulse 59 Resp 18 B/P (MAP) 124/79 (94) Pulse Ox 98 (MARC,BETZY L DO) Capillary Refill : (MEMO CABELLO APRN) Height, Weight, BMI Height: 5'3.00" Weight: 90lbs. 0.0oz. 40.985873nh; 22.00 BMI Method:Stated General Appearance: WD/WN, no apparent distress Neck: supple, normal inspection Respiratory: lungs clear, normal breath sounds, no respiratory distress, no accessory muscle use Cardiovascular: regular rate, rhythm Gastrointestinal: normal bowel sounds, non tender, soft Extremities: normal range of motion, normal inspection Neurologic/Psychiatric: alert, normal mood/affect Appearance/Memory: appropriate appearance Behavior/Eye Contact: cooperative, good eye contact, normal speech Thoughts/Hallucinations: normal thought pattern, no apparent hallucination Skin: normal color, warm/dry (MEMO CABELLO APRN) Progress/Results/Core Measures Results/Orders Lab Results Laboratory Tests Test 01/29/23 15:48 01/29/23 17:01 Range/Units White Blood Count 5.4 4.3-11.0 10^3/uL Red Blood Count 5.21 4.30-5.52 10^6/uL Hemoglobin 15.7 13.3-17.7 g/dL Hematocrit 45 40-54 % Mean Corpuscular Volume 87 80-99 fL Mean Corpuscular Hemoglobin 30 25-34 pg Mean Corpuscular Hemoglobin Concent 35 32-36 g/dL Red Cell Distribution Width 13.0 10.0-14.5 % Platelet Count 220 130-400 10^3/uL Mean Platelet Volume 10.1 9.0-12.2 fL Immature Granulocyte % (Auto) 0 % Neutrophils (%) (Auto) 43 42-75 % Lymphocytes (%) (Auto) 45 H 12-44 % Monocytes (%) (Auto) 9 0-12 % Eosinophils (%) (Auto) 3 0-10 % Basophils (%) (Auto) 1 0-10 % Neutrophils # (Auto) 2.3 1.8-7.8 10^3/uL Lymphocytes # (Auto) 2.4 1.0-4.0 10^3/uL Monocytes # (Auto) 0.5 0.0-1.0 10^3/uL Eosinophils # (Auto) 0.1 0.0-0.3 10^3/uL Basophils # (Auto) 0.0 0.0-0.1 10^3/uL Immature Granulocyte # (Auto) 0.0 0.0-0.1 10^3/uL Sodium Level 142 135-145 MMOL/L Potassium Level 3.7 3.6-5.0 MMOL/L Chloride Level 106 98-107 MMOL/L Carbon Dioxide Level 28 21-32 MMOL/L Anion Gap 8 5-14 MMOL/L Blood Urea Nitrogen 12 7-18 MG/DL Creatinine 0.97 0.60-1.30 MG/DL Estimat Glomerular Filtration Rate 113 BUN/Creatinine Ratio 12 Glucose Level 74 70-105 MG/DL Calcium Level 9.4 8.5-10.1 MG/DL Corrected Calcium 9.3 8.5-10.1 MG/DL Total Bilirubin 1.0 0.1-1.0 MG/DL Aspartate Amino Transf (AST/SGOT) 37 H 5-34 U/L Alanine Aminotransferase (ALT/SGPT) 38 0-55 U/L Alkaline Phosphatase 78 40-136 U/L Total Protein 7.0 6.4-8.2 GM/DL Albumin 4.1 3.2-4.5 GM/DL Salicylates Level < 5.0 L 5.0-20.0 MG/DL Acetaminophen Level < 10 L 10-30 UG/ML Serum Alcohol < 10 <10 MG/DL Urine Color YELLOW Urine Clarity CLEAR Urine pH 7.0 5-9 Urine Specific [place] 1.025 H 1.016-1.022 Urine Protein TRACE H NEGATIVE Urine Glucose (UA) NEGATIVE NEGATIVE Urine Ketones NEGATIVE NEGATIVE Urine Nitrite NEGATIVE NEGATIVE Urine Bilirubin NEGATIVE NEGATIVE Urine Urobilinogen 0.2 < = 1.0 MG/DL Urine Leukocyte Esterase NEGATIVE NEGATIVE Urine RBC (Auto) NEGATIVE NEGATIVE Urine RBC NONE /HPF Urine WBC RARE /HPF Urine Squamous Epithelial Cells NONE /HPF Urine Crystals NONE /LPF Urine Bacteria NEGATIVE /HPF Urine Casts NONE /LPF Urine Mucus SMALL H /LPF Urine Culture Indicated NO Urine Opiates Screen NEGATIVE NEGATIVE Urine Oxycodone Screen NEGATIVE NEGATIVE Urine Methadone Screen NEGATIVE NEGATIVE Urine Barbiturates Screen NEGATIVE NEGATIVE Ur Tricyclic Antidepressants Screen NEGATIVE NEGATIVE Urine Phencyclidine Screen NEGATIVE NEGATIVE Urine Amphetamines Screen NEGATIVE NEGATIVE Urine Methamphetamines Screen NEGATIVE NEGATIVE Urine Benzodiazepines Screen NEGATIVE NEGATIVE Urine Cocaine Screen NEGATIVE NEGATIVE Urine Cannabinoids Screen NEGATIVE NEGATIVE (BETZY TRAN DO) Progress Progress Note : Progress Note Patient seen and evaluated, resting comfortably in bed, no acute distress. Based on exam and symptoms, psychiatric clearance labs ordered. Will have patient see mental health after he is medically cleared. 1739 Labs reviewed. CBC grossly normal. CMP grossly normal. Urinalysis negative for infection. Urine drug screen negative. Salicylate, Tylenol, alcohol level negative. Patient is cleared for mental health evaluation. (MEMO CABELLO APRN) Progress Note : Progress Note 1311: I assumed care of the patient at 0600 this morning pending placement. Patient did eat breakfast and lunch at least partially. He has been resting peacefully and in no distress. We did add thyroid studies and COVID test per request of potential admitting facility. These are negative. I did speak with Dr. Flores at [facility] psych and she is excepted the patient for admission to their facility. I did reevaluate the patient and discuss the events leading up to presentation. I did do an affidavit based on this conversation per the request of excepting facility. Patient again reports that he wants to get treatment and wants to go inpatient and states that he will follow the therapy guidelines. Pending transport team which should be here about 3 PM. Monitor patient. (MUMTAZ PEREA MD) Initial ECG Impression Date: Jan 29, 2023 Initial ECG Impression Time: 15:33 Initial ECG Rate: 73 Initial ECG Rhythm: Normal Sinus Initial ECG Intervals: Normal Initial ECG Impression: Nonspecific Changes Initial ECG Comparisson: Unchanged (MEMO CABELLO APRN) Departure Communication (Admissions) Patient has remained calm, cooperative during his emergency department stay for my shift. He has been given a dinner tray, currently sleeping. He has been screened and medically cleared. He has been screened by her psychiatric counselor recommended inpatient treatment. They are currently working on placement. (BETZY TRAN DO) Impression Primary Impression: Depression Qualified Codes: F32.A - Depression, unspecified Additional Impression: Suicidal ideation Disposition: 02 XFER SHT-TRM HOSP Condition: Stable Transfer [facility] Medically Cleared for Xfer: Yes Transfer Reason: Exceeds level of care Time Spoke to Accepting Phy: 13:10 Transfer Progress Notes See progress note. Excepted at [place] inpatient psychiatric unit with Dr. Flores accepting. (MUMTAZ PEREA MD) Departure-Patient Inst. Referrals: [facility] (PCP/Family) Primary Care Physician Patient Instructions: OUTPT MENTAL HEALTH SERVICES MEMO CABELLO APRN Jan 29, 2023 15:46 BETZY TRAN DO Jan 30, 2023 05:56 MUMTAZ PEREA MD Jan 30, 2023 13:32
[2023-01-29 15:54] LABS: BASOPHILS % (AUTO) 1 % (0-10); EOSINOPHILS # (AUTO) 0.1 10^3/uL (0.0-0.3); EOSINOPHILS % (AUTO) 3 % (0-10); HEMATOCRIT 45 % (40-54); HEMOGLOBIN 15.7 g/dL (13.3-17.7); LYMPHOCYTES # (AUTO) 2.4 10^3/uL (1.0-4.0); LYMPHOCYTES % (AUTO) 45 % (12-44); MEAN CORPUSCULAR HEMOGLOBIN 30 pg (25-34); MEAN CORPUSCULAR HGB CONC 35 g/dL (32-36); MEAN CORPUSCULAR VOLUME 87 fL (80-99); MEAN PLATELET VOLUME 10.1 fL (9.0-12.2); MONOCYTES # (AUTO) 0.5 10^3/uL (0.0-1.0); MONOCYTES % (AUTO) 9 % (0-12); NEUTROPHILS # (AUTO) 2.3 10^3/uL (1.8-7.8); NEUTROPHILS % (AUTO) 43 % (42-75); PLATELET COUNT 220 10^3/uL (130-400); WHITE BLOOD COUNT 5.4 10^3/uL (4.3-11.0)
[2023-01-29 16:02] LABS: ALBUMIN 4.1 GM/DL (3.2-4.5); CHLORIDE 106 MMOL/L (98-107); POTASSIUM 3.7 MMOL/L (3.6-5.0); SODIUM 142 MMOL/L (135-145)
[2023-01-29 16:03] LABS: CALCIUM 9.4 MG/DL (8.5-10.1)
[2023-01-29 16:04] LABS: GLUCOSE 74 MG/DL (70-105)
[2023-01-29 16:06] LABS: CARBON DIOXIDE 28 MMOL/L (21-32)
[2023-01-29 16:08] LABS: ALKALINE PHOSPHATASE 78 U/L (40-136); CREATININE SERUM 0.97 MG/DL (0.60-1.30); GFR ESTIMATED 113
[2023-01-29 16:10] LABS: ACETAMINOPHEN < 10 UG/ML (10-30); BUN/CREATININE RATIO 12
[2023-01-29 16:11] LABS: ALANINE AMINOTRANSFERASE 38 U/L (0-55); SALICYLATE < 5.0 MG/DL (5.0-20.0)
[2023-01-29 17:28] LABS: CLARITY,URINE CLEAR; COLOR,URINE YELLOW
[2023-01-29 17:29] LABS: PROTEIN,URINE TRACE (NEGATIVE)
[2023-01-29 17:32] LABS: BACTERIA,URINE NEGATIVE /HPF; BILIRUBIN,URINE NEGATIVE (NEGATIVE); GLUCOSE, URINE (UA) NEGATIVE (NEGATIVE); KETONES,URINE NEGATIVE (NEGATIVE); LEUKOCYTE ESTERASE ,URINE NEGATIVE (NEGATIVE); NITRITE,URINE NEGATIVE (NEGATIVE); WBC,URINE RARE /HPF
[2023-01-29 17:35] LABS: AMPHETAMINE SCREEN, URINE NEGATIVE (NEGATIVE); BARBITURATE SCREEN URINE NEGATIVE (NEGATIVE); CANNABINOID SCREEN, URINE NEGATIVE (NEGATIVE); COCAINE SCREEN URINE NEGATIVE (NEGATIVE); METHADONE STAT NEGATIVE (NEGATIVE); OPIATE SCREEN URINE NEGATIVE (NEGATIVE); OXYCODONE STAT NEGATIVE (NEGATIVE); TRICYCLIC ANTIDEPRESSANTS SCRE NEGATIVE (NEGATIVE)
[2023-01-30 14:55] VITALS: BP 127/76
== END 2023-01-30 14:55 | disposition short-term general hospital (02) ==
LOC: EDUNIT# 14:49 → ER 14:51
DX: F32.A Depression, unspecified (principal); R45.851 Suicidal ideations; Z79.899 Other long term (current) drug therapy; Z28.310 Unvaccinated for COVID-19
CPT/HCPCS: 80053; 80306; 81000; 84443; 85025; 87636; 93005; 99283; G0480 ×3; 36415; 80320; 80329

== ENCOUNTER 2023-02-19 19:30 | Emergency (ER) | payer MEDICAID ==
[~2023-02-19] VITALS: Ht 175.3 cm; Wt 54.0 kg
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
[2023-02-19 20:29] LABS: BASOPHILS % (AUTO) 1 % (0-10); EOSINOPHILS # (AUTO) 0.2 10^3/uL (0.0-0.3); EOSINOPHILS % (AUTO) 2 % (0-10); HEMATOCRIT 41 % (40-54); HEMOGLOBIN 14.5 g/dL (13.3-17.7); LYMPHOCYTES # (AUTO) 2.5 10^3/uL (1.0-4.0); LYMPHOCYTES % (AUTO) 32 % (12-44); MEAN CORPUSCULAR HEMOGLOBIN 31 pg (25-34); MEAN CORPUSCULAR HGB CONC 35 g/dL (32-36); MEAN CORPUSCULAR VOLUME 87 fL (80-99); MEAN PLATELET VOLUME 10.5 fL (9.0-12.2); MONOCYTES # (AUTO) 0.7 10^3/uL (0.0-1.0); MONOCYTES % (AUTO) 10 % (0-12); NEUTROPHILS # (AUTO) 4.3 10^3/uL (1.8-7.8); NEUTROPHILS % (AUTO) 56 % (42-75); PLATELET COUNT 192 10^3/uL (130-400); WHITE BLOOD COUNT 7.7 10^3/uL (4.3-11.0)
[2023-02-19 20:39] LABS: AMPHETAMINE SCREEN, URINE NEGATIVE (NEGATIVE); BARBITURATE SCREEN URINE NEGATIVE (NEGATIVE); CANNABINOID SCREEN, URINE NEGATIVE (NEGATIVE); COCAINE SCREEN URINE NEGATIVE (NEGATIVE); METHADONE STAT NEGATIVE (NEGATIVE); OPIATE SCREEN URINE NEGATIVE (NEGATIVE); OXYCODONE STAT NEGATIVE (NEGATIVE); TRICYCLIC ANTIDEPRESSANTS SCRE NEGATIVE (NEGATIVE)
[2023-02-19 20:56] LABS: ALANINE AMINOTRANSFERASE 17 U/L (0-55); ALBUMIN 3.9 GM/DL (3.2-4.5); ALKALINE PHOSPHATASE 68 U/L (40-136); BILIRUBIN,TOTAL 0.4 MG/DL (0.1-1.0); BUN/CREATININE RATIO 24; CALCIUM 9.3 MG/DL (8.5-10.1); CARBON DIOXIDE 25 MMOL/L (21-32); CHLORIDE 106 MMOL/L (98-107); CREATININE SERUM 0.88 MG/DL (0.60-1.30); GFR ESTIMATED 125; GLUCOSE 108 MG/DL (70-105); POTASSIUM 3.8 MMOL/L (3.6-5.0); SALICYLATE < 5.0 MG/DL (5.0-20.0); SODIUM 142 MMOL/L (135-145); TOTAL PROTEIN 6.4 GM/DL (6.4-8.2)
[2023-02-19 21:20] LABS: ACETAMINOPHEN < 10 UG/ML (10-30)
[2023-02-20 12:02] VITALS: BP 109/75
== END 2023-02-20 12:01 | disposition home or self-care (01) ==
LOC: EDUNIT# 19:30 → ER 19:31
DX: R45.851 Suicidal ideations (principal); F99 Mental disorder, not otherwise specified; F69 Unspecified disorder of adult personality and behavior; F17.290 Nicotine dependence, other tobacco product, uncomplicated; Z28.310 Unvaccinated for COVID-19
CPT/HCPCS: 80053; 80306; 85025; 87636; G0480 ×3; 36415; 80320; 80329; 93005